=== PATIENT | female | born 1960 | race Hispanic/Latino ===

== ENCOUNTER 2020-03-30 20:48 | Inpatient (IN) | payer OTHER ==
[~2020-03-30] VITALS: Ht 167.6 cm; Wt 87.6 kg
[2020-03-30] MEDS ORDERED: NS 1,000 ML IV ONE (21:15)
--- NOTE | 2020-03-30 21:17 | REPVR ---
PROCEDURE INFORMATION: Exam: CT Head Without Contrast Exam date and time: 03/30/2020 8:57 PM Age: 65 years old Clinical indication: Weakness, extremity; Left; Additional info: Left sided weakness TECHNIQUE: Imaging protocol: Computed tomography of the head without contrast. Radiation optimization: All CT scans at this facility use at least one of these dose optimization techniques: automated exposure control; mA and/or kV adjustment per patient size (includes targeted exams where dose is matched to clinical indication); or iterative reconstruction. COMPARISON: No relevant prior studies available. FINDINGS: Brain: Moderate generalized cerebral and cerebellar atrophy. 3 mm lacunar infarct in the mat on the left. Mild low-density in the periventricular white matter extending into mcnair radiata and centrum semiovale bilaterally. Basal ganglia calcifications are present. Gyriform hyperdensity noted in the right frontal lobe. No mass effect. Midline structures intact. Ventricles: Normal. No ventriculomegaly. Bones/joints: Unremarkable. No acute fracture. Sinuses: Visualized sinuses are unremarkable. No fluid levels. Mastoid air cells: Visualized mastoid air cells are well aerated. Soft tissues: Unremarkable. IMPRESSION: Gyriform hyperdensity in the right frontal lobe. Differential diagnostic considerations include cortical laminar necrosis in the context of chronic infarct, or atypical petechial hemorrhage. MR without and with gadolinium might be considered Electronically signed by: Anat Silva On 03/30/2020 21:16:54 PM
[2020-03-30 21:29] VITALS: BP 136/72
[2020-03-30 21:32] LABS: BASO % 0.4 % (0.0-1.0); EOS % 0.1 % (0.0-3.0); HEMATOCRIT 45.2 % (36.0-47.0); HEMOGLOBIN 13.6 g/dl (12.0-15.5); LYMPH # 1.2 10^3/uL (1.5-5.0); LYMPH % 15.5 % (24.0-44.0); MEAN CORPUSCULAR HEMOGLOBIN 26.2 pg (27.0-33.0); MEAN CORPUSCULAR HGB CONC 30.1 g/dl (32.0-36.5); MEAN CORPUSCULAR VOLUME 86.9 fl (80.0-96.0); MONO # 0.5 10^3/uL (0.0-0.8); MONO % 6.4 % (0.0-5.0); NEUTROPHILS # 5.9 10^3/uL (1.5-8.5); NEUTROPHILS % 77.2 % (36.0-66.0); PLATELET COUNT, AUTOMATED 297 10^3/uL (150-450); VENOUS BASE EXCESS -1.2 (-2.0-2.0); VENOUS HCO3 23.5 MEQ/L (23.0-27.0); VENOUS PARTIAL PRESSURE CO2 39.3 mmHg (38.0-50.0); VENOUS PARTIAL PRESSURE O2 114.2 mmHg (30.0-50.0); VENOUS PH 7.394 UNITS (7.330-7.430); VENOUS STANDARD HCO3 23.5 MEQ/L; VENOUS TOTAL CO2 24.7 MEQ/L (24.0-28.0); WHITE BLOOD COUNT 7.6 10^3/uL (4.0-10.0)
[2020-03-30] MEDS ORDERED: AMLO10TA5 PO (21:46)
[2020-03-30] MEDS ORDERED: SIMV40TA20 PO (21:46)
[2020-03-30] MEDS ORDERED: ATEN50TA2 PO (21:46)
[2020-03-30 21:54] VITALS: BP 184/86
[2020-03-30 21:57] LABS: INR 0.91
[2020-03-30 21:57] LABS: OSMOLALITY SERUM 323 MOSM/KG (280-301)
[2020-03-30 21:58] LABS: PARTIAL THROMBOPLASTIN TIME 27.2 SECONDS (25.0-38.4)
[2020-03-30 22:05] LABS: BLOOD UREA NITROGEN 15 MG/DL (7-18); CALCIUM LEVEL 8.3 MG/DL (8.8-10.2); CARBON DIOXIDE LEVEL 26 MEQ/L (21-32); CHLORIDE LEVEL 90 MEQ/L (98-107); CK-MB VALUE MASS < 1.0 NG/ML (<3.6); CPK CREATINE PHOSPHOKINASE 59 U/L (26-192); CREATININE FOR GFR 1.62 MG/DL (0.55-1.30); GLOMERULAR FILTRATION RATE 34.4 (>45); MB/CK RELATIVE INDEX 1.69 (< OR =4); POTASSIUM SERUM 4.3 MEQ/L (3.5-5.1); SODIUM LEVEL 126 MEQ/L (136-145); TROPONIN I < 0.02 NG/ML (< 0.10)
--- NOTE | 2020-03-30 22:58 | ECGEPIP ---
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
--- NOTE | 2020-03-30 22:59 | REPVR ---
PROCEDURE INFORMATION: Exam: MR Angiogram Head Without Contrast, Arteries Exam date and time: 03/30/2020 9:15 PM Age: 59 years old Clinical indication: Weakness; Patient HX: HX previous stroke; Additional info: Left sided weakness TECHNIQUE: Imaging protocol: MR angiogram head without contrast. Exam focused on the arteries. COMPARISON: No relevant prior studies available. FINDINGS: There is asymmetrically decreased flow in the visualized V4 segment of the left vertebral artery. This may be due to more proximal stenosis in the left vertebral artery which is not included on this examination. There is no evidence of occlusion of the V4 segment of the left vertebral artery. There is no significant stenosis, large vessel occlusion or aneurysmal dilatation within the anterior or posterior intracranial arterial circulation. IMPRESSION: No significant stenosis, aneurysmal dilatation or large vessel occlusion within the anterior or posterior intracranial arterial circulation. Asymmetrically diminished flow in the visualized V4 segment of the left vertebral artery. This may be due to more proximal stenosis in the left vertebral artery of the neck. There is no definite evidence of left V4 occlusion. Electronically signed by: Edi Belcher On 03/30/2020 22:59:13 PM
--- NOTE | 2020-03-30 23:02 | REPVR ---
PROCEDURE INFORMATION: Exam: MR Head Without Contrast Exam date and time: 03/30/2020 9:15 PM Age: 59 years old Clinical indication: Weakness, extremity; Left; Patient HX: HX previous stroke; Additional info: Left sided weakness TECHNIQUE: Imaging protocol: MR of the head without contrast. COMPARISON: No relevant prior studies available. FINDINGS: On diffusion weighted sequences, there is no evidence of true restricted diffusion. No evidence of acute infarction. There are no intra-or extra-axial hemorrhages or fluid collections. There is no mass effect or midline shift. Ventricles are symmetrical and nondilated for age. On FLAIR sequences, mild increased T2 signal in the subcortical and periventricular deep white matter likely consistent with mild changes of chronic ischemia. There are no focal parenchymal abnormalities. Midline craniocervical structures are grossly normal. Normal flow voids are identified in the major intracranial arteries. Paranasal sinuses and mastoid air cells are clear. IMPRESSION: No evidence of true restricted diffusion. No evidence of acute infarction. No acute intracranial process. Probable mild chronic ischemic changes in the periventricular and subcortical deep white matter. Electronically signed by: Edi Belcher On 03/30/2020 23:01:50 PM
[2020-03-30 23:13] LABS: GLUCOSE, FASTING 1060 MG/DL (70-100)
[2020-03-30] MEDS ORDERED: HumuLIN R (REGULAR) INSULIN (NovoLIN R) **100U/ML** PER UNIT IV ONE (23:30)
[2020-03-30] MEDS ORDERED: NS IV ONE (23:30)
--- NOTE | 2020-03-30 23:40 | IPNPDOC ---
Text Note Date of Service The patient was seen on 03/30/20. NOTE Leeper service 11:45 PM Ms. 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 Her family found her on bathroom floor looking confused and she had difficulties standing; she hasn't taken her DM meds for several weeks but reports taking her anti-hypertensive meds. Per Dr. Griffin she was diagnosed with HHS and start IV fluids and insulin. At the time of my evaluation she was able to provide a hx. Her physical exam was unremarkable except for old well healed foot ulcers. She'll be admitted for management of HHS & hypertensive urgency. 1 HHS w pseudohyponatremia likely 2/2 non-compliance - Plan: HHS order set / hypoglycemia order set / f/u A1C/ she will need to be referred to an Shot Blaster, Opthalmologist and Auxiliary Plant Operator on an out pt basis 2. Metabolic Encephalopathy likely 2/2 acute hyperglycemia has resolved - Plan: tx hyper glycemia / frequent neurochecks 3. HTN Urgency - Plan: resume amlodipine & atenolol / the day time team may consider switching from the BB to an ACEI in a few days if her renal function improves 4. ELVIS vs ELVIS on CKD - Plan: f/u BMP / IVF / f/u UA, Phosph, Ulytes and UPro:Cr & renal US 5. Lactic acidosis 2/2 dehydration - Plan: IVF 6. Pseudohypocalcemia? - Plan: f/u albumin 7. hx of CVA (Right Frontal lobe hypodensity on CT likely due to "include cortical laminar necrosis in the context of chronic infarct" per CT report; MRI/MRA were unremarkable - Plan: c/w ASA / PT consult for early mobilization once HHS has resolved Rest per 's H&P VS,Hernanbone, I+O VS, Fishbone, I+O Laboratory Tests 03/30/20 21:22 Vital Signs Date Time Temp Pulse Resp B/P (MAP) Pulse Ox O2 Delivery O2 Flow Rate FiO2 03/30/20 23:03 190/90 (123) Room Air 03/30/20 22:00 81 97 03/30/20 21:54 18 03/30/20 20:49 97.8 LWANGA,NADEGE MD March 30, 2020 23:40
[2020-03-30] MEDS ORDERED: LABETALOL 100MG/20ML VIAL IV STA (23:53)
[2020-03-30 23:58] LABS: ACETONE/KETONE 13.99 MG/DL (<2.81)
[2020-03-31] VITALS (22 sets, daily range): BP systolic 126–191; BP diastolic 61–93
[2020-03-31] MEDS ORDERED: INSULIN HUMAN REGULAR 100 UNITS in NS 99 ML IV SCH ×2
[2020-03-31] MEDS ORDERED: ACETAMINOPHEN TAB 650MG DOSE (2X325MG) PO PRN (00:15)
[2020-03-31] MEDS ORDERED: MOM 30ML SUSPENSION UDC PO PRN (00:15)
[2020-03-31 00:56] LABS: CALCIUM LEVEL 8.4 MG/DL (8.8-10.2); CREATININE FOR GFR 1.5 MG/DL (0.55-1.30); GLOMERULAR FILTRATION RATE 37.6 (>45); PHOSPHORUS LEVEL 3.4 MG/DL (2.5-4.9); POTASSIUM SERUM 4.5 MEQ/L (3.5-5.1)
[2020-03-31] MEDS ORDERED: FLUBLOK(EGG FREE)(QUAD)INFLUENZA VACC 0.5ML SYRINGE (90682)18YRS&OLDER IM SCH (01:15)
[2020-03-31] MEDS: KCL 20MEQ in NS 1000ML 1,000 ML IV SCH ×2 (01:25→04:25)
[2020-03-31] MEDS: HEPARIN SOD (PORCINE) 5000UNITS/ML VIAL (J1644 PER 1000UNITS) SQ SCH ×3 (01:49→21:33)
[2020-03-31] MEDS ORDERED: GLUCOSE 4GM CHEW TABLET PO PRN (02:00)
[2020-03-31] MEDS ORDERED: DEXTROSE 50% 50 ML SYRINGE IV PRN (02:00)
[2020-03-31] MEDS ORDERED: GLUCAGON INJ 1MG VIAL SC PRN (02:00)
[2020-03-31 02:37] LABS: CALCIUM LEVEL 8.1 MG/DL (8.8-10.2); CREATININE FOR GFR 1.46 MG/DL (0.55-1.30); GLOMERULAR FILTRATION RATE 38.8 (>45); PHOSPHORUS LEVEL 2.9 MG/DL (2.5-4.9); POTASSIUM SERUM 3.9 MEQ/L (3.5-5.1)
[2020-03-31] MEDS ORDERED: NS 500 ML IV ONE (02:45)
[2020-03-31] MEDS ORDERED: VANICREAM MOISTURIZING SKIN CREAM 113GM TUBE TOP PRN (03:30)
--- NOTE | 2020-03-31 03:47 | HPEPDOC ---
General Date of Admission March 30, 2020 at 23:36 Date of Service: March 31, 2020 Attending Physician: NADEGE HARRY MD Chief Complaint The patient is a 59-year-old female admitted with a reason for visit of Lactic Acid Acidosis, Hypertensive Urgency. History of Present Illness HPI: This is a 59-year-old Trinidadian speaking female from whom information is obtained through [employer] professional translation services. She presents after her daughter called the ambulance for patient experiencing left-sided body weakness after shower earlier today. Denies any slurred speech, facial droop, visual or auditory disturbances, headache, or any other neurologic symptoms. No loss of bowel or bladder function or seizure-like activity. She reports similar episodes almost on a monthly basis over the past 3 years when her blood sugars are high. She is type 2 diabetic on insulin for almost 15 years. She reports frequent episodes of high blood sugars, and recently has noted worsening paresthesias of bilateral hands and feet, polyuria, polydipsia, dry mouth. She states she normally takes 10 units long-acting insulin twice a day, and sliding scale with meals, but has not taken any insulin over the past one month since relocating from [place] to move in with her daughter here in [place], [place]. In the ER, she was noted to have significant hyperglycemia 1000+ consistent with HHS, and severe HTN with bp 200s/90s, and creatinine at 1.62. Imaging was negative for an acute stroke, but noted possible chronic infarct versus atypical petechial hemorrhage. She received fluids and 8 units regular insulin and admitted to the ICU on an insulin drip & IVF. When reexamined in ICU, she reports significant improvement in her weakness and energy, and blood pressure noted to be spontaneously improving to the 140s/80s without any anti-hypertensives. She has no other complaints and is hemodynamically stable. PMH: Hypertension Dyslipidemia IDDM2 Past Surgical Hx: Left eye cataract Tubal ligation Family Hx: Father and aunt passed of cancer type unknown Multiple members with hypertension and diabetes Social Hx: Quit smoking 20 years ago Denies alcohol or illicit substances Recently translocated from [place] to [facility] 1 month ago Currently lives with daughter in [place] ROS: Constitutional: Denies fever, chills, night sweats, weight loss HEENT: Denies headache, dysphagia, visual or auditory changes Skin: Denies any rashes or lesions Pulmonary: Denies dyspnea, cough, wheezing Cardiac: Denies chest pain, palpitations, orthopnea, PND, edema, lightheadedness GI: Denies nausea, vomiting, abdominal pain, diarrhea, constipation, melena, hematochezia : Denies dysuria, urgency ENDO: admits dry mouth, polyuria, polydipsia, decreased appetite MSK: Denies new pains or joint swelling. Admits left side weakness improving Neurologic: Denies new numbness/tingling. Admits chronic neuropathy b/l feet & hands. Denies slurred speech, facial droop, limp extremities, loss of bowel or bladder, new numbness, or seizure-like activity PHYSICAL: General exam: A&O x3, NAD, resting comfortably HEENT: NCAT, EOMI, dry mucous membranes, dentures in place, no oral lesions, patent airway, Cardiac: RRR, normal S1 & S2, no murmurs Respiratory: CTAB, good air exchange, no w/r/r Abdomen: soft, NT, ND, normoactive bowel sounds Extremity: 2+ radial and dorsalis pedis pulses, trace b/l LE edema, no calf tenderness Skin: [place], warm, dry, no visible rash. Dry skin b/l arms Msk: strength 5/5 x4, normal tone Neuro: normal speech, no focal deficits. Nml finger to nose & sensation intact throughout. No facial droop, slurred speech, tongue deviation, or pronator drift or tremors. Left eye slightly lower than right, but no other appreciable asymmetry Psych: Normal mood and affect LABORATORY DATA, MICROBIOLOGY: Please see below. ASSESSMENT AND PLAN: This is a 59 yo F here for left-sided weakness after stepping out of shower, and found to have HHS & hypertensive urgency and possible ELVIS on admission. HHS with lactic acidosis Has been out of insulin for the past 1 month since relocating from [place] Reports frequent episodes of hyperglycemia. Reports she normally takes 10u Levemir bid and ISS On admission, blood glucose 1060, osm 323, +ketosis, no acidosis or anion gap s/p 8U insulin in ER. Start insulin drip & aggressive IVF per [facility] protocol repeat labs q2h, dietary consult ordered. A1c pending Establish with PCP & Endo on discharge PFS consulted to help obtain meds and care Pseudohyponateremia 126 on admission, normal when corrected for hyperglycemia Monitor with repeat BMPs through the night as she continues on insulin drip Hypertensive Urgency BP 200/90s on admission, pt complaining of weakness Admits to taking all bp meds. Spontaneously improving without intervention. Possible white coat htn No focal deficits on exam. Continue home po Amlodipine 10mg & Atenolol 50mg with hold parameters Slowly reduce bp with goal with MAP reduction 25-30% over next few hours Left sided weakness May be related to hypertensive urgency vs HHS vs TIA Imaging negative for acute stroke, but notes chronic infarct, atypical petechial hemorrhage No focal deficits on exam. Neuro & MSK intact Neurochecks, fall risk, PT/OT. Echo & tele & trend cardiac markers ELVIS, unclear if baseline CKD Cr 1.62 on admission, no prior labs to compare to Possibly related to dehydration & HHS Trend levels and do full w/u if renal fxn does not improve Dyslipidemia Continue home ASA, statin DVT prophylaxis: heparin sc CODE STATUS: asked pt in depth on admission and requesting FULL CODE. She would like her daughter to make decisions if needed. DISPOSITION: admit to hospital ICU and monitor overnight with frequent labs. Home Medications Scheduled Amlodipine Besylate (Amlodipine Besylate) 10 Mg Tablet, 10 MG PO DAILY, (Reported) Atenolol (Atenolol) 50 Mg Tablet, 50 MG PO DAILY, (Reported) Simvastatin (Simvastatin) 40 Mg Tablet, 40 MG PO QHS, (Reported) Allergies Coded Allergies: No Known Allergies (Unverified , 03/30/20) A-FIB/CHADSVASC A-FIB History Current/History of A-Fib/PAF?: No Vital Signs Vital Signs Date Time Temp Pulse Resp B/P (MAP) Pulse Ox O2 Delivery O2 Flow Rate FiO2 03/31/20 02:30 76 164/77 (106) 98 Room Air 03/31/20 00:51 98.5 18 Laboratory Data Labs 24H Laboratory Tests 2 03/30/20 21:22: Immature Granulocyte % (Auto) 0.4, Neutrophils (%) (Auto) 77.2H, Lymphocytes (%) (Auto) 15.5L, Monocytes (%) (Auto) 6.4H, Eosinophils (%) (Auto) 0.1, Basophils (%) (Auto) 0.4, Neutrophils # (Auto) 5.9, Lymphocytes # (Auto) 1.2L, Monocytes # (Auto) 0.5, Eosinophils # (Auto) 0.0, Basophils # (Auto) 0.0, Nucleated Red Blood Cells % (auto) 0.0, Blood Gas Bicarbonate Standard 23.5, Venous Blood pH 7.394, Venous Blood Partial Pressure CO2 39.3, Venous Blood Partial Pressure O2 114.2H, Venous Blood Total Carbon Dioxide 24.7, Venous Blood HCO3 23.5, Venous Blood Oxygen Saturation 98.0H, Venous Blood Base Excess -1.2, Anion Gap 10, Glomerular Filtration Rate 34.4L, Osmolality 323H, Lactic Acid Level 2.8*H, Calcium Level 8.3L, Total Creatine Kinase 59, Creatine Kinase MB < 1.0, Creatine Kinase MB Relative Index 1.69, Troponin I < 0.02, B-Hydroxybutyrate 13.99H 03/30/20 21:23: Prothrombin Time 12.0, Prothromb Time International Ratio 0.91, Activated Partial Thromboplast Time 27.2 03/30/20 21:37: POC Glucose (Misc Panel) > 700*H, POC Sodium (Misc Panel) 125L, POC Potassium (Misc Panel) 4.4, POC Chloride (Misc Panel) 91L, POC Total CO2 (Misc Panel) 23.0, POC Blood Urea Nitrogen (Misc Panel 17, POC Ionized Calcium (Misc Panel) 4.3L, POC Creatinine (Misc Panel) 1.2, POC Hematocrit (Misc Panel) 48.0 03/31/20 00:08: 03/31/20 00:09: Anion Gap 8, Glomerular Filtration Rate 37.6L, Calcium Level 8.4L, Phosphorus Level 3.4 03/31/20 01:45: Anion Gap 9, Glomerular Filtration Rate 38.8L, Calcium Level 8.1L, Phosphorus Level 2.9, Bedside Glucose Confirm (Misc) 662*H, Lactic Acid Followup at 4 Hours 4.5*H 03/31/20 03:07: Bedside Glucose (Misc Panel) 473H CBC/BMP Laboratory Tests 03/30/20 21:22 03/31/20 00:09 03/31/20 01:45 Microbiology Microbiology 03/31/20 Blood Culture, Received Pending 03/31/20 Blood Culture, Received Pending Plan / VTE VTE Prophylaxis Ordered?: Yes GME ATTESTATION GME ATTESTATION My faculty preceptor for this patient encounter was physically present during the encounter and was fully available. All aspects of the patient interview, examination, medical decision making process, and medical care plan development were reviewed and approved by the faculty preceptor. The faculty preceptor is aware and concurs with the plan as stated in the body of this note and will attest to such by his/her cosignature. ATTENDING NOTE I have reviewed the note and agree with the findings as documented by ; pls see my addendum from 03/30/20 JOHN HUBER DO March 31, 2020 03:47 NADEGE HARRY MD March 31, 2020 06:22
[2020-03-31 04:26] LABS: HEMATOCRIT 38.9 % (36.0-47.0); HEMOGLOBIN 12.4 g/dl (12.0-15.5); MEAN CORPUSCULAR HEMOGLOBIN 26.6 pg (27.0-33.0); MEAN CORPUSCULAR HGB CONC 31.9 g/dl (32.0-36.5); MEAN CORPUSCULAR VOLUME 83.3 fl (80.0-96.0); PLATELET COUNT, AUTOMATED 251 10^3/uL (150-450); RED BLOOD COUNT 4.67 10^6/uL (4.00-5.40); WHITE BLOOD COUNT 7.6 10^3/uL (4.0-10.0)
[2020-03-31 05:02] LABS: ACETONE/KETONE 1.56 MG/DL (<2.81); CALCIUM LEVEL 8.2 MG/DL (8.8-10.2); CK-MB VALUE MASS 1.2 NG/ML (<3.6); CREATININE FOR GFR 1.29 MG/DL (0.55-1.30); GLOMERULAR FILTRATION RATE 44.7 (>45); MAGNESIUM LEVEL 1.4 MG/DL (1.8-2.4); MB/CK RELATIVE INDEX 2.61 (< OR =4); PHOSPHORUS LEVEL 2.3 MG/DL (2.5-4.9); POTASSIUM SERUM 3.6 MEQ/L (3.5-5.1); TROPONIN I 0.04 NG/ML (< 0.10)
[2020-03-31] MEDS: INSULIN IV RATE CHANGE DOCUMENTATION ML/HR XX SCH ×6 (05:28→10:07)
[2020-03-31] MEDS ORDERED: KCL 20MEQ IN D5/0.45NS 1000ML 1,000 ML IV SCH (05:45)
[2020-03-31] MEDS ORDERED: D5W/0.45% SODIUM CHLORIDE 1,000 ML IV SCH (05:45)
[2020-03-31] MEDS ORDERED: MAG SULF 1GM/100ML (MAG RUN) 1 GM in IV 1 EA IV ONE (05:45)
[2020-03-31] MEDS ORDERED: LABETALOL 100MG/20ML VIAL IV SCH (06:00)
[2020-03-31] MEDS ORDERED: POTASSIUM PHOSPHATE INJ 15 MMOL in D5W 250 ML IV ONE (06:00)
[2020-03-31 07:25] LABS: ESTIMATED AVERAGE GLUCOSE 413 MG/DL (60-110); HEMOGLOBIN A1c > 16.0 %
--- NOTE | 2020-03-31 08:08 | REP ---
Clinical: Acute cerebrovascular accident . Comparison: None . Findings: The mediastinum and cardiac silhouette are stable and within normal limits for portable technique. The lung hicks are clear without acute consolidation, effusion, or pneumothorax. Skeletal structures are intact. Impression: No acute cardiopulmonary process appreciated. Electronically Signed by Oni Ferguson MD 03/31/2020 08:00 A
[2020-03-31 08:09] LABS: MAGNESIUM LEVEL 2.2 MG/DL (1.8-2.4); PHOSPHORUS LEVEL 1.9 MG/DL (2.5-4.9); POTASSIUM SERUM 3.4 MEQ/L (3.5-5.1)
[2020-03-31] MEDS: ATORVASTATIN 20 MG TAB PO SCH (08:20)
[2020-03-31] MEDS: amLODIPine 10 MG TAB PO SCH (08:21)
[2020-03-31] MEDS: PANTOPRAZOLE 40MG VIAL (C9113 PER 1) IV SCH (08:22)
[2020-03-31] MEDS: ASPIRIN 81 MG ENTERIC TAB PO SCH (08:22)
[2020-03-31] MEDS ORDERED: MAG SULF 1GM/100ML (MAG RUN) 1 GM in IV 1 EA IV SCH (09:00)
[2020-03-31] MEDS ORDERED: LEVEMIR (INSULIN DETEMIR) 1 UNITS/0.01ML SC ONE (09:00)
[2020-03-31] MEDS ORDERED: atenoloL 50 MG TAB PO SCH (09:00)
[2020-03-31 10:43] LABS: CALCIUM LEVEL 8.4 MG/DL (8.8-10.2); CREATININE FOR GFR 1.01 MG/DL (0.55-1.30); GLOMERULAR FILTRATION RATE 59.3 (>45); PHOSPHORUS LEVEL 3.4 MG/DL (2.5-4.9); POTASSIUM SERUM 4.1 MEQ/L (3.5-5.1)
[2020-03-31 12:49] LABS: BLOOD UREA NITROGEN 9 MG/DL (7-18); CALCIUM LEVEL 7.9 MG/DL (8.8-10.2); CARBON DIOXIDE LEVEL 28 MEQ/L (21-32); CHLORIDE LEVEL 107 MEQ/L (98-107); CK-MB VALUE MASS < 1.0 NG/ML (<3.6); CPK CREATINE PHOSPHOKINASE 47 U/L (26-192); CREATININE FOR GFR 1.01 MG/DL (0.55-1.30); GLOMERULAR FILTRATION RATE 59.3 (>45); GLUCOSE, FASTING 251 MG/DL (70-100); MB/CK RELATIVE INDEX 2.13 (< OR =4); PHOSPHORUS LEVEL 3.3 MG/DL (2.5-4.9); POTASSIUM SERUM 4.6 MEQ/L (3.5-5.1); SODIUM LEVEL 140 MEQ/L (136-145); TROPONIN I 0.04 NG/ML (< 0.10)
[2020-03-31] MEDS: HumaLOG INSULIN (NovoLOG) PER UNIT SC SCH ×3 (13:34→21:00)
--- NOTE | 2020-03-31 15:41 | ECHO ---
DATE: 03/31/2020 REFERRING PHYSICIAN: Dr. Declan Holcomb INDICATION: Transient ischemic attack (TIA). HEIGHT: 165 cm WEIGHT: 83 kg DIMENSIONS: LA: 4.1 Aorta: 2.9 IVC: 2.0 IVS: 1.5 LV: 4.2 LVPW: 1.4 RV: 3.4 Mitral E wave velocity: 133 A wave: 110 E prime septal: 5.8 E prime lateral: 5.7 FINDINGS: The study is of fair technical quality corresponding to patient's body habitus. The patient is in sinus rhythm. Left ventricle is normal size and systolic function with estimated ejection fraction (EF) 60-65%. No segmental wall motion abnormalities are appreciated. Moderate left ventricular hypertrophy is present. Right ventricle was relatively poorly visualized, but it appears grossly normal. Left atrium is at least mildly enlarged. Right atrium was poorly visualized. Aortic valve is mildly sclerotic, but mobility of cusps is preserved. Mitral valve has degenerative abnormalities with mitral annular calcifications and thickening of mitral leaflets. There appears to be at least mild restriction of leaflet mobility. Tricuspid and pulmonic valves appear normal. No pericardial effusion is noted. Inferior vena cava is dilated and there is no appreciable collapse with respiration, indicative of at least mildly elevated central venous pressure. Aortic root appears normal. Abdominal aorta and aortic arch were poorly visualized but grossly also appear normal. Doppler interrogation of aortic valve revealed no significant stenosis or insufficiency. There is no significant mitral insufficiency but mild stenosis (mean gradient 3 mmHg). There is trace tricuspid insufficiency. Unfortunately, quality of tricuspid regurgitation (TR) jet was not sufficient in order to estimate pulmonary artery pressure. Mitral inflow pattern and tissue Doppler imaging of mitral annulus reveals grade 2 diastolic dysfunction. CONCLUSIONS: 1. Study is of fair technical quality; patient is in sinus rhythm. 2. Normal left ventricle (LV) size with moderate left ventricular hypertrophy (LVH); normal LV systolic function and grade 2 diastolic dysfunction. 3. Aortic sclerosis but no significant stenosis or insufficiency. 4. Mild mitral stenosis. No insufficiency. No visualized vegetations but cannot be ruled out based on quality of the study. 5. Likely elevated central venous pressure. 6. Unable to estimate pulmonary artery pressure. COMMENTS: Study is most consistent with hypertensive heart disease. If high clinical suspicion for cardioembolic source, then transesophageal echocardiogram can provide more anatomical details.
--- NOTE | 2020-03-31 16:31 | IPNPDOC ---
Text Note Date of Service The patient was seen on 03/31/20. NOTE SUBJECTIVE: 59 year old female admitted overnight with a 2 day history of conf usion and found to be in HHS, hypertensive urgency, and acute renal failure. History obtained through a translation service. No acute events overnight, patient is well appearing, reports nothing is bothering her and conveys a similar story as outlined in admission note, she presently states she has no weakness or deficits like she did yesterday. In fact she has no complaints a this time and presently denies any fevers, chills, chest pain, difficulty breathing, nausea, vomiting, abdominal pain, weakness, dizziness, vision changes, numbness, or tingling. OBJECTIVE: PHYSICAL EXAM: Vitals: (see below) General: No acute distress, laying comfortably in bed eating. HEENT: Normocephalic, atraumatic. EOMI. No scleral icterus. Moist mucous membranes. No pharyngeal erythema or uvular deviation. Neck: No JVD, lymphadenopathy, or thyromegaly. Cardiac: RRR, Normal S1 and S2, No murmurs, gallops, rubs. Pulm: Clear to auscultation b/l. Symmetric thorax. No wheezing, crackles, rhonchi Abd: Bowel Sounds present. Abdomen is soft, non-tender, non-distended. No guarding, rebound tenderness, or rigidity. Ext: No edema or cyanosis Neuro: No focal neuro deficits Psych: Normal mood and affect LABORATORY DATA, MICROBIOLOGY: Please see below. IMAGING STUDIES: ASSESSMENT AND PLAN: This is a 59 yo F here for left-sided weakness after stepping out of shower, and found to have HHS, hypertensive urgency, and ARF on admission. #. HHS with lactic acidosis -Resolved. Patient bridged this AM and is tolerating diet with normal blood sugars. -Lactic acid downtrending. #. Bilateral lower extremity edema -Echo ordered showing LVEF 65% with grade 2 diastolic dysfunction, elevated CVP, study most consistent with hypertensive heart disease. -Will start patient on DIDIER inhibitor and may consider adding on lasix tomorrow based on her response to med. #. Hx of CAD -Patient states she had a "mini heart attack" in the past. -Continue home atorvastatin #. Hypertensive Urgency -Resolved. -Continue home amlodipine, will dc atenolol which seems to be for her blood pressure, will change to DIDIER which will be renal protective given her diabetes. #. Left sided weakness -Seems to have resolved as her neuro exam was normal both on admission and last night -MRI showing old chronic infarct, atypical petechial hemorrhage. #. Acute renal failure -Resolved with fluids. #. Pseudohyponateremia -Resolved. #. Dyslipidemia Continue home ASA, statin DVT prophylaxis: heparin, teds CODE STATUS: FULL CODE Attending attestation: I evaluated and examined the patient in person; I discussed the care with Resident in detail and agree with the plan above. VS,Fishbone, I+O VS, Fishbone, I+O Laboratory Tests 03/30/20 21:22 03/31/20 00:09 03/31/20 01:45 03/31/20 04:00 03/31/20 07:36 03/31/20 09:52 03/31/20 12:05 Vital Signs Date Time Temp Pulse Resp B/P (MAP) Pulse Ox O2 Delivery O2 Flow Rate FiO2 03/31/20 12:00 98.5 72 18 150/66 (94) 95 Room Air I&O- Last 24 Hours up to 6 AM 03/31/20 06:00 Intake Total 4537 ml Output Total 625 ml Balance 3912 ml GME ATTESTATION GME ATTESTATION My faculty preceptor for this patient encounter was physically present during the encounter and was fully available. All aspects of the patient interview, examination, medical decision making process, and medical care plan development were reviewed and approved by the faculty preceptor. The faculty preceptor is aware and concurs with the plan as stated in the body of this note and will attest to such by his/her cosignature. ART MCELROY DO March 31, 2020 16:31 JOCELIN DELONG MD April 03, 2020 18:58
[2020-04-01 06:00] VITALS: BP 125/66
[2020-04-01 06:35] LABS: HEMATOCRIT 39.8 % (36.0-47.0); HEMOGLOBIN 12.3 g/dl (12.0-15.5); MEAN CORPUSCULAR HEMOGLOBIN 26.3 pg (27.0-33.0); MEAN CORPUSCULAR HGB CONC 30.9 g/dl (32.0-36.5); MEAN CORPUSCULAR VOLUME 85.2 fl (80.0-96.0); PLATELET COUNT, AUTOMATED 163 10^3/uL (150-450); RED BLOOD COUNT 4.67 10^6/uL (4.00-5.40); WHITE BLOOD COUNT 7.4 10^3/uL (4.0-10.0)
[2020-04-01 07:02] LABS: CALCIUM LEVEL 8.4 MG/DL (8.8-10.2); CREATININE FOR GFR 1.22 MG/DL (0.55-1.30); GLOMERULAR FILTRATION RATE 47.7 (>45); POTASSIUM SERUM 4.3 MEQ/L (3.5-5.1)
[2020-04-01] MEDS: HumaLOG INSULIN (NovoLOG) PER UNIT SC SCH ×4 (08:07→21:18)
[2020-04-01] MEDS: PANTOPRAZOLE 40MG VIAL (C9113 PER 1) IV SCH (08:07)
[2020-04-01] MEDS: ASPIRIN 81 MG ENTERIC TAB PO SCH (08:08)
[2020-04-01] MEDS: amLODIPine 10 MG TAB PO SCH (08:08)
[2020-04-01] MEDS: HEPARIN SOD (PORCINE) 5000UNITS/ML VIAL (J1644 PER 1000UNITS) SQ SCH ×2 (08:08→21:18)
[2020-04-01] MEDS: ATORVASTATIN 20 MG TAB PO SCH (08:08)
[2020-04-01] MEDS ORDERED: lisinopriL 10 MG TAB PO SCH (09:00)
--- NOTE | 2020-04-01 12:44 | IPNPDOC ---
Date Seen The patient was seen on 04/01/20. Progress Note SUBJECTIVE: 59-year-old female with past medical history of diabetes mellitus and hypertension was admitted for HHS and hypertensive urgency. Patient has been downgraded to [facility], no acute events overnight, comfortable, in the morning, without any complaints at this time. Patient continues to have slightly elevated blood pressure today. PHYSICAL EXAMINATION: VITAL SIGNS: Please see below. GENERAL: No distress HEENT: Normocephalic, atraumatic, moist mucous membranes NECK: Supple CARDIOVASCULAR EXAMINATION: S1, S2, no murmurs RESPIRATORY EXAMINATION: Clear to auscultation, no wheezing ABDOMINAL EXAMINATION: Soft, nontender, nondistended, positive bowel sounds EXTREMITIES: Range of motion intact SKIN: No rash NEUROLOGICAL EXAMINATION: Alert and oriented 3, no focal deficits PSYCHIATRIC EXAMINATION: Calm and cooperative LABORATORY DATA, IMAGING STUDIES, MICROBIOLOGY: Please see below. ASSESSMENT AND PLAN: 59-year-old female with past medical history diabetes mellitus and hypertension was admitted for HHS and hypertensive urgency. PROBLEMS: 1. HHS: Secondary to medication noncompliance, resolved, continue Levemir 30 units at bedtime along with sliding scale insulin coverage with meals and at bedtime. 2. Hypertension: Blood pressure remains elevated today, continue Norvasc 10 mg daily, increase lisinopril to 20 mg daily. 3. Hyperlipidemia: Continue statin DVT prophylaxis: Heparin subcutaneous GI for flex: PPI VS, I&O, 24H, Fishbone Vital Signs/I&O Vital Signs Date Time Temp Pulse Resp B/P (MAP) Pulse Ox O2 Delivery O2 Flow Rate FiO2 04/01/20 08:08 150/78 04/01/20 06:00 98.9 84 18 95 Room Air I&O- Last 24 Hours up to 6 AM 04/01/20 06:00 Intake Total 780 ml Output Total 550 ml Balance 230 ml Laboratory Data 24H LABS Laboratory Tests 2 03/31/20 14:19: Lactic Acid Followup at 4 Hours 2.2*H 03/31/20 16:46: Bedside Glucose (Misc Panel) 238H 03/31/20 17:48: Lactic Acid Level 2.2*H 03/31/20 20:42: Bedside Glucose (Misc Panel) 182H 03/31/20 22:04: Lactic Acid Followup at 4 Hours 1.4 04/01/20 06:19: Nucleated Red Blood Cells % (auto) 0.0, Anion Gap 8, Glomerular Filtration Rate 47.7, Calcium Level 8.4L CBC/BMP Laboratory Tests 04/01/20 06:19 Microbiology Microbiology 03/31/20 Blood Culture - Preliminary, Resulted No growth after 24 hours . All specim... 03/31/20 Blood Culture - Preliminary, Resulted No growth after 24 hours . All specim... JOCELIN DELONG MD April 01, 2020 12:44
[2020-04-01] MEDS ORDERED: lisinopriL 10 MG TAB PO ONE (12:45)
[2020-04-01 14:00] VITALS: BP 139/67
[2020-04-01] MEDS ORDERED: LEVEMIR (INSULIN DETEMIR) 1 UNITS/0.01ML SC SCH (21:00)
[2020-04-01 22:00] VITALS: BP 137/83
[2020-04-01 23:34] VITALS: BP 157/73
[2020-04-02 06:00] VITALS: BP 158/74
[2020-04-02 06:59] LABS: HEMATOCRIT 34.6 % (36.0-47.0); HEMOGLOBIN 11.1 g/dl (12.0-15.5); MEAN CORPUSCULAR HEMOGLOBIN 27.3 pg (27.0-33.0); MEAN CORPUSCULAR HGB CONC 32.1 g/dl (32.0-36.5); MEAN CORPUSCULAR VOLUME 85.2 fl (80.0-96.0); PLATELET COUNT, AUTOMATED 184 10^3/uL (150-450); RED BLOOD COUNT 4.06 10^6/uL (4.00-5.40)
[2020-04-02 07:30] LABS: CALCIUM LEVEL 8.1 MG/DL (8.8-10.2); CREATININE FOR GFR 1.03 MG/DL (0.55-1.30); POTASSIUM SERUM 4.2 MEQ/L (3.5-5.1)
[2020-04-02] MEDS: HumaLOG INSULIN (NovoLOG) PER UNIT SC SCH ×3 (07:30→17:30)
[2020-04-02] MEDS ORDERED: lisinopriL 20 MG TAB PO SCH (09:00)
[2020-04-02] MEDS: PANTOPRAZOLE 40MG VIAL (C9113 PER 1) IV SCH (10:19)
[2020-04-02] MEDS: HEPARIN SOD (PORCINE) 5000UNITS/ML VIAL (J1644 PER 1000UNITS) SQ SCH (10:19)
[2020-04-02] MEDS: ASPIRIN 81 MG ENTERIC TAB PO SCH (10:20)
[2020-04-02] MEDS: amLODIPine 10 MG TAB PO SCH (10:20)
[2020-04-02] MEDS: ATORVASTATIN 20 MG TAB PO SCH (10:20)
[2020-04-02] MEDS ORDERED: INSUDET SC (11:16)
[2020-04-02] MEDS ORDERED: ASPI81CH33 PO (11:16)
[2020-04-02] MEDS ORDERED: INSUHUMDS SC ×2 (11:16)
[2020-04-02] MEDS ORDERED: LISI-538 PO (11:16)
[2020-04-02] MEDS ORDERED: ATOR1TAB21 PO (11:16)
[2020-04-02] MEDS ORDERED: NOVOINJ13 SC (12:56)
[2020-04-02] MEDS ORDERED: INSUR SC (12:56)
[2020-04-02] MEDS ORDERED: BD I1MIS14 SC (12:58)
[2020-04-02 14:00] VITALS: BP 170/90
[2020-04-02] MEDS ORDERED: AMLO10TA5 PO (14:19)
[2020-04-02 14:44] VITALS: BP 187/158
[2020-04-02] MEDS ORDERED: FLUBLOK(EGG FREE)(QUAD)INFLUENZA VACC 0.5ML SYRINGE (90682)18YRS&OLDER IM ONE (15:00)
[2020-04-02 15:13] VITALS: BP 170/90
[2020-04-02] MEDS ORDERED: lisinopriL 10 MG TAB PO ONE (16:00)
--- NOTE | 2020-04-02 16:22 | DS.PDOC ---
Discharge Summary General Date of Admission March 30, 2020 at 23:36 Date of Discharge April 02, 2020 Attending Physician: JOCELIN DELONG MD Discharge Summary PROCEDURES PERFORMED DURING STAY: None. ADMITTING DIAGNOSES: 1. HHS with lactic acidosis 2. Pseudohyponateremia 3. Uncontrolled HTN 4. Left sided weakness 5. ELVIS 6. Dyslipidemia DISCHARGE DIAGNOSES: 1. Diabetes mellitus 2. HTN 3. Old CVA 4. Dyslipidemia COMPLICATIONS/CHIEF COMPLAINT: Lactic Acid Acidosis, Hypertensive Urgency. HISTORY OF PRESENT ILLNESS: 59-year-old Guatemalan speaking female from whom information is obtained through [employer] professional translation services. She presents after her daughter called the ambulance for patient experiencing left- sided body weakness after shower earlier today. Denies any slurred speech, facial droop, visual or auditory disturbances, headache, or any other neurologic symptoms. No loss of bowel or bladder function or seizure-like activity. She reports similar episodes almost on a monthly basis over the past 3 years when her blood sugars are high. She is type 2 diabetic on insulin for almost 15 years. She reports frequent episodes of high blood sugars, and recently has no oswaldo worsening paresthesias of bilateral hands and feet, polyuria, polydipsia, dry mouth. She states she normally takes 10 units long-acting insulin twice a day, and sliding scale with meals, but has not taken any insulin over the past one month since relocating from [place] to move in with her daughter here in [place], [place]. In the ER, she was noted to have significant hyperglycemia 1000+ consistent with HHS, and severe HTN with bp 200s/90s, and creatinine at 1.62. Imaging was negative for an acute stroke, but noted possible chronic infarct versus atypical petechial hemorrhage. HOSPITAL COURSE: She received fluids and 8 units regular insulin and admitted to the ICU on an insulin drip & IVF. When reexamined in ICU, she reports significant improvement in her weakness and energy, and blood pressure noted to be spontaneously improving to the 140s/80s without any anti-hypertensives. She has no other complaints and is hemodynamically stable. She was bridged from the insulin drip to basal insulin and sliding scale before meals and at bedtime. She was also started on lisinopril and continued on her home dose of amlodipine. The patient's blood glucose and blood pressure remained stable. On day of discharge, patient was found to be stable and safe for discharge home. DISCHARGE MEDICATIONS: Please see below. ALLERGIES: Please see below. PHYSICAL EXAMINATION ON DISCHARGE: VITAL SIGNS: Please see below. GENERAL: Alert, comfortable, in no acute distress HEENT: Normocephalic, atraumatic, sclera anicteric, moist mucous membranes NECK: Supple, trachea midline, no lymphadenopathy, no JVD CARDIOVASCULAR: Regular rate and rhythm, normal S1 and S2. No murmurs, rubs, or gallops RESPIRATORY: Clear to auscultation bilaterally with equal air entry bilaterally. No wheezing, rhonchi, or rales. ABDOMEN: Soft, nontender, nondistended, bowel sounds present, no masses or hepatosplenomegaly appreciated EXTREMITIES: No cyanosis or edema. Pulses 2+/4 in bilateral upper and lower extremities SKIN: Robbins, warm, dry NEUROLOGIC: Alert and oriented. No focal deficits appreciated PSYCHIATRIC: Mood and affect appropriate LABORATORY DATA: Please see below. IMAGING: Head CT 03/30: Gyriform hyperdensity in the right frontal lobe. Differential diagnostic considerations include cortical laminar necrosis in the context of chronic infarct, or atypical petechial hemorrhage. MR without and with gadolinium might be considered CXR 03/31: No acute cardiopulmonary process appreciated. Brain MRI 03/30: No evidence of true restricted diffusion. No evidence of acute infarction. No acute intracranial process. Probable mild chronic ischemic changes in the periventricular and subcortical deep white matter. Brain MRA 03/30: No significant stenosis, aneurysmal dilatation or large vessel occlusion within the anterior or posterior intracranial arterial circulation. Asymmetrically diminished flow in the visualized V4 segment of the left vertebral artery. This may be due to more proximal stenosis in the left vertebral artery of the neck. There is no definite evidence of left V4 occlusion. PROGNOSIS: Fair ACTIVITY: As tolerated. DIET: Consistent carbohydrate DISCHARGE PLAN: Home with PCP follow up for continued management DISCHARGE INSTRUCTIONS: 1. Please keep scheduled appointment with new PCP 2. Please take all your medications as prescribed 3. If your symptoms return, please call your PCP or return to the ED for further evaluation and treatment ITEMS TO FOLLOWUP ON ON OUTPATIENT: 1. Diabetes mellitus. 2. Hypertension DISCHARGE CONDITION: Stable TIME SPENT ON DISCHARGE: Greater than 35 minutes. Attending attestation: I evaluated and examined the patient in person; I discussed the care with Resident in detail and agree with the plan above. Vital Signs/I&Os Vital Signs Date Time Temp Pulse Resp B/P (MAP) Pulse Ox O2 Delivery O2 Flow Rate FiO2 04/02/20 15:13 170/90 04/02/20 14:45 96 98 04/02/20 14:44 98.7 04/02/20 14:00 18 Room Air I&O- Last 24 Hours up to 6 AM 04/02/20 06:00 Intake Total 1350 ml Output Total 550 ml Balance 800 ml Laboratory Data Labs 24H Laboratory Tests 2 04/01/20 16:33: Bedside Glucose (Misc Panel) 319H 04/01/20 20:32: Bedside Glucose (Misc Panel) 366H 04/02/20 06:32: Nucleated Red Blood Cells % (auto) 0.0, Anion Gap 6L, Glomerular Filtration Rate 58.0, Calcium Level 8.1L 04/02/20 11:37: Bedside Glucose (Misc Panel) 314H CBC/BMP Laboratory Tests 04/02/20 06:32 FSBS Laboratory Tests Test 04/01/20 16:33 04/01/20 20:32 04/02/20 11:37 Range/Units Bedside Glucose (Misc Panel) 319 366 314 80-115 MG/DL Microbiology Microbiology 03/31/20 Blood Culture - Preliminary, Resulted No Growth after 48 hours. All Specime... 03/31/20 Blood Culture - Preliminary, Resulted No Growth after 48 hours. All Specime... Discharge Medications Scheduled Amlodipine Besylate (Amlodipine Besylate) 10 Mg Tablet, 1 TAB PO DAILY Aspirin (Aspirin) 81 Mg Tab.chew, 1 TAB PO DAILY Atorvastatin Calcium (Atorvastatin Calcium) 20 Mg Tablet, 40 MG PO DAILY Insulin Human Regular (Novolin R) 100 Unit/1 Ml Vial, 0 SC 1HACHS Take before meals and at bedtime. Dose based on blood glucose level using the sliding scale. Insulin NPH Human Isophane (Novolin N) 100 Unit/1 Ml Vial, 15 UNITS SC BID Lisinopril (Lisinopril) 20 Mg Tablet, 20 MG PO DAILY Allergies Coded Allergies: No Known Allergies (Unverified , 03/30/20) BERENICE ROGEL D.O. April 02, 2020 16:22 JOCELIN DELONG MD April 03, 2020 19:55
== END 2020-04-02 18:20 | disposition home or self-care (01) | DRG 420 ==
LOC: M ED 20:48 → M ED INP 23:36 → ENRESERV 23:58 → M ICU 03-31 00:39 → M MSPAV 03-31 17:23
PROVIDERS: ADMIT Internal Medicine; ATTEND Internal Medicine
DX: E11.00 Type 2 diabetes mellitus with hyperosmolarity without nonketotic hyperglycemic-hyperosmolar coma (NKHHC) (principal); G93.41 Metabolic encephalopathy; N17.9 Acute kidney failure, unspecified; E87.2 Acidosis; E78.5 Hyperlipidemia, unspecified; I10 Essential (primary) hypertension; Z86.73 Personal history of transient ischemic attack (TIA), and cerebral infarction without residual deficits; Z79.899 Other long term (current) drug therapy; Z79.82 Long term (current) use of aspirin; Z87.891 Personal history of nicotine dependence; E87.1 Hypo-osmolality and hyponatremia; I16.0 Hypertensive urgency; Z91.19 Patient's noncompliance with other medical treatment and regimen

== ENCOUNTER → 2020-04-09 | Outpatient (REF) | payer SELFPAY ==
[~2020-04-09] MED LIST: AMLO10TA5 PO; ASPI81CH33 PO; ATEN50TA2 PO; ATOR1TAB21 PO; BD I1MIS14 SC; INSUDET SC; INSUHUMDS SC; INSUR SC; LISI-538 PO; NOVOINJ13 SC; SIMV40TA20 PO
[2020-04-09 17:42] LABS: CHOLESTEROL RISK RATIO 1.929 (<5)
[2020-04-09 18:09] LABS: CREATININE, URINE 73.8 MG/DL; MAU/CREAT RATIO 8848.2 MCG/MG (0.0-30.0)
== END ==
LOC: M SFHCPLAZ 15:57
PROVIDERS: ATTEND Family Medicine
DX: E11.9 Type 2 diabetes mellitus without complications (principal)

== ENCOUNTER → 2020-07-25 | Outpatient (CLI) | payer OTHER ==
[~2020-07-25] MED LIST changes: -AMLO10TA5 PO; +AMLO1TAB25 PO
[2020-07-25 15:00] LABS: CALCIUM LEVEL 9.5 MG/DL (8.8-10.2); CREATININE FOR GFR 1.19 MG/DL (0.55-1.30); GLOMERULAR FILTRATION RATE 49.1 (>45); POTASSIUM SERUM 4.6 MEQ/L (3.5-5.1)
[2020-07-25 15:32] LABS: CREATININE, URINE 32.4 MG/DL; MAU/CREAT RATIO 16111.1 MCG/MG (0.0-30.0)
[2020-07-25 16:00] LABS: HEMOGLOBIN A1c 9.8 %
== END ==
LOC: M LAB 12:42
PROVIDERS: ATTEND Family Medicine
DX: E11.65 Type 2 diabetes mellitus with hyperglycemia (principal); I10 Essential (primary) hypertension

== ENCOUNTER 2021-01-28 16:01 | Inpatient (IN) | payer OTHER ==
[~2021-01-28] VITALS: Ht 157.5 cm; Wt 84.9 kg
[~2021-01-28 16:01] MED LIST changes: -AMLO1TAB24 PO; -ASPI1CHW3 PO; -BASA100I SC; -FERR1TAB8 PO; -INSU100I28 SQ; -LISI10TA22 PO; -LOTR5CAP2 PO; -METF10004 PO; -METO1TAB87 PO; -OMEP-218 PO; -VITA250C5 PO
[2021-01-28 18:51] LABS: VENOUS BASE EXCESS -2.3 (-2.0-2.0); VENOUS HCO3 24.9 MEQ/L (23.0-27.0); VENOUS O2 SATURATION 66.9 % (60.0-80.0); VENOUS PARTIAL PRESSURE CO2 53.3 mmHg (38.0-50.0); VENOUS PARTIAL PRESSURE O2 35.9 mmHg (30.0-50.0); VENOUS PH 7.288 UNITS (7.330-7.430); VENOUS TOTAL CO2 26.6 MEQ/L (24.0-28.0)
[2021-01-28 19:04] LABS: BASO % 0.4 % (0.0-1.0); EOS % 0.5 % (0.0-3.0); HEMATOCRIT 38.3 % (36.0-47.0); HEMOGLOBIN 11.9 g/dl (12.0-15.5); LYMPH # 0.9 10^3/uL (1.5-5.0); LYMPH % 12.3 % (24.0-44.0); MEAN CORPUSCULAR HEMOGLOBIN 26.4 pg (27.0-33.0); MEAN CORPUSCULAR HGB CONC 31.1 g/dl (32.0-36.5); MEAN CORPUSCULAR VOLUME 85.1 fl (80.0-96.0); MONO # 0.3 10^3/uL (0.0-0.8); MONO % 4.2 % (2.0-8.0); NEUTROPHILS # 6.2 10^3/uL (1.5-8.5); NEUTROPHILS % 82.1 % (36.0-66.0); PLATELET COUNT, AUTOMATED 276 10^3/uL (150-450); WHITE BLOOD COUNT 7.6 10^3/uL (4.0-10.0)
[2021-01-28 19:21] LABS: BLOOD UREA NITROGEN 33 MG/DL (7-18); CALCIUM LEVEL 8.4 MG/DL (8.8-10.2); CARBON DIOXIDE LEVEL 25 MEQ/L (21-32); CHLORIDE LEVEL 99 MEQ/L (98-107); CREATININE FOR GFR 2.16 MG/DL (0.55-1.30); GLOMERULAR FILTRATION RATE 24.6 (>45); GLUCOSE, FASTING 760 MG/DL (70-100); POTASSIUM SERUM 5.2 MEQ/L (3.5-5.1); SODIUM LEVEL 131 MEQ/L (136-145)
[2021-01-28] MEDS ORDERED: HumuLIN R (REGULAR) INSULIN (NovoLIN R) **100U/ML** PER UNIT IV ONE (19:40)
[2021-01-28] MEDS ORDERED: AMLO1TAB24 PO (19:50)
[2021-01-28] MEDS ORDERED: LOTR5CAP2 PO (19:50)
[2021-01-28] MEDS ORDERED: METF10004 PO (19:50)
[2021-01-28] MEDS ORDERED: INSUR SC (19:50)
[2021-01-28] MEDS ORDERED: LISI10TA22 PO (19:50)
[2021-01-28] MEDS ORDERED: BASA100I SC (19:50)
[2021-01-28] MEDS ORDERED: LABETALOL 100MG/20ML VIAL IV STA (19:53)
[2021-01-28 20:02] LABS: ALBUMIN 2.9 GM/DL (3.2-5.2); ALT/SGPT 15 U/L (12-78); BILIRUBIN,DIRECT < 0.1 MG/DL (0.0-0.2); CK-MB VALUE MASS 1.5 NG/ML (<3.6); CPK CREATINE PHOSPHOKINASE 64 U/L (26-192); FREE T4 0.94 NG/DL (0.76-1.46); MB/CK RELATIVE INDEX 2.34 (< OR =4); TOTAL PROTEIN 6.4 GM/DL (6.4-8.2); TROPONIN I 0.02 NG/ML (< 0.10)
[2021-01-28 20:26] LABS: BILIRUBIN,TOTAL < 1.0 MG/DL (0.2-1.0)
--- NOTE | 2021-01-28 20:32 | REPVR ---
PROCEDURE INFORMATION: Exam: XR Chest Exam date and time: 01/28/2021 8:12 PM Age: 60 years old Clinical indication: Other: Hypertention; Additional info: Hypertension TECHNIQUE: Imaging protocol: XR of the chest Views: 1 view. COMPARISON: OR PORTABLE CHEST X-RAY 03/30/2020 9:19 PM FINDINGS: Lungs: Minimal atelectasis left mid lung zone. Lungs otherwise clear. Pleural spaces: Unremarkable. No pleural effusion. No pneumothorax. Heart/Mediastinum: Unremarkable. No cardiomegaly. Bones/joints: The spine demonstrates mild degenerative changes. IMPRESSION: No acute findings. Electronically signed by: Maykel Segovia On 01/28/2021 20:33:04 PM
[2021-01-28] MEDS ORDERED: amLODIPine 5 MG TAB PO SCH (21:00)
[2021-01-28 21:12] LABS: RSV AMPLIFICATION NEGATIVE (NEGATIVE)
--- NOTE | 2021-01-28 21:55 | REPVR ---
PROCEDURE INFORMATION: Exam: CT Head Without Contrast Exam date and time: 01/28/2021 9:37 PM Age: 60 years old Clinical indication: Pain; Headache; Additional info: HTN weakness TECHNIQUE: Imaging protocol: Computed tomography of the head without contrast. Radiation optimization: All CT scans at this facility use at least one of these dose optimization techniques: automated exposure control; mA and/or kV adjustment per patient size (includes targeted exams where dose is matched to clinical indication); or iterative reconstruction. COMPARISON: MRI-Brain without Contrast 03/30/2020 10:16 PM FINDINGS: Brain: There is mild parenchymal volume loss. White matter changes are demonstrated in the subcortical, centrum semiovale and periventricular white matter consistent with chronic age related small vessel ischemic changes. Mild diffuse cerebellar atrophy. Cerebral ventricles: The degree of ventricular dilatation is normal for age and/or degree of atrophy present. Bones/joints: Unremarkable. No acute fracture. Paranasal sinuses: Visualized sinuses are unremarkable. No fluid levels. Mastoid air cells: Visualized mastoid air cells are well aerated. Soft tissues: Unremarkable. IMPRESSION: 1. There is mild parenchymal volume loss. White matter changes are demonstrated in the subcortical, centrum semiovale and periventricular white matter consistent with chronic age related small vessel ischemic changes. 2. The degree of ventricular dilatation is normal for age and/or degree of atrophy present. 3. Mild diffuse cerebellar atrophy. Electronically signed by: Maykel Segovia On 01/28/2021 21:55:16 PM
[2021-01-28] MEDS ORDERED: GLUCAGON INJ 1MG VIAL SC PRN (22:35)
[2021-01-28] MEDS ORDERED: DEXTROSE 50% 50 ML SYRINGE IV PRN (22:35)
[2021-01-28] MEDS ORDERED: GLUCOSE 4GM CHEW TABLET PO PRN (22:35)
[2021-01-28] MEDS ORDERED: MAALOX 30 ML SUSP *UDC PO PRN (22:35)
[2021-01-28] MEDS ORDERED: MOM 30ML SUSPENSION UDC PO PRN (22:35)
[2021-01-28] MEDS ORDERED: ACETAMINOPHEN TAB 650MG DOSE (2X325MG) PO PRN (22:35)
--- NOTE | 2021-01-28 22:45 | HPEPDOC ---
[facility] Medical History & Physical Date of Admission Jan 28, 2021 Date of Service: Jan 28, 2021 Primary Care Physician: Sally Calero MD Other Provider Attending Physician: NADEGE HARRY MD History and Physical TIME OF SERVICE: 1130PM CHIEF COMPLAINT: sent by PCP HISTORY OF PRESENT ILLNESS: Part of the history was obtained from and via use of the [employer]. We had difficulties connecting to the video messaging services contracted by the [facility] for translation. is a 60 yr old Swedish speaking F who was last admitted to [facility] in March of 2020 for HHS and Hypertensive Urgency. Today she sent to the ER by her PCP because her serum glucose was about 648. The patient has not able to take her insulin because her insurance didnt cover the full cost and but has been taking metformin. Today has been going to the bathroom frequently and feeling very thirsty. She reported checking her sugars at home and that the have ranged from the 160s to mid 200s. She reported taking all of her blood pressure medications and denied having chest pain, RODRIGUEZ, dizziness or dyspnea. In the ER her serum glucose was >700, but improved to 456 after she was given insulin. Her BP was as high as 255/119 but improved to 140/88 after she received IV labetalol and amlodipine. REVIEW OF SYSTEMS: 12-point review of systems negative except as listed in HPI PAST MEDICAL/ SURGICAL HISTORY: IDDM Essential HTN Chronic ischemic age related small vessel changes & diffuse cerebellar atrophy CVA w residual RUE & RLE weakness that was diagnosed about 3 years ago when she was in [place] Chronic HFpEF / Grade 2 Mild mitral stenosis CKD 3 Class 1 obesity Left eye cataract surgery Tubal libation SOCIAL HISTORY: She is a former smoker, moved to the area from [place] in February of 2020 & lives with her daughter here in [place]. FAMILY HISTORY: Cancer, HTN, DM ALLERGIES: Please see below. HOME MEDICATIONS: Please see below. PHYSICAL EXAMINATION: Vital Signs Date Time Temp Pulse Resp B/P (MAP) Pulse Ox O2 Delivery O2 Flow Rate FiO2 01/28/21 16:02 97.4 97 17 201/91 (127) 98 Room Air GENERAL APPEARANCE: well nourished and developed/ NAD HEENT: EOMI CARDIOVASCULAR: RRR/NMRG LUNGS: CTAB on RA ABDOMEN: obese MUSCULOSKELETAL: ANDRES x 4 INTEGUMENT: she is not flushed, diaphoretic or jaundice NEUROLOGICAL: CN 2-12 grossly intact /speech not dysarthric strength 5/5 at LUE a LLE 4/5 at RUE and RLE PSYCHIATRIC: A&Ox 3 /able to understand and follow all commands LABORATORY DATA: 01/28/21 18:38 Urine Color STRAW, Urine Appearance CLEAR, Urine pH 6.0, Urine Specific [place] 1.021, Urine Protein 3+H, Urine Glucose (UA) 3+H, Urine Ketones NEGATIVE, Urine Blood NEGATIVE, Urine Nitrite NEGATIVE, Urine Bilirubin NEGATIVE, Urine Urobilinogen 0.2, Urine Leukocyte Esterase NEGATIVE, Urine WBC (Auto) 1, Urine RBC (Auto) 1, Urine Hyaline Casts (Auto) 0, Urine Bacteria (Auto) NEGATIVE, Urine Squamous Epithelial Cells 1, Urine Sperm (Auto) 01/28/21 18:38: Immature Granulocyte % (Auto) 0.5, Neutrophils (%) (Auto) 82.1H, Lymphocytes (%) (Auto) 12.3L, Monocytes (%) (Auto) 4.2, Eosinophils (%) (Auto) 0.5, Basophils (%) (Auto) 0.4, Neutrophils # (Auto) 6.2, Lymphocytes # (Auto) 0.9L, Monocytes # (Auto) 0.3, Eosinophils # (Auto) 0.0, Basophils # (Auto) 0.0, Nucleated Red Blood Cells % (auto) 0.0, Blood Gas Bicarbonate Standard 22.0, Venous Blood pH 7.288L, Venous Blood Partial Pressure CO2 53.3H, Venous Blood Partial Pressure O2 35.9, Venous Blood Total Carbon Dioxide 26.6, Venous Blood HCO3 24.9, Venous Blood Oxygen Saturation 66.9, Venous Blood Base Excess -2.3L, Anion Gap 7L, Glomerular Filtration Rate 24.6L, Calcium Level 8.4L, Total Bilirubin < 1.0, Direct Bilirubin < 0.1, Aspartate Amino Transf (AST/SGOT) 8, Alanine Aminotransferase (ALT/SGPT) 15, Alkaline Phosphatase 180H, Total Creatine Kinase 64, Creatine Kinase MB 1.5, Creatine Kinase MB Relative Index 2.34, Troponin I 0.02, Total Protein 6.4, Albumin 2.9L, Albumin/Globulin Ratio 0.8L, Thyroid Stimulating Hormone (TSH) 2.540, Free Thyroxine 0.94 01/28/21 20:21: Lactic Acid Level 1.9, Coronavirus (COVID-19)(PCR) NEGATIVE, Influenza Type A (RT-PCR) NEGATIVE, Influenza Type B (RT-PCR) NEGATIVE, Respiratory Syncytial Virus (PCR) NEGATIVE 01/28/21 22:06: Bedside Glucose (Misc Panel) 456H IMAGING: Chest xray IMPRESSION: No acute findings. CT head IMPRESSION: 1. There is mild parenchymal volume loss. White matter changes are demonstrated in the subcortical, centrum semiovale and periventricular white matter consistent with chronic age related small vessel ischemic changes. 2. The degree of ventricular dilatation is normal for age and/or degree of atrophy present. 3. Mild diffuse cerebellar atrophy. MICROBIOLOGY: Respiratory panel neg ASSESSMENT: is a 60 yr old F w a hx of IDDM, CKD3, HTN, HFpEF, CVA and obesity who has been having polyuria and polydipsia and was sent to the ER by her PCP and will be admitted for management of Uncontrolled HTN, ELVIS & uncontrolled DM. PLAN: 1 Uncontrolled HTN Hypertensive Urgency vs Emergency has resolved (The patients SBP was >180 and she has signs of end organ damage (ELVIS)) Based on the limited history she didnt appear to have any symptoms. EKG NSR w a rate of 80 w/o acute ST changes Plan: bc her BP has improved we will admit her to PCU / resume amlodipine, start metoprolol tartarte 12.5mg daily / hold ACEI bc of ELVIS 2 ELVIS on CKD 3 Acute elevation in Cr likely due to uncontrolled HTN and possibly dehydration due to polyuria Plan: monitor UOP / IVF / f/u renal panel, CK, Ulytes for FENa or FEUrea / renal US / hold Lisinopril and metformin / if her GFR remains in the stage 4 range when she is ready to be discharged, she should be referred to Nephrology on an out pt basis 3 IDDM2 Hyperglycemic hyperosmolar state had resolved at the time of my assessment as her repeat serum glucose was <600. Her mental status was intact. Plan: diabetic diet / f/u accuchecks Q4H/ / hypoglycemia protocol / sliding scale insulin with long acting insulin 30 units daily / hold oral anti-glycemics / f/u A1C 4 Normocytic Anemia Plan; f/u iron studies, soluble transferrin receptor & stool occult 5 Chronic HFpEF / Grade 2 Euvolemic Plan: control BP 6 Class 1 Obesity Complicates care Plan: the patient can f/u w her PCP for sleep apnea screening, shotblaster consult, to discuss staring Saxenda or Victoza (if her insurance will cover it) which is indicated in patients with a BMI >27 with co-existing DM, HTN or dyslipidemia to help with weight control as an adjunct to exercise & referral to a Bariatric Surgeon / recommend cardiovascular exercise for 40 min 4-5 days a week DVT px w Heparin Dispo: home after at least 2 midnights stay Home Medications Scheduled Amlodipine Besylate (Amlodipine Besylate) 5 Mg Tablet, 5 MG PO DAILY Amlodipine Besylate/Benazepril (Lotrel 5-10 mg Capsule) 1 Each Capsule, 1 CAP PO DAILY Aspirin (Aspirin) 81 Mg Tab.chew, 81 MG PO DAILY Insulin Glargine,Hum.rec.anlog (Basaglar Kwikpen U-100) 100 Unit/1 Ml Insuln.pen, 30 UNITS SC DAILY Insulin Human Regular (Novolin R) 100 Unit/1 Ml Vial, 1 DOSE SC ACHS PER SLIDING SCALE Metformin HCl (Metformin HCl) 1,000 Mg Tablet, 1,000 MG PO DAILY Omeprazole (Omeprazole) 20 Mg Capsule.dr, 20 MG PO DAILY Allergies Coded Allergies: Sulfa (Sulfonamide Antibiotics) (Verified Allergy, Unknown, 01/28/21) A-FIB/CHADSVASC A-FIB History Current/History of A-Fib/PAF?: No Current PO Anticoag Therapy: No NADEGE HARRY MD Jan 28, 2021 22:45
[2021-01-28] MEDS: HumaLOG INSULIN (NovoLOG) PER UNIT SC SCH (23:52)
[2021-01-28] MEDS: NS 1,000 ML IV SCH (23:53)
[2021-01-29 00:30] LABS: PERCENT SATURATION 20.4 % (13.2-45.0); URIC ACID 7.3 MG/DL (2.6-6.0)
[2021-01-29 01:52] VITALS: BP 140/88
[2021-01-29 02:12] VITALS: BP 140/88
[2021-01-29] MEDS: METOPROLOL TART 12.5 MG PER 1/2 TAB PO SCH ×2 (02:12→09:38)
[2021-01-29] MEDS: NS 1,000 ML IV SCH ×2 (02:14→12:04)
[2021-01-29] MEDS ORDERED: OMEP-218 PO ×2 (02:45→11:20)
[2021-01-29] MEDS ORDERED: ASPI1CHW3 PO (02:45)
[2021-01-29 05:15] LABS: HEMATOCRIT 35.5 % (36.0-47.0); HEMOGLOBIN 11.4 g/dl (12.0-15.5); MEAN CORPUSCULAR HGB CONC 32.1 g/dl (32.0-36.5); MEAN CORPUSCULAR VOLUME 84.1 fl (80.0-96.0); PLATELET COUNT, AUTOMATED 265 10^3/uL (150-450); RED BLOOD COUNT 4.22 10^6/uL (4.00-5.40); WHITE BLOOD COUNT 8.9 10^3/uL (4.0-10.0)
[2021-01-29 05:36] LABS: CALCIUM LEVEL 8.7 MG/DL (8.8-10.2); CREATININE FOR GFR 1.62 MG/DL (0.55-1.30); GLOMERULAR FILTRATION RATE 34.3 (>45)
[2021-01-29 05:53] LABS: HEMOGLOBIN A1c 12.5 %
[2021-01-29] MEDS: HumaLOG INSULIN (NovoLOG) PER UNIT SC SCH (05:58)
[2021-01-29 06:00] VITALS: BP 142/80
[2021-01-29] MEDS ORDERED: HEPARIN SOD (PORCINE) 5000UNITS/ML 1ML VIAL/SYRINGE SC SCH (06:00)
[2021-01-29 07:25] VITALS: BP 156/70
--- NOTE | 2021-01-29 09:13 | REP ---
INDICATION: ELVIS ON CKD COMPARISON: None TECHNIQUE: Real time villalta scale ultrasound examination using curved array transducer. FINDINGS: Right kidney appears somewhat atrophic with increased central sinus fat and isoechoic echotexture measuring 8.6 x 4.2 x 4.6 cm. Possible 6 mm nonobstructing midpole calculus noted. No associated hydronephrosis, cystic or mass lesion appreciated. Left kidney is normal in contour, size, and echotexture with increased central sinus fat. No hydronephrosis, nephrolithiasis, or cystic/mass lesion identified. Kidney measures 10.6 x 5.4 x 6.5 cm. Bladder is grossly unremarkable in appearance. Ureteral jets not identified during examination. IMPRESSION: 1. Somewhat atrophic appearance to the right kidney along with findings to suggest generalized bilateral age-related renal disease. No hydronephrosis. <Electronically signed by Oni Ferguson > 01/29/21 [id number]
[2021-01-29 09:17] LABS: FOLATE 16.2 NG/ML (>5.4)
[2021-01-29] MEDS ORDERED: INSU100I28 SQ (11:18)
[2021-01-29] MEDS ORDERED: METF10004 PO (11:20)
[2021-01-29] MEDS ORDERED: AMLO1TAB24 PO (11:20)
[2021-01-29] MEDS ORDERED: INSUR SC (11:20)
[2021-01-29] MEDS ORDERED: LOTR5CAP2 PO (11:20)
[2021-01-29] MEDS ORDERED: METO1TAB87 PO (11:20)
[2021-01-29] MEDS ORDERED: HumaLOG INSULIN (NovoLOG) PER UNIT SC SCH ×2 (12:00→21:00)
--- NOTE | 2021-01-29 12:31 | IPNPDOC ---
Date Seen The patient was seen on 01/29/21. VS, I&O, 24H, [facility] Vital Signs/I&O Vital Signs Date Time Temp Pulse Resp B/P (MAP) Pulse Ox O2 Delivery O2 Flow Rate FiO2 01/29/21 07:25 97.2 78 18 156/70 (98) 90 Room Air I&O- Last 24 Hours up to 6 AM 01/29/21 06:00 Intake Total 1000 ml Balance 1000 ml Laboratory Data 24H LABS Laboratory Tests 2 01/28/21 18:27: Urine Color STRAW, Urine Appearance CLEAR, Urine pH 6.0, Urine Specific [place] 1.021, Urine Protein 3+H, Urine Glucose (UA) 3+H, Urine Ketones NEGATIVE, Urine Blood NEGATIVE, Urine Nitrite NEGATIVE, Urine Bilirubin NEGATIVE, Urine Urobilinogen 0.2, Urine Leukocyte Esterase NEGATIVE, Urine WBC (Auto) 1, Urine RBC (Auto) 1, Urine Hyaline Casts (Auto) 0, Urine Bacteria (Auto) NEGATIVE, Urine Squamous Epithelial Cells 1, Urine Sperm (Auto) 01/28/21 18:38: Immature Granulocyte % (Auto) 0.5, Neutrophils (%) (Auto) 82.1H, Lymphocytes (%) (Auto) 12.3L, Monocytes (%) (Auto) 4.2, Eosinophils (%) (Auto) 0.5, Basophils (%) (Auto) 0.4, Neutrophils # (Auto) 6.2, Lymphocytes # (Auto) 0.9L, Monocytes # (Auto) 0.3, Eosinophils # (Auto) 0.0, Basophils # (Auto) 0.0, Nucleated Red Blood Cells % (auto) 0.0, Blood Gas Bicarbonate Standard 22.0, Venous Blood pH 7.288L, Venous Blood Partial Pressure CO2 53.3H, Venous Blood Partial Pressure O2 35.9, Venous Blood Total Carbon Dioxide 26.6, Venous Blood HCO3 24.9, Venous Blood Oxygen Saturation 66.9, Venous Blood Base Excess -2.3L, Anion Gap 7L, Glomerular Filtration Rate 24.6L, Calcium Level 8.4L, Total Bilirubin < 1.0, Direct Bilirubin < 0.1, Aspartate Amino Transf (AST/SGOT) 8, Alanine Aminotra nsferase (ALT/SGPT) 15, Alkaline Phosphatase 180H, Total Creatine Kinase 64, Creatine Kinase MB 1.5, Creatine Kinase MB Relative Index 2.34, Troponin I 0.02, Total Protein 6.4, Albumin 2.9L, Albumin/Globulin Ratio 0.8L, Thyroid Stimulating Hormone (TSH) 2.540, Free Thyroxine 0.94 01/28/21 20:21: Lactic Acid Level 1.9, Coronavirus (COVID-19)(PCR) NEGATIVE, Influenza Type A (RT-PCR) NEGATIVE, Influenza Type B (RT-PCR) NEGATIVE, Respiratory Syncytial Virus (PCR) NEGATIVE 01/28/21 22:06: Bedside Glucose (Misc Panel) 456H 01/28/21 23:38: Osmolality 320H, Uric Acid 7.3H, Iron Level 47L, Total Iron Binding Capacity 230L, Transferrin % Saturation 20.4, Ferritin 63, Vitamin B12 Level 450, Folate 16.2 01/29/21 04:58: Nucleated Red Blood Cells % (auto) 0.0, Anion Gap 7L, Glomerular Filtration Rate 34.3L, Estimated Mean Plasma Glucose 312H, Hemoglobin A1c 12.5, Calcium Level 8.7L 01/29/21 05:53: Bedside Glucose (Misc Panel) 209H 01/29/21 11:23: Bedside Glucose (Misc Panel) 309H CBC/BMP Laboratory Tests 01/28/21 18:38 01/29/21 04:58 BERONICA SOMMER MD Jan 29, 2021 12:31
[2021-01-29] MEDS ORDERED: VITA250C5 PO (12:57)
[2021-01-29] MEDS ORDERED: FERR1TAB8 PO (12:57)
--- NOTE | 2021-01-29 12:58 | DS.PDOC ---
Discharge Summary General Date of Admission Jan 28, 2021 at 22:34 Date of Discharge 01/29/21 Discharge Summary PROCEDURES PERFORMED DURING STAY: [None]. ADMITTING DIAGNOSES: uncontrolled hypertension ELVIS on CKD3 IDDM2 Normocytic anemia Chronic HFpEF/G2DD Class 1 obesity DISCHARGE DIAGNOSES: uncontrolled hypertension ELVIS on CKD3 IDDM2 Normocytic anemia Chronic HFpEF/G2DD Class 1 obesity COMPLICATIONS/CHIEF COMPLAINT: Acute Kidney Failure, Hypertensive Urgency. HISTORY OF PRESENT ILLNESS: Part of the history was obtained from and via use of the [employer]. We had difficulties connecting to the video messaging services contracted by the hospital for translation. Ms. Conley is a 60 yr old Swedish speaking F who was last admitted to [facility] in March of 2020 for HHS and Hypertensive Urgency. Today she sent to the ER by her PCP because her serum glucose was about 648. The patient has not able to take her insulin because her insurance didnt cover the full cost and but has been taking metformin. Today has been going to the bathroom frequently and feeling very thirsty. She reported checking her sugars at home and that the have ranged from the 160s to mid 200s. She reported taking all of her blood pressure medications and denied having chest pain, RODRIGUEZ, dizziness or dyspnea. In the ER her serum glucose was >700, but improved to 456 after she was given insulin. Her BP was as high as 255/119 but improved to 140/88 after she received IV labetalol and amlodipine. HOSPITAL COURSE: 1 Uncontrolled HTN Hypertensive Urgency vs Emergency has resolved (The patients SBP was >180 and she has signs of end organ damage (ELVIS)) Based on the limited history she didnt appear to have any symptoms. EKG NSR w a rate of 80 w/o acute ST changes - started on metoprolol 12.5 mg BID - resumed amlodipine and benazepril as ELVIS resolved 2 ELVIS on CKD 3 - Acute elevation in Cr likely due to uncontrolled HTN and possibly dehydration due to polyuria - ELVIS resolved with IV fluids. Renal ultrasound is unremarkable apart from chronic changes. 3 IDDM2 Hyperglycemic hyperosmolar state had resolved at the time of assessment as her repeat serum glucose was <600. Her mental status was intact. - a1c 12.5 - resumed home levemir. BG normalized. - patient stated that normally she she is compliant with her insulin. However, insurance has stopped paying for it and she is having difficulty affording it herself. - Spoke with PFS, contacted the patient's pharmacy and insurance company recommended [facility]. Co-pay is nw $3. - Patient provided education on diabetes. She has good compliance. We'll follow up with her primary care doctor. Consistent carbohydrate diet. Annual podiatry and ophthalmology evaluations. 4 Normocytic Anemia - Iron 47 - TIBC 230 - start ferrous sulfate once daily, with vit C - unable to obtain stool for FOBT - recommend outpatient colonoscopy as 60 yo. 5 Chronic HFpEF / Grade 2 Euvolemic controlled BP 6 Class 1 Obesity Complicates care DISCHARGE MEDICATIONS: Please see below. ALLERGIES: Please see below. PHYSICAL EXAMINATION ON DISCHARGE: VITAL SIGNS: please see below General: NAD, comfortable HEENT: PERRLA, EOMI, sclerae clear Neck: supple, normal ROM, no JVD Respiratory: lungs CTAB, no wheeze, no rales, no crackles CVS: RRR, normal S1, S2, no murmurs Abdo: soft, no masses, no hepatosplenomegaly, BS+, no rebound tenderness Extremities: no edema, pulses 2+ MSK: no joint deformities, normal ROM Neuro: no focal neuro deficits, moving all 4 extremities, CN2-12 intact. 4/5 strength in RUE and RLE. Psych: calm, cooperative, AAO x 3 LABORATORY DATA: Please see below. IMAGING: CXR (01/28/21): COMPARISON: [place] PORTABLE CHEST X-RAY 03/30/2020 9:19 PM FINDINGS: Lungs: Minimal atelectasis left mid lung zone. Lungs otherwise clear. Pleural spaces: Unremarkable. No pleural effusion. No pneumothorax. Heart/Mediastinum: Unremarkable. No cardiomegaly. Bones/joints: The spine demonstrates mild degenerative changes. IMPRESSION: No acute findings. CT head wo contrast (01/28/21): IMPRESSION: 1. There is mild parenchymal volume loss. White matter changes are demonstrated in the subcortical, centrum semiovale and periventricular white matter consistent with chronic age related small vessel ischemic changes. 2. The degree of ventricular dilatation is normal for age and/or degree of atrophy present. 3. Mild diffuse cerebellar atrophy. Renal US (01/29/21): IMPRESSION: 1. Somewhat atrophic appearance to the right kidney along with findings to chang ggest generalized bilateral age-related renal disease. No hydronephrosis. PROGNOSIS: good ACTIVITY: As tolerated DIET: consistent carbohydrate DISCHARGE PLAN: DC home with PCP follow up. Insulin Semglee (changed from basaglar) and novolin R were prescribed, PFS assisted and co-pay now $3 per each insulin. resumed BP meds, including ACEi as ELVIS resolved. DISPOSITION: home with PCP follow up DISCHARGE INSTRUCTIONS: . Please follow-up with your primary care doctor within 3-5 days . Please taking medications as prescribed. Basaglar insulin now changes to Semglee 30 units SC daily. Continue sliding scale with humulin. . If you develop bleeding, chest pain, shortness of breath, seizures, nausea, fevers, or otherwise worsening of your symptoms, please call 911 or return to the nearest emergency room. - please obtain referral for colonoscopy DISCHARGE CONDITION: Stable TIME SPENT ON DISCHARGE: 35 minutes Vital Signs/I&Os Vital Signs Date Time Temp Pulse Resp B/P (MAP) Pulse Ox O2 Delivery O2 Flow Rate FiO2 01/29/21 07:25 97.2 78 18 156/70 (98) 90 Room Air I&O- Last 24 Hours up to 6 AM 01/29/21 06:00 Intake Total 1000 ml Balance 1000 ml Laboratory Data Labs 24H Laboratory Tests 2 01/28/21 18:27: Urine Color STRAW, Urine Appearance CLEAR, Urine pH 6.0, Urine Specific [place] 1.021, Urine Protein 3+H, Urine Glucose (UA) 3+H, Urine Ketones NEGATIVE, Urine Blood NEGATIVE, Urine Nitrite NEGATIVE, Urine Bilirubin NEGATIVE, Urine Urobilinogen 0.2, Urine Leukocyte Esterase NEGATIVE, Urine WBC (Auto) 1, Urine RBC (Auto) 1, Urine Hyaline Casts (Auto) 0, Urine Bacteria (Auto) NEGATIVE, Urine Squamous Epithelial Cells 1, Urine Sperm (Auto) 01/28/21 18:38: Immature Granulocyte % (Auto) 0.5, Neutrophils (%) (Auto) 82.1H, Lymphocytes (%) (Auto) 12.3L, Monocytes (%) (Auto) 4.2, Eosinophils (%) (Auto) 0.5, Basophils (%) (Auto) 0.4, Neutrophils # (Auto) 6.2, Lymphocytes # (Auto) 0.9L, Monocytes # (Auto) 0.3, Eosinophils # (Auto) 0.0, Basophils # (Auto) 0.0, Nucleated Red Blood Cells % (auto) 0.0, Blood Gas Bicarbonate Standard 22.0, Venous Blood pH 7.288L, Venous Blood Partial Pressure CO2 53.3H, Venous Blood Partial Pressure O2 35.9, Venous Blood Total Carbon Dioxide 26.6, Venous Blood HCO3 24.9, Venous Blood Oxygen Saturation 66.9, Venous Blood Base Excess -2.3L, Anion Gap 7L, Glomerular Filtration Rate 24.6L, Calcium Level 8.4L, Total Bilirubin < 1.0, Direct Bilirubin < 0.1, Aspartate Amino Transf (AST/SGOT) 8, Alanine Aminotransferase (ALT/SGPT) 15, Alkaline Phosphatase 180H, Total Creatine Kinase 64, Creatine Kinase MB 1.5, Creatine Kinase MB Relative Index 2.34, Troponin I 0.02, Total Protein 6.4, Albumin 2.9L, Albumin/Globulin Ratio 0.8L, Thyroid Stimulating Hormone (TSH) 2.540, Free Thyroxine 0.94 01/28/21 20:21: Lactic Acid Level 1.9, Coronavirus (COVID-19)(PCR) NEGATIVE, Influenza Type A (RT-PCR) NEGATIVE, Influenza Type B (RT-PCR) NEGATIVE, Respiratory Syncytial Virus (PCR) NEGATIVE 01/28/21 22:06: Bedside Glucose (Misc Panel) 456H 01/28/21 23:38: Osmolality 320H, Uric Acid 7.3H, Iron Level 47L, Total Iron Binding Capacity 230L, Transferrin % Saturation 20.4, Ferritin 63, Vitamin B12 Level 450, Folate 16.2 01/29/21 04:58: Nucleated Red Blood Cells % (auto) 0.0, Anion Gap 7L, Glomerular Filtration Rate 34.3L, Estimated Mean Plasma Glucose 312H, Hemoglobin A1c 12.5, Calcium Level 8.7L 01/29/21 05:53: Bedside Glucose (Misc Panel) 209H 01/29/21 11:23: Bedside Glucose (Misc Panel) 309H CBC/BMP Laboratory Tests 01/28/21 18:38 01/29/21 04:58 FSBS Laboratory Tests Test 01/28/21 22:06 01/29/21 05:53 01/29/21 11:23 Range/Units Bedside Glucose (Misc Panel) 456 209 309 80-115 MG/DL Discharge Medications Scheduled Amlodipine Besylate (Amlodipine Besylate) 5 Mg Tablet, 5 MG PO DAILY, (Reported) Amlodipine Besylate (Amlodipine Besylate) 5 Mg Tablet, 5 MG PO QHS Amlodipine Besylate/Benazepril (Lotrel 5-10 mg Capsule) 1 Each Capsule, 1 CAP PO DAILY Aspirin (Aspirin) 81 Mg Tab.chew, 81 MG PO DAILY, (Reported) Insulin Glargine,Hum.rec.anlog (Basaglar Kwikpen U-100) 100 Unit/1 Ml Insuln.pen, 30 UNITS SC DAILY, (Reported) Insulin Glargine,Hum.rec.anlog (Semglee Pen) 100 Unit/Ml (3 Ml) Insuln.pen, 30 UNIT SQ DAILY Insulin Human Regular (Novolin R) 100 Unit/1 Ml Vial, 1 DOSE SC ACHS PER SLIDING SCALE Metformin HCl (Metformin HCl) 1,000 Mg Tablet, 1,000 MG PO DAILY Metoprolol Tartrate (Metoprolol Tartrate) 25 Mg Tablet, 12.5 MG PO BID Omeprazole (Omeprazole) 20 Mg Capsule.dr, 20 MG PO DAILY Allergies Coded Allergies: Sulfa (Sulfonamide Antibiotics) (Verified Allergy, Unknown, 01/28/21) BERONICA SOMMER MD Jan 29, 2021 12:58
[2021-01-29] MEDS ORDERED: LORazepam 2 MG/ML VIAL IV PRN (15:55)
--- NOTE | 2021-01-30 14:13 | ECGEPIP ---
[facility] - ED Test Date: 2021-01-28 Pat Name: JOSHUA PORTILLO Department: Room: [place] [address] Gender: Female Director Of Early Childhood: : 1960 Requested By: DONYA Thomas Order Number: [id number] Reading MD: Barb Taylor Measurements Intervals [place] Rate: 80 P: 57 MS: 144 QRS: -36 QRSD: 86 T: 40 QT: 372 QTc: 429 Interpretive Statements Normal sinus rhythm Left axis deviation Moderate voltage criteria for LVH, may be normal variant ( R in aVL , Roderick product ) Inferior infarct , age undetermined similar 03/30/20 Electronically Signed on 01-30-2021 14:13:36 EST by Barb Taylor
== END 2021-01-29 16:05 | disposition home or self-care (01) | DRG 470 ==
LOC: M ED 16:01 → M ED INP 22:34 → M PCU 01-29 01:34
PROVIDERS: ADMIT Internal Medicine; ATTEND Family Medicine
DX: I12.9 Hypertensive chronic kidney disease with stage 1 through stage 4 chronic kidney disease, or unspecified chronic kidney disease (principal); E11.00 Type 2 diabetes mellitus with hyperosmolarity without nonketotic hyperglycemic-hyperosmolar coma (NKHHC); N17.9 Acute kidney failure, unspecified; I69.351 Hemiplegia and hemiparesis following cerebral infarction affecting right dominant side; N18.30 Chronic kidney disease, stage 3 unspecified; I16.0 Hypertensive urgency; E66.9 Obesity, unspecified; D64.9 Anemia, unspecified; Z79.899 Other long term (current) drug therapy; Z79.82 Long term (current) use of aspirin; Z79.4 Long term (current) use of insulin; Z88.2 Allergy status to sulfonamides; Z87.891 Personal history of nicotine dependence; I34.0 Nonrheumatic mitral (valve) insufficiency

== ENCOUNTER → 2021-01-28 | Outpatient (REF) | payer OTHER ==
[~2021-01-28] MED LIST changes: +AMLO1TAB24 PO; +ASPI1CHW3 PO; +BASA100I SC; +FERR1TAB8 PO; +INSU100I28 SQ; -LISI-538 PO; +LISI10TA22 PO; +LISI20TA33 PO; +LOTR5CAP2 PO; +METF10004 PO; +METO1TAB87 PO; +OMEP-218 PO; +VITA250C5 PO
[2021-01-28 15:14] LABS: BLOOD UREA NITROGEN 33 MG/DL (7-18); CALCIUM LEVEL 9.4 MG/DL (8.8-10.2); CARBON DIOXIDE LEVEL 27 MEQ/L (21-32); CHLORIDE LEVEL 97 MEQ/L (98-107); CREATININE FOR GFR 2.17 MG/DL (0.55-1.30); FREE T4 1.02 NG/DL (0.76-1.46); GLOMERULAR FILTRATION RATE 24.5 (>45); GLUCOSE, FASTING 684 MG/DL (70-100); SODIUM LEVEL 130 MEQ/L (136-145); TOTAL PROTEIN 6.6 GM/DL (6.4-8.2); VITAMIN B12 LEVEL 557 PG/ML (247-911)
[2021-01-28 19:29] LABS: HEMOGLOBIN A1c 12.4 %
[2021-01-29 11:09] LABS: ANTINUCLEAR ANTIBODIES DIRECT Negative (Negative)
[2021-01-30 13:01] LABS: ALBUMIN 3.62 GM/DL (3.29-5.55); ALBUMIN % 54.8 % (55.8-66.1); ALPHA-1-GLOBULIN % 3.9 % (2.9-4.9); ALPHA-1-GLOBULINS 0.26 GM/DL (0.17-0.41); ALPHA-2-GLOBULINS 1.16 GM/DL (0.42-0.99); ALPHA-2-GLOBULINS % 17.6 % (7.1-11.8); BETA-1-GLOBULINS 0.42 GM/DL (0.28-0.60); BETA-1-GLOBULINS % 6.3 % (4.7-7.2); BETA-2-GLOBULINS 0.44 GM/DL (0.19-0.55); BETA-2-GLOBULINS % 6.6 % (3.2-6.5); GAMMA GLOBULIN % 10.8 % (11.1-18.8); GAMMA GLOBULINS 0.71 GM/DL (0.65-1.58)
== END ==
LOC: M SFHCPLAZ 11:24
DX: G62.9 Polyneuropathy, unspecified (principal); E11.21 Type 2 diabetes mellitus with diabetic nephropathy

== ENCOUNTER → 2021-02-11 | Outpatient (CLI) | payer OTHER ==
[~2021-02-11] MED LIST changes: +AMLO1TAB24 PO; +ASPI1CHW3 PO; +BASA100I SC; +FERR1TAB8 PO; +INSU100I28 SQ; +LISI10TA22 PO; +LOTR5CAP2 PO; +METF10004 PO; +METO1TAB87 PO; +OMEP-218 PO; +VITA250C5 PO
--- NOTE | 2021-02-11 22:37 | REP ---
INDICATION: E11.21 DIABETES MELLITUS W/NEPHROPATHY COMPARISON: 01/29/2021 TECHNIQUE: Real time villalta scale ultrasound examination using curved array transducer. FINDINGS: The bilateral kidneys again demonstrate cortical thinning and increased central sinus fat consistent with chronic medical renal disease. The right kidney appears atrophic and measures 8.6 x 4.8 x 4.2 cm without hydronephrosis, nephrolithiasis, definite cystic or renal mass lesion. Prominent calices are suspected. Left kidney measures 11.1 x 4.9 x 6.1 cm without hydronephrosis, nephrolithiasis, cystic or renal mass lesion. Bladder is incompletely evaluated and suboptimally distended. IMPRESSION: 1. Findings again consistent with chronic medical renal disease and asymmetric atrophy to the right kidney. 2. No definite hydronephrosis. <Electronically signed by Oni Ferguson > 02/11/21 [id number]
== END ==
LOC: M WHC 14:18
PROVIDERS: ATTEND Student in an Organized Health Care Education/Training Program
DX: E11.21 Type 2 diabetes mellitus with diabetic nephropathy (principal)

== ENCOUNTER → 2021-03-07 | Outpatient (REF) | payer OTHER ==
[2021-03-07 14:11] LABS: AMORPHOUS SEDIMENT SMALL (NEGATIVE); APPEARANCE, URINE CLEAR (CLEAR); BACTERIA, URINE AUTO NEGATIVE (NEGATIVE); BILIRUBIN, URINE AUTO NEGATIVE (NEGATIVE); BLOOD, URINE BLOOD NEGATIVE (NEGATIVE); COLOR, URINE STRAW (YELLOW); GLUCOSE, URINE (UA) AUTO NEGATIVE (NEGATIVE); KETONE, URINE AUTO NEGATIVE (NEGATIVE); LEUKOCYTE ESTERASE, URINE AUTO NEGATIVE (NEGATIVE); MUCUS, URINE SMALL (NEGATIVE); NITRITE, URINE AUTO NEGATIVE (NEGATIVE); PROTEIN, URINE AUTO 3+ mg/dL (NEGATIVE); RBC, URINE AUTO 2 /HPF (0-3); SPECIFIC GRAVITY URINE AUTO 1.011 (1.002-1.035); SQUAMOUS EPITHELIAL CELL UR AU 4 /HPF (0-6); UROBILINOGEN, URINE AUTO 0.2 mg/dL (0.0-2.0); WBC, URINE AUTO 1 /HPF (0-3)
[2021-03-07 14:32] LABS: CALCIUM LEVEL 9.1 MG/DL (8.8-10.2); CREATININE FOR GFR 1.61 MG/DL (0.55-1.30); GLOMERULAR FILTRATION RATE 34.5 (>45); POTASSIUM SERUM 4.8 MEQ/L (3.5-5.1)
[2021-03-07 14:40] LABS: TOTAL PROTEIN,RANDOM URINE 420.5 MG/DL (0.0-12.0)
== END ==
LOC: M SFHCPLAZ 10:51
DX: E11.21 Type 2 diabetes mellitus with diabetic nephropathy (principal)

== ENCOUNTER → 2021-05-01 | Outpatient (CLI) | payer OTHER | LOC: M LABSMTC 10:04 | PROVIDERS: ATTEND Anesthesiology | DX: Z01.812 Encounter for preprocedural laboratory examination (principal) ==

== ENCOUNTER 2021-05-06 06:51 | Day surgery (SDC) | payer OTHER ==
[~2021-05-06] VITALS: Ht 162.6 cm; Wt 86.2 kg
[~2021-05-06 06:51] MED LIST changes: +LIDOCAINE 2% 100MG/5ML SDV (FOR ANES.) As Ordered ONE; +propofoL 200 MG/20 ML VIAL As Ordered ONE
[2021-05-06] MEDS ORDERED: NS 1,000 ML IV ONE (07:50)
[2021-05-06] MEDS ORDERED: propofoL 200 MG/20 ML VIAL As Ordered ONE (08:30)
[2021-05-06] MEDS ORDERED: LABETALOL 100MG/20ML VIAL As Ordered ONE (08:30)
--- NOTE | 2021-05-06 08:50 | ROOR ---
Patient Name: Maida Conley Procedure Date: 05/06/2021 8:19 AM Date of : 1960 Age: 60 Room: [facility] Gender: Female Note Status: Finalized Procedure: Colonoscopy Indications: Screening for colorectal malignant neoplasm Providers: Ignacio Mcdonough MD Referring MD: Shazia Brunner NP Requesting Provider: Medicines: Monitored Anesthesia Care Complications: No immediate complications. Procedure: Pre-Anesthesia Assessment: - Prior to the procedure, a History and Physical was performed, and patient medications and allergies were reviewed. The patient is competent. The risks and benefits of the procedure and the sedation options and risks were discussed with the patient. All questions were answered and informed consent was obtained. Patient identification and proposed procedure were verified by the physician, the nurse and the anesthesiologist in the procedure room. Mental Status Examination: alert and oriented. Airway Examination: normal oropharyngeal airway and neck mobility. Respiratory Examination: clear to auscultation. CV Examination: normal. Prophylactic Antibiotics: The patient does not require prophylactic antibiotics. Prior Anticoagulants: The patient has taken no previous anticoagulant or antiplatelet agents. ASA Grade Assessment: III - A patient with severe systemic disease. After reviewing the risks and benefits, the patient was deemed in satisfactory condition to undergo the procedure. The anesthesia plan was to use monitored anesthesia care (MAC). Immediately prior to administration of medications, the patient was re-assessed for adequacy to receive sedatives. The heart rate, respiratory rate, oxygen saturations, blood pressure, adequacy of pulmonary ventilation, and response to care were monitored throughout the procedure. The physical status of the patient was re-assessed after the procedure. The Colonoscope was introduced through the anus and advanced to the terminal ileum, with identification of the appendiceal orifice and IC valve. The colonoscopy was performed without difficulty. The patient tolerated the procedure well. The quality of the bowel preparation was poor and unsatisfactory. The terminal ileum, the ileocecal valve and the appendiceal orifice were photographed. Scope insertion time was 3 minutes. Scope withdrawal time was 6 minutes. The total duration of the procedure was 10 minutes. Findings: The perianal and digital rectal examinations were normal. The terminal ileum appeared normal. Semi-liquid semi-solid solid stool was found from rectum to cecum, precluding visualization. Lavage of the area was performed using a large amount of sterile water, resulting in incomplete clearance with continued poor visualization. Impression: - Preparation of the colon was poor. - Preparation of the colon was unsatisfactory. - The examined portion of the ileum was normal. - Stool from rectum to cecum. - No specimens collected. Recommendation: - Patient has a contact number available for emergencies. The signs and symptoms of potential delayed complications were discussed with the patient. Return to normal activities tomorrow. Written discharge instructions were provided to the patient. - High fiber diet. - Continue present medications. - Repeat colonoscopy in 3 months because the bowel preparation was poor. - Telephone GI clinic to schedule appointment in [facility] (address [address], [address], [place], [facility]) in 4 -- 6 weeks. Please call GI clinic @ [phone] for apppointment date and time. - Return to primary care physician. Procedure Code(s): --- Professional --- 29729, Colonoscopy, flexible; diagnostic, including collection of specimen(s) by brushing or washing, when performed (separate procedure) Diagnosis Code(s): --- Professional --- Z12.11, Encounter for screening for malignant neoplasm of colon CPT copyright 2019 [employer]. All rights reserved. The codes documented in this report are preliminary and upon clay caster review may be revised to meet current compliance requirements. Ignacio Mcdonough MD Ignacio Mcdonough MD 05/06/2021 8:49:49 AM Electronically signed by Ignacio Mcdonough MD Number of Addenda: 0 Note Initiated On: 05/06/2021 8:19 AM Estimated Blood Loss: Estimated blood loss: none.
[2021-05-06 09:14] VITALS: BP 187/84
[2021-05-06] MEDS ORDERED: SILVER NITRATE APPLICATOR As Ordered ONE (12:26)
== END 2021-05-06 09:18 | disposition home or self-care (01) ==
LOC: M OPP 06:51
PROVIDERS: ATTEND Internal Medicine Gastroenterology
DX: Z12.11 Encounter for screening for malignant neoplasm of colon (principal); K21.9 Gastro-esophageal reflux disease without esophagitis; E11.9 Type 2 diabetes mellitus without complications; Z79.4 Long term (current) use of insulin; Z79.82 Long term (current) use of aspirin; Z79.899 Other long term (current) drug therapy; Z88.2 Allergy status to sulfonamides; Z86.73 Personal history of transient ischemic attack (TIA), and cerebral infarction without residual deficits

== ENCOUNTER 2021-08-23 22:27 | Inpatient (IN) | payer OTHER ==
[~2021-08-23] VITALS: Ht 162.6 cm; Wt 85.4 kg
[~2021-08-23 22:27] MED LIST changes: -LIDOCAINE 2% 100MG/5ML SDV (FOR ANES.) As Ordered ONE; -propofoL 200 MG/20 ML VIAL As Ordered ONE
[2021-08-23] MEDS ORDERED: LABETALOL 100MG/20ML VIAL IV STA (23:16)
[2021-08-23 23:34] LABS: BASO % 0.5 % (0.0-1.0); EOS # 0.1 10^3/uL (0.0-0.5); EOS % 1.6 % (0.0-3.0); HEMATOCRIT 36.5 % (36.0-47.0); HEMOGLOBIN 11.7 g/dl (12.0-15.5); LYMPH # 1.7 10^3/uL (1.5-5.0); LYMPH % 19.5 % (24.0-44.0); MEAN CORPUSCULAR HEMOGLOBIN 27.1 pg (27.0-33.0); MEAN CORPUSCULAR HGB CONC 32.1 g/dl (32.0-36.5); MEAN CORPUSCULAR VOLUME 84.7 fl (80.0-96.0); MONO # 0.6 10^3/uL (0.0-0.8); MONO % 6.4 % (2.0-8.0); NEUTROPHILS # 6.3 10^3/uL (1.5-8.5); NEUTROPHILS % 71.5 % (36.0-66.0); PLATELET COUNT, AUTOMATED 355 10^3/uL (150-450); RED BLOOD COUNT 4.31 10^6/uL (4.00-5.40); WHITE BLOOD COUNT 8.7 10^3/uL (4.0-10.0)
--- NOTE | 2021-08-23 23:36 | REPVR ---
PROCEDURE INFORMATION: Exam: CT Head Without Contrast Exam date and time: 08/23/2021 11:30 PM Age: 60 years old Clinical indication: Other: CVA; Additional info: CVA - nursing interventions must not delay CT TECHNIQUE: Imaging protocol: Computed tomography of the head without contrast. Radiation optimization: All CT scans at this facility use at least one of these dose optimization techniques: automated exposure control; mA and/or kV adjustment per patient size (includes targeted exams where dose is matched to clinical indication); or iterative reconstruction. Other technique: STROKE PROTOCOL was implemented. COMPARISON: CT Head without contrast 01/28/2021 9:22 PM FINDINGS: Brain: There is volume loss. There is white matter lucency consistent with chronic microvascular disease. There are small old white matter and basal ganglia lacunar infarcts. No acute infarct is identified. No hemorrhage or extra-axial collection. Cerebral ventricles: No ventriculomegaly. Paranasal sinuses: Visualized sinuses are unremarkable. No fluid levels. Mastoid air cells: Visualized mastoid air cells are well aerated. Bones/joints: Unremarkable. No acute fracture. Soft tissues: Unremarkable. IMPRESSION: 1. There is chronic microvascular disease with small old lacunar infarcts. 2. No acute intracranial lesion or injury and no change from prior scan. ASSESSMENT: ASPECTS ([place] Stroke Program Early CT Score) is 10. Electronically signed by: Linwood Reeves On 08/23/2021 23:35:56 PM
[2021-08-23 23:44] LABS: INR 0.93; PROTHROMBIN TIME 12.9 SECONDS (12.7-14.5)
[2021-08-23 23:45] LABS: PARTIAL THROMBOPLASTIN TIME 37.5 SECONDS (25.9-37.0)
--- NOTE | 2021-08-23 23:45 | REPVR ---
PROCEDURE INFORMATION: Exam: XR Chest Exam date and time: 08/23/2021 11:33 PM Age: 60 years old Clinical indication: Other: CVA TECHNIQUE: Imaging protocol: XR of the chest. Views: 1 view. COMPARISON: [facility] PORTABLE CHEST X-RAY 01/28/2021 8:09 PM FINDINGS: Lungs: Unremarkable. No consolidation. Pleural spaces: Unremarkable. No pleural effusion. No pneumothorax. Heart/Mediastinum: Unremarkable. No cardiomegaly. Bones/joints: Unremarkable. IMPRESSION: No acute findings. Electronically signed by: Linwood Reeves On 08/23/2021 23:44:57 PM
[2021-08-23 23:58] LABS: CK-MB VALUE MASS 2.4 NG/ML (<3.6); CPK CREATINE PHOSPHOKINASE 85 U/L (26-192); MB/CK RELATIVE INDEX 2.82 (< OR =4); TROPONIN I < 0.02 NG/ML (< 0.10)
[2021-08-24] VITALS (19 sets, daily range): BP systolic 137–180; BP diastolic 63–110; O2SAT 90–98
[2021-08-24] MEDS ORDERED: LABETALOL 100MG/20ML VIAL IV STA (00:38)
[2021-08-24] MEDS ORDERED: ATOR80TA59 PO (01:46)
[2021-08-24] MEDS ORDERED: AMLO5CAP45 PO (01:46)
[2021-08-24] MEDS ORDERED: INSU100I28 SQ (01:46)
[2021-08-24] MEDS ORDERED: OMEP1CAP73 PO (01:46)
[2021-08-24] MEDS ORDERED: HOME MED LIST COMPLETE! XX SCH (01:50)
[2021-08-24] MEDS ORDERED: GLUCOSE 4GM CHEW TABLET PO PRN (02:10)
[2021-08-24] MEDS ORDERED: DEXTROSE 50% 50 ML SYRINGE IV PRN (02:10)
[2021-08-24] MEDS ORDERED: GLUCAGON INJ 1MG VIAL SC PRN (02:10)
[2021-08-24 02:25] LABS: RSV AMPLIFICATION NEGATIVE (NEGATIVE)
[2021-08-24] MEDS ORDERED: ASPIRIN 81 MG CHEW TABLET PO ONE (02:35)
[2021-08-24] MEDS: NS 1,000 ML IV SCH ×2 (02:35→13:44)
--- NOTE | 2021-08-24 02:43 | HPEPDOC ---
General Date of Admission Date of Service: Aug 24, 2021 Chief Complaint The patient is a 60-year-old female admitted with a reason for visit of Stroke Like Symptoms. History of Present Illness CC: facial droop HISTORY OF PRESENT ILLNESS: This is a 60-year-old English speaking only female who presents to [facility] ER with a chief complaint of right-sided weakness that is more pronounced than her baseline and left-sided facial droop and heaviness x24 hours. Patient's daughter is at bedside this history of present illness was obtained from her translating at bedside. According to the patient she started feeling more pronounced right-sided weakness yesterday however it was not until today that she had more pronounced heaviness in the left side of her face as well as some more pronounced facial droop. The daughter also states that it was difficult to understand her mother's speech and she was concerned and brought her into the ER this evening. Patient denies any difficulty with word finding blurry vision, double vision, sudden visual loss, difficulty swallowing inability to understand speech, confusion or paralysis. In the ER, her blood pressure was 230s systolic over 120s diastolic and she was given 2 doses of 20 mg of IV labetalol and her pressure was able to be brought down to 180 systolic. Also of note, patient has very poorly controlled diabetes type 2 with long-term insulin use however it seems like her blood sugars are still not quite in control. In the ER her blood sugar was in the high 300s. Her last A1c was 12.4. REVIEW OF SYSTEMS: General: Denies fever, shaking chills, unintentional weight loss NEURO: more R sided weakness and more pronounced facial droop on L side and states that "her tongue feels heavy when she tries to speak" HEENT: Denies changes in vision including blurry vision or double vision, or hearing loss nasal congestion or sore throat Heart: Denies chest pain or chest pressure or discomfort, or palpitations, or lower extremity edema Pulm: Denies cough or sputum production or shortness of breath GI: Denies nausea vomiting diarrhea abdominal pain or bloody stools Psych: Denies sadness or loss of interest in doing things, no thoughts of self- harm or suicidal ideation PAST MEDICAL HISTORY: Hypertension Dyslipidemia DM2 Class 1 obesity Normocytic anemia SURGICAL HISTORY: Past Surgical Hx: Left eye cataract Tubal ligation colonoscopy FAMILY HISTORY: Father from ca (unknown type), HTN, CAD, DM2 Mother- . HTN, DM2 SOCIAL HISTORY: Quit smoking 20 years ago Denies alcohol or illicit substances Currently lives with daughter in [place] PHYSICAL EXAM: GENERAL: The patient is a well-developed, well-nourished in no apparent distr ess. AAOx3 NEURO: Nerves II to XII assessed within normal limits patient has right-sided weakness 3 out of 5 versus 5 out of 5 on the left side. Decreased reflexes throughout. Sensation intact throughout. Pronator drift on the right side. Downgoing toes bilaterally HEENT: Head is normocephalic and atraumatic. Extraocular muscles are intact. Pupils are equal, round, and reactive to light and accommodation. Nares appears normal. Moist mucous membranes. PULM: Clear to auscultation bilaterally. No wheezing, rhonchi or rales appreciated. CARDIO: Normal S1, S2. no significant murmurs, gallops, rubs or clicks. No signs of peripheral edema ABDOMEN: Soft, nontender, and nondistended. Normal bowel sounds. No significant organomegaly appreciated. EXTREMITIES: No cyanosis, clubbing, rash, lesions. IMAGING: Chest x-ray no acute findings Head CT without contrast there is chronic microvascular disease with small old lacunar infarcts. No acute intracranial lesions or injury and no change from prior scan ASSESSMENT AND PLAN: This is a 60-year-old female with previous CVAs and residual right-sided weakness who presents to [facility] ER with chief complaint of more pronounced right- sided weakness and facial drooping on the left side for the past 24 hours. She was brought into the ER by her daughter and imaging/CT brain did not show signs of acute intracranial lesions or injury. Her blood pressure on admission was 230s over 120 and 2 doses of 20 of labetalol IV were given and her pressure was able to be brought down to the 180s. Hospitalist team was called to admit the patient for possible CVA versus hypertensive emergency. Possible CVA versus hypertensive emergency Patient has baseline right-sided weakness with left-sided facial droop which has been more pronounced over the past [address] without contrast of the brain was unimpressive for any acute infarcts however will order for MRI and MRApending Admit to PCU and placed on telemetry for 48 hours to monitor for arrhythmias. Neurochecks every 2 hours for the first 24 hours and every 4 hours. I have put in nursing order to call if patient has neurological changes or if his temperature is greater than 100.4 Fahrenheit, SBP greater than 200 or less than 120, heart rate greater than 100. Patient is bedrest until PT assessment is done then she can mobilize per PT recs. He is on strict fall precautions currently. Titrate oxygen to oxygen of the above 92% Patient is to be n.p.o. until he is evaluated for speech and swallow study and then can advance diet as tolerated; in the meantime we will do FSBS every 6 hours while n.p.o. once he has a diet continue before meals and at bedtime. With history of 3 prior CVAs, I will place patient on baby aspirin daily with 75 mg Plavix. Patient can resume her atorvastatin 80 mg daily home dose and I will order for cardiac risk panel. Acetaminophen prn for pain or fever and Zofran prn for nausea Pending echo with bubble study. DM2 with insulin use, poorly controlled with peripheral neuropathy will place patient on sliding scale and add 20 units of Basaglar nightly plus FSBS every 6+ hypoglycemic protocol Hypertension, uncontrolled We will hold patient's home blood pressure medication and let her BP autoregulate for 24 hours. Her initial BP systolic was 230s diastolic 120s and 2 doses of IV 20 mg labetalol was able to bring it down to the 180s systolic. I would allow for permissive hypertension. We will add 20mg lisnopril with parameters of keeping her blood pressure systolic between 160s to 180s Obesity class I Complicating medical prison Medications Scheduled Amlodipine Besylate/Benazepril (Amlodipine-Benazepril 5-40 mg) 1 Each Capsule, 1 CAP PO DAILY, (Reported) Atorvastatin Calcium (Atorvastatin Calcium) 80 Mg Tablet, 80 MG PO DAILY, (Reported) Insulin Glargine,Hum.rec.anlog (Semglee Pen) 100 Unit/Ml (3 Ml) Insuln.pen, 30 UNIT SQ DAILY, (Reported) Omeprazole (Omeprazole) 20 Mg Capsule.dr, 20 MG PO DAILY, (Reported) Allergies Coded Allergies: Sulfa (Sulfonamide Antibiotics) (Verified Allergy, Unknown, 01/28/21) A-FIB/CHADSVASC A-FIB History Current/History of A-Fib/PAF?: No Current PO Anticoag Therapy: Yes GME ATTESTATION GME ATTESTATION My faculty preceptor for this patient encounter was physically present during the encounter and was fully available. All aspects of the patient interview, examination, medical decision making process, and medical care plan development were reviewed and approved by the faculty preceptor. The faculty preceptor is aware and concurs with the plan as stated in the body of this note and will attest to such by his/her cosignature. ATTENDING NOTE IArnoldo, have independently examined this patient and performed my own physical exam, as well as reviewed the documentation and edited where necessary. I have discussed in detail with the resident / student the findings and plan of treatment as documented by the resident / student and edited their note. I agree with their findings and treatment plan and have edited their documentation. I will continue to follow the patient during this hospital stay. Melania Nixon DO Aug 24, 2021 02:32 FOX BURCH MD Aug 25, 2021 06:36
[2021-08-24] MEDS: LEVEMIR (INSULIN DETEMIR) 1 UNITS/0.01ML SC SCH ×2 (03:07→21:31)
[2021-08-24] MEDS: HumaLOG INSULIN (NovoLOG) PER UNIT SC SCH ×4 (03:08→17:36)
[2021-08-24 04:08] LABS: BASO % 0.4 % (0.0-1.0); EOS # 0.1 10^3/uL (0.0-0.5); EOS % 1.2 % (0.0-3.0); LYMPH # 1.8 10^3/uL (1.5-5.0); LYMPH % 18.9 % (24.0-44.0); MEAN CORPUSCULAR HGB CONC 31.4 g/dl (32.0-36.5); MONO # 0.6 10^3/uL (0.0-0.8); MONO % 6.3 % (2.0-8.0); NEUTROPHILS # 6.8 10^3/uL (1.5-8.5); NEUTROPHILS % 72.8 % (36.0-66.0); PLATELET COUNT, AUTOMATED 330 10^3/uL (150-450); RED BLOOD COUNT 4.07 10^6/uL (4.00-5.40); WHITE BLOOD COUNT 9.3 10^3/uL (4.0-10.0)
[2021-08-24 04:16] LABS: ALBUMIN 2.2 GM/DL (3.2-5.2); ALT/SGPT 18 U/L (12-78); BILIRUBIN,DIRECT < 0.1 MG/DL (0.0-0.2); BILIRUBIN,TOTAL 0.3 MG/DL (0.2-1.0); BLOOD UREA NITROGEN 35 MG/DL (7-18); CALCIUM LEVEL 8.4 MG/DL (8.8-10.2); CARBON DIOXIDE LEVEL 23 MEQ/L (21-32); CHLORIDE LEVEL 112 MEQ/L (98-107); CHOLESTEROL LEVEL 177 MG/DL (<200); CHOLESTEROL RISK RATIO 1.843 (<5); CK-MB VALUE MASS 1.6 NG/ML (<3.6); CPK CREATINE PHOSPHOKINASE 66 U/L (26-192); CREATININE FOR GFR 2.09 MG/DL (0.55-1.30); GLOMERULAR FILTRATION RATE 25.5 (>45); GLUCOSE, FASTING 314 MG/DL (70-100); HDL CHOLESTEROL 96 MG/DL (>40); LDL CHOLESTEROL 59 MG/DL (<100); MB/CK RELATIVE INDEX 2.42 (< OR =4); NON-HDL-C 81 MG/DL; POTASSIUM SERUM 4.1 MEQ/L (3.5-5.1); SODIUM LEVEL 143 MEQ/L (136-145); TOTAL PROTEIN 5.5 GM/DL (6.4-8.2); TRIGLYCERIDES LEVEL 112 MG/DL (<150); TROPONIN I < 0.02 NG/ML (< 0.10)
[2021-08-24 04:19] LABS: PROTHROMBIN TIME 13.6 SECONDS (12.7-14.5)
[2021-08-24 04:20] LABS: PARTIAL THROMBOPLASTIN TIME 37.6 SECONDS (25.9-37.0)
[2021-08-24] MEDS ORDERED: ACETAMINOPHEN TAB 650MG DOSE (2X325MG) PO PRN (05:30)
[2021-08-24 05:36] LABS: HEMOGLOBIN A1c 13.6 %
[2021-08-24] MEDS: HEPARIN SOD (PORCINE) 5000UNITS/ML 1ML VIAL/SYRINGE SQ SCH ×3 (06:01→21:31)
[2021-08-24] MEDS ORDERED: lisinopriL 5 MG TAB PO SCH ×2 (09:00)
[2021-08-24] MEDS ORDERED: FLUBLOK(EGG FREE)(QUAD)INFLUENZA VACC 0.5ML SYRINGE 18YRS & OLDER IM ONE (09:00)
--- NOTE | 2021-08-24 09:12 | ECGEPIP ---
[facility] - ED Test Date: 2021-08-23 Pat Name: JOSHUA PORTILLO Department: Room: [place] [address] Gender: Female Teletray Operator: MAKENZIE CARVER : 1960 Requested By: POLA Brandt Order Number: [id number] Reading MD: Matthew Louis Measurements Intervals [place] Rate: 67 P: 57 RI: 136 QRS: -33 QRSD: 90 T: 53 QT: 410 QTc: 433 Interpretive Statements Normal sinus rhythm Left axis deviation POOR R WAVE PROGRESSION Moderate voltage criteria for LVH, may be normal variant ( R in aVL , Roderick product ) SIMILAR TO 01/28/21 Electronically Signed on 08-24-2021 9:11:45 EDT by Matthew Louis
[2021-08-24] MEDS: ATORVASTATIN 20 MG TAB PO SCH (09:55)
[2021-08-24] MEDS: CLOPIDOGREL 75 MG TAB PO SCH (09:55)
[2021-08-24] MEDS: OMEPRAZOLE 20 MG CAP PO SCH (09:55)
--- NOTE | 2021-08-24 10:04 | REP ---
INDICATION: cva. COMPARISON: None. TECHNIQUE: 2D and color Doppler ultrasound evaluation of the carotid arterial system bilaterally. FINDINGS: Right: Peak systolic velocities (cm/S) CCA: 84.8 ECA: 95.4 ICA 68/13 ICA/CCA ratio: 0.8 Left: Peak systolic velocities (cm/S) CCA: 86.0 ECA: 87.0 ICA: 69/16 ICA/CCA ratio: 0.8 There is calcified and noncalcified plaque at both carotid bulbs and in the right proximal internal carotid artery. IMPRESSION: There is calcified and noncalcified plaque without significant stenosis of either internal carotid artery. <Electronically signed by Jong Tolliver > 08/24/21 1000
[2021-08-24] MEDS ORDERED: amLODIPine 5 MG TAB PO ONE ×2 (13:00→16:00)
[2021-08-24] MEDS ORDERED: LABETALOL 100MG/20ML VIAL IV PRN (13:00)
--- NOTE | 2021-08-24 13:11 | IPNPDOC ---
Text Note Date of Service The patient was seen on 08/24/21. NOTE Subjective: Patient stated that she feels better today. Patient had episode of hypoglycemia in the morning Objective: GENERAL APPEARANCE: NAD HEENT: no scleral icterus, no JVD, EOMI CARDIOVASCULAR: S1S2 LUNGS: Diminished lung sounds bilaterally ABDOMEN: soft & not tender w palpation MUSCULOSKELETAL: no cyanosis, no swelling INTEGUMENT: no generalized pallor NEUROLOGICAL: left sided mouth droop,follows commands, speech not dysarthric, strength of right upper extremity 3 out of 5, lower extremity 4 out of 5 Assessment and plan: Patient is 60 years old female with past medical history of previous CVA with residual right-sided weakness who presents to the hospital with hypertensive emergency and pronounced right-sided weakness and facial drooping on the left side for the past 24 hours. Right-sided weakness/hypertensive emergency/hypertension Differential diagnosis includes stroke, hypertensive emergency CT head negative for acute infarct MRI, MRA pending Continue aspirin, Plavix, continue to neuro check Continue statin Echo pending I added Norvasc and increased the dose of lisinopril to 40 mg PT/OT Swallowing evaluation Type 2 diabetes Poorly controlled HbA1c 13 Insulin sliding scale I decreased the night dose of detemir from 40 to 20 units Obesity BMI 32.7 Complicated care Hyperlipidemia Continue statin DVT prophylaxis with heparin VS,Fishbone, I+O VS, Fishbone, I+O Laboratory Tests 08/23/21 23:23 08/24/21 02:08 Vital Signs Date Time Temp Pulse Resp B/P (MAP) Pulse Ox O2 Delivery O2 Flow Rate FiO2 08/24/21 12:38 97.2 84 20 180/70 (106) 99 Room Air I&O- Last 24 Hours up to 6 AM 08/24/21 06:00 Intake Total 150 ml Balance 150 ml FAIZA DELGADO DO Aug 24, 2021 13:11
--- NOTE | 2021-08-24 15:24 | REPVR ---
PROCEDURE INFORMATION: Exam: MR Head Without Contrast Exam date and time: 08/24/2021 2:58 PM Age: 60 years old Clinical indication: Stroke symtpoms TECHNIQUE: Imaging protocol: MR of the head without contrast. COMPARISON: CT Head without contrast 08/23/2021 11:17 PM FINDINGS: Brain: There is a 1.3 cm focus of restricted diffusion within the left parietal lobe white matter on the diffusion sequence consistent with a recent infarct. There are more subtle foci of high signal abnormality in the right centrum semiovale which may represent subacute infarcts. There are chronic lacunar infarcts. There are chronic brainstem ischemic changes. There is moderate cerebral and cerebellar atrophy. Cerebral ventricles: Normal. No ventriculomegaly. Bones/joints: Unremarkable. Paranasal sinuses: Normal as visualized. No acute sinusitis. Mastoid air cells: Normal as visualized. No mastoid effusion. Orbital cavity: Unremarkable. Soft tissues: Unremarkable. IMPRESSION: 1. There is a 1.3 cm focus of restricted diffusion within the left parietal lobe white matter on the diffusion sequence consistent with a recent infarct. There are more subtle foci of high signal abnormality in the right centrum semiovale which may represent subacute infarcts. 2. There are chronic lacunar infarcts. 3. There are chronic brainstem ischemic changes. 4. There is moderate cerebral and cerebellar atrophy. Electronically signed by: Kit Marin On 08/24/2021 15:24:30 PM
--- NOTE | 2021-08-24 15:29 | REPVR ---
PROCEDURE INFORMATION: Exam: MRA Head Without Contrast; Arteriography Exam date and time: 08/24/2021 2:58 PM Age: 60 years old Clinical indication: Stroke symtpoms TECHNIQUE: Imaging protocol: Magnetic resonance angiography head without contrast. Exam focused on the arteries. COMPARISON: MRA BRAIN W/O CONTRAST 03/30/2020 10:16 PM FINDINGS: ANTERIOR CIRCULATION: Right internal carotid artery: Intracranial segment is patent with no significant stenosis. No aneurysm. Right middle cerebral artery: No occlusion or significant stenosis. No aneurysm. Right anterior cerebral artery: No occlusion or significant stenosis. No aneurysm. Left internal carotid artery: Intracranial segment is patent with no significant stenosis. No aneurysm. Left middle cerebral artery: There is a high-grade stenosis or occlusion at the origin of a left M2 branch. Left anterior cerebral artery: No occlusion or significant stenosis. No aneurysm. POSTERIOR CIRCULATION: Right vertebral artery: No occlusion or significant stenosis. No aneurysm. Left vertebral artery: No occlusion or significant stenosis. No aneurysm. Basilar artery: No occlusion or significant stenosis. No aneurysm. Right posterior cerebral artery: There is moderate stenosis of the right posterior cerebral artery. Left posterior cerebral artery: No occlusion or significant stenosis. No aneurysm. IMPRESSION: 1. 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 2. There is a high-grade stenosis or occlusion at the origin of a left M2 branch. Electronically signed by: Kit Marin On 08/24/2021 15:29:37 PM
[2021-08-24] MEDS ORDERED: LEVEMIR (INSULIN DETEMIR) 1 UNITS/0.01ML SC ONE (16:10)
[2021-08-24] MEDS: **hydrALAZINE HCL** 25 MG TAB PO SCH ×2 (17:16→21:34)
[2021-08-25] VITALS (17 sets, daily range): BP systolic 141–188; BP diastolic 63–92; O2SAT 91–98
[2021-08-25] MEDS: HumaLOG INSULIN (NovoLOG) PER UNIT SC SCH ×4 (00:04→17:52)
[2021-08-25] MEDS: **hydrALAZINE HCL** 25 MG TAB PO SCH (05:32)
[2021-08-25] MEDS: HEPARIN SOD (PORCINE) 5000UNITS/ML 1ML VIAL/SYRINGE SQ SCH ×3 (05:33→21:06)
[2021-08-25 05:42] LABS: CHOLESTEROL RISK RATIO 1.867 (<5)
[2021-08-25 07:52] LABS: HEMATOCRIT 33.1 % (36.0-47.0); HEMOGLOBIN 10.4 g/dl (12.0-15.5); MEAN CORPUSCULAR HGB CONC 31.4 g/dl (32.0-36.5); PLATELET COUNT, AUTOMATED 291 10^3/uL (150-450); RED BLOOD COUNT 3.85 10^6/uL (4.00-5.40); WHITE BLOOD COUNT 7.8 10^3/uL (4.0-10.0)
[2021-08-25 08:48] LABS: CALCIUM LEVEL 8.4 MG/DL (8.8-10.2); CREATININE FOR GFR 1.62 MG/DL (0.55-1.30); GLOMERULAR FILTRATION RATE 34.3 (>45); MAGNESIUM LEVEL 1.8 MG/DL (1.8-2.4); POTASSIUM SERUM 4.3 MEQ/L (3.5-5.1)
[2021-08-25] MEDS ORDERED: LEVEMIR (INSULIN DETEMIR) 1 UNITS/0.01ML SC SCH ×4 (09:00→21:00)
[2021-08-25] MEDS ORDERED: amLODIPine 5 MG TAB PO SCH (09:00)
[2021-08-25] MEDS: CLOPIDOGREL 75 MG TAB PO SCH (09:26)
[2021-08-25] MEDS: ATORVASTATIN 20 MG TAB PO SCH (09:28)
[2021-08-25] MEDS: OMEPRAZOLE 20 MG CAP PO SCH (09:28)
--- NOTE | 2021-08-25 09:39 | IPNPDOC ---
Text Note Date of Service The patient was seen on 08/25/21. NOTE Subjective: No any acute events overnight. Patient denied any headache. I t alked to her granddaughter yesterday, she told me that patient had high blood pressure almost daily before admission. Objective: GENERAL APPEARANCE: NAD HEENT: no scleral icterus, no JVD, EOMI CARDIOVASCULAR: S1S2 LUNGS: Diminished lung sounds bilaterally ABDOMEN: soft & not tender w palpation MUSCULOSKELETAL: no cyanosis, no swelling INTEGUMENT: no generalized pallor NEUROLOGICAL: left sided mouth droop,follows commands, speech not dysarthric, strength of right upper extremity 3 out of 5, lower extremity 4 out of 5 Assessment and plan: Patient is 60 years old female with past medical history of previous CVA with residual right-sided weakness who presents to the hospital with hypertensive emergency and pronounced right-sided weakness and facial drooping on the left side for the past 24 hours. Right-sided weakness/hypertensive emergency/hypertension Differential diagnosis includes stroke, hypertensive emergency CT head negative for acute infarct MRI shows There is a 1.3 cm focus of restricted diffusion within the left parietal lobe white matter on the diffusion sequence consistent with a recent infarct. There are more subtle foci of high signal abnormality in the right centrum semiovale which may represent subacute infarcts. MRA shows moderate stenosis of the right posterior cerebral artery. There is a high-grade stenosis or occlusion at the origin of a left M2 branch. I talked to neurologist Dr Jenkins he recommended to continue treatment with aspirin Plavix and statin Continue aspirin, Plavix Continue statin Echo pending I added Norvasc, hydralazine and increased the dose of lisinopril to 40 mg PT/OT Swallowing evaluation Type 2 diabetes Poorly controlled HbA1c 13 Insulin sliding scale I decreased the night dose of detemir from 40 to 20 units Obesity BMI 32.7 Complicated care Hyperlipidemia Continue statin DVT prophylaxis with heparin VS,Fishbone, I+O VS, Fishbone, I+O Laboratory Tests 08/25/21 07:42 Vital Signs Date Time Temp Pulse Resp B/P (MAP) Pulse Ox O2 Delivery O2 Flow Rate FiO2 08/25/21 08:00 97.8 77 20 168/80 (109) 97 Room Air I&O- Last 24 Hours up to 6 AM 08/25/21 06:00 Intake Total 1410 ml Output Total 200 ml Balance 1210 ml DROZHZHIN,FAIZA DO Aug 25, 2021 09:39
[2021-08-25] MEDS ORDERED: GLUCAGON INJ 1MG VIAL SC PRN (10:50)
[2021-08-25] MEDS ORDERED: GLUCOSE 4GM CHEW TABLET PO PRN (10:50)
[2021-08-25] MEDS ORDERED: DEXTROSE 50% 50 ML SYRINGE IV PRN (10:50)
[2021-08-25] MEDS ORDERED: **hydrALAZINE** 50 MG TAB PO SCH (14:00)
[2021-08-25] MEDS ORDERED: **hydrALAZINE** 50 MG TAB PO ONE (20:00)
[2021-08-25] MEDS ORDERED: HumaLOG INSULIN (NovoLOG) PER UNIT SC SCH (21:00)
[2021-08-25] MEDS: **hydrALAZINE** 50 MG TAB PO SCH (23:40)
[2021-08-26] VITALS (16 sets, daily range): BP systolic 122–180; BP diastolic 65–90; O2SAT 91–98
[2021-08-26] MEDS: HEPARIN SOD (PORCINE) 5000UNITS/ML 1ML VIAL/SYRINGE SQ SCH (05:15)
[2021-08-26] MEDS: **hydrALAZINE** 50 MG TAB PO SCH ×2 (05:17→12:25)
[2021-08-26 05:45] LABS: BASO % 0.3 % (0.0-1.0); EOS # 0.3 10^3/uL (0.0-0.5); EOS % 2.8 % (0.0-3.0); HEMATOCRIT 32.4 % (36.0-47.0); HEMOGLOBIN 10.2 g/dl (12.0-15.5); LYMPH # 2.3 10^3/uL (1.5-5.0); LYMPH % 24.2 % (24.0-44.0); MEAN CORPUSCULAR HEMOGLOBIN 27.3 pg (27.0-33.0); MEAN CORPUSCULAR HGB CONC 31.5 g/dl (32.0-36.5); MEAN CORPUSCULAR VOLUME 86.6 fl (80.0-96.0); MONO # 0.7 10^3/uL (0.0-0.8); MONO % 7.4 % (2.0-8.0); NEUTROPHILS % 65.1 % (36.0-66.0); PLATELET COUNT, AUTOMATED 316 10^3/uL (150-450); RED BLOOD COUNT 3.74 10^6/uL (4.00-5.40); WHITE BLOOD COUNT 9.3 10^3/uL (4.0-10.0)
[2021-08-26 06:10] LABS: CALCIUM LEVEL 8.4 MG/DL (8.8-10.2); CREATININE FOR GFR 1.72 MG/DL (0.55-1.30); MAGNESIUM LEVEL 1.7 MG/DL (1.8-2.4); POTASSIUM SERUM 4.2 MEQ/L (3.5-5.1)
[2021-08-26] MEDS: CLOPIDOGREL 75 MG TAB PO SCH (08:30)
[2021-08-26] MEDS: OMEPRAZOLE 20 MG CAP PO SCH (08:30)
[2021-08-26] MEDS: ATORVASTATIN 20 MG TAB PO SCH (08:30)
[2021-08-26] MEDS: HumaLOG INSULIN (NovoLOG) PER UNIT SC SCH ×2 (08:39→12:26)
[2021-08-26] MEDS ORDERED: FLUBLOK(EGG FREE)(QUAD)INFLUENZA VACC 0.5ML SYRINGE 18YRS & OLDER IM ONE (09:00)
[2021-08-26] MEDS ORDERED: LEVEMIR (INSULIN DETEMIR) 1 UNITS/0.01ML SC SCH (09:00)
[2021-08-26] MEDS ORDERED: HYDR50TA PO ×2 (09:56→14:03)
[2021-08-26] MEDS ORDERED: AMLO1TAB25 PO (09:56)
[2021-08-26] MEDS ORDERED: CLOP75TA2 PO (09:56)
[2021-08-26] MEDS ORDERED: INSU100I28 SQ (09:56)
[2021-08-26] MEDS ORDERED: LISI40TA4 PO (09:56)
[2021-08-26] MEDS ORDERED: ASPI81CH33 PO (09:57)
[2021-08-26] MEDS ORDERED: ASPIRIN 81MG ENTERIC TABLET PO SCH (10:00)
[2021-08-26] MEDS ORDERED: MAGNESIUM OXIDE 400MG TAB (MAG-OX) PO ONE (10:55)
[2021-08-26] MEDS ORDERED: **hydrALAZINE** 50 MG TAB PO ONE (14:00)
--- NOTE | 2021-08-26 14:14 | DS.PDOC ---
Discharge Summary General Date of Admission Aug 23, 2021 at 22:28 Date of Discharge 08/26/21 Discharge Summary PROCEDURES PERFORMED DURING STAY: [None]. ADMITTING DIAGNOSES: Right-sided weakness/hypertensive emergency/hypertension CVA Type 2 diabetes Obesity Hyperlipidemia DISCHARGE DIAGNOSES: Right-sided weakness/hypertensive emergency/hypertension CVA Type 2 diabetes Obesity Hyperlipidemia COMPLICATIONS/CHIEF COMPLAINT: Hypertensive Emergency, Weakness. HISTORY OF PRESENT ILLNESS: This is a 60-year-old [place]an speaking only female who presents to [facility] ER with a chief complaint of right-sided weakness that is more pronounced than her baseline and left-sided facial droop and heaviness x24 hours. Patient's daughter is at bedside this history of present illness was obtained from her translating at bedside. According to the patient she started feeling more pronounced right-sided weakness yesterday however it was not until today that she had more pronounced heaviness in the left side of her face as well as some more pronounced facial droop. The daughter also states that it was difficult to understand her mother's speech and she was concerned and brought her into the ER this evening. Patient denies any difficulty with word finding blurry vision, double vision, sudden visual loss, difficulty swallowing inability to understand speech, confusion or paralysis. In the ER, her blood pressure was 230s systolic over 120s diastolic and she was given 2 doses of 20 mg of IV labetalol and her pressure was able to be brought down to 180 systolic. Also of note, patient has very poorly controlled diabetes type 2 with long-term insulin use however it seems like her blood sugars are s till not quite in control. In the ER her blood sugar was in the high 300s. Her last A1c was 12.4. HOSPITAL COURSE: During the hospital stay the following issue addressed During the hospital stay patient was found to have right-sided weakness/hypertensive emergency/hypertension/CVA MRI shows There is a 1.3 cm focus of restricted diffusion within the left parietal lobe white matter on the diffusion sequence consistent with a recent infarct. There are more subtle foci of high signal abnormality in the right centrum semiovale which may represent subacute infarcts. MRA shows moderate stenosis of the right posterior cerebral artery. There is a high-grade stenosis or occlusion at the origin of a left M2 branch. I talked to neurologist Dr Jenkins he recommended to continue treatment with aspirin Plavix and statin Echo pending I added Norvasc, hydralazine and increased the dose of lisinopril to 40 mg in order to better control hypertension. Patient will need close follow-up with PCP for blood pressure control and control of her diabetes which is poorly cont rolled Type 2 diabetes Poorly controlled HbA1c 13 Insulin sliding scale I increased the dose of Lantus on discharge. Patient will benefit from rapid acting insulins in the outpatient settings and she will need close follow-up with PCP in order to prescribe it. Obesity BMI 32.7 Complicated care Hyperlipidemia Continue statin DISCHARGE MEDICATIONS: Please see below. ALLERGIES: Please see below. PHYSICAL EXAMINATION ON DISCHARGE: VITAL SIGNS: Please see below. GENERAL APPEARANCE: NAD HEENT: no scleral icterus, no JVD, EOMI CARDIOVASCULAR: S1S2 LUNGS: Diminished lung sounds bilaterally ABDOMEN: soft & not tender w palpation MUSCULOSKELETAL: no cyanosis, no swelling INTEGUMENT: no generalized pallor NEUROLOGICAL: left sided mouth droop,follows commands, speech not dysarthric, strength of right upper extremity 3 out of 5, lower extremity 4 out of 5 LABORATORY DATA: Please see below. IMAGING: See above PROGNOSIS: Fair ACTIVITY: [As tolerated]. DIET: Diabetes diet/cardiac diet DISCHARGE PLAN: Home DISCHARGE INSTRUCTIONS: Follow-up with neurologist and PCP DISCHARGE CONDITION: [Stable]. TIME SPENT ON DISCHARGE:40 minutes. Vital Signs/I&Os Vital Signs Date Time Temp Pulse Resp B/P (MAP) Pulse Ox O2 Delivery O2 Flow Rate FiO2 08/26/21 12:25 180/90 08/26/21 09:00 97 Room Air 08/26/21 08:33 75 08/26/21 07:20 98.1 18 I&O- Last 24 Hours up to 6 AM 08/26/21 06:00 Intake Total 1860 ml Output Total 100 ml Balance 1760 ml Laboratory Data Labs 24H Laboratory Tests 2 08/25/21 17:11: Bedside Glucose (Misc Panel) 198H 08/25/21 20:12: Bedside Glucose (Misc Panel) 187H 08/26/21 05:05: Immature Granulocyte % (Auto) 0.2, Neutrophils (%) (Auto) 65.1, Lymphocytes (%) (Auto) 24.2, Monocytes (%) (Auto) 7.4, Eosinophils (%) (Auto) 2.8, Basophils (%) (Auto) 0.3, Neutrophils # (Auto) 6.0, Lymphocytes # (Auto) 2.3, Monocytes # (A uto) 0.7, Eosinophils # (Auto) 0.3, Basophils # (Auto) 0.0, Nucleated Red Blood Cells % (auto) 0.0, Anion Gap 5L, Glomerular Filtration Rate 32.0L, Calcium Level 8.4L, Magnesium Level 1.7L 08/26/21 06:42: Bedside Glucose (Misc Panel) 97 08/26/21 12:16: Bedside Glucose (Misc Panel) 242H CBC/BMP Laboratory Tests 08/26/21 05:05 FSBS Laboratory Tests Test 08/25/21 17:11 08/25/21 20:12 08/26/21 06:42 08/26/21 12:16 Range/Units Bedside Glucose (Misc Panel) 198 187 97 242 80-115 MG/DL Discharge Medications Scheduled Amlodipine Besylate (Amlodipine Besylate) 10 Mg Tablet, 10 MG PO DAILY Aspirin (Aspirin) 81 Mg Tab.chew, 1 TAB PO DAILY for pain Atorvastatin Calcium (Atorvastatin Calcium) 80 Mg Tablet, 80 MG PO DAILY, (Reported) Clopidogrel Bisulfate (Clopidogrel) 75 Mg Tablet, 75 MG PO DAILY Hydralazine HCl (Hydralazine HCl) 50 Mg Tablet, 75 MG PO Q8H Insulin Glargine,Hum.rec.anlog (Semglee Pen) 100 Unit/Ml (3 Ml) Insuln.pen, 50 UNIT SQ QAM Lisinopril (Lisinopril) 40 Mg Tablet, 1 TAB PO DAILY Omeprazole (Omeprazole) 20 Mg Capsule.dr, 20 MG PO DAILY, (Reported) Allergies Coded Allergies: Sulfa (Sulfonamide Antibiotics) (Verified Allergy, Unknown, 01/28/21) FAIZA DELGADO DO Aug 26, 2021 14:13
[2021-08-27] MEDS ORDERED: ASPIRIN 81MG ENTERIC TABLET PO SCH (09:00)
--- NOTE | 2021-08-29 04:15 | REP ---
INDICATION: stroke like symptoms COMPARISON: 08/23/2021 TECHNIQUE: Portable AP view of the chest FINDINGS: The mediastinum and cardiac silhouette are stable and within normal limits for portable technique. The lung hicks are clear without acute consolidation, effusion, or pneumothorax. Skeletal structures are intact. IMPRESSION: No acute cardiopulmonary process appreciated. <Electronically signed by Oni Ferguson > 08/29/21 0417
== END 2021-08-26 15:35 | disposition home health service (06) | DRG 45 ==
LOC: M ED 22:27 → M ED INP 22:28 → M PCU 08-24 04:41
PROVIDERS: ADMIT Family Medicine; ATTEND Internal Medicine
DX: I63.9 Cerebral infarction, unspecified (principal); E11.51 Type 2 diabetes mellitus with diabetic peripheral angiopathy without gangrene; I16.0 Hypertensive urgency; E66.9 Obesity, unspecified; E78.5 Hyperlipidemia, unspecified; Z68.32 Body mass index [BMI] 32.0-32.9, adult; Z79.82 Long term (current) use of aspirin; Z79.899 Other long term (current) drug therapy; Z88.2 Allergy status to sulfonamides; I10 Essential (primary) hypertension

== ENCOUNTER → 2021-08-29 | Outpatient (CLI) | payer OTHER ==
[~2021-08-29] MED LIST changes: +AMLO5CAP45; +AMLO5CAP45 PO; +ATOR80TA59 PO; +CLOP75TA2 PO; +HYDR50TA PO; +INSURSD; +LISI40TA4 PO; +METF10004; +OMEP1CAP73 PO
== END ==
LOC: M LABSMTC 10:32
PROVIDERS: ATTEND Anesthesiology
DX: Z01.812 Encounter for preprocedural laboratory examination (principal); Z20.822 Contact with and (suspected) exposure to COVID-19

== ENCOUNTER 2021-08-31 18:56 | Emergency (ER) | payer OTHER ==
[~2021-08-31] VITALS: Ht 160 cm; Wt 87.8 kg
[2021-08-31 20:05] VITALS: BP 168/88
[2021-08-31] MEDS ORDERED: **hydrALAZINE** 50 MG TAB PO ONE (20:05)
[2021-08-31 21:24] VITALS: BP 180/82
== END 2021-08-31 22:23 | disposition home or self-care (01) ==
LOC: M ED 18:56
DX: I10 Essential (primary) hypertension (principal); Z86.73 Personal history of transient ischemic attack (TIA), and cerebral infarction without residual deficits; K21.9 Gastro-esophageal reflux disease without esophagitis; Z88.2 Allergy status to sulfonamides; Z79.899 Other long term (current) drug therapy

== ENCOUNTER → 2021-09-26 | Outpatient (REF) | payer OTHER | LOC: M SFHCPLAZ 15:20 | DX: Z53.20 Procedure and treatment not carried out because of patient's decision for unspecified reasons (principal) ==

== ENCOUNTER → 2021-09-27 | Outpatient (CLI) | payer OTHER | LOC: M LAB 14:51 → M PLALAB 14:51 | PROVIDERS: ATTEND Student in an Organized Health Care Education/Training Program | DX: R53.83 Other fatigue (principal); I10 Essential (primary) hypertension ==

== ENCOUNTER → 2021-09-27 | Outpatient (CLI) | payer OTHER ==
[2021-09-27 15:34] LABS: BASO # 0.1 10^3/uL (0.0-0.2); BASO % 0.6 % (0.0-1.0); EOS # 0.2 10^3/uL (0.0-0.5); EOS % 2.4 % (0.0-3.0); HEMOGLOBIN 9.8 g/dl (12.0-15.5); LYMPH # 1.3 10^3/uL (1.5-5.0); LYMPH % 12.5 % (24.0-44.0); MEAN CORPUSCULAR HEMOGLOBIN 27.4 pg (27.0-33.0); MEAN CORPUSCULAR HGB CONC 30.6 g/dl (32.0-36.5); MEAN CORPUSCULAR VOLUME 89.4 fl (80.0-96.0); MONO # 0.6 10^3/uL (0.0-0.8); MONO % 6.1 % (2.0-8.0); NEUTROPHILS # 7.8 10^3/uL (1.5-8.5); NEUTROPHILS % 77.9 % (36.0-66.0); PLATELET COUNT, AUTOMATED 365 10^3/uL (150-450); RED BLOOD COUNT 3.58 10^6/uL (4.00-5.40)
[2021-09-27 16:01] LABS: ALBUMIN 2.6 GM/DL (3.2-5.2); BILIRUBIN,TOTAL 0.2 MG/DL (0.2-1.0); CALCIUM LEVEL 8.7 MG/DL (8.8-10.2); CREATININE FOR GFR 2.2 MG/DL (0.55-1.30); FREE T4 0.89 NG/DL (0.76-1.46); MAGNESIUM LEVEL 1.8 MG/DL (1.8-2.4); THYROID STIMULATING HORMONE 4.97 uIU/ML (0.358-3.740); TOTAL PROTEIN 6.2 GM/DL (6.4-8.2)
== END ==
LOC: M PLALAB 12:27
PROVIDERS: ATTEND Student in an Organized Health Care Education/Training Program
DX: I10 Essential (primary) hypertension (principal); R53.83 Other fatigue

== ENCOUNTER 2021-10-01 10:01 | Inpatient (IN) | payer OTHER ==
[~2021-10-01] VITALS: Ht 167.6 cm; Wt 100.9 kg
[2021-10-01] MEDS: HumaLOG INSULIN (NovoLOG) PER UNIT SC SCH ×2 (04:41→17:30)
[2021-10-01] MEDS: LATANOPROST 0.005% OPHTH SOLN 2.5 ML OU SCH (04:41)
[2021-10-01] MEDS: COSOPT OCUMETER PLUS 10ML (DORZOLAMIDE/TIMOLOL) OU SCH (04:41)
[2021-10-01] MEDS ORDERED: DORZ2SOL5 OU (10:33)
[2021-10-01] MEDS ORDERED: LATA0.0015 (10:33)
[2021-10-01 11:04] LABS: BASO % 0.5 % (0.0-1.0); EOS # 0.2 10^3/uL (0.0-0.5); EOS % 2.2 % (0.0-3.0); HEMATOCRIT 34.7 % (36.0-47.0); HEMOGLOBIN 10.3 g/dl (12.0-15.5); LYMPH # 1.3 10^3/uL (1.5-5.0); LYMPH % 14.9 % (24.0-44.0); MEAN CORPUSCULAR HEMOGLOBIN 26.9 pg (27.0-33.0); MEAN CORPUSCULAR HGB CONC 29.7 g/dl (32.0-36.5); MEAN CORPUSCULAR VOLUME 90.6 fl (80.0-96.0); MONO # 0.6 10^3/uL (0.0-0.8); MONO % 6.6 % (2.0-8.0); NEUTROPHILS # 6.7 10^3/uL (1.5-8.5); NEUTROPHILS % 75.6 % (36.0-66.0); PLATELET COUNT, AUTOMATED 355 10^3/uL (150-450); RED BLOOD COUNT 3.83 10^6/uL (4.00-5.40); WHITE BLOOD COUNT 8.8 10^3/uL (4.0-10.0)
--- OUTSIDE RECORDS SUMMARY | 2021-10-01 11:06 | CCD ---
Author Author [facility] Organization [facility] Address Unknown Phone Unavailable Care Team Providers Care Vice President Network Development Name Role Phone Sally Calero Unavailable PROBLEMS Type Condition ICD9-CM Code [id number]-AI Code Onset Dates Condition S tatus W/U Status Risk SNOMED Code Notes Problem Hypertension, unspecified type I10 Active confir med 42757414 Problem Type 2 diabetes mellitus with hyperglycemia E11.65 Active confirmed [id number] Problem Type 2 diabetes mellitus with peripheral neuropathy E11.42 Active confirmed 48797086 Problem Lumbago with sciatica, left side M54.42 Active conf irmed 99302041 Problem Lumbago with sciatica, right side M54.41 Active confirmed 48732152 Problem Diabetes mellitus with nephropathy E11.21 Activ e confirmed 08801578 Problem Other chronic pain G89.29 Active confirmed 8 0847978 Problem Neuropathy G62.9 Active confirmed 799028143 Problem 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 Active confirmed 751294059 ALLERGIES Allergen (clinical drug ingredient) Drug/Non Drug Allergy do cumented on EMR Reaction Allergy Type Onset Date Status Sulfa (for allergy use only) Unknown Drug Allergy Active ENCOUNTERS from 1960 to 2021-09-13 Encounter Location Date Provider Diagnosis [address] [phone] [place] [address] 15 Aug, 2021 Sally Calero IMMUNIZATIONS No Information SOCIAL HISTORY Tobacco Use: Social History Observation Description Date Details (start date - stop date) Never Smoker Sex Assigned At : Social History Observation Description Sex Assigned At Unknown Education: Question Answer Notes Level of Education: Grade School Audit Question Answer Notes Total Score: 0 Interpretation: Alcohol Education Language: Question Answer Notes Languages spoken: [place]an Uatsdin: Question Answer Notes [employer] [facility] Question Answer Notes Total Score: 0 Interpretation: No problems reported Alcohol Screening: Question Answer Notes Did you have a drink containing alcohol in the past year? No Points 0 Interpretation Negative Tobacco Use: Question Answer Notes Are you a: never smoker REASON FOR REFERRAL No Information VITAL SIGNS No information MEDICATIONS Medication SIG (Take, Route, Frequency, Duration) Notes Start Da te End Date Status Omeprazole 20 MG 1 capsule 30 minutes before morning meal Orally On a day Active HumuLIN R 100 UNIT/ML as directed Injection before meals for 30 days Dispense as Writtenadminister 30 units per day Dec, Activ e amLODIPine Besy-Benazepril HCl 5-10 MG 30 Orally once a day for 30 days May, Active Grecia Pen [place] 31G X 6 MM as directed subcut once for 30 day s May, Active Semglee 100 UNIT/ML as directed Subcutaneous Active Aspirin 81 81 MG 1 tablet Orally Once a day for 30 day(s) May, Active Bisoprolol Fumarate 5 MG 1 tablet Orally Once a day for 30 day(s ) Aug, Active Norvasc 5mg one PO DAILY for 90 days Dec, Active Grecia Pen [place] 31G X 6 MM as directed subcutaneously Daily for 30 Days Active metFORMIN HCl 1000 MG 1 tablet with a meal Orally Once a day for 30 day(s) May, Active PROCEDURES No Information RESULTS No Results REASON FOR VISIT elevated BP MEDICAL (GENERAL) HISTORY Type Description Date Medical History Insulin Dependent DM (Type 2) goal Alc o f less that 7 Medical History Dyslipidemia Medical History HTN goal of 140/90 Medical History Grade 3 diastolic Dysfunction ( Echo in 2019): Surgical History No Surgical history information Hospitalization History Diabetes 03/2020 [place] No Information Health Concerns No Information MEDICAL EQUIPMENT No Information MENTAL STATUS No Information FUNCTIONAL STATUS No Information ASSESSMENTS No Information PLAN OF TREATMENT Medication Medication Name Sig Start Date Stop Date HumuLIN R 100 UNIT/ML as directed Injection before meals for 30 days Dec, Bisoprolol Fumarate 5 MG 1 tablet Orally Once a day for 30 day(s ) Aug, Next Appt Details Provider Name:Katja Whaley, 2020-11 02:00:00 PM, [address] [facility], , [place], [address], Insurance Providers Payer Name Payer Address Payer Phone Insured Name Patient Relati onship to Insured Coverage Start Date Coverage End Date [employer] DEPT [address] [facility] [phone] JOSHUA PORTILLO self
--- OUTSIDE RECORDS SUMMARY | 2021-10-01 11:06 | CCD ---
Author Author [facility] Organization [facility] Address Unknown Phone Unavailable Support Name Relationship Address Phone DISABLED Next Of Kin Unknown Unavailable UE Next Of Kin Unknown Unavailable MANUEL QUIROZ Next Of Kin [id number] [place], [place] [id number] MANUEL QUIROZ ECON [id number] [place] [address] Unavailable Re-disclosure Warning The records that you are about to access may contain information from federally-assisted alcohol or drug abuse programs. If such information is present, then the following federally mandated warning applies: This information has been disclosed to you from records protected by federal confidentiality rules (42 CFR part 2). The federal rules prohibit you from making any further disclosure of this information unless further disclosure is expressly permitted by the written consent of the person to whom it pertains or as otherwise permitted by 42 CFR part 2. A general authorization for the release of medical or other information is NOT sufficient for this purpose. The Federal rules restrict any use of the information to criminally investigate or prosecute any alcohol or drug abuse patient.The records that you are about to access may contain highly sensitive health information, the redisclosure of which is protected by Article 27-F of the [place] [employer] Public Health law. If you continue you may have access to information: Regarding HIV / AIDS; Provided by facilities licensed or operated by the [employer] Office of Mental Health; or Provided by the [employer] Office for People With Developmental Disabilities. If such information is present, then the following [employer] mandated warning applies: This information has been disclosed to you from confidential records which are protected by state law. State law prohibits you from making any further disclosure of this information without the specific written consent of the person to whom it pertains, or as otherwise permitted by law. Any unauthorized further disclosure in violation of state law may result in a fine or senior care sentence or both. A general authorization for the release of medical or other information is NOT sufficient authorization for further disc losure. Encounters Encounter Providers Location Date Indications Data Source(s ) [place] [address] [facility] [address] 09/27/2021 12:00:00 AM EDT eCW1 ([facility]) Unknown [address] [facility] [place] [address] 09/26/2021 12:00:00 AM EDT eCW1 ([facility]) Unknown [address] [facility] [address] 09/18/2021 12:00:00 AM EDT eCW1 ([facility]) [place] [address] [facility] [address] 09/13/2021 12:00:00 AM EDT eCW1 ([facility]) [place] [address] [facility] [address] 09/09/2021 12:00:00 AM EDT eCW1 ([facility]) [place] [address] [facility] [address] 09/03/2021 12:00:00 AM EDT eCW1 ([facility]) Unknown [address] [facility] [address] 09/02/2021 12:00:00 AM EDT eCW1 ([facility]) Unknown [address] [facility] [address] 07/23/2021 12:00:00 AM EDT eCW1 ([facility]) Unknown [address] [facility] [address] 07/23/2021 12:00:00 AM EDT eCW1 ([facility]) Outpatient [address] [facility] [address] 03/06/2021 12:00:00 AM EDT eCW1 ([facility]) Unknown [address] [facility] [address] 02/14/2021 12:00:00 AM EDT eCW1 ([facility]) Unknown [address] [facility] [address] 02/05/2021 12:00:00 AM EST eCW1 ([facility]) Outpatient [address] [facility] [address] 01/31/2021 12:00:00 AM EST eCW1 ([facility]) Unknown [address] [facility] [address] 01/28/2021 12:00:00 AM EST eCW1 ([facility]) Unknown [address] [facility] [address] 01/28/2021 12:00:00 AM EST eCW1 ([facility]) Outpatient [address] [facility] [address] 01/24/2021 12:00:00 AM EST eCW1 ([facility]) Unknown [address] [facility] [address] 01/09/2021 12:00:00 AM EST eCW1 ([facility]) Unknown [address] [facility] [address] 01/03/2021 12:00:00 AM EST eCW1 ([facility]) Unknown [address] [facility] [address] 12/31/2020 12:00:00 AM EST eCW1 ([facility]) Unknown [address] [facility] [address] 12/24/2020 12:00:00 AM EST eCW1 ([facility]) Unknown [address] [facility] [address] 12/06/2020 12:00:00 AM EST eCW1 ([facility]) Unknown [address] [facility] [address] 11/26/2020 12:00:00 AM EST eCW1 ([facility]) Outpatient [address] [facility] [address] 11/21/2020 12:00:00 AM EST eCW1 ([facility]) [place] [address] [facility] [address] 11/21/2020 12:00:00 AM EST eCW1 ([facility]) Unknown [address] [facility] [address] 11/05/2020 12:00:00 AM EST eCW1 ([facility]) Immunizations Vaccine Date Status Description Data Source(s) COVID-19 VACCINE Moderna 08/03/2021 12:00:00 AM EDT completed [facility] Vaccine Series Complete: YESThis Data wa s Submitted to [facility] Via [employer]. COVID-19 VACCINE Moderna 07/06/2021 12:00:00 AM EDT completed [facility] Vaccine Series Complete: NOThis Data was Submitted to [facility] Via [employer]. Medications Medication Brand Name Start Date Product Form Dose Route Admi nistrative Instructions Pharmacy Instructions Status Indications Reaction Description Data Source(s) Hydralazine Hydrochloride 50 MG Oral Tablet hydrALAZIN E HCl 50 MG hydrALAZINE HCl 50 MG 09/26/2021 12:00:00 AM EDT 1.0 {tablet_with_food} active hydrALAZINE HCl 50 MG eCW1 ([facility]) Hydralazine Hydrochloride 50 MG Oral Tablet hydrALAZIN E HCl 50 MG hydrALAZINE HCl 50 MG 09/26/2021 12:00:00 AM EDT 1.0 {tablet_with_food} active hydrALAZINE HCl 50 MG eCW1 ([facility]) FreeStyle Lite w/Device UNK 09/24/2021 12:00:00 AM EDT active FreeStyle Lite w/Device eCW1 ([facility]) FreeStyle Lite w/Device UNK 09/24/2021 12:00:00 AM EDT active FreeStyle Lite w/Device eCW1 ([facility]) Blood Glucose Test - Blood Glucose Test - 09/24/2021 12:00:00 AM EDT active Blood Glucose Test - eCW1 ([facility]) Blood Glucose Test - Blood Glucose Test - 09/24/2021 12:00:00 AM EDT active Blood Glucose Test - eCW1 ([facility]) FreeStyle Lite w/Device UNK 09/24/2021 12:00:00 AM EDT active FreeStyle Lite w/Device eCW1 ([facility]) Blood Glucose Test - Blood Glucose Test - 09/24/2021 12:00:00 AM EDT active Blood Glucose Test - eCW1 ([facility]) Bisoprolol Fumarate 5 MG Oral Tablet Bisoprolol Fumarate 5 M G 09/02/2021 12:00:00 AM EDT 1.0 {tablet} active Bi soprolol Fumarate 5 MG eCW1 ([facility]) Bisoprolol Fumarate 5 MG Oral Tablet Bisoprolol Fumarate 5 M G 09/02/2021 12:00:00 AM EDT 1.0 {tablet} active Bi soprolol Fumarate 5 MG eCW1 ([facility]) Bisoprolol Fumarate 5 MG Oral Tablet Bisoprolol Fumarate 5 M G 09/02/2021 12:00:00 AM EDT 1.0 {tablet} active Bi soprolol Fumarate 5 MG eCW1 ([facility]) Bisoprolol Fumarate 5 MG Oral Tablet Bisoprolol Fumarate 5 M G 09/02/2021 12:00:00 AM EDT 1.0 {tablet} active Bi soprolol Fumarate 5 MG eCW1 ([facility]) Bisoprolol Fumarate 5 MG Oral Tablet Bisoprolol Fumarate 5 M G 09/02/2021 12:00:00 AM EDT 1.0 {tablet} active Bi soprolol Fumarate 5 MG eCW1 ([facility]) Bisoprolol Fumarate 5 MG Oral Tablet Bisoprolol Fumarate 5 M G 09/02/2021 12:00:00 AM EDT 1.0 {tablet} active Bi soprolol Fumarate 5 MG eCW1 ([facility]) Bisoprolol Fumarate 5 MG Oral Tablet Bisoprolol Fumarate 5 M G 09/02/2021 12:00:00 AM EDT 1.0 {tablet} active Bi soprolol Fumarate 5 MG eCW1 ([facility]) Clenpiq Clenpiq 07/16/2021 12:00:00 AM EDT complet ed MEDENT ([facility], ) POLYETHYLENE GLYCOL 3350 142 MG/ML Oral Solution [Miralax] M iralax 07/16/2021 12:00:00 AM EDT completed MEDENT ([facility], ) POLYETHYLENE GLYCOL 3350 105 MG/ML / Pot assium Chloride 0.10133 MEQ/ML / Sodium Bicarbonate 0.017 MEQ/ML / Sodium Chloride 0.0479 MEQ/ML Oral Solution [GaviLyte-N] Gavilyte-N With Flavor Pack 07/16/2021 12:00:00 AM EDT completed MEDENT ([facility], ) Bisacodyl 5 MG Delayed Release Oral Tablet [Dulcolax] Dulcol ax 07/16/2021 12:00:00 AM EDT completed MEDENT ([facility], ) POLYETHYLENE GLYCOL 3350 142 MG/ML Oral Solution [Miralax] M iralax 03/19/2021 12:00:00 AM EDT completed MEDENT ([facility], ) Bisacodyl 5 MG Delayed Release Oral Tablet [Dulcolax] Dulcol ax 03/19/2021 12:00:00 AM EDT ORAL completed MEDENT ([facility], ) Lisinopril 10 MG Oral Tablet Lisinopril 10 MG 01/24/2021 12:00:00 A M EST 1.0 {tablet} suspended Lisinopril 10 MG eCW1 ([facility]) Amlodipine 5 MG Oral Tablet [Norvasc] Norvasc 5mg Norvasc 5m g 01/24/2021 12:00:00 AM EST active Norvasc 5mg eCW1 ([facility]) Lisinopril 10 MG Oral Tablet Lisinopril 10 MG 01/24/2021 12:00:00 A M EST 1.0 {tablet} suspended Lisinopril 10 MG eCW1 ([facility]) Amlodipine 5 MG Oral Tablet [Norvasc] Norvasc 5mg Norvasc 5m g 01/24/2021 12:00:00 AM EST active Norvasc 5mg eCW1 ([facility]) Amlodipine 5 MG Oral Tablet [Norvasc] Norvasc 5mg Norvasc 5m g 01/24/2021 12:00:00 AM EST active Norvasc 5mg eCW1 ([facility]) Amlodipine 5 MG Oral Tablet [Norvasc] Norvasc 5mg Norvasc 5m g 01/24/2021 12:00:00 AM EST active Norvasc 5mg eCW1 ([facility]) Amlodipine 5 MG Oral Tablet [Norvasc] Norvasc 5mg Norvasc 5m g 01/24/2021 12:00:00 AM EST active Norvasc 5mg eCW1 ([facility]) Lisinopril 10 MG Oral Tablet Lisinopril 10 MG 01/24/2021 12:00:00 A M EST 1.0 {tablet} suspended Lisinopril 10 MG eCW1 ([facility]) Amlodipine 5 MG Oral Tablet [Norvasc] Norvasc 5mg Norvasc 5m g 01/24/2021 12:00:00 AM EST active Norvasc 5mg eCW1 ([facility]) Amlodipine 5 MG Oral Tablet [Norvasc] Norvasc 5mg Norvasc 5m g 01/24/2021 12:00:00 AM EST active Norvasc 5mg eCW1 ([facility]) Amlodipine 5 MG Oral Tablet [Norvasc] Norvasc 5mg Norvasc 5m g 01/24/2021 12:00:00 AM EST active Norvasc 5mg eCW1 ([facility]) Amlodipine 5 MG Oral Tablet [Norvasc] Norvasc 5mg Norvasc 5m g 01/24/2021 12:00:00 AM EST active Norvasc 5mg eCW1 ([facility]) Lisinopril 10 MG Oral Tablet Lisinopril 10 MG 01/24/2021 12:00:00 A M EST 1.0 {tablet} suspended Lisinopril 10 MG eCW1 ([facility]) Lisinopril 10 MG Oral Tablet Lisinopril 10 MG 01/24/2021 12:00:00 A M EST 1.0 {tablet} suspended Lisinopril 10 MG eCW1 ([facility]) Lisinopril 10 MG Oral Tablet Lisinopril 10 MG 01/24/2021 12:00:00 A M EST 1.0 {tablet} suspended Lisinopril 10 MG eCW1 ([facility]) Amlodipine 5 MG Oral Tablet [Norvasc] Norvasc 5mg Norvasc 5m g 01/24/2021 12:00:00 AM EST active Norvasc 5mg eCW1 ([facility]) Lisinopril 10 MG Oral Tablet Lisinopril 10 MG 01/24/2021 12:00:00 A M EST 1.0 {tablet} suspended Lisinopril 10 MG eCW1 ([facility]) Amlodipine 5 MG Oral Tablet [Norvasc] Norvasc 5mg Norvasc 5m g 01/24/2021 12:00:00 AM EST active Norvasc 5mg eCW1 ([facility]) Amlodipine 5 MG Oral Tablet [Norvasc] Norvasc 5mg Norvasc 5m g 01/24/2021 12:00:00 AM EST active Norvasc 5mg eCW1 ([facility]) Amlodipine 5 MG Oral Tablet [Norvasc] Norvasc 5mg Norvasc 5m g 01/24/2021 12:00:00 AM EST active Norvasc 5mg eCW1 ([facility]) Amlodipine 5 MG Oral Tablet [Norvasc] Norvasc 5mg Norvasc 5m g 01/24/2021 12:00:00 AM EST active Norvasc 5mg eCW1 ([facility]) Lisinopril 10 MG Oral Tablet Lisinopril 10 MG 01/24/2021 12:00:00 A M EST 1.0 {tablet} suspended Lisinopril 10 MG eCW1 ([facility]) Amlodipine 5 MG Oral Tablet [Norvasc] Norvasc 5mg Norvasc 5m g 01/24/2021 12:00:00 AM EST active Norvasc 5mg eCW1 ([facility]) Amlodipine 5 MG Oral Tablet [Norvasc] Norvasc 5mg Norvasc 5m g 01/24/2021 12:00:00 AM EST active Norvasc 5mg eCW1 ([facility]) Amlodipine 5 MG Oral Tablet [Norvasc] Norvasc 5mg Norvasc 5m g 01/24/2021 12:00:00 AM EST active Norvasc 5mg eCW1 ([facility]) Amlodipine 5 MG Oral Tablet [Norvasc] Norvasc 5mg Norvasc 5m g 01/24/2021 12:00:00 AM EST active Norvasc 5mg eCW1 ([facility]) Regular Insulin, Human 100 UNT/ML Inject able Solution [Humulin R] Humulin R 100 UNIT/ML Humulin R 100 UNIT/ML 01/10/2021 12:00:00 AM EST active Humulin R 100 UNIT/ML eCW1 ([facility]) Regular Insulin, Human 100 UNT/ML Inject able Solution [Humulin R] HumuLIN R 100 UNIT/ML HumuLIN R 100 UNIT/ML 01/10/2021 12:00:00 AM EST active HumuLIN R 100 UNIT/ML eCW1 ([facility]) Regular Insulin, Human 100 UNT/ML Inject able Solution [Humulin R] HumuLIN R 100 UNIT/ML HumuLIN R 100 UNIT/ML 01/10/2021 12:00:00 AM EST active HumuLIN R 100 UNIT/ML eCW1 ([facility]) Regular Insulin, Human 100 UNT/ML Inject able Solution [Humulin R] Humulin R 100 UNIT/ML Humulin R 100 UNIT/ML 01/10/2021 12:00:00 AM EST active Humulin R 100 UNIT/ML eCW1 ([facility]) Regular Insulin, Human 100 UNT/ML Inject able Solution [Humulin R] HumuLIN R 100 UNIT/ML HumuLIN R 100 UNIT/ML 01/10/2021 12:00:00 AM EST active HumuLIN R 100 UNIT/ML eCW1 ([facility]) Regular Insulin, Human 100 UNT/ML Inject able Solution [Humulin R] Humulin R 100 UNIT/ML Humulin R 100 UNIT/ML 01/10/2021 12:00:00 AM EST active Humulin R 100 UNIT/ML eCW1 ([facility]) Regular Insulin, Human 100 UNT/ML Inject able Solution [Humulin R] HumuLIN R 100 UNIT/ML HumuLIN R 100 UNIT/ML 01/10/2021 12:00:00 AM EST active HumuLIN R 100 UNIT/ML eCW1 ([facility]) Regular Insulin, Human 100 UNT/ML Inject able Solution [Humulin R] Humulin R 100 UNIT/ML Humulin R 100 UNIT/ML 01/10/2021 12:00:00 AM EST active Humulin R 100 UNIT/ML eCW1 ([facility]) Regular Insulin, Human 100 UNT/ML Inject able Solution [Humulin R] Humulin R 100 UNIT/ML Humulin R 100 UNIT/ML 01/10/2021 12:00:00 AM EST active Humulin R 100 UNIT/ML eCW1 ([facility]) Regular Insulin, Human 100 UNT/ML Inject able Solution [Humulin R] Humulin R 100 UNIT/ML Humulin R 100 UNIT/ML 01/10/2021 12:00:00 AM EST active Humulin R 100 UNIT/ML eCW1 ([facility]) Regular Insulin, Human 100 UNT/ML Inject able Solution [Humulin R] HumuLIN R 100 UNIT/ML HumuLIN R 100 UNIT/ML 01/10/2021 12:00:00 AM EST active HumuLIN R 100 UNIT/ML eCW1 ([facility]) Regular Insulin, Human 100 UNT/ML Inject able Solution [Humulin R] HumuLIN R 100 UNIT/ML HumuLIN R 100 UNIT/ML 01/10/2021 12:00:00 AM EST active HumuLIN R 100 UNIT/ML eCW1 ([facility]) Regular Insulin, Human 100 UNT/ML Inject able Solution [Humulin R] Humulin R 100 UNIT/ML Humulin R 100 UNIT/ML 01/10/2021 12:00:00 AM EST active Humulin R 100 UNIT/ML eCW1 ([facility]) Regular Insulin, Human 100 UNT/ML Inject able Solution [Humulin R] HumuLIN R 100 UNIT/ML HumuLIN R 100 UNIT/ML 01/10/2021 12:00:00 AM EST active HumuLIN R 100 UNIT/ML eCW1 ([facility]) Regular Insulin, Human 100 UNT/ML Inject able Solution [Humulin R] Humulin R 100 UNIT/ML Humulin R 100 UNIT/ML 01/10/2021 12:00:00 AM EST active Humulin R 100 UNIT/ML eCW1 ([facility]) Regular Insulin, Human 100 UNT/ML Inject able Solution [Humulin R] HumuLIN R 100 UNIT/ML HumuLIN R 100 UNIT/ML 01/10/2021 12:00:00 AM EST active HumuLIN R 100 UNIT/ML eCW1 ([facility]) Regular Insulin, Human 100 UNT/ML Inject able Solution [Humulin R] Humulin R 100 UNIT/ML Humulin R 100 UNIT/ML 01/10/2021 12:00:00 AM EST active Humulin R 100 UNIT/ML eCW1 ([facility]) Regular Insulin, Human 100 UNT/ML Inject able Solution [Humulin R] HumuLIN R 100 UNIT/ML HumuLIN R 100 UNIT/ML 01/10/2021 12:00:00 AM EST active HumuLIN R 100 UNIT/ML eCW1 ([facility]) 10 mg 08/07/2020 12:00:00 AM EDT tablet 30 TAKE ONE TABLET BY MOUTH EVERY DAY TAKE ONE TABLET BY MOUTH EVERY DAY SOLD: 08/08/2020 [facility] Insurance Providers Payer name Policy type / Coverage type Policy ID Covered constitution party ID Covered constitution party's relationship to hines Policy Hines Plan Information CORINA [id number] SP [id number] SELF PAY ONLY SP NCO EPALS [id number] SP [id number] O UNAVAILABLE UNAVAILA BLE EMEDNY [id number] SP [id number] Problems, Conditions, and Diagnoses Code Display Name Description Problem Type Effective Dates Data Source(s) I63.30 [id number] Cerebrovascular acci dent (CVA) due to thrombosis of cerebral artery Problem 09/26/2021 12:00:00 AM EDT eCW1 ([facility]) [id number] Essential hypertension Essential hypertension Problem 03/19/2021 12:00:00 AM EDT NICK ([facility], ) E11.21 [id number] Diabetic nephropathy associated with type 2 diabetes mellitus Problem 01/31/2021 12:00:00 AM EST eCW1 ([facility]) M54.42 Sciatica Lumbago with sciatica, left side Problem 01/29/2021 12:00:00 AM EST eCW1 ([facility]) M54.41 Sciatica Lumbago with sciatica, right side Problem 01/29/2021 12:00:00 AM EST eCW1 ([facility]) G62.9 [id number] Neuropathy Problem 01/24/2021 12:00:00 AM ES T eCW1 ([facility]) E11.42 [id number] Type 2 diabetes mellitus with peripheral neuropathy Problem 11/24/2020 12:00:00 AM EST eCW1 ([facility]) E11.40 [id number] Type 2 diabetes mellitus with di abetic neuropathy, unspecified Problem 11/24/2020 12:00:00 AM EST eCW1 ([facility]) G89.29 [id number] Other chronic pain Problem 11/21/2020 12:00: 00 AM EST eCW1 ([facility]) E11.21 [id number] Diabetes mellitus with nephropathy Proble m 11/21/2020 12:00:00 AM EST eCW1 ([facility]) Surgeries/Procedures Procedure Description Date Indications Data Source(s) Colonoscopy Flexible Proximal To Splenic Flexure Diagnostic W/Or 05/06/2021 12:00:00 AM EDT MEDENT ([facility]) Results ID Date Data Source [id number] 08/24/2021 01:38:00 AM EDT [facility] Name Value Range Interpretation Code Description Data Karmen rce(s) Supporting Document(s) SARS coronavirus 2 RNA [Presence] in Res piratory specimen by CARMELO with probe detection NEGATIVE [facility] This lab was ordered by [facility] a nd reported by [facility]. ID Date Data Source Basic Metabolic Profile (BMP) 03/07/2021 12:00:00 AM EDT eCW 1 ([facility]) Name Value Range Interpretation Code Description Data Karmen rce(s) Supporting Document(s) 44 7-18 BLOOD UREA NITROGEN eCW1 ([facility]) 52 70-100 GLUCOSE, FASTING eCW1 ([facility]) 1.61 0.55-1.30 CREATININE FOR GFR eCW1 ([facility]) 146 136-145 SODIUM LEVEL eCW1 ([facility]) 34.5 >45 GLOMERULAR FILTRATION RATE eCW 1 ([facility]) 4.8 3.5-5.1 POTASSIUM SERUM eCW1 ([facility]) 27 21-32 CARBON DIOX[facility] L[facility]EL [facility] 114 98-107 CHLORIDE LEVEL eCW1 ([facility]) 9.1 8.8-10.2 CALCIUM LEVEL eCW1 ([facility]) ID Date Data Source TOTAL PROTEIN,RANDOM URINE 03/07/2021 12:00:00 AM EDT eCW1 ( [facility]) Name Value Range Interpretation Code Description Data Karmen rce(s) Supporting Document(s) 420.5 0.0-12.0 TOTAL PROTEIN,RANDOM URIN E eCW1 ([facility]) ID Date Data Source CREATININE,RANDOM URINE 03/07/2021 12:00:00 AM EDT [facility] Name Value Range Interpretation Code Description Data Karmen rce(s) Supporting Document(s) 33.0 CREATININE,RANDOM URINE eCW1 ( [facility]) ID Date Data Source UA URINALYSIS 03/07/2021 12:00:00 AM EDT eCW1 ([facility]) Name Value Range Interpretation Code Description Data Karmen rce(s) Supporting Document(s) UA URINALYSIS eCW1 ([facility]) ID Date Data Source [id number] 01/28/2021 08:21:00 PM EST [facility] Name Value Range Interpretation Code Description Data Karmen rce(s) Supporting Document(s) SARS coronavirus 2 RNA [Presence] in Res piratory specimen by CARMELO with probe detection NEGATIVE [facility] This lab was ordered by [facility] a nd reported by [facility]. Procedure Social History Code Duration Value Status Description Data Source(s ) Smoking 09/26/2021 12:00:00 AM EDT Never Smoker completed Never S moker eCW1 ([facility]) Smoking 09/26/2021 12:00:00 AM EDT Never Smoker completed Never S moker eCW1 ([facility]) Smoking 09/15/2021 12:00:00 AM EDT Never Smoker completed Never S moker eCW1 ([facility]) Smoking 03/06/2021 12:00:00 AM EDT Never Smoker completed Never S moker eCW1 ([facility]) Smoking 03/06/2021 12:00:00 AM EDT Never Smoker completed Never S moker eCW1 ([facility]) Smoking 03/06/2021 12:00:00 AM EDT Never Smoker completed Never S moker eCW1 ([facility]) Smoking 03/06/2021 12:00:00 AM EDT Never Smoker completed Never S moker eCW1 ([facility]) Smoking 03/06/2021 12:00:00 AM EDT Never Smoker completed Never S moker eCW1 ([facility]) Smoking 03/06/2021 12:00:00 AM EDT Never Smoker completed Never S moker eCW1 ([facility]) Smoking 03/06/2021 12:00:00 AM EDT Never Smoker completed Never S moker eCW1 ([facility]) Smoking 03/06/2021 12:00:00 AM EDT Never Smoker completed Never S moker eCW1 ([facility]) Smoking 02/25/2021 12:00:00 AM EDT Never Smoker completed Never S moker eCW1 ([facility]) Smoking 01/31/2021 12:00:00 AM EST Never Smoker completed Never S moker eCW1 ([facility]) Smoking 01/31/2021 12:00:00 AM EST Never Smoker completed Never S moker eCW1 ([facility]) Smoking 01/31/2021 12:00:00 AM EST Never Smoker completed Never S moker eCW1 ([facility]) Smoking 01/31/2021 12:00:00 AM EST Never Smoker completed Never S moker eCW1 ([facility]) Smoking 01/31/2021 12:00:00 AM EST Never Smoker completed Never S moker eCW1 ([facility]) Smoking 01/31/2021 12:00:00 AM EST Never Smoker completed Never S moker eCW1 ([facility]) Smoking 12/31/2020 12:00:00 AM EST Never Smoker completed Never S moker eCW1 ([facility]) Smoking 11/21/2020 12:00:00 AM EST Never Smoker completed Never S moker eCW1 ([facility]) Smoking 11/21/2020 12:00:00 AM EST Never Smoker completed Never S moker eCW1 ([facility]) Smoking 11/21/2020 12:00:00 AM EST Never Smoker completed Never S moker eCW1 ([facility]) Smoking 11/21/2020 12:00:00 AM EST Never Smoker completed Never S moker eCW1 ([facility]) Smoking 11/21/2020 12:00:00 AM EST Never Smoker completed Never S moker eCW1 ([facility]) Smoking 11/21/2020 12:00:00 AM EST Never Smoker completed Never S moker eCW1 ([facility]) Vital Signs ID Date Data Source UNK Name Value Range Interpretation Code Description Data Source(s) Systolic blood pressure 168 mm[Hg] 168 mm[Hg] M TAIWO ([facility]) Diastolic blood pressure 72 mm[Hg] 72 mm[Hg] [facility] ([facility]) Body height 66 [in_i] 66 [in_i] [facility] ([facility]) 5'6" Body weight 212.00 [lb_av] 212.00 [lb_av] [facility] ([facility]) Body mass index (BMI) [Ratio] 34.2 kg/m2 34.2 k g/m2 [facility] ([facility]) [place] body weight 130 [lb_av] 130 [lb_av] MEDEN T ([facility]) Body weight 96.163 kg 96.163 kg [facility] ([facility]) Body surface area Derived from formula 2.05 m2 2.05 m2 [facility] ([facility]) Body weight 200.00 [lb_av] 200.00 [lb_av] MEDEN T ([facility]) [place] body weight 130 [lb_av] 130 [lb_av] MEDEN T ([facility]) Body surface area Derived from formula 2.00 m2 2.00 m2 MED[facility] ([facility]) Systolic blood pressure 162 mm[Hg] 162 mm[Hg] M EDENT ([facility]) Body height 66 [in_i] 66 [in_i] MEDENT ([facility]) 5'6" Body weight 200.00 [lb_av] 200.00 [lb_av] MEDEN T ([facility]) Body mass index (BMI) [Ratio] 32.3 kg/m2 32.3 k g/m2 [facility] ([facility]) [place] body weight 130 [lb_av] 130 [lb_av] MEDEN T ([facility]) Body weight 90.720 kg 90.720 kg MEDENT ([facility]) Body surface area Derived from formula 2.00 m2 2.00 m2 [facility] ([facility]) Diastolic blood pressure 78 mm[Hg] 78 mm[Hg] MEDENT ([facility]) Body height 66 [in_i] 66 [in_i] MEDENT ([facility]) 5'6" Body mass index (BMI) [Ratio] 32.3 kg/m2 32.3 k g/m2 [facility] ([facility]) Body weight 90.720 kg 90.720 kg [facility] ([facility]) Body weight 205.2 [lb_av] 205.2 [lb_av] eCW1 ([facility]) Body height 66 [in_i] 66 [in_i] eCW1 ([facility]) Body mass index (BMI) [Ratio] 33.12 kg/m2 33.12 kg/m2 eCW1 ([facility]) Heart rate 92 /min 92 /min eCW1 ([facility]) Respiratory rate 18 /min 18 /min eCW1 ([facility]) Body temperature 97.5 [degF] 97.5 [degF] eCW1 ( [facility]) Systolic blood pressure 156 mm[Hg] 156 mm[Hg] e CW1 ([facility]) Diastolic blood pressure 94 mm[Hg] 94 mm[Hg] eCW1 ([facility]) Body weight 192 [lb_av] 192 [lb_av] eCW1 ([facility]) Body height 66 [in_i] 66 [in_i] eCW1 ([facility]) Body mass index (BMI) [Ratio] 30.99 kg/m2 30.99 kg/m2 eCW1 ([facility]) Heart rate 96 /min 96 /min eCW1 ([facility]) Respiratory rate 18 /min 18 /min eCW1 ([facility]) Body temperature 97.2 [degF] 97.2 [degF] eCW1 ( [facility]) Systolic blood pressure 162 mm[Hg] 162 mm[Hg] e CW1 ([facility]) Diastolic blood pressure 96 mm[Hg] 96 mm[Hg] eCW1 ([facility]) Body weight 181 [lb_av] 181 [lb_av] eCW1 ([facility]) Body height 66 [in_i] 66 [in_i] eCW1 ([facility]) Body mass index (BMI) [Ratio] 29.21 kg/m2 29.21 kg/m2 eCW1 ([facility]) Heart rate 99 /min 99 /min eCW1 ([facility]) Respiratory rate 18 /min 18 /min eCW1 ([facility]) Body temperature 97 [degF] 97 [degF] eCW1 ([facility]) Systolic blood pressure 166 mm[Hg] 166 mm[Hg] e CW1 ([facility]) Diastolic blood pressure 98 mm[Hg] 98 mm[Hg] eCW1 ([facility]) Body weight 200.2 [lb_av] 200.2 [lb_av] eCW1 ([facility]) Body height 66 [in_i] 66 [in_i] eCW1 ([facility]) Body mass index (BMI) [Ratio] 32.31 kg/m2 32.31 kg/m2 eCW1 ([facility]) Heart rate 104 /min 104 /min eCW1 ([facility]) Respiratory rate 17 /min 17 /min eCW1 ([facility]) Body temperature 97.9 [degF] 97.9 [degF] eCW1 ( [facility]) Systolic blood pressure 164 mm[Hg] 164 mm[Hg] e CW1 ([facility]) Diastolic blood pressure 102 mm[Hg] 102 mm[Hg] eCW1 ([facility]) Patient Treatment Plan of Care Planned Activity Planned Date Details Description Data Source (s) Hydralazine Hydrochloride 50 MG Oral Tablet 09/26/2021 12:00:00 AM EDT eCW1 ([facility]) Hydralazine Hydrochloride 50 MG Oral Tablet 09/26/2021 12:00:00 AM EDT eCW1 ([facility]) Blood Glucose Test - 09/24/2021 12:00:00 AM EDT eCW1 ([facility]) FreeStyle Lite w/Device 09/24/2021 12:00:00 AM EDT eCW1 ([facility]) Bisoprolol Fumarate 5 MG Oral Tablet 09/02/2021 12:00:00 AM EDT eCW1 ([facility]) Bisoprolol Fumarate 5 MG Oral Tablet 09/02/2021 12:00:00 AM EDT eCW1 ([facility]) Bisoprolol Fumarate 5 MG Oral Tablet 09/02/2021 12:00:00 AM EDT eCW1 ([facility]) Bisoprolol Fumarate 5 MG Oral Tablet 09/02/2021 12:00:00 AM EDT eCW1 ([facility]) Bisoprolol Fumarate 5 MG Oral Tablet 09/02/2021 12:00:00 AM EDT eCW1 ([facility]) Regular Insulin, Human 100 UNT/ML Injectable Solution [Humulin R] 01/10/2021 12:00:00 AM EST eCW1 ([facility]) Regular Insulin, Human 100 UNT/ML Injectable Solution [Humulin R] 01/10/2021 12:00:00 AM EST eCW1 ([facility]) Regular Insulin, Human 100 UNT/ML Injectable Solution [Humulin R] 01/10/2021 12:00:00 AM EST eCW1 ([facility]) Regular Insulin, Human 100 UNT/ML Injectable Solution [Humulin R] 01/10/2021 12:00:00 AM EST eCW1 ([facility]) Regular Insulin, Human 100 UNT/ML Injectable Solution [Humulin R] 01/10/2021 12:00:00 AM EST eCW1 ([facility]) Regular Insulin, Human 100 UNT/ML Injectable Solution [Humulin R] 01/10/2021 12:00:00 AM EST eCW1 ([facility]) Regular Insulin, Human 100 UNT/ML Injectable Solution [Humulin R] 01/10/2021 12:00:00 AM EST eCW1 ([facility])
--- OUTSIDE RECORDS SUMMARY | 2021-10-01 11:06 | CCD ---
Author Author [facility] Organization [facility] Address Unknown Phone Unavailable Care Team Providers Care Revolving Inventory Clerk Name Role Phone Sally Calero Unavailable PROBLEMS Type Condition ICD9-CM Code [id number] Code Onset Dates Condition S tatus W/U Status Risk SNOMED Code Notes Problem Hypertension, unspecified type I10 Active confir med 54917074 Problem Type 2 diabetes mellitus with hyperglycemia E11.65 Active confirmed 136604016771940 Problem Type 2 diabetes mellitus with peripheral neuropathy E11.42 Active confirmed 29166052 Problem Lumbago with sciatica, left side M54.42 Active conf irmed 23897951 Problem Lumbago with sciatica, right side M54.41 Active confirmed 14836949 Problem Diabetes mellitus with nephropathy E11.21 Activ e confirmed 69430769 Problem Other chronic pain G89.29 Active confirmed 8 0663192 Problem Neuropathy G62.9 Active confirmed 924837473 Problem 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 Active confirmed 859756740 ALLERGIES Allergen (clinical drug ingredient) Drug/Non Drug Allergy do cumented on EMR Reaction Allergy Type Onset Date Status Sulfa (for allergy use only) Unknown Drug Allergy Active ENCOUNTERS from 1960 to 2021-07-26 Encounter Location Date Provider Diagnosis [address] [phone] [place] [address] Jun, Sally Calero IMMUNIZATIONS No Information SOCIAL HISTORY Tobacco Use: Social History Observation Description Date Details (start date - stop date) Never Smoker Sex Assigned At : Social History Observation Description Sex Assigned At Unknown Education: Question Answer Notes Level of Education: Grade School Audit Question Answer Notes Total Score: 0 Interpretation: Alcohol Education Language: Question Answer Notes Languages spoken: Zambian Alevism: Question Answer Notes Alevism 21 Baptism Drug and Alcohol Question Answer Notes Total [...] 30 minutes before morning meal Orally On ce a day Active amLODIPine Besy-Benazepril HCl 5-10 MG 30 Orally once a day for 30 days May, Active metFORMIN HCl 1000 MG 1 tablet with a meal Orally Once a day for 30 day(s) May, Active Grecia Pen [place] 31G X 6 MM as directed subcut once for 30 day s May, Active HumuLIN R 100 UNIT/ML as directed Injection before meals for 30 days Dispense as Writtenadminister 30 units per day Dec, Activ e Grecia Pen [place] 31G X 6 MM as directed subcutaneously Daily for 30 Days Active Norvasc 5mg one PO DAILY for 90 days Dec, Active Semglee 100 UNIT/ML as directed Subcutaneous Active Aspirin 81 81 MG 1 tablet Orally Once a day for 30 day(s) May, Active PROCEDURES No Information RESULTS No Results REASON FOR VISIT insulin MEDICAL (GENERAL) HISTORY Type Description Date Medical [...] Injection before meals for 30 days Dec, Insurance Providers Payer Name Payer Address Payer Phone Insured Name Patient Relati onship to Insured Coverage Start Date Coverage End Date [facility] [employer] CLAIMS DEPT [place] [phone] JOSHUA PORTILLO self
--- OUTSIDE RECORDS SUMMARY | 2021-10-01 11:06 | CCD ---
Author Author [facility] Organization [facility] Address Unknown Phone Unavailable Care Team Providers Care Is Analyst Name Role Phone Ciaran Farrar Unavailable PROBLEMS Type Condition ICD9-CM Code [id number] Code Onset Dates Condition S tatus W/U Status Risk SNOMED Code Notes Problem Hypertension, unspecified type I10 Active confir med 52498860 Problem Type 2 diabetes mellitus with hyperglycemia E11.65 Active confirmed 313213259278220 Problem Type 2 diabetes mellitus with peripheral neuropathy E11.42 Active confirmed 52586616 Problem Lumbago with sciatica, left side M54.42 Active conf irmed 02968929 Problem Lumbago with sciatica, right side M54.41 Active confirmed 80663630 Problem Diabetes mellitus with nephropathy E11.21 Activ e confirmed 49043177 Problem Other chronic pain G89.29 Active confirmed 8 1822839 Problem Neuropathy G62.9 Active confirmed 519591783 Problem 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 [address] [phone] [place] [address] Aug, Ciaran Farrar IMMUNIZATIONS No Information SOCIAL HISTORY Tobacco Use: Social History Observation Description Date Details (start date - stop date) Never Smoker Sex Assigned At : Social History Observation Description Sex Assigned At Unknown Education: Question Answer Notes Level of Education: Grade School Audit Question Answer Notes Total Score: 0 Interpretation: Alcohol Education Language: Question Answer Notes Languages spoken: Upper Sorbian Congregation: Question Answer Notes Congregation 21 Yarsanism Drug and Alcohol Question Answer Notes Total [...] for 30 days May, Active Grecia Pen [place] 31G X 6 MM as directed subcut [...] for 90 days Dec, Active Grecia Pen [place] 31G X 6 MM as directed subcutaneously Daily for 30 Days Active metFORMIN HCl 1000 MG 1 tablet with a meal Orally Once a day for 30 day(s) May, Active PROCEDURES No Information RESULTS No Results REASON FOR VISIT PERSCRIPTION MEDICAL (GENERAL) HISTORY Type Description Date Medical [...] ) Aug, Next Appt Details Provider Name:Katja Whaley 2020-11 02:00:00 PM, [address] [facility], , [place], [address], Insurance Providers Payer Name Payer Address Payer Phone Insured Name Patient Relati onship to Insured Coverage Start Date Coverage End Date [facility]ATE CLAIMS DEPT [address] [facility] [phone] JOSHUA PORTILLO self
--- OUTSIDE RECORDS SUMMARY | 2021-10-01 11:06 | CCD | Continuity of Care Document ---
Author Author [facility] Organization Unknown Address [address], [address] [place] [address] Phone [phone] Care Team Providers Care Psychiatric Aides Teacher Name Role Phone Shazia Brunner [phone] Sally Calero M.D. Unavailable Problems Active Problems Provider Date Essential hypertension Aurea Mclaughlin AMITA Weeks Onset: Social History Type Date Description Comments Sex Unknown ETOH Use Denies alcohol use Tobacco Use Start: Unknown Non Smoker Allergies and adverse reactions Active Allergies Criticality Reaction | Severity Comments Date Sulfamethoxazole Unable to assess criticality 03/19/2021 Medications Active Medications SIG Qnty Indications Ordering Provide r Date Atorvastatin Calcium 80mg Tablets every day Unknown Semglee 100Unit/ML Solution 50 units daily Unknown Amlodipine Besylate 10mg Tablets Daily Unknown Hydralazine HCL 25mg Tablets tid Unknown Clopidogrel Bisulfate 75mg Tablets 1 by mouth every day Unknown Lisinopril 40mg Tablets 1 by mouth every day Unknown Bisoprolol Fumarate 5mg Tablets 1 by mouth every day Unknown History Medications Clenpiq 10-3.5-12mg-GM -GM/160ML S olution follow pre-procedure instructions. start day before procedure. (if not covered by insurance please fill gavilyte script). 320ml Samantha Mcdonough M.D. 07/16/2021 - 09/09/2021 Gajacinto-N With Flavor Pack 420gm Solution Rec drink the liquid as per the pre-procedur e instructions. ( fill this script only if clenpiq is not covered by insurance). 4000ml Ignacio Mcdonough M.D. 07/16/2021 - 09/09/2021 Miralax 17GM/Scoop Powder mix the entire powder with 64 ounces of clear gatorade/flavored water. ( additional prep - take only if not tolerating gavilyte) 238Grams Ignacio summers M.D. 07/16/2021 - 09/09/[address] take 4 tablets together as per bowel preparation instructions. 4tabs Ignacio Mcdonough M.D. 07/16/2021 - 09/09/2021 Miralax 17GM/Scoop Powder use as instructed by doctor for bowel prep 510gm Z12.11 Raj Moulton MD 03/19/2021 - 07/16/[address] take 4 tabs by mouth prior to procedure per instructions. 4tabs Z12.11 Raj Moulton MD 03/19/2021 - 07/16/2021 Immunizations Description No Information Available Vital Signs Date Vital Result Comment 09/16/2021 2:14pm BP Systolic 168 mmHg BP Diastolic 72 mmHg Height 66 inches 5'6" Weight 212.00 lb BMI (Body Mass Index) 34.2 kg/m2 [place] Body Weight 130 lb Weight 96.163 kg BSA (Body Surface Area) 2.05 m2 03/19/2021 11:07am BP Systolic 162 mmHg BP Diastolic 78 mmHg Height 66 inches 5'6" Weight 200.00 lb BMI (Body Mass Index) 32.3 kg/m2 [place] Body Weight 130 lb Weight 90.720 kg BSA (Body Surface Area) 2.00 m2 Results Description No Information Available Procedures Date Code Description Status 05/06/2021 35900 Colonoscopy Flexible Proximal To Splenic Flexure Diagnostic W/Or Completed Medical Devices Description No Information Available Encounters Description No Information Available Assessments Date Code Description Provider 09/16/2021 Z12.11 Encounter for screening for nathaniel gnant neoplasm of colon AMITA Tovar 05/06/2021 Z12.11 Encounter for screening for nathaniel gnant neoplasm of colon Ignacio Mcdonough M.D. 03/19/2021 Z12.11 Encounter for screening for nathaniel gnant neoplasm of colon AMITA Tovar Plan of Treatment 09/16/2021 - AMITA Tovar* Z12.11 Encounter for screening for malignant neoplasm of colon * * Follow up:* Will call patient after receiving response Functional Status Description No Information Available Mental Status Description No Information Available Referrals Refer to Dr Reason for Referral Status Appt Date Ignacio Mcdonough M.D. [id number] [id number] [facility] [address], [place] [address] [phone]
--- OUTSIDE RECORDS SUMMARY | 2021-10-01 11:06 | CCD ---
Author Author [facility] Organization [facility] Address Unknown Phone Unavailable Care Team Providers Care Sql Programmer Name Role Phone Sally Calero Unavailable PROBLEMS Type Condition ICD9-CM Code EQV34-KR Code Onset Dates Condition S tatus W/U Status Risk SNOMED Code Notes Problem Hypertension, unspecified type I10 Active confir med 31145259 Problem Type 2 diabetes mellitus with hyperglycemia E11.65 Active confirmed 482262287008714 Problem Type 2 diabetes mellitus with peripheral neuropathy E11.42 Active confirmed 92122619 Problem Lumbago with sciatica, left side M54.42 Active conf irmed 22573265 Problem Lumbago with sciatica, right side M54.41 Active confirmed 06291148 Problem Diabetes mellitus with nephropathy E11.21 Activ e confirmed 36887608 Problem Other chronic pain G89.29 Active confirmed 8 1675430 Problem Neuropathy G62.9 Active confirmed 773886530 Problem 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 Active confirmed 156841542 ALLERGIES Allergen (clinical drug ingredient) Drug/Non Drug Allergy do cumented on EMR Reaction Allergy Type Onset Date Status Sulfa (for allergy use only) Unknown Drug Allergy Active ENCOUNTERS from 1960 to 2021-09-11 Encounter Location Date Provider Diagnosis [address] [phone] [place] [address] 11 Aug, 2021 Sally Calero IMMUNIZATIONS No Information SOCIAL HISTORY Tobacco Use: Social History Observation Description Date Details (start date - stop date) Never Smoker Sex Assigned At : Social History Observation Description Sex Assigned At Unknown Education: Question Answer Notes Level of Education: Grade School Audit Question Answer Notes Total Score: 0 Interpretation: Alcohol Education Language: Question Answer Notes Languages spoken: Jamaican Jainism: Question Answer Notes Jainism 21 Church Drug and Alcohol Question Answer Notes Total [...] for 30 days May, Active Grecia Pen [place] 31G X 6 MM as directed subcut [...] for 90 days Dec, Active Grecia Pen [place] 31G X 6 MM as directed subcutaneously Daily for 30 Days Active metFORMIN HCl 1000 MG 1 tablet with a meal Orally Once a day for 30 day(s) May, Active PROCEDURES No Information RESULTS No Results REASON FOR VISIT pain in R hand MEDICAL (GENERAL) HISTORY Type Description Date Medical [...] Provider Name:Katja Whaley, 2020-11 02:00:00 PM, [address], , [place], [address], Insurance Providers Payer Name Payer Address Payer Phone Insured Name Patient Relati onship to Insured Coverage Start Date Coverage End Date [facility] [employer] CLAIMS DEPT [address] [facility] [phone] JOSHUA PORTILLO self
--- OUTSIDE RECORDS SUMMARY | 2021-10-01 11:06 | CCD ---
Author Author [facility] Organization [facility] Address Unknown Phone Unavailable Care Team Providers Care Food Service Name Role Phone Sally Calero Unavailable PROBLEMS Type Condition ICD9-CM Code OWS20-AA Code Onset Dates Condition S tatus W/U Status Risk SNOMED Code Notes Problem Hypertension, unspecified type I10 Active confir med 77001769 Problem Type 2 diabetes mellitus with hyperglycemia E11.65 Active confirmed 773506365567380 Problem Type 2 diabetes mellitus with peripheral neuropathy E11.42 Active confirmed 90123743 Problem Lumbago with sciatica, left side M54.42 Active conf irmed 40603591 Problem Lumbago with sciatica, right side M54.41 Active confirmed 38672094 Problem Diabetes mellitus with nephropathy E11.21 Activ e confirmed 26740352 Problem Other chronic pain G89.29 Active confirmed 8 3077419 Problem Neuropathy G62.9 Active confirmed 724814592 Problem 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 Active confirmed 073335998 ALLERGIES Allergen (clinical drug ingredient) Drug/Non Drug Allergy do cumented on EMR Reaction Allergy Type Onset Date Status Sulfa (for allergy use only) Unknown Drug Allergy Active ENCOUNTERS from 1960 to 2021-09-04 Encounter Location Date Provider Diagnosis [facility] [id number] [place] [address] [place] [address] Aug, Zavala Abdias IMMUNIZATIONS No Information SOCIAL HISTORY Tobacco Use: Social History Observation Description Date Details (start date - stop date) Never Smoker Sex Assigned At : Social History Observation Description Sex Assigned At Unknown Education: Question Answer Notes Level of Education: Grade School Audit Question Answer Notes Total Score: 0 Interpretation: Alcohol Education Language: Question Answer Notes Languages spoken: Zambian Yazidism: Question Answer Notes Yazidism 21 Evangelical Drug and Alcohol Question Answer Notes Total [...] for 30 days May, Active Grecia Pen [place] 31G X 6 MM as directed subcut [...] for 90 days Dec, Active Grecia Pen [place] 31G X 6 MM as directed subcutaneously Daily for 30 Days Active metFORMIN HCl 1000 MG 1 tablet with a meal Orally Once a day for 30 day(s) May, Active PROCEDURES No Information RESULTS No Results REASON FOR VISIT FYI MEDICAL (GENERAL) HISTORY Type Description Date Medical [...] Provider Name:Katja Whaley, 2020-11 02:00:00 PM, [address] [facility], , [place], [address], Insurance Providers Payer Name Payer Address Payer Phone Insured Name Patient Relati onship to Insured Coverage Start Date Coverage End Date [facility] CORPORATE CLAIMS DEPT [address] [facility] [phone] JOSHUA PORTILLO self
--- OUTSIDE RECORDS SUMMARY | 2021-10-01 11:06 | CCD ---
Author Author [facility] Organization [facility] Address Unknown Phone Unavailable Care Team Providers Care Bun Icer Name Role Phone Ciaran Farrar Unavailable PROBLEMS Type Condition ICD9-CM Code PIH92-IS Code Onset Dates Condition S tatus W/U Status Risk SNOMED Code Notes Problem Type 2 diabetes mellitus with hyperglycemia E11.65 Active confirmed 307741248082304 Problem Type 2 diabetes mellitus with peripheral neuropathy E11.42 Active confirmed 93742268 Problem Diabetes mellitus with nephropathy E11.21 Activ e confirmed 17656093 Problem Lumbago with sciatica, right side M54.41 Active confirmed 94627822 Problem Hypertension, unspecified type I10 Active confir med 01965597 Problem Cerebrovascular accident (CVA) due to thrombosis of cerebral artery I63.30 Active confirmed 166202712 Problem Other chronic pain G89.29 Active confirmed 8 6325830 Problem Neuropathy G62.9 Active confirmed 580551711 Problem 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 Active confirmed 360491791 Problem Lumbago with sciatica, left side M54.42 Active conf irmed 10190423 ALLERGIES Allergen (clinical drug ingredient) Drug/Non Drug Allergy do cumented on EMR Reaction Allergy Type Onset Date Status Sulfasalazine Sulfa Antibiotics Unknown Drug Allergy Ac tive ENCOUNTERS from 1960 to 2021-09-27 Encounter Location Date Provider Diagnosis [facility] [address] [phone] [place] [address] Aug, Ciaran Farrar IMMUNIZATIONS No Information SOCIAL HISTORY Tobacco Use: Social History Observation Description Date Details (start date - stop date) Never Smoker Sex Assigned At : Social History Observation Description Sex Assigned At Unknown Education: Question Answer Notes Level of Education: Grade School Audit Question Answer Notes Total Score: 0 Interpretation: Alcohol Education Language: Question Answer Notes Languages spoken: Faroese Faith: Question Answer Notes Faith 21 Jain Drug and Alcohol Question Answer Notes Total [...] Notes Start Da te End Date Status hydrALAZINE HCl 50 MG 1 tablet with food Orally Three times a day for 30 day(s) Aug, Active Aspirin 81 81 MG 1 tablet Orally Once a day for 30 day(s) May, Active Bisoprolol Fumarate 5 MG 1 tablet Orally Once a day for 30 day(s ) Aug, Active FreeStyle Lite w/Device as directed externally bid dx E11:65 for 30 Days Aug, Active amLODIPine Besy-Benazepril HCl 5-10 MG 30 Orally once a day for 30 days May, Active Lisinopril 40 MG 1 tablet Orally Once a day for 30 day(s) Active metFORMIN HCl 1000 MG 1 tablet with a meal Orally Once a day for 30 day(s) May, Not-Taking Grecia Pen Bahama 31G X 6 MM as directed subcutaneously Daily for 30 Days Active Semglee 100 UNIT/ML as directed Subcutaneous 50 Units qam Active Clopidogrel Bisulfate 75 MG 1 tablet Orally Once a day for 30 day(s) Active Omeprazole 20 MG 1 capsule 30 minutes before morning meal Orally On a day Active HumuLIN R 100 UNIT/ML as directed Injection before meals for 30 days Dispense as Writtenadminister 30 units per day Dec, Activ e Norvasc 5mg one PO DAILY for 90 days Dec, Active Atorvastatin Calcium 80 MG 1 tablet Orally Once a day for 30 day(s) Active Blood Glucose Test - 1 strip In Vitro dx: E11.65 compatible with FreeStyle Lite for 30 Days Aug, Active Grecia Pen Bahama 31G X 6 MM as directed subcut once for 30 day s DUP May, Not-Taking PROCEDURES No Information RESULTS No Results REASON FOR VISIT needle stick MEDICAL (GENERAL) HISTORY Type Description Date Medical [...] Medication Name Sig Start Date Stop Date hydrALAZINE HCl 50 MG 1 tablet with food Orally Three times a day for 30 day(s) Aug, Next Appt Details Provider Name:Sally Calero, 2021-10-01 01: 15:00 PM, [address] [place] [address], , [place], [address], Provider Name:Jessie Astridkelsey, 3 02:00:00 PM, [address] [place] [address] , [place], [address], Insurance Providers Payer Name Payer Address Payer Phone Insured Name Patient Relati onship to Insured Coverage Start Date Coverage End Date [facility] CLAIM[facility] DEPT [address] [place] [phone] JOSHUA PORTILLO self
--- OUTSIDE RECORDS SUMMARY | 2021-10-01 11:06 | CCD ---
Author Author [facility] Organization [facility] Address Unknown Phone Unavailable Care Team Providers Care Packaging Sales Representative Name Role Phone Sally Calero Unavailable PROBLEMS Type Condition ICD9-CM Code UNN28-TH Code Onset Dates Condition S tatus W/U Status Risk SNOMED Code Notes Problem Hypertension, unspecified type I10 Active confir med 36322131 Problem Type 2 diabetes mellitus with hyperglycemia E11.65 Active confirmed 343499971784081 Problem Type 2 diabetes mellitus with peripheral neuropathy E11.42 Active confirmed 52007692 Problem Lumbago with sciatica, left side M54.42 Active conf irmed 49804722 Problem Lumbago with sciatica, right side M54.41 Active confirmed 57195040 Problem Diabetes mellitus with nephropathy E11.21 Activ e confirmed 00584410 Problem Other chronic pain G89.29 Active confirmed 8 0769373 Problem Neuropathy G62.9 Active confirmed 807276893 Problem 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 Active confirmed 764462165 ALLERGIES Allergen (clinical drug ingredient) Drug/Non Drug Allergy do cumented on EMR Reaction Allergy Type Onset Date Status Sulfasalazine Sulfa Antibiotics Unknown Drug Allergy Ac tive ENCOUNTERS from 1958 to 2021-09-25 Encounter Location Date Provider Diagnosis [place] [id number] [facility] [phone] [place] [address] Aug, Sally Calero IMMUNIZATIONS No Information SOCIAL HISTORY Tobacco Use: Social History Observation Description Date Details (start date - stop date) Never Smoker Sex Assigned At : Social History Observation Description Sex Assigned At Unknown Education: Question Answer Notes Level of Education: Grade School Audit Question Answer Notes Total Score: 0 Interpretation: Alcohol Education Language: Question Answer Notes Languages spoken: Citizen Of [place] Sabianism: Question Answer Notes Sabianism 21 Confucianism Drug and Alcohol Question Answer Notes Total [...] Notes Start Da te End Date Status Norvasc 5mg one PO DAILY for 90 days Dec, Active metFORMIN HCl 1000 MG 1 tablet with a meal Orally Once a day for 30 day(s) May, Active HumuLIN R 100 UNIT/ML as directed Injection before meals for 30 days Dispense as Writtenadminister 30 units per day Dec, Activ e Aspirin 81 81 MG 1 tablet Orally Once a day for 30 day(s) May, Active Grecia Pen [place] 31G X 6 MM as directed subcutaneously Daily for 30 Days Active Bisoprolol Fumarate 5 MG 1 tablet Orally Once a day for 30 day(s ) Aug, Active Grecia Pen [place] 31G X 6 MM as directed subcut once for 30 day s May, Active Omeprazole 20 MG 1 capsule 30 minutes before morning meal Orally On a day Active amLODIPine Besy-Benazepril HCl 5-10 MG 30 Orally once a day for 30 days May, Active FreeStyle Lite w/Device as directed externally bid dx E11:65 for 30 Days Aug, Active Blood Glucose Test - 1 strip In Vitro dx: E11.65 compatible with FreeStyle Lite for 30 Days Aug, Active Semglee 100 UNIT/ML as directed Subcutaneous Active PROCEDURES No Information RESULTS No Results REASON FOR VISIT issues MEDICAL (GENERAL) HISTORY Type Description Date Medical [...] Medication Name Sig Start Date Stop Date Blood Glucose Test - 1 strip In Vitro dx: E11.65 compatible with FreeStyle Lite for 30 Days Aug, FreeStyle Lite w/Device as directed externally bid dx E11:65 for 30 Days Aug, HumuLIN R 100 UNIT/ML as directed Injection before meals for 30 days Dec, Bisoprolol Fumarate 5 MG 1 tablet Orally Once a day for 30 day(s ) Aug, Next Appt Details Provider Name:Katja Hairjuan antonio, 2020- 02:00:00 PM, [address] [facility], , [place], [address], Insurance Providers Payer Name Payer Address Payer Phone Insured Name Patient Relati onship to Insured Coverage Start Date Coverage End Date [facility] [employer] CLAIM[employer] DEPT [address] [facility] [phone] JOSHUA PORTILLO self
--- NOTE | 2021-10-01 12:50 | REP ---
INDICATION: sob. COMPARISON: 08/24/2021. TECHNIQUE: Single portable AP view of the chest was performed. FINDINGS: There is cardiomegaly and vascular congestion. There are bibasilar infiltrates and effusions. There is some calcification of the thoracic aorta. IMPRESSION: Cardiomegaly, vascular congestion, bibasilar infiltrates and effusions. <Electronically signed by Jay Ruelas > 10/01/21 [id number]
[2021-10-01 13:16] LABS: BASO % 0.3 % (0.0-1.0); EOS # 0.2 10^3/uL (0.0-0.5); HEMATOCRIT 34.6 % (36.0-47.0); HEMOGLOBIN 10.5 g/dl (12.0-15.5); LYMPH # 1.1 10^3/uL (1.5-5.0); MEAN CORPUSCULAR HEMOGLOBIN 27.2 pg (27.0-33.0); MEAN CORPUSCULAR HGB CONC 30.3 g/dl (32.0-36.5); MEAN CORPUSCULAR VOLUME 89.6 fl (80.0-96.0); MONO # 0.6 10^3/uL (0.0-0.8); MONO % 6.9 % (2.0-8.0); NEUTROPHILS # 6.7 10^3/uL (1.5-8.5); NEUTROPHILS % 77.5 % (36.0-66.0); PLATELET COUNT, AUTOMATED 342 10^3/uL (150-450); RED BLOOD COUNT 3.86 10^6/uL (4.00-5.40); WHITE BLOOD COUNT 8.6 10^3/uL (4.0-10.0)
[2021-10-01 13:43] LABS: ALBUMIN 2.5 GM/DL (3.2-5.2); ALT/SGPT 41 U/L (12-78); BILIRUBIN,TOTAL 0.3 MG/DL (0.2-1.0); BLOOD UREA NITROGEN 38 MG/DL (7-18); CALCIUM LEVEL 8.9 MG/DL (8.8-10.2); CARBON DIOXIDE LEVEL 24 MEQ/L (21-32); CHLORIDE LEVEL 117 MEQ/L (98-107); CK-MB VALUE MASS 2.1 NG/ML (<3.6); CPK CREATINE PHOSPHOKINASE 152 U/L (26-192); CREATININE FOR GFR 1.91 MG/DL (0.55-1.30); GLOMERULAR FILTRATION RATE 28.3 (>45); GLUCOSE, FASTING 55 MG/DL (70-100); MB/CK RELATIVE INDEX 1.38 (< OR =4); NT-PRO BNP 4157 PG/ML (<125); POTASSIUM SERUM 5.5 MEQ/L (3.5-5.1); SODIUM LEVEL 144 MEQ/L (136-145); TOTAL PROTEIN 6.2 GM/DL (6.4-8.2); TROPONIN I < 0.02 NG/ML (< 0.10)
[2021-10-01 14:13] LABS: RSV AMPLIFICATION NEGATIVE (NEGATIVE)
[2021-10-01] MEDS ORDERED: LABETALOL 100MG/20ML VIAL IV STA (14:43)
[2021-10-01] MEDS ORDERED: LABETALOL 100MG TAB PO ONE (14:45)
[2021-10-01] MEDS ORDERED: LABE100T5 PO (15:58)
[2021-10-01] MEDS ORDERED: LISI40TA4 PO (17:20)
[2021-10-01] MEDS ORDERED: XALA0.007 OU (17:20)
[2021-10-01] MEDS ORDERED: ASPI81CH33 PO (17:20)
[2021-10-01] MEDS ORDERED: HYDR-3911 PO (17:20)
[2021-10-01] MEDS ORDERED: INSU100V8 SC (17:21)
[2021-10-01] MEDS ORDERED: ATOR80TA59 PO (17:21)
[2021-10-01] MEDS ORDERED: AMLO1TAB25 PO (17:21)
[2021-10-01] MEDS ORDERED: MED REC COMMENT (17:21)
[2021-10-01] MEDS ORDERED: HOME MED LIST COMPLETE! XX SCH (17:25)
[2021-10-01] MEDS ORDERED: MAALOX 30 ML SUSP *UDC PO PRN (17:30)
[2021-10-01] MEDS ORDERED: ACETAMINOPHEN TAB 650MG DOSE (2X325MG) PO PRN (17:30)
[2021-10-01] MEDS ORDERED: DEXTROSE 50% 50 ML SYRINGE IV PRN (17:30)
[2021-10-01] MEDS ORDERED: GLUCAGON INJ 1MG VIAL SC PRN (17:30)
[2021-10-01] MEDS ORDERED: GLUCOSE 4GM CHEW TABLET PO PRN (17:30)
[2021-10-01] MEDS ORDERED: MOM 30ML SUSPENSION UDC PO PRN (17:30)
[2021-10-01] MEDS ORDERED: FUROSEMIDE 100MG/10ML VIAL (J1940) IV ONE (18:00)
--- OUTSIDE RECORDS SUMMARY | 2021-10-01 18:11 | CCD ---
Author Author [facility] Organization [facility] Address Unknown Phone Unavailable Support Name Relationship Address Phone DISABLED Next Of Kin Unknown Unavailable UE Next Of Kin Unknown Unavailable MANUEL QUIROZ Next Of Kin [phone] [place], [place] [id number] MANUEL QUIROZ ECON [id number] [place] [address] Unavailable Re-disclosure Warning The records that you [...] is protected by Article 27-F of the [facility] Public Health law. If you continue you may have access to information: Regarding HIV / AIDS; Provided by facilities licensed or operated by the [facility] Office of Mental Health; or Provided by the [facility] Office for People With Developmental Disabilities. If such information is present, then the following [facility] mandated warning applies: This information has been [...] law may result in a fine or alf sentence or both. A general authorization for the release of medical or other information is NOT sufficient authorization for further disc losure. Encounters Encounter Providers Location Date Indications Data Source(s ) Unknown [address] [facility] [address] 09/27/2021 12:00:00 AM EDT eCW1 ([facility]) Unknown [address] [facility] [place] [address] 09/26/2021 12:00:00 AM EDT eCW1 ([facility]) Unknown [address] [facility] [address] 09/18/2021 12:00:00 AM EDT eCW1 ([facility]) Unknown [address] [facility] [address] 09/13/2021 12:00:00 AM EDT eCW1 ([facility]) Unknown [address] [facility] [address] 09/09/2021 12:00:00 AM EDT eCW1 ([facility]) Unknown [address] [facility] [address] 09/03/2021 12:00:00 AM EDT eCW1 ([facility]) Unknown [address] [facility] [address] 09/02/2021 12:00:00 AM EDT eCW1 ([facility]) Unknown [address] [facility] [address] 07/23/2021 12:00:00 AM EDT eCW1 ([facility]) Unknown [address] [facility] [address] 07/23/2021 12:00:00 AM EDT eCW1 ([facility]) Outpatient [address] [facility] [address] 03/06/2021 12:00:00 AM EDT eCW1 ([facility]) Unknown [address] [facility] [address] 02/14/2021 12:00:00 AM EDT eCW1 ([facility]) Unknown [address] [facility] [address] 02/05/2021 12:00:00 AM EST eCW1 ([facility]) Outpatient [address] [facility] [address] 01/31/2021 12:00:00 AM EST eCW1 ([facility]) Unknown [address] [facility] [address] 01/28/2021 12:00:00 AM EST eCW1 ([facility]) Unknown [address] [facility] [address] 01/28/2021 12:00:00 AM EST eCW1 ([facility]) Outpatient [address] [facility] [address] 01/24/2021 12:00:00 AM EST eCW1 ([facility]) Unknown [address] [facility] [address] 01/09/2021 12:00:00 AM EST eCW1 ([facility]) Unknown [address] [facility] [address] 01/03/2021 12:00:00 AM EST eCW1 ([facility]) Unknown [address] [facility] [address] 12/31/2020 12:00:00 AM EST eCW1 ([facility]) Unknown [address] [facility] [address] 12/24/2020 12:00:00 AM EST eCW1 ([facility]) Unknown [address] [facility] [address] 12/06/2020 12:00:00 AM EST eCW1 ([facility]) Unknown [address] [facility] [address] 11/26/2020 12:00:00 AM EST eCW1 ([facility]) Outpatient [address] [facility] [address] 11/21/2020 12:00:00 AM EST eCW1 ([facility]) Unknown [address] [facility] [address] 11/21/2020 12:00:00 AM EST eCW1 (Critical [facility] hospital) Unknown [address] [facility] [address] 11/05/2020 12:00:00 AM EST eCW1 (Critical access hospital) Immunizations Vaccine Date Status Description Data Source(s) COVID-19 VACCINE Moderna 08/03/2021 12:00:00 AM EDT completed [facility] Vaccine Series Complete: YESThis Data wa s Submitted to [facility] Via [employer]. COVID-19 VACCINE Moderna 07/06/2021 12:00:00 AM EDT completed [facility] Vaccine Series Complete: NOThis Data was Submitted to [facility] [employer]. Medications Medication Brand Name Start Date Product Form Dose Route Admi nistrative Instructions Pharmacy Instructions Status Indications Reaction Description Data Source(s) Hydralazine Hydrochloride 50 MG Oral Tablet hydrALAZIN E HCl 50 MG hydrALAZINE HCl 50 MG 09/26/2021 12:00:00 AM EDT 1.0 {tablet_with_food} active hydrALAZINE HCl 50 MG eCW1 ([facility]) Hydralazine Hydrochloride 50 MG Oral Tablet hydrALAZIN E HCl 50 MG hydrALAZINE HCl 50 MG 09/26/2021 12:00:00 AM EDT 1.0 {tablet_with_food} active hydrALAZINE HCl 50 MG eCW1 ([facility]) FreeStyle Lite w/Device UNK 09/24/2021 12:00:00 AM EDT active FreeStyle Lite w/Device eCW1 ([facility]) FreeStyle Lite w/Device UNK 09/24/2021 12:00:00 AM EDT active FreeStyle Lite w/Device eCW1 ([facility]) Blood Glucose Test - Blood Glucose Test - 09/24/2021 12:00:00 AM EDT active Blood Glucose Test - eCW1 ([facility]) Blood Glucose Test - Blood Glucose Test - 09/24/2021 12:00:00 AM EDT active Blood Glucose Test - eCW1 ([facility]) FreeStyle Lite w/Device UNK 09/24/2021 12:00:00 AM EDT active FreeStyle Lite w/Device eCW1 ([facility]) Blood Glucose Test - Blood Glucose Test - 09/24/2021 12:00:00 AM EDT active Blood Glucose Test - eCW1 ([facility]) Bisoprolol Fumarate 5 MG Oral Tablet Bisoprolol Fumarate 5 M G 09/02/2021 12:00:00 AM EDT 1.0 {tablet} active Bi soprolol Fumarate 5 MG eCW1 ([facility]) Bisoprolol Fumarate 5 MG Oral Tablet Bisoprolol Fumarate 5 M G 09/02/2021 12:00:00 AM EDT 1.0 {tablet} active Bi soprolol Fumarate 5 MG eCW1 ([facility]) Bisoprolol Fumarate 5 MG Oral Tablet Bisoprolol Fumarate 5 M G 09/02/2021 12:00:00 AM EDT 1.0 {tablet} active Bi soprolol Fumarate 5 MG eCW1 ([facility]) Bisoprolol Fumarate 5 MG Oral Tablet Bisoprolol Fumarate 5 M G 09/02/2021 12:00:00 AM EDT 1.0 {tablet} active Bi soprolol Fumarate 5 MG eCW1 ([facility]) Bisoprolol Fumarate 5 MG Oral Tablet Bisoprolol Fumarate 5 M G 09/02/2021 12:00:00 AM EDT 1.0 {tablet} active Bi soprolol Fumarate 5 MG eCW1 ([facility]) Bisoprolol Fumarate 5 MG Oral Tablet Bisoprolol Fumarate 5 M G 09/02/2021 12:00:00 AM EDT 1.0 {tablet} active Bi soprolol Fumarate 5 MG eCW1 ([facility]) Bisoprolol Fumarate 5 MG Oral Tablet Bisoprolol Fumarate 5 M G 09/02/2021 12:00:00 AM EDT 1.0 {tablet} active Bi soprolol Fumarate 5 MG eCW1 ([facility]) Clenpiq Clenpiq 07/16/2021 12:00:00 AM EDT complet ed MEDENT ([facility], ) POLYETHYLENE GLYCOL 3350 142 MG/ML Oral Solution [Miralax] M iralax 07/16/2021 12:00:00 AM EDT completed MEDENT ([facility], ) POLYETHYLENE GLYCOL 3350 105 MG/ML / Pot assium Chloride 0.70096 MEQ/ML / Sodium Bicarbonate 0.017 MEQ/ML / Sodium Chloride 0.0479 MEQ/ML Oral Solution [GaviLyte-N] Gavilyte-N With Flavor Pack 07/16/2021 12:00:00 AM EDT completed MEDENT ([facility], ) Bisacodyl 5 MG Delayed Release Oral Tablet [Dulcolax] Dulcol ax 07/16/2021 12:00:00 AM EDT completed MEDENT ([facility], ) POLYETHYLENE GLYCOL 3350 142 MG/ML Oral Solution [Miralax] M iralax 03/19/2021 12:00:00 AM EDT completed MEDENT ([facility], ) Bisacodyl 5 MG Delayed Release Oral Tablet [Dulcolax] Dulcol ax 03/19/2021 12:00:00 AM EDT ORAL completed MEDENT ([facility], ) Lisinopril 10 MG Oral Tablet Lisinopril 10 MG 01/24/2021 12:00:00 A M EST 1.0 {tablet} suspended Lisinopril 10 MG eCW1 ([facility]) Amlodipine 5 MG Oral Tablet [Norvasc] Norvasc 5mg Norvasc 5m g 01/24/2021 12:00:00 AM EST active Norvasc 5mg eCW1 ([facility]) Lisinopril 10 MG Oral Tablet Lisinopril 10 MG 01/24/2021 12:00:00 A M EST 1.0 {tablet} suspended Lisinopril 10 MG eCW1 ([facility]) Amlodipine 5 MG Oral Tablet [Norvasc] Norvasc 5mg Norvasc 5m g 01/24/2021 12:00:00 AM EST active Norvasc 5mg eCW1 ([facility]) Amlodipine 5 MG Oral Tablet [Norvasc] Norvasc 5mg Norvasc 5m g 01/24/2021 12:00:00 AM EST active Norvasc 5mg eCW1 ([facility]) Amlodipine 5 MG Oral Tablet [Norvasc] Norvasc 5mg Norvasc 5m g 01/24/2021 12:00:00 AM EST active Norvasc 5mg eCW1 ([facility]) Amlodipine 5 MG Oral Tablet [Norvasc] Norvasc 5mg Norvasc 5m g 01/24/2021 12:00:00 AM EST active Norvasc 5mg eCW1 ([facility]) Lisinopril 10 MG Oral Tablet Lisinopril 10 MG 01/24/2021 12:00:00 A M EST 1.0 {tablet} suspended Lisinopril 10 MG eCW1 ([facility]) Amlodipine 5 MG Oral Tablet [Norvasc] Norvasc 5mg Norvasc 5m g 01/24/2021 12:00:00 AM EST active Norvasc 5mg eCW1 ([facility]) Amlodipine 5 MG Oral Tablet [Norvasc] Norvasc 5mg Norvasc 5m g 01/24/2021 12:00:00 AM EST active Norvasc 5mg eCW1 ([facility]) Amlodipine 5 MG Oral Tablet [Norvasc] Norvasc 5mg Norvasc 5m g 01/24/2021 12:00:00 AM EST active Norvasc 5mg eCW1 ([facility]) Amlodipine 5 MG Oral Tablet [Norvasc] Norvasc 5mg Norvasc 5m g 01/24/2021 12:00:00 AM EST active Norvasc 5mg eCW1 ([facility]) Lisinopril 10 MG Oral Tablet Lisinopril 10 MG 01/24/2021 12:00:00 A M EST 1.0 {tablet} suspended Lisinopril 10 MG eCW1 ([facility]) Lisinopril 10 MG Oral Tablet Lisinopril 10 MG 01/24/2021 12:00:00 A M EST 1.0 {tablet} suspended Lisinopril 10 MG eCW1 ([facility]) Lisinopril 10 MG Oral Tablet Lisinopril 10 MG 01/24/2021 12:00:00 A M EST 1.0 {tablet} suspended Lisinopril 10 MG eCW1 ([facility]) Amlodipine 5 MG Oral Tablet [Norvasc] Norvasc 5mg Norvasc 5m g 01/24/2021 12:00:00 AM EST active Norvasc 5mg eCW1 ([facility]) Lisinopril 10 MG Oral Tablet Lisinopril 10 MG 01/24/2021 12:00:00 A M EST 1.0 {tablet} suspended Lisinopril 10 MG eCW1 ([facility]) Amlodipine 5 MG Oral Tablet [Norvasc] Norvasc 5mg Norvasc 5m g 01/24/2021 12:00:00 AM EST active Norvasc 5mg eCW1 ([facility]) Amlodipine 5 MG Oral Tablet [Norvasc] Norvasc 5mg Norvasc 5m g 01/24/2021 12:00:00 AM EST active Norvasc 5mg eCW1 ([facility]) Amlodipine 5 MG Oral Tablet [Norvasc] Norvasc 5mg Norvasc 5m g 01/24/2021 12:00:00 AM EST active Norvasc 5mg eCW1 ([facility]) Amlodipine 5 MG Oral Tablet [Norvasc] Norvasc 5mg Norvasc 5m g 01/24/2021 12:00:00 AM EST active Norvasc 5mg eCW1 ([facility]) Lisinopril 10 MG Oral Tablet Lisinopril 10 MG 01/24/2021 12:00:00 A M EST 1.0 {tablet} suspended Lisinopril 10 MG eCW1 ([facility]) Amlodipine 5 MG Oral Tablet [Norvasc] Norvasc 5mg Norvasc 5m g 01/24/2021 12:00:00 AM EST active Norvasc 5mg eCW1 ([facility]) Amlodipine 5 MG Oral Tablet [Norvasc] Norvasc 5mg Norvasc 5m g 01/24/2021 12:00:00 AM EST active Norvasc 5mg eCW1 ([facility]) Amlodipine 5 MG Oral Tablet [Norvasc] Norvasc 5mg Norvasc 5m g 01/24/2021 12:00:00 AM EST active Norvasc 5mg eCW1 ([facility]) Amlodipine 5 MG Oral Tablet [Norvasc] Norvasc 5mg Norvasc 5m g 01/24/2021 12:00:00 AM EST active Norvasc 5mg eCW1 ([facility]) Regular Insulin, Human 100 UNT/ML Inject able Solution [Humulin R] Humulin R 100 UNIT/ML Humulin R 100 UNIT/ML 01/10/2021 12:00:00 AM EST active Humulin R 100 UNIT/ML eCW1 ([facility]) Regular Insulin, Human 100 UNT/ML Inject able Solution [Humulin R] HumuLIN R 100 UNIT/ML HumuLIN R 100 UNIT/ML 01/10/2021 12:00:00 AM EST active HumuLIN R 100 UNIT/ML eCW1 ([facility]) Regular Insulin, Human 100 UNT/ML Inject able Solution [Humulin R] HumuLIN R 100 UNIT/ML HumuLIN R 100 UNIT/ML 01/10/2021 12:00:00 AM EST active HumuLIN R 100 UNIT/ML eCW1 ([facility]) Regular Insulin, Human 100 UNT/ML Inject able Solution [Humulin R] Humulin R 100 UNIT/ML Humulin R 100 UNIT/ML 01/10/2021 12:00:00 AM EST active Humulin R 100 UNIT/ML eCW1 ([facility]) Regular Insulin, Human 100 UNT/ML Inject able Solution [Humulin R] HumuLIN R 100 UNIT/ML HumuLIN R 100 UNIT/ML 01/10/2021 12:00:00 AM EST active HumuLIN R 100 UNIT/ML eCW1 ([facility]) Regular Insulin, Human 100 UNT/ML Inject able Solution [Humulin R] Humulin R 100 UNIT/ML Humulin R 100 UNIT/ML 01/10/2021 12:00:00 AM EST active Humulin R 100 UNIT/ML eCW1 ([facility]) Regular Insulin, Human 100 UNT/ML Inject able Solution [Humulin R] HumuLIN R 100 UNIT/ML HumuLIN R 100 UNIT/ML 01/10/2021 12:00:00 AM EST active HumuLIN R 100 UNIT/ML eCW1 ([facility]) Regular Insulin, Human 100 UNT/ML Inject able Solution [Humulin R] Humulin R 100 UNIT/ML Humulin R 100 UNIT/ML 01/10/2021 12:00:00 AM EST active Humulin R 100 UNIT/ML eCW1 ([facility]) Regular Insulin, Human 100 UNT/ML Inject able Solution [Humulin R] Humulin R 100 UNIT/ML Humulin R 100 UNIT/ML 01/10/2021 12:00:00 AM EST active Humulin R 100 UNIT/ML eCW1 ([facility]) Regular Insulin, Human 100 UNT/ML Inject able Solution [Humulin R] Humulin R 100 UNIT/ML Humulin R 100 UNIT/ML 01/10/2021 12:00:00 AM EST active Humulin R 100 UNIT/ML eCW1 ([facility]) Regular Insulin, Human 100 UNT/ML Inject able Solution [Humulin R] HumuLIN R 100 UNIT/ML HumuLIN R 100 UNIT/ML 01/10/2021 12:00:00 AM EST active HumuLIN R 100 UNIT/ML eCW1 ([facility]) Regular Insulin, Human 100 UNT/ML Inject able Solution [Humulin R] HumuLIN R 100 UNIT/ML HumuLIN R 100 UNIT/ML 01/10/2021 12:00:00 AM EST active HumuLIN R 100 UNIT/ML eCW1 ([facility]) Regular Insulin, Human 100 UNT/ML Inject able Solution [Humulin R] Humulin R 100 UNIT/ML Humulin R 100 UNIT/ML 01/10/2021 12:00:00 AM EST active Humulin R 100 UNIT/ML eCW1 ([facility]) Regular Insulin, Human 100 UNT/ML Inject able Solution [Humulin R] HumuLIN R 100 UNIT/ML HumuLIN R 100 UNIT/ML 01/10/2021 12:00:00 AM EST active HumuLIN R 100 UNIT/ML eCW1 ([facility]) Regular Insulin, Human 100 UNT/ML Inject able Solution [Humulin R] Humulin R 100 UNIT/ML Humulin R 100 UNIT/ML 01/10/2021 12:00:00 AM EST active Humulin R 100 UNIT/ML eCW1 ([facility]) Regular Insulin, Human 100 UNT/ML Inject able Solution [Humulin R] HumuLIN R 100 UNIT/ML HumuLIN R 100 UNIT/ML 01/10/2021 12:00:00 AM EST active HumuLIN R 100 UNIT/ML eCW1 ([facility]) Regular Insulin, Human 100 UNT/ML Inject able Solution [Humulin R] Humulin R 100 UNIT/ML Humulin R 100 UNIT/ML 01/10/2021 12:00:00 AM EST active Humulin R 100 UNIT/ML eCW1 ([facility]) Regular Insulin, Human 100 UNT/ML Inject able Solution [Humulin R] HumuLIN R 100 UNIT/ML HumuLIN R 100 UNIT/ML 01/10/2021 12:00:00 AM EST active HumuLIN R 100 UNIT/ML eCW1 ([facility]) 10 mg 08/07/2020 12:00:00 AM EDT tablet 30 TAKE ONE TABLET BY MOUTH EVERY DAY TAKE ONE TABLET BY MOUTH EVERY DAY SOLD: 08/08/2020 [facility] Insurance Providers Payer name Policy type / Coverage type Policy ID Covered alliance party ID Covered alliance party's relationship to hines Policy Hines Plan Information CORINA [id number] SP [id number] SELF PAY ONLY SP NCO EPALS [id number] SP [id number] O UNAVAILABLE UNAVAILA BLE EMEDNY [id number] SP [id number] Problems, Conditions, and Diagnoses Code Display Name Description Problem Type Effective Dates Data Source(s) I63.30 [id number] Cerebrovascular acci dent (CVA) due to thrombosis of cerebral artery Problem 09/26/2021 12:00:00 AM EDT eCW1 ([facility]) [id number] Essential hypertension Essential hypertension Problem 03/19/2021 12:00:00 AM EDT NICK ([facility], ) E11.21 [id number] Diabetic nephropathy associated with type 2 diabetes mellitus Problem 01/31/2021 12:00:00 AM EST eCW1 ([facility]) M54.42 Sciatica Lumbago with sciatica, left side Problem 01/29/2021 12:00:00 AM EST eCW1 ([facility]) M54.41 Sciatica Lumbago with sciatica, right side Problem 01/29/2021 12:00:00 AM EST eCW1 ([facility]) G62.9 [id number] Neuropathy Problem 01/24/2021 12:00:00 AM ES T eCW1 ([facility]) E11.42 [id number] Type 2 diabetes mellitus with peripheral neuropathy Problem 11/24/2020 12:00:00 AM EST eCW1 ([facility]) E11.40 [id number] Type 2 diabetes mellitus with di abetic neuropathy, unspecified Problem 11/24/2020 12:00:00 AM EST eCW1 ([facility]) G89.29 [id number] Other chronic pain Problem 11/21/2020 12:00: 00 AM EST eCW1 ([facility]) E11.21 [id number] Diabetes mellitus with nephropathy Proble m 11/21/2020 12:00:00 AM EST eCW1 ([facility]) Surgeries/Procedures Procedure Description Date Indications Data Source(s) Colonoscopy Flexible Proximal To Splenic Flexure Diagnostic W/Or 05/06/2021 12:00:00 AM EDT MEDENT ([facility]) Results ID Date Data Source [id number] 08/24/2021 01:38:00 AM EDT [facility] Name Value Range Interpretation Code Description Data Karmen rce(s) Supporting Document(s) SARS coronavirus 2 RNA [Presence] in Res piratory specimen by CARMELO with probe detection NEGATIVE [facility] This lab was ordered by [facility] a nd reported by [facility]. ID Date Data Source Basic Metabolic Profile (BMP) 03/07/2021 12:00:00 AM EDT eCW 1 ([facility]) Name Value Range Interpretation Code Description Data Karmen rce(s) Supporting Document(s) 44 7-18 BLOOD UREA NITROGEN eCW1 ([facility]) 52 70-100 GLUCOSE, FASTING eCW1 ([facility]) 1.61 0.55-1.30 CREATININE FOR GFR eCW1 ([facility]) 146 136-145 SODIUM LEVEL eCW1 ([facility]) 34.5 >45 GLOMERULAR FILTRATION RATE eCW 1 ([facility]) 4.8 3.5-5.1 POTASSIUM SERUM eCW1 ([facility]) 27 21-32 CARBON DIOXIDE LEVEL eCW1 ([facility]) 114 98-107 CHLORIDE LEVEL eCW1 ([facility]) 9.1 8.8-10.2 CALCIUM LEVEL eCW1 ([facility]) ID Date Data Source TOTAL PROTEIN,RANDOM URINE 03/07/2021 12:00:00 AM EDT eCW1 ( [facility]) Name Value Range Interpretation Code Description Data Karmen rce(s) Supporting Document(s) 420.5 0.0-12.0 TOTAL PROTEIN,RANDOM URIN E eCW1 ([facility]) ID Date Data Source CREATININE,RANDOM URINE 03/07/2021 12:00:00 AM EDT eCW1 ([facility]) Name Value Range Interpretation Code Description Data Karmen rce(s) Supporting Document(s) 33.0 CREATININE,RANDOM URINE eCW1 ( [facility]) ID Date Data Source UA URINALYSIS 03/07/2021 12:00:00 AM EDT eCW1 ([facility]) Name Value Range Interpretation Code Description Data Karmen rce(s) Supporting Document(s) UA URINALYSIS eCW1 ([facility]) ID Date Data Source [id number] 01/28/2021 08:21:00 PM EST [facility] Name Value Range Interpretation Code Description Data Karmen rce(s) Supporting Document(s) SARS coronavirus 2 RNA [Presence] in Res piratory specimen by CARMELO with probe detection NEGATIVE [facility] This lab was ordered by [facility] a nd reported by [facility]. Procedure Social History Code Duration Value Status Description Data Source(s ) Smoking 09/26/2021 12:00:00 AM EDT Never Smoker completed Never S moker eCW1 ([facility]) Smoking 09/26/2021 12:00:00 AM EDT Never Smoker completed Never S moker eCW1 ([facility]) Smoking 09/15/2021 12:00:00 AM EDT Never Smoker completed Never S moker eCW1 ([facility]) Smoking 03/06/2021 12:00:00 AM EDT Never Smoker completed Never S moker eCW1 ([facility]) Smoking 03/06/2021 12:00:00 AM EDT Never Smoker completed Never S moker eCW1 ([facility]) Smoking 03/06/2021 12:00:00 AM EDT Never Smoker completed Never S moker eCW1 ([facility]) Smoking 03/06/2021 12:00:00 AM EDT Never Smoker completed Never S moker eCW1 ([facility]) Smoking 03/06/2021 12:00:00 AM EDT Never Smoker completed Never S moker eCW1 ([facility]) Smoking 03/06/2021 12:00:00 AM EDT Never Smoker completed Never S moker eCW1 ([facility]) Smoking 03/06/2021 12:00:00 AM EDT Never Smoker completed Never S moker eCW1 ([facility]) Smoking 03/06/2021 12:00:00 AM EDT Never Smoker completed Never S moker eCW1 ([facility]) Smoking 02/25/2021 12:00:00 AM EDT Never Smoker completed Never S moker eCW1 ([facility]) Smoking 01/31/2021 12:00:00 AM EST Never Smoker completed Never S moker eCW1 ([facility]) Smoking 01/31/2021 12:00:00 AM EST Never Smoker completed Never S moker eCW1 ([facility]) Smoking 01/31/2021 12:00:00 AM EST Never Smoker completed Never S moker eCW1 ([facility]) Smoking 01/31/2021 12:00:00 AM EST Never Smoker completed Never S moker eCW1 ([facility]) Smoking 01/31/2021 12:00:00 AM EST Never Smoker completed Never S moker eCW1 ([facility]) Smoking 01/31/2021 12:00:00 AM EST Never Smoker completed Never S moker eCW1 ([facility]) Smoking 12/31/2020 12:00:00 AM EST Never Smoker completed Never S moker eCW1 ([facility]) Smoking 11/21/2020 12:00:00 AM EST Never Smoker completed Never S moker eCW1 ([facility]) Smoking 11/21/2020 12:00:00 AM EST Never Smoker completed Never S moker eCW1 ([facility]) Smoking 11/21/2020 12:00:00 AM EST Never Smoker completed Never S moker eCW1 ([facility]) Smoking 11/21/2020 12:00:00 AM EST Never Smoker completed Never S moker eCW1 ([facility]) Smoking 11/21/2020 12:00:00 AM EST Never Smoker completed Never S moker eCW1 ([facility]) Smoking 11/21/2020 12:00:00 AM EST Never Smoker completed Never S moker eCW1 ([facility]) Vital Signs ID Date Data Source UNK Name Value Range Interpretation Code Description Data Source(s) Systolic blood pressure 168 mm[Hg] 168 mm[Hg] M TAIWO ([facility]) Diastolic blood pressure 72 mm[Hg] 72 mm[Hg] [facility] ([facility]) Body height 66 [in_i] 66 [in_i] [facility] ([facility]) 5'6" Body weight 212.00 [lb_av] 212.00 [facility]_av] [facility] Body mass index (BMI) [Ratio] 34.2 kg/m2 34.2 k g/m2 [facility] ([facility]) [place] body weight 130 [lb_av] 130 [lb_av] MED[facility] T ([facility]) Body weight 96.163 kg 96.163 kg [facility] ([facility]) Body surface area Derived from formula 2.05 m2 2.05 m2 [facility] Body weight 200.00 [lb_av] 200.00 [lb_av] MED[facility] T ([facility]) [place] body weight 130 [lb_av] 130 [lb_av] [facility] T ([facility]) Body surface area Derived from formula 2.00 m2 2.00 m2 MEDENT ([facility]) Systolic blood pressure 162 mm[Hg] 162 mm[Hg] M EDENT ([facility]) Body height 66 [in_i] 66 [in_i] [facility] ([facility]) 5'6" Body weight 200.00 [lb_av] 200.00 [lb_av] MEDEN T ([facility]) Body mass index (BMI) [Ratio] 32.3 kg/m2 32.3 k g/m2 [facility] ([facility]) [place] body weight 130 [lb_av] 130 [lb_av] MED[facility] T ([facility]) Body weight 90.720 kg 90.720 kg MED[facility] ([facility]) Body surface area Derived from formula 2.00 m2 2.00 m2 [facility] Diastolic blood pressure 78 mm[Hg] 78 mm[Hg] [facility] ([facility]) Body height 66 [in_i] 66 [in_i] [facility] ([facility]) 5'6" Body mass index (BMI) [Ratio] 32.3 kg/m2 32.3 k g/m2 [facility]) Body weight 90.720 kg 90.720 kg [facility] ([facility]) Body weight 205.2 [lb_av] 205.2 [lb_av] eCW1 ([facility]) Body height 66 [in_i] 66 [in_i] eCW1 ([facility]) Body mass index (BMI) [Ratio] 33.12 kg/m2 33.12 kg/m2 eCW1 ([facility]) Heart rate 92 /min 92 /min eCW1 ([facility]) Respiratory rate 18 /min 18 /min eCW1 ([facility]) Body temperature 97.5 [degF] 97.5 [degF] eCW1 ( [facility]) Systolic blood pressure 156 mm[Hg] 156 mm[Hg] e CW1 ([facility]) Diastolic blood pressure 94 mm[Hg] 94 mm[Hg] eCW1 ([facility]) Systolic blood pressure 162 mm[Hg] 162 mm[Hg] e CW1 ([facility]) Body weight 192 [lb_av] 192 [lb_av] eCW1 ([facility]) Body height 66 [in_i] 66 [in_i] eCW1 ([facility]) Body mass index (BMI) [Ratio] 30.99 kg/m2 30.99 kg/m2 eCW1 ([facility]) Heart rate 96 /min 96 /min eCW1 ([facility]) Diastolic blood pressure 96 mm[Hg] 96 mm[Hg] eCW1 ([facility]) Respiratory rate 18 /min 18 /min eCW1 ([facility]) Body temperature 97.2 [degF] 97.2 [degF] eCW1 ( [facility]) Respiratory rate 18 /min 18 /min eCW1 ([facility]) Body weight 181 [lb_av] 181 [lb_av] eCW1 ([facility]) Body height 66 [in_i] 66 [in_i] eCW1 ([facility]) Body mass index (BMI) [Ratio] 29.21 kg/m2 29.21 kg/m2 eCW1 ([facility]) Heart rate 99 /min 99 /min eCW1 ([facility]) Body temperature 97 [degF] 97 [degF] eCW1 ([facility]) Systolic blood pressure 166 mm[Hg] 166 mm[Hg] e CW1 ([facility]) Diastolic blood pressure 98 mm[Hg] 98 mm[Hg] eCW1 ([facility]) Body weight 200.2 [lb_av] 200.2 [lb_av] eCW1 ([facility]) Body height 66 [in_i] 66 [in_i] eCW1 ([facility]) Body mass index (BMI) [Ratio] 32.31 kg/m2 32.31 kg/m2 eCW1 ([facility]) Heart rate 104 /min 104 /min eCW1 ([facility]) Respiratory rate 17 /min 17 /min eCW1 ([facility]) Body temperature 97.9 [degF] 97.9 [degF] eCW1 ( [facility]) Systolic blood pressure 164 mm[Hg] 164 mm[Hg] e CW1 ([facility]) Diastolic blood pressure 102 mm[Hg] 102 mm[Hg] eCW1 ([facility]) Patient Treatment Plan of Care Planned Activity Planned Date Details Description Data Source (s) Hydralazine Hydrochloride 50 MG Oral Tablet 09/26/2021 12:00:00 AM EDT eCW1 ([facility]) Hydralazine Hydrochloride 50 MG Oral Tablet 09/26/2021 12:00:00 AM EDT eCW1 ([facility]) Blood Glucose Test - 09/24/2021 12:00:00 AM EDT eCW1 ([facility]) FreeStyle Lite w/Device 09/24/2021 12:00:00 AM EDT eCW1 ([facility]) Bisoprolol Fumarate 5 MG Oral Tablet 09/02/2021 12:00:00 AM EDT eCW1 ([facility]) Bisoprolol Fumarate 5 MG Oral Tablet 09/02/2021 12:00:00 AM EDT eCW1 ([facility]) Bisoprolol Fumarate 5 MG Oral Tablet 09/02/2021 12:00:00 AM EDT eCW1 ([facility]) Bisoprolol Fumarate 5 MG Oral Tablet 09/02/2021 12:00:00 AM EDT eCW1 ([facility]) Bisoprolol Fumarate 5 MG Oral Tablet 09/02/2021 12:00:00 AM EDT eCW1 ([facility]) Regular Insulin, Human 100 UNT/ML Injectable Solution [Humulin R] 01/10/2021 12:00:00 AM EST eCW1 ([facility]) Regular Insulin, Human 100 UNT/ML Injectable Solution [Humulin R] 01/10/2021 12:00:00 AM EST eCW1 ([facility]) Regular Insulin, Human 100 UNT/ML Injectable Solution [Humulin R] 01/10/2021 12:00:00 AM EST eCW1 ([facility]) Regular Insulin, Human 100 UNT/ML Injectable Solution [Humulin R] 01/10/2021 12:00:00 AM EST eCW1 ([facility]) Regular Insulin, Human 100 UNT/ML Injectable Solution [Humulin R] 01/10/2021 12:00:00 AM EST eCW1 ([facility]) Regular Insulin, Human 100 UNT/ML Injectable Solution [Humulin R] 01/10/2021 12:00:00 AM EST eCW1 ([facility]) Regular Insulin, Human 100 UNT/ML Injectable Solution [Humulin R] 01/10/2021 12:00:00 AM EST eCW1 ([facility])
--- NOTE | 2021-10-01 18:20 | HPEPDOC ---
[facility] Medical History & Physical Date of Admission Oct 01, 2021 Date of Service: Oct 01, 2021 History and Physical Chief complaint: Who presented to the ER via EMS for elevated BP since August History of present illness: Patient is a 61 year old female with a presented to the ER with an elevated blood pressure since August Asians granddaughter was concerned and called EMS for further evaluation. Patient was brought to the ER. In the ER, patient was noted to have systolic blood pressure of 220s and she was given labetalol 100 mg PO. Hospital services called for further evaluation and treatment after her imaging revealed vascular congestion and cardiomegaly. No diuretics were provided. Patient was seen and examined at the bedside. Patients daughter was contacted for further assistance into her history (Daughter; Ms. Benson [phone]). Patient reports some shortness of breath and lower tremors swelling has been going on for 2 weeks. She denies any nausea, vomiting, chest pain, abdominal pain consultation, diarrhea, or urinary discomfort. Denies any recent fevers or chills. Reports that her appetite is fairly normal and has experience a weight gain. Past Medical History: HTN Diastolic CHF (Grade 2) DLP IDDM2 CKD3 Normocytic anemia Glaucoma Obesity GERD Past Surgical History: Left eye cataract surgery Tubal ligation Colonoscopy Allergies: See below Medications: See below Family History: - Father with a history of carcinoma of unknown type, high blood pressure, coronary disease and diabetes - Mother with a history of hypertension and diabetes Social History: - Denies the use of tobacco or illicit drugs; Quit smoking - Denies recent travel or sick contacts - Patient has received the COVID19 vaccine - Lives with grand-daughter in [place]; Ms. Benson [phone] Review of Systems: 10 point review of systems complete, all negative otherwise stated in HPI Physical exam: - Vitals: BP [187/63], HR [67], RR [17], Sat [94%RA], Temp [97.8F] - General: Lying in bed, No acute distress, Speaking in full sentences, AAOx3 - HEENT: NC, AT, PERRLA - CVS: RRR, +S1S2 - Lungs: Fair air entry bilaterally, No appreciable wheezing / rales / rhonchi - Abdomen: Soft, Non-distended, Non-tender - Extremities: 1+ pitting edema bilaterally, No calf tenderness - Neuro: 3/5 strength at upper and lower extremities on the right; 5/5 strength at upper and lower extremities on the left - Skin: No visible rashes Labs: See below Imaging: CXR 10/01: Cardiomegaly, vascular congestion, bibasilar infiltrates and effusions. EKG: See below Assessment and Plan: Hypertensive urgency - Hx of HTN - Patient takes Amlodipine / Hydralazine at home; will c/w same with hold parameters - Will discontinue Labetalol / Lisinopril (re: Cr 1.6-2.0) - In the ER patient was given Labetalol 100mg PO which failed to do anything; hospitalist service was called for admission - Will c/w Amlodipine / Will increase dose of Hydralazine - Will add Carvedilol - Will provide dose of Furosemide 60 IV x 1 dose - c/w Telemetry monitoring Diastolic CHF (Grade 2) - Her sugars reveal evidence of 1+ pitting edema bilaterally - Will check ECHO - Imaging noted above - c/w Strict ins/outs, daily weights, fluid restriction - Will give dose of Furosemide Hx of CVA w/ residual R sided weakness - Dx 07/2021 - c/w ASA 81 and Atorvastatin Hyperkalemia - Will c/w telemetry monitoring DLP - c/w Atorvastatin IDDM2 - Will start ISS and long acting insulin CKD3 - Cr baseline of 1.6-2.1 - Cr appears to be at baseline Normocytic anemia - Hg baseline of 10 - Appears to be at baseline Glaucoma Obesity - BMI of 34.9 - Complicating medical care GERD - c/w PPI DVT prophylaxis - Will start Heparin SQ Vital Signs Vital Signs Date Time Temp Pulse Resp B/P (MAP) Pulse Ox O2 Delivery O2 Flow Rate FiO2 10/01/21 18:16 59 94 10/01/21 16:37 97.8 17 187/63 (104) Room Air Laboratory Data Labs 24H Laboratory Tests 2 10/01/21 10:30: POC Glucose (Misc Panel) 71, POC Sodium (Misc Panel) 143, POC Potassium (Misc Panel) 4.7, POC Chloride (Misc Panel) 113H, POC Total CO2 (Misc Panel) 22.0L, POC Blood Urea Nitrogen (Misc Panel 36H, POC Ionized Calcium (Misc Panel) 4.9, POC Creatinine (Misc Panel) 2.2H, POC Hematocrit (Misc Panel) 32.0L 10/01/21 10:46: Immature Granulocyte % (Auto) 0.2, Neutrophils (%) (Auto) 75.6H, Lymphocytes (%) (Auto) 14.9L, Monocytes (%) (Auto) 6.6, Eosinophils (%) (Auto) 2.2, Basophils (%) (Auto) 0.5, Neutrophils # (Auto) 6.7, Lymphocytes # (Auto) 1.3L, Monocytes # (Auto) 0.6, Eosinophils # (Auto) 0.2, Basophils # (Auto) 0.0, Nucleated Red Blood Cells % (auto) 0.0 10/01/21 13:03: Immature Granulocyte % (Auto) 0.3, Neutrophils (%) (Auto) 77.5H, Lymphocytes (%) (Auto) 13.0L, Monocytes (%) (Auto) 6.9, Eosinophils (%) (Auto) 2.0, Basophils (%) (Auto) 0.3, Neutrophils # (Auto) 6.7, Lymphocytes # (Auto) 1.1L, Monocytes # (Auto) 0.6, Eosinophils # (Auto) 0.2, Basophils # (Auto) 0.0, Nucleated Red Blood Cells % (auto) 0.0, Anion Gap 3L, Glomerular Filtration Rate 28.3L, Calcium Level 8.9, Total Bilirubin 0.3, Aspartate Amino Transf (AST/SGOT) 49H, Alanine Aminotransferase (ALT/SGPT) 41, Alkaline Phosphatase 138H, Total Creatine Kinase 152, Creatine Kinase MB 2.1, Creatine Kinase MB Relative Index 1.38, Troponin I < 0.02, JG-Vmf-L-Type Natriuretic Peptide 4157H, Total Protein 6.2L, Albumin 2.5L, Albumin/Globulin Ratio 0.7L, Coronavirus (COVID-19)(PCR) NEGATIVE, Influenza Type A (RT-PCR) NEGATIVE, Influenza Type B (RT-PCR) NEGATI VE, Respiratory Syncytial Virus (PCR) NEGATIVE CBC/BMP Laboratory Tests 10/01/21 10:46 10/01/21 13:03 Home Medications Scheduled Amlodipine Besylate (Amlodipine Besylate) 10 Mg Tablet, 10 MG PO DAILY Aspirin (Aspirin) 81 Mg Tab.chew, 81 MG PO DAILY Atorvastatin Calcium (Atorvastatin Calcium) 80 Mg Tablet, 80 MG PO DAILY Dorzolamide HCl/Timolol Maleat (Dorzolamide-Timolol Eye Drops) 10 Ml Drops, 1 DROP OU BID Hydralazine HCl (Hydralazine HCl) 50 Mg Tablet, 75 MG PO Q8H Insulin Glargine,Hum.rec.anlog (Semglee) 100 Unit/Ml Vial, 20 UNIT SC DAILY Labetalol HCl (Labetalol HCl) 100 Mg Tablet, 100 MG PO BID Latanoprost (Xalatan) 0.005% 2.5ML Drops, 1 DROP OU QHS Lisinopril (Lisinopril) 40 Mg Tablet, 40 MG PO DAILY Omeprazole (Omeprazole) 20 Mg Capsule.dr, 20 MG PO DAILY Miscellaneous Medications [Med Rec Comment] PT WAS TAKING BISPROLOL 5MG DAILY, LAST DOSE 10/01 0800, LABETALOL REPLACING Allergies Coded Allergies: Sulfa (Sulfonamide Antibiotics) (Verified Allergy, Unknown, 08/29/21) TAYLA CH MD Oct 01, 2021 18:20
--- NOTE | 2021-10-01 18:31 | ECGEPIP ---
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
[2021-10-01] MEDS: CARVedilol 12.5 MG TAB PO SCH (19:20)
[2021-10-01 20:20] LABS: CK-MB VALUE MASS 2.1 NG/ML (<3.6); CPK CREATINE PHOSPHOKINASE 99 U/L (26-192); MB/CK RELATIVE INDEX 2.12 (< OR =4); TROPONIN I < 0.02 NG/ML (< 0.10)
[2021-10-01] MEDS: HEPARIN SOD (PORCINE) 5000UNITS/ML 1ML VIAL/SYRINGE SC SCH (22:35)
[2021-10-01] MEDS: **hydrALAZINE HCL** 25 MG TAB PO SCH (22:35)
[2021-10-02 01:52] LABS: CK-MB VALUE MASS 2.3 NG/ML (<3.6); CPK CREATINE PHOSPHOKINASE 87 U/L (26-192); MB/CK RELATIVE INDEX 2.64 (< OR =4); TROPONIN I < 0.02 NG/ML (< 0.10)
[2021-10-02] MEDS: **hydrALAZINE HCL** 25 MG TAB PO SCH ×3 (06:08→21:07)
[2021-10-02 06:49] LABS: BASO % 0.5 % (0.0-1.0); EOS # 0.2 10^3/uL (0.0-0.5); HEMATOCRIT 30.7 % (36.0-47.0); HEMOGLOBIN 9.3 g/dl (12.0-15.5); LYMPH # 1.2 10^3/uL (1.5-5.0); LYMPH % 14.7 % (24.0-44.0); MEAN CORPUSCULAR HEMOGLOBIN 27.1 pg (27.0-33.0); MEAN CORPUSCULAR HGB CONC 30.3 g/dl (32.0-36.5); MEAN CORPUSCULAR VOLUME 89.5 fl (80.0-96.0); MONO # 0.6 10^3/uL (0.0-0.8); NEUTROPHILS % 75.4 % (36.0-66.0); PLATELET COUNT, AUTOMATED 314 10^3/uL (150-450); RED BLOOD COUNT 3.43 10^6/uL (4.00-5.40)
[2021-10-02 07:04] LABS: BLOOD UREA NITROGEN 38 MG/DL (7-18); CARBON DIOXIDE LEVEL 23 MEQ/L (21-32); CHLORIDE LEVEL 115 MEQ/L (98-107); CREATININE FOR GFR 1.98 MG/DL (0.55-1.30); GLOMERULAR FILTRATION RATE 27.1 (>45); GLUCOSE, FASTING 86 MG/DL (70-100); MAGNESIUM LEVEL 1.9 MG/DL (1.8-2.4); POTASSIUM SERUM 4.9 MEQ/L (3.5-5.1); SODIUM LEVEL 144 MEQ/L (136-145)
[2021-10-02] MEDS: HumaLOG INSULIN (NovoLOG) PER UNIT SC SCH ×4 (07:30→20:11)
[2021-10-02] MEDS: DOCUSATE SODIUM 100MG CAPSULE PO SCH ×3 (08:01→21:06)
[2021-10-02] MEDS: CARVedilol 12.5 MG TAB PO SCH ×2 (08:50→21:07)
[2021-10-02] MEDS: ATORVASTATIN 20 MG TAB PO SCH (08:50)
[2021-10-02] MEDS: ASPIRIN 81 MG CHEW TABLET PO SCH (08:51)
[2021-10-02] MEDS: HEPARIN SOD (PORCINE) 5000UNITS/ML 1ML VIAL/SYRINGE SC SCH ×3 (08:51→21:08)
[2021-10-02] MEDS: OMEPRAZOLE 20 MG CAP PO SCH (08:51)
[2021-10-02] MEDS ORDERED: FUROSEMIDE 100MG/10ML VIAL (J1940) IV ONE (08:55)
[2021-10-02 10:35] VITALS: BP 200/90
[2021-10-02] MEDS: COSOPT OCUMETER PLUS 10ML (DORZOLAMIDE/TIMOLOL) OU SCH ×2 (10:46→21:08)
[2021-10-02] MEDS: LEVEMIR (INSULIN DETEMIR) 1 UNITS/0.01ML SC SCH (10:52)
--- NOTE | 2021-10-02 11:01 | IPNPDOC ---
Text Note Date of Service The patient was seen on 10/02/21. NOTE Subjective: Patient is a 61 year old female with a presented to the ER with an elevated blood pressure since August. Patient's granddaughter was concerned and called EMS for further evaluation. Patient was brought to the ER, where she was noted to have systolic blood pressure of 220s and she was given labetalol 100 mg PO. Hospitalist services called for further evaluation and treatment after her imaging revealed vascular congestion and cardiomegaly. Patient was seen and examined at the bedside. Currently she denies any CP, SOB or palpitations. Denies headache. Objective: Vitals (See below) General: Lying in bed, appears comfortable, Awake / Alert HEENT: NC, AT CVS: +S1S2 Lungs: Fair air entry b/l, no significant wheezing Abdomen: Soft, ND, NT, Obese Extremities: LE reveal 1+ pitting edema bilaterally Imaging: CXR 10/01: Cardiomegaly, vascular congestion, bibasilar infiltrates and effusions. Assessment and Plan: Hypertensive urgency - Blood pressure remains elevated today; will provide AM medications and re- evaluate BP - EKG reviewed - Troponin trend negative - s/p Labetalol / Lisinopril (re: Cr 1.6-2.0) - c/w Carvedilol / Amlodipine / Hydralazine - c/w Furosemide 60 IV daily - c/w Telemetry monitoring Acute decompensated Diastolic CHF (Grade 2) - LE still reveal 1+ pitting edema bilaterally - ECHO pending - Imaging noted above - c/w Strict ins/outs, daily weights, fluid restriction - c/w Diuresis Hx of CVA w/ residual R sided weakness - Dx 07/2021 - c/w ASA 81 and Atorvastatin s/p Hyperkalemia - c/w telemetry monitoring DLP - c/w Atorvastatin IDDM2 - c/w ISS and long acting insulin CKD3 - Cr baseline of 1.6-2.1 - Cr appears to be at baseline Normocytic anemia - Hg baseline of 10 - Appears to be at baseline Glaucoma Obesity - BMI of 34.9 - Complicating medical care GERD - c/w PPI DVT prophylaxis - c/w Heparin SQ Disposition: - Clinically improved VS,Fishbone, I+O VS, Fishbone, I+O Laboratory Tests 10/01/21 13:03 10/02/21 05:45 Vital Signs Date Time Temp Pulse Resp B/P (MAP) Pulse Ox O2 Delivery O2 Flow Rate FiO2 10/02/21 10:06 72 95 Nasal Cannula 2.0 10/02/21 09:36 18 206/84 (124) 10/01/21 16:37 97.8 I&O- Last 24 Hours up to 6 AM 10/02/21 05:59 Intake Total 240 ml Output Total 500 ml Balance -260 ml TAYLA CH MD Oct 02, 2021 11:01
[2021-10-02 12:05] VITALS: BP 163/70
[2021-10-02 15:18] LABS: HEPATITIS B SURFACE ANTIGEN NEGATIVE (NEGATIVE)
[2021-10-02 15:46] LABS: HEP C VIRUS AB INDEX SOURCE PT < 0.0 INDEX (0.0-0.8)
[2021-10-02 15:55] LABS: HIV SCREEN CENTAUR SOURCE NEGATIVE (NEGATIVE)
[2021-10-02 16:29] VITALS: BP_SYST 171; BP_SYST 173; BP_DIAS 72; BP_DIAS 83
[2021-10-02] MEDS ORDERED: FUROSEMIDE 100MG/10ML VIAL (J1940) IV SCH (17:00)
[2021-10-02 20:00] VITALS: BP 184/74
[2021-10-02] MEDS: LATANOPROST 0.005% OPHTH SOLN 2.5 ML OU SCH (21:09)
[2021-10-03] VITALS: BP 161/72
[2021-10-03 04:00] VITALS: BP 148/63
[2021-10-03 05:49] LABS: BASO % 0.5 % (0.0-1.0); EOS # 0.2 10^3/uL (0.0-0.5); EOS % 1.9 % (0.0-3.0); HEMATOCRIT 29.5 % (36.0-47.0); HEMOGLOBIN 8.8 g/dl (12.0-15.5); LYMPH # 1.8 10^3/uL (1.5-5.0); LYMPH % 20.7 % (24.0-44.0); MEAN CORPUSCULAR HEMOGLOBIN 26.7 pg (27.0-33.0); MEAN CORPUSCULAR HGB CONC 29.8 g/dl (32.0-36.5); MEAN CORPUSCULAR VOLUME 89.7 fl (80.0-96.0); MONO # 0.8 10^3/uL (0.0-0.8); MONO % 8.6 % (2.0-8.0); PLATELET COUNT, AUTOMATED 284 10^3/uL (150-450); RED BLOOD COUNT 3.29 10^6/uL (4.00-5.40); WHITE BLOOD COUNT 8.8 10^3/uL (4.0-10.0)
[2021-10-03] MEDS: **hydrALAZINE HCL** 25 MG TAB PO SCH ×2 (06:08→14:36)
[2021-10-03] MEDS: HEPARIN SOD (PORCINE) 5000UNITS/ML 1ML VIAL/SYRINGE SC SCH ×2 (06:08→14:00)
[2021-10-03 06:11] LABS: CALCIUM LEVEL 8.2 MG/DL (8.8-10.2); CREATININE FOR GFR 2.34 MG/DL (0.55-1.30); GLOMERULAR FILTRATION RATE 22.3 (>45); MAGNESIUM LEVEL 1.9 MG/DL (1.8-2.4)
[2021-10-03] MEDS: HumaLOG INSULIN (NovoLOG) PER UNIT SC SCH ×2 (07:30→13:15)
[2021-10-03 08:00] VITALS: BP 164/72
[2021-10-03] MEDS ORDERED: CARVedilol 12.5 MG TAB PO SCH (09:00)
[2021-10-03] MEDS ORDERED: CARV25TA PO (09:03)
[2021-10-03] MEDS: ASPIRIN 81 MG CHEW TABLET PO SCH (10:40)
[2021-10-03] MEDS: ATORVASTATIN 20 MG TAB PO SCH (10:41)
[2021-10-03] MEDS: DOCUSATE SODIUM 100MG CAPSULE PO SCH (10:42)
[2021-10-03] MEDS: LEVEMIR (INSULIN DETEMIR) 1 UNITS/0.01ML SC SCH (10:42)
[2021-10-03] MEDS: OMEPRAZOLE 20 MG CAP PO SCH (10:42)
[2021-10-03] MEDS: COSOPT OCUMETER PLUS 10ML (DORZOLAMIDE/TIMOLOL) OU SCH (10:43)
--- NOTE | 2021-10-03 11:37 | ECHO ---
ECHOCARDIOGRAM DATE OF PROCEDURE: 10/02/2021 Age: 61 Gender: Height: Weight: REFERRING PROVIDER: TAYLA CH MD PATIENT LOCATION: ED 112 REASON FOR TESTING: Shortness of breath 2D MEASUREMENTS: IVS 1.1 cm LV 5.0 cm LVPW 1.0 cm LA 3.7 cm Aorta 3.2 cm IVC 2.1 cm DOPPLER MEASUREMENT Mitral E 1.65 Mitral A 1.4 with a ratio of 1.1 Maximum tricuspid valve velocity 2.4 m/s 2D COMMENTS: 1. Normal left ventricular size, wall thickness, and normal global left ventricular systolic function. The estimated left ventricular systolic ejection fraction is 60% to 65%. 2. Subjectively, the left atrium appeared to be mildly enlarged. Normal right atrium and right ventricle. 3. The atrial septum appeared to be normal without evidence of defect or shunt. 4. Normal aortic root. 5. Trace pericardial effusion noted, no evidence of cardiac tamponade. A left pleural effusion also was noted. 6. Mildly calcified aortic valve with normal leaflet excursion. Mildly calcified mitral annulus with normal anterior mitral valve leaflet motion. Normal tricuspid valve. The pulmonic valve was not well visualized. The proximal pulmonary artery branches also were not visualized. 7. The inferior vena cava was mildly enlarged, central venous pressure mildly elevated. DOPPLER: It detects trace aortic regurgitation, trace mitral regurgitation, and fjda-jh-nmrteapf tricuspid regurgitation. The calculated pulmonary artery systolic pressure varied between 30 to 40 mmHg. Assessment of the left ventricular diastolic function revealed abnormal relaxation pattern across the mitral valve leaflets consistent with grade 2 left ventricular diastolic dysfunction. IMPRESSION: 1. Normal global left ventricular systolic function. There are some features of grade 2 left ventricular diastolic dysfunction. 2. Aortic valve sclerosis with trace aortic regurgitation, but no aortic stenosis. 3. Mitral annulus calcification with trace mitral regurgitation and mild mitral stenosis. There was a peak gradient of 11 mmHg noted across the mitral valve. 4. Xvbw-ev-dshstucw tricuspid regurgitation with mild pulmonary hypertension. 5. Trace pericardial effusion was noted, no evidence of cardiac tamponade. 6. A left pleural effusion also was noted.
[2021-10-03 12:00] VITALS: BP 133/60
--- NOTE | 2021-10-03 12:32 | DS.PDOC ---
Discharge Summary General Date of Admission Oct 01, 2021 at 17:51 Date of Discharge 10/03/2021 Discharge Summary PROCEDURES PERFORMED DURING STAY: [None]. ADMITTING DIAGNOSES / DISCHARGE DIAGNOSES: s/p Hypertensive urgency Acute decompensated Diastolic CHF (Grade 2) Hx of CVA w/ residual R sided weakness s/p Hyperkalemia DLP IDDM2 CKD3 Normocytic anemia Glaucoma Obesity GERD DVT prophylaxis COMPLICATIONS/CHIEF COMPLAINT: Elevated BP HISTORY OF PRESENT ILLNESS: Patient is a 61 year old female with a presented to the ER with an elevated blood pressure since August. Patient's granddaughter was concerned and called EMS for further evaluation. Patient was brought to the ER, where she was noted t o have systolic blood pressure of 220s and she was given labetalol 100 mg PO. Hospitalist services called for further evaluation and treatment after her imaging revealed vascular congestion and cardiomegaly. Patient was seen and examined at the bedside. Patient was sitting up at the edge of the bed eating lunch. Denied any nausea, vomiting, chest pain, shortness of breath, palpitations, abdominal pain. HOSPITAL COURSE: s/p Hypertensive urgency - Blood pressure this afternoon is normotensive; SBP of 130s - EKG reviewed - Troponin trend negative - s/p Labetalol / Lisinopril (re: Cr 1.6-2.0) - c/w Carvedilol / Amlodipine / Hydralazine - s/p Furosemide 60 IV daily - c/w Telemetry monitoring - Will have outpatient follow-up with primary care provider within the next 7 days Acute decompensated Diastolic CHF (Grade 2) - LE with trace edema - ECHO noted below - Imaging noted above - c/w Strict ins/outs, daily weights, fluid restriction - s/p Diuresis Hx of CVA w/ residual R sided weakness - Dx 07/2021 - c/w ASA 81 and Atorvastatin s/p Hyperkalemia - c/w telemetry monitoring DLP - c/w Atorvastatin IDDM2 - c/w ISS and long acting insulin CKD3 - Cr baseline of 1.6-2.1 - Cr slightly above baseline - Will hold additional diuretics / nephrotoxic medications on discharge Normocytic anemia - Hg baseline of 9-10 - No evidence of bleeding - Remains at baseline Glaucoma Obesity - BMI of 34.9 - Complicating medical care GERD - c/w PPI DVT prophylaxis - c/w Heparin SQ DISCHARGE MEDICATIONS: Please see below. ALLERGIES: Please see below. PHYSICAL EXAMINATION ON DISCHARGE: Vitals (See below) General: Sitting up at the edge of the bed and appears to be comfortable without any acute distress. She is oriented to person, place and time HEENT: Atraumatic and normocephalic CVS: +S1S2 Lungs: Air entry appears to be fair bilaterally without any auscultated evidence of wheezing, crackles or rhonchi Abdomen: Remains soft without any distention or tenderness, Obese Extremities: No edema appreciated LABORATORY DATA: Please see below. IMAGING: CXR 10/01: Cardiomegaly, vascular congestion, bibasilar infiltrates and effusions. ECHO 10/03: 1. Normal global left ventricular systolic function. There are some features of grade 2 left ventricular diastolic dysfunction. 2. Aortic valve sclerosis with trace aortic regurgitation, but no aortic stenosis. 3. Mitral annulus calcification with trace mitral regurgitation and mild mitral stenosis. There was a peak gradient of 11 mmHg noted across the mitral valve. 4. Wrmq-lj-bvddwysa tricuspid regurgitation with mild pulmonary hypertension. 5. Trace pericardial effusion was noted, no evidence of cardiac tamponade. 6. A left pleural effusion also was noted. ACTIVITY: [As tolerated]. DISCHARGE PLAN: Follow-up with primary care provider within the next 7 days Remain compliant with treatment plan and medications Return to the ER if you experience any problems DISPOSITION: Home with services DISCHARGE CONDITION: [Stable]. TIME SPENT ON DISCHARGE: 35 minutes. Vital Signs/I&Os Vital Signs Date Time Temp Pulse Resp B/P (MAP) Pulse Ox O2 Delivery O2 Flow Rate FiO2 10/03/21 10:42 73 164/72 10/03/21 08:40 93 Room Air 10/03/21 08:00 97.3 18 2.0 I&O- Last 24 Hours up to 6 AM 10/03/21 05:59 Intake Total 1900 ml Output Total 925 ml Balance 975 ml Laboratory Data Labs 24H Laboratory Tests 2 10/02/21 14:24: Bedside Glucose (Misc Panel) 200H 10/02/21 17:31: Bedside Glucose (Misc Panel) 107 10/02/21 20:08: Bedside Glucose (Misc Panel) 134H 10/03/21 05:26: Immature Granulocyte % (Auto) 0.3, Neutrophils (%) (Auto) 68.0H, Lymphocytes (%) (Auto) 20.7L, Monocytes (%) (Auto) 8.6H, Eosinophils (%) (Auto) 1.9, Basophils (%) (Auto) 0.5, Neutrophils # (Auto) 6.0, Lymphocytes # (Auto) 1.8, Monocytes # (Auto) 0.8, Eosinophils # (Auto) 0.2, Basophils # (Auto) 0.0, Nucleated Red Blood Cells % (auto) 0.0, Anion Gap 5L, Glomerular Filtration Rate 22.3L, Calcium Level 8.2L, Magnesium Level 1.9 CBC/BMP Laboratory Tests 10/03/21 05:26 FSBS Laboratory Tests Test 10/02/21 14:24 10/02/21 17:31 10/02/21 20:08 Range/Units Bedside Glucose (Misc Panel) 200 107 134 80-115 MG/DL Discharge Medications Scheduled Amlodipine Besylate (Amlodipine Besylate) 10 Mg Tablet, 10 MG PO DAILY, (Reported) Aspirin (Aspirin) 81 Mg Tab.chew, 81 MG PO DAILY, (Reported) Atorvastatin Calcium (Atorvastatin Calcium) 80 Mg Tablet, 80 MG PO DAILY, (Reported) Carvedilol (Carvedilol) 25 Mg Tablet, 2 TAB PO BID Dorzolamide HCl/Timolol Maleat (Dorzolamide-Timolol Eye Drops) 10 Ml Drops, 1 DROP OU BID, (Reported) Hydralazine HCl (Hydralazine HCl) 50 Mg Tablet, 75 MG PO Q8H, (Reported) Insulin Glargine,Hum.rec.anlog (Semglee) 100 Unit/Ml Vial, 20 UNIT SC DAILY, (Reported) Latanoprost (Xalatan) 0.005% 2.5ML Drops, 1 DROP OU QHS, (Reported) Omeprazole (Omeprazole) 20 Mg Capsule.dr, 20 MG PO DAILY, (Reported) Allergies Coded Allergies: Sulfa (Sulfonamide Antibiotics) (Verified Allergy, Unknown, 08/29/21) TAYLA CH MD Oct 03, 2021 12:32
[2021-10-03 14:36] VITALS: BP 147/65
[2021-10-03 16:00] VITALS: BP 160/67
== END 2021-10-03 16:45 | disposition home health service (06) | DRG 194 ==
LOC: M ED 10:01 → EDBD 10:01 → M ED INP 17:51 → ENRESERV 10-02 09:30 → M PCU 10-02 10:26
PROVIDERS: ADMIT Internal Medicine; ATTEND Internal Medicine
DX: I13.0 Hypertensive heart and chronic kidney disease with heart failure and stage 1 through stage 4 chronic kidney disease, or unspecified chronic kidney disease (principal); I27.20 Pulmonary hypertension, unspecified; N18.30 Chronic kidney disease, stage 3 unspecified; I69.351 Hemiplegia and hemiparesis following cerebral infarction affecting right dominant side; E87.5 Hyperkalemia; I08.1 Rheumatic disorders of both mitral and tricuspid valves; K21.9 Gastro-esophageal reflux disease without esophagitis; E66.9 Obesity, unspecified; I16.0 Hypertensive urgency; H40.9 Unspecified glaucoma; D64.9 Anemia, unspecified; Z68.34 Body mass index [BMI] 34.0-34.9, adult; Z79.82 Long term (current) use of aspirin; Z79.899 Other long term (current) drug therapy; Z88.2 Allergy status to sulfonamides; I50.33 Acute on chronic diastolic (congestive) heart failure

== ENCOUNTER 2021-10-13 10:48 | Inpatient (IN) | payer OTHER ==
[~2021-10-13] VITALS: Ht 167.6 cm; Wt 93.2 kg
[~2021-10-13 10:48] MED LIST changes: +CARV25TA PO; +DORZ2SOL5 OU; +HYDR-3911 PO; +INSU100V8 SC; +LABE100T5 PO; +LATA0.0015; +MED REC COMMENT; +XALA0.007 OU
[2021-10-13 11:19] LABS: VENOUS BASE EXCESS -6.3 (-2.0-2.0); VENOUS HCO3 21.6 MEQ/L (23.0-27.0); VENOUS O2 SATURATION 83.8 % (60.0-80.0); VENOUS PARTIAL PRESSURE CO2 53.6 mmHg (38.0-50.0); VENOUS PARTIAL PRESSURE O2 52.8 mmHg (30.0-50.0); VENOUS PH 7.224 UNITS (7.330-7.430); VENOUS STANDARD HCO3 19.1 MEQ/L; VENOUS TOTAL CO2 23.3 MEQ/L (24.0-28.0)
[2021-10-13 11:23] LABS: BASO % 0.1 % (0.0-1.0); EOS % 0.1 % (0.0-3.0); HEMATOCRIT 38.8 % (36.0-47.0); HEMOGLOBIN 11.5 g/dl (12.0-15.5); LYMPH # 0.5 10^3/uL (1.5-5.0); LYMPH % 3.4 % (24.0-44.0); MEAN CORPUSCULAR HEMOGLOBIN 27.1 pg (27.0-33.0); MEAN CORPUSCULAR HGB CONC 29.6 g/dl (32.0-36.5); MEAN CORPUSCULAR VOLUME 91.3 fl (80.0-96.0); MONO # 0.9 10^3/uL (0.0-0.8); MONO % 5.9 % (2.0-8.0); NEUTROPHILS # 13.6 10^3/uL (1.5-8.5); NEUTROPHILS % 90.3 % (36.0-66.0); PLATELET COUNT, AUTOMATED 391 10^3/uL (150-450); RED BLOOD COUNT 4.25 10^6/uL (4.00-5.40); WHITE BLOOD COUNT 15.1 10^3/uL (4.0-10.0)
[2021-10-13] MEDS: COMBIVENT RESPIMAT 100-20MCG INHALER 4GM INH SCH ×2 (11:29→11:30)
--- OUTSIDE RECORDS SUMMARY | 2021-10-13 11:34 | CCD ---
Author Author [facility] em[facility] Organization [facility] ems Address Unknown Phone Unavailable Care Team Providers Care Vehicle Fare Collector Name Role Phone Sally Calero Unavailable PROBLEMS Type Condition ICD9-CM Code [id number] Code Onset Dates Condition S tatus W/U Status Risk SNOMED Code Notes Problem Type 2 diabetes mellitus with hyperglycemia E11.65 Active confirmed 183672850124385 Problem Type 2 diabetes mellitus with peripheral neuropathy E11.42 Active confirmed 20214437 Problem Diabetes mellitus with nephropathy E11.21 Activ e confirmed 09307942 Problem Lumbago with sciatica, right side M54.41 Active confirmed 26673214 Problem Hypertension, unspecified type I10 Active confir med 30967906 Problem Cerebrovascular accident (CVA) due to thrombosis of cerebral artery I63.30 Active confirmed 935304019 Problem Other chronic pain G89.29 Active confirmed 8 6979652 Problem Neuropathy G62.9 Active confirmed 207953138 Problem 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 Active confirmed 002838807 Problem Lumbago with sciatica, left side M54.42 Active conf irmed 71004941 ALLERGIES Allergen (clinical drug ingredient) Drug/Non Drug Allergy do cumented on EMR Reaction Allergy Type Onset Date Status Sulfasalazine Sulfa Antibiotics Unknown Drug Allergy Ac tive ENCOUNTERS from 1960 to 2021-10-03 Encounter Location Date Provider Diagnosis [facility] [phone] [place] [address] Sep, Sally Abdias Hypertension, unspecified ty pe I10 IMMUNIZATIONS No Information SOCIAL HISTORY Tobacco Use: Social History Observation Description Date Details (start date - stop date) Never Smoker Sex Assigned At : Social History Observation Description Sex Assigned At Unknown Education: Question Answer Notes Level of Education: Grade School Audit Question Answer Notes Total Score: 0 Interpretation: Alcohol Education Language: Question Answer Notes Languages spoken: Thai Mandaeism: Question Answer Notes Mandaeism 21 [employer] Drug and Alcohol Question Answer Notes Total [...] for 30 day(s) May, Not-Taking [address] 31G X 6 MM as directed subcutaneously [...] for 30 Days Aug, Active [address] 31G X 6 MM as directed subcut once for 30 day s DUP May, Not-Taking PROCEDURES No Information RESULTS No Results REASON FOR VISIT refills MEDICAL (GENERAL) HISTORY Type Description Date Medical [...] No Information FUNCTIONAL STATUS No Information ASSESSMENTS Encounter Date Diagnosis Assessment Notes Treatment Notes Treatm ent Clinical Notes Sep, Hypertension, unspecified type (ICD-10 - I10) PLAN OF TREATMENT Medication Medication Name Sig Start Date Stop Date hydrALAZINE HCl 50 MG 1 tablet with food Orally Three times a day for 30 day(s) Aug, Next Appt Details Provider Name:Ifeoma Fishman, 2021-10-07 01:30:00 PM, [address] [facility], , [place], [address], Insurance Providers Payer Name Payer Address Payer Phone Insured Name Patient Relati onship to Insured Coverage Start Date Coverage End Date [employer] DE[employer] [address] [facility] [phone] JOSHUA PORTILLO self
--- OUTSIDE RECORDS SUMMARY | 2021-10-13 11:34 | CCD ---
Author Author [facility] Organization [facility] Address Unknown Phone Unavailable Care Team Providers Care Edge Bander Operator Name Role Phone Sally Calero Unavailable PROBLEMS Type Condition ICD9-CM Code [id number] Code Onset Dates Condition S tatus W/U Status Risk SNOMED Code Notes Problem Type 2 diabetes mellitus with hyperglycemia E11.65 Active confirmed 832968909086988 Problem Type 2 diabetes mellitus with peripheral neuropathy E11.42 Active confirmed 35649020 Problem Diabetes mellitus with nephropathy E11.21 Activ e confirmed 42281093 Problem Lumbago with sciatica, right side M54.41 Active confirmed 73948899 Problem Hypertension, unspecified type I10 Active confir med 58401122 Problem Cerebrovascular accident (CVA) due to thrombosis of cerebral artery I63.30 Active confirmed 230597537 Problem Other chronic pain G89.29 Active confirmed 8 9858325 Problem Neuropathy G62.9 Active confirmed 554857516 Problem 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 Active confirmed 188895908 Problem Lumbago with sciatica, left side M54.42 Active conf irmed 73864040 ALLERGIES Allergen (clinical drug ingredient) Drug/Non Drug Allergy do cumented on EMR Reaction Allergy Type Onset Date Status Sulfasalazine Sulfa Antibiotics Unknown Drug Allergy Ac tive ENCOUNTERS from 1960 to 2021-10-03 Encounter Location Date Provider Diagnosis [facility] [address] [facility] [phone] [place] [address] Sep, Zavala Abdias IMMUNIZATIONS No Information SOCIAL HISTORY Tobacco Use: Social History Observation Description Date Details (start date - stop date) Never Smoker Sex Assigned At : Social History Observation Description Sex Assigned At Unknown Education: Question Answer Notes Level of Education: Grade School Audit Question Answer Notes Total Score: 0 Interpretation: Alcohol Education Language: Question Answer Notes Languages spoken: French Nondenominational: Question Answer Notes Nondenominational 21 Religious Drug and Alcohol Question Answer Notes Total [...] for 30 day(s) May, Not-Taking Grecia Pen [place] 31G X 6 MM as directed subcutaneously [...] for 30 Days Aug, Active Grecia Pen [place] 31G X 6 MM as directed subcut once for 30 day s DUP May, Not-Taking PROCEDURES No Information RESULTS No Results REASON FOR VISIT To ER MEDICAL (GENERAL) HISTORY Type Description Date Medical [...] Provider Name:Ifeoma Fishman, 2021-10-07 01:30:00 PM, [address] [facility], , [place], [address], Insurance Providers Payer Name Payer Address Payer Phone Insured Name Patient Relati onship to Insured Coverage Start Date Coverage End Date [facility] CORPORATE CLAIMS DEPT [address] [facility] [phone] JOSHUA PORTILLO self
--- OUTSIDE RECORDS SUMMARY | 2021-10-13 11:34 | CCD ---
Author Author [facility] Organization [facility] Address Unknown Phone Unavailable Care Team Providers Care Soft Water Mechanic Name Role Phone Jessie Apodaca Unavailable PROBLEMS Type Condition ICD9-CM Code [id number] Code Onset Dates Condition S tatus W/U Status Risk SNOMED Code Notes Problem Type 2 diabetes mellitus with hyperglycemia E11.65 Active confirmed 657229440176226 Problem Type 2 diabetes mellitus with peripheral neuropathy E11.42 Active confirmed 34350862 Problem Diabetes mellitus with nephropathy E11.21 Activ e confirmed 69100866 Problem Lumbago with sciatica, right side M54.41 Active confirmed 88006654 Problem Hypertension, unspecified type I10 Active confir med 00086453 Problem Cerebrovascular accident (CVA) due to thrombosis of cerebral artery I63.30 Active confirmed 745295865 Problem Other chronic pain G89.29 Active confirmed 8 0628522 Problem Neuropathy G62.9 Active confirmed 945509502 Problem 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 Active confirmed 218609720 Problem Lumbago with sciatica, left side M54.42 Active conf irmed 56687366 ALLERGIES Allergen (clinical drug ingredient) Drug/Non Drug Allergy do cumented on EMR Reaction Allergy Type Onset Date Status Sulfasalazine Sulfa Antibiotics Unknown Drug Allergy Ac tive ENCOUNTERS from 1960 to 2021-09-30 Encounter Location Date Provider Diagnosis [address] [phone] [place] [address] Aug, Jessie Intokelsey IMMUNIZATIONS No Information SOCIAL HISTORY Tobacco Use: Social History Observation Description Date Details (start date - stop date) Never Smoker Sex Assigned At : Social History Observation Description Sex Assigned At Unknown Education: Question Answer Notes Level of Education: Grade School Audit Question Answer Notes Total Score: 0 Interpretation: Alcohol Education Language: Question Answer Notes Languages spoken: Guyanese Sikh: Question Answer Notes Sikh 21 [facility] Drug and Alcohol Question Answer Notes Total [...] for 30 day(s) May, Not-Taking Grecia Pen [place] 31G X 6 MM as directed subcutaneously [...] for 30 Days Aug, Active Grecia Pen [place] 31G X 6 MM as directed subcut once for 30 day s DUP May, Not-Taking PROCEDURES No Information RESULTS No Results REASON FOR VISIT new patient MEDICAL (GENERAL) HISTORY Type Description Date Medical [...] Provider Name:Sally Calero, 2021-10-01 01: 15:00 PM, [address] [place] [address] , [place], [address], Provider Name:Jessie Apodaca, 3 02:00:00 PM, [address] [place] [address] , [place], [address], Insurance Providers Payer Name Payer Address Payer Phone Insured Name Patient Relati onship to Insured Coverage Start Date Coverage End Date [facility] CORPORATE CLAIMS DEPT [address] [facility] [phone] JOSHUA PORTILLO self
--- OUTSIDE RECORDS SUMMARY | 2021-10-13 11:34 | CCD ---
Author Author [facility] Organization [facility] Address Unknown Phone Unavailable Care Team Providers Care Talent Acquisition Lead Name Role Phone Edi Ramírez Unavailable PROBLEMS Type Condition ICD9-CM Code [id number] Code Onset Dates Condition S tatus W/U Status Risk SNOMED Code Notes Problem Type 2 diabetes mellitus with hyperglycemia E11.65 Active confirmed 850507430673957 Problem Type 2 diabetes mellitus with peripheral neuropathy E11.42 Active confirmed 04224109 Problem Diabetes mellitus with nephropathy E11.21 Activ e confirmed 80186326 Problem Lumbago with sciatica, right side M54.41 Active confirmed 99131346 Problem Hypertension, unspecified type I10 Active confir med 79933749 Problem Cerebrovascular accident (CVA) due to thrombosis of cerebral artery I63.30 Active confirmed 768003673 Problem Other chronic pain G89.29 Active confirmed 8 2119056 Problem Neuropathy G62.9 Active confirmed 287838616 Problem 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 Active confirmed 075447664 Problem Lumbago with sciatica, left side M54.42 Active conf irmed 78394889 ALLERGIES Allergen (clinical drug ingredient) Drug/Non Drug Allergy do cumented on EMR Reaction Allergy Type Onset Date Status Sulfasalazine Sulfa Antibiotics Unknown Drug Allergy Ac tive ENCOUNTERS from 1958 to 2021-10-03 Encounter Location Date Provider Diagnosis [facility] Res[facility] [address] [facility] [address] [phone] [place] [address] Sep, Edi Ramírez IMMUNIZATIONS No Information SOCIAL HISTORY Tobacco Use: Social History Observation Description Date Details (start date - stop date) Never Smoker Sex Assigned At : Social History Observation Description Sex Assigned At Unknown Education: Question Answer Notes Level of Education: Grade School Audit Question Answer Notes Total Score: 0 Interpretation: Alcohol Education Language: Question Answer Notes Languages spoken: Ugandan Restorationism: Question Answer Notes Restorationism 21 Jewish Drug and Alcohol Question Answer Notes Total [...] for 30 day(s) May, Not-Taking Grecia Pen [place] 31G X 6 MM as directed subcutaneously [...] for 30 Days Aug, Active Grecia Pen [place] 31G X 6 MM as directed subcut once for 30 day s DUP May, Not-Taking PROCEDURES No Information RESULTS No Results REASON FOR VISIT ER hypertension MEDICAL (GENERAL) HISTORY Type Description Date Medical [...] Provider Name:Ifeoma Fishman, 2021-10-07 01:30:00 PM, [address] [facility], , [place], [address], Insurance Providers Payer Name Payer Address Payer Phone Insured Name Patient Relati onship to Insured Coverage Start Date Coverage End Date [facility]–1983 CORPORATE CLAIMS DEPT [address] [facility] [phone] JOSHUA PORTILLO self
--- OUTSIDE RECORDS SUMMARY | 2021-10-13 11:34 | CCD ---
Author Author [facility] Organization [facility] Address Unknown Phone Unavailable Support Name Relationship Address Phone DISABLED Next Of Kin Unknown Unavailable UE Next Of Kin Unknown Unavailable MANUEL QUIROZ Next Of Kin [id number] [place], [place] [id number] MANUEL QUIROZ ECON [id number] [place] [address] Unavailable Re-disclosure Warning The records that you [...] is protected by Article 27-F of the [facility] Public Health law. If you continue you may have access to information: Regarding HIV / AIDS; Provided by facilities licensed or operated by the [facility] Office of Mental Health; or Provided by the [facility] Office for People With Developmental Disabilities. If such information is present, then the following [facility] mandated warning applies: This information has [...] Date Indications Data Source(s ) Unknown [address] [facility] [address] 10/02/2021 12:00:00 AM EDT eCW1 ([facility]) Unknown [address] [facility] [place] [address] 10/02/2021 12:00:00 AM EDT eCW1 ([facility]) Unknown [address] [facility] [address] 10/01/2021 12:00:00 AM EDT eCW1 ([facility]) Unknown [address] [facility] [address] 09/27/2021 12:00:00 AM EDT eCW1 ([facility]) Unknown [address] [facility] [address] 09/26/2021 12:00:00 AM EDT eCW1 ([facility]) Unknown [address] [facility] [address] 09/18/2021 12:00:00 AM EDT eCW1 ([facility]) Unknown [address] [facility] [address] 09/13/2021 12:00:00 AM EDT eCW1 ([facility]) Unknown [address] [facility] [address] 09/09/2021 12:00:00 AM EDT eCW1 ([facility]) Unknown [address] [facility] [address] 09/03/2021 12:00:00 AM EDT eCW1 ([facility]) Unknown [address] [facility] [address] 09/02/2021 12:00:00 AM EDT eCW1 ([facility]) Unknown [address] [facility] [address] 07/23/2021 12:00:00 AM EDT eCW1 ([facility]) Unknown [address] [facility] [address] 07/23/2021 12:00:00 AM EDT eCW1 ([facility]) Outpatient [address] [facility] [address] 03/06/2021 12:00:00 AM EDT eCW1 ([facility]) Unknown [address] [facility] [address] 02/14/2021 12:00:00 AM EDT eCW1 ([facility]) Unknown [address] [facility] [address] 02/05/2021 12:00:00 AM EST eCW1 ([facility]) Outpatient [address] [facility] [address] 01/31/2021 12:00:00 AM EST eCW1 ([facility]) Unknown [address] [facility] [address] 01/28/2021 12:00:00 AM EST eCW1 ([facility]) Unknown [address] [facility] [address] 01/28/2021 12:00:00 AM EST eCW1 ([facility]) Outpatient [address] [facility] [address] 01/24/2021 12:00:00 AM EST eCW1 ([facility]) Unknown [address] [facility] [address] 01/09/2021 12:00:00 AM EST eCW1 ([facility]) Unknown [address] [facility] [address] 01/03/2021 12:00:00 AM EST eCW1 ([facility]) Unknown [address] [facility] [address] 12/31/2020 12:00:00 AM EST eCW1 ([facility]) Unknown [address] [facility] [address] 12/24/2020 12:00:00 AM EST eCW1 (On license of [facility]) Unknown [address] [facility] [address] 12/06/2020 12:00:00 AM EST eCW1 (On license of [facility]) Unknown [address] [facility] [address] 11/26/2020 12:00:00 AM EST eCW1 (On license of [facility]) Outpatient [address] [facility] [address] 11/21/2020 12:00:00 AM EST eCW1 (On license of [facility]) Unknown [address] [facility] [address] 11/21/2020 12:00:00 AM EST eCW1 (On license of [facility]) Unknown [address] [facility] [address] 11/05/2020 12:00:00 AM EST eCW1 (On license of [facility]) Immunizations Vaccine Date Status Description Data Source(s) COVID-19 VACCINE Moderna 08/03/2021 12:00:00 AM EDT completed [facility] Vaccine Series Complete: YESThis Data wa s Submitted to [facility] Via [employer]. COVID-19 VACCINE Moderna 07/06/2021 12:00:00 AM EDT completed [facility] Vaccine Series Complete: NOThis Data was Submitted to [facility] [employer]. Medications Medication Brand Name Start Date Product Form Dose Route Admi nistrative Instructions Pharmacy Instructions Status Indications Reaction Description Data Source(s) Hydralazine Hydrochloride 50 MG Oral Tablet hydrALAZIN E HCl 50 MG hydrALAZINE HCl 50 MG 09/26/2021 12:00:00 AM EDT 1.0 {tablet_with_food} active hydrALAZINE HCl 50 MG eCW1 ([facility]) Hydralazine Hydrochloride 50 MG Oral Tablet hydrALAZIN E HCl 50 MG hydrALAZINE HCl 50 MG 09/26/2021 12:00:00 AM EDT 1.0 {tablet_with_food} active hydrALAZINE HCl 50 MG eCW1 (Formerly [facility]) Hydralazine Hydrochloride 50 MG Oral Tablet hydrALAZIN E HCl 50 MG hydrALAZINE HCl 50 MG 09/26/2021 12:00:00 AM EDT 1.0 {tablet_with_food} active hydrALAZINE HCl 50 MG eCW1 (Formerly [facility]) Hydralazine Hydrochloride 50 MG Oral Tablet hydrALAZIN E HCl 50 MG hydrALAZINE HCl 50 MG 09/26/2021 12:00:00 AM EDT 1.0 {tablet_with_food} active hydrALAZINE HCl 50 MG eCW1 ([facility]) Hydralazine Hydrochloride 50 MG Oral Tablet hydrALAZIN E HCl 50 MG hydrALAZINE HCl 50 MG 09/26/2021 12:00:00 AM EDT 1.0 {tablet_with_food} active hydrALAZINE HCl 50 MG eCW1 (Formerly [facility]) FreeStyle Lite w/Device UNK 09/24/2021 12:00:00 AM EDT active FreeStyle Lite w/Device eCW1 ([facility]ly [facility]) FreeStyle Lite w/Device UNK 09/24/2021 12:00:00 AM EDT active FreeStyle Lite w/Device eCW1 ([facility]) Blood Glucose Test - Blood Glucose Test - 09/24/2021 12:00:00 AM EDT active [facility] FreeStyle Lite w/Device UNK 09/24/2021 12:00:00 AM EDT active FreeStyle Lite w/Device eCW1 ([facility]) Blood Glucose Test - Blood Glucose Test - 09/24/2021 12:00:00 AM EDT active Blood Glucose Test - [facility] Blood Glucose Test - Blood Glucose Test - 09/24/2021 12:00:00 AM EDT active Blood Glucose Test - [facility]CW1 ([facility]) Blood Glucose Test - Blood Glucose Test - 09/24/2021 12:00:00 AM EDT active Blood Glucose Test - eCW1 [facility]) FreeStyle Lite w/Device UNK 09/24/2021 12:00:00 AM EDT active FreeStyle Lite w/Device eCW1 ([facility]) FreeStyle Lite w/Device UNK 09/24/2021 12:00:00 AM EDT active FreeStyle Lite w/Device eCW1 ([facility]) FreeStyle Lite w/Device UNK 09/24/2021 12:00:00 AM EDT active FreeStyle Lite w/Device eCW1 ([facility]) Blood Glucose Test - Blood Glucose Test - 09/24/2021 12:00:00 AM EDT active Blood Glucose Test - [facility] Blood Glucose Test - Blood Glucose Test - 09/24/2021 12:00:00 AM EDT active Blood Glucose Test - [facility]CW[facility]) Bisoprolol Fumarate 5 MG Oral Tablet Bisoprolol Fumarate 5 M G 09/02/2021 12:00:00 AM EDT 1.0 {tablet} active Bi soprolol Fumarate 5 MG eCW1 ([facility]) Bisoprolol Fumarate 5 MG Oral Tablet Bisoprolol Fumarate 5 M G 09/02/2021 12:00:00 AM EDT 1.0 {tablet} active Bi soprolol Fumarate 5 MG eCW1 ([facility]) Bisoprolol Fumarate 5 MG Oral Tablet Bisoprolol Fumarate 5 M G 09/02/2021 12:00:00 AM EDT 1.0 {tablet} active Bi soprolol Fumarate 5 MG eCW1 ([facility]) Bisoprolol Fumarate 5 MG Oral Tablet Bisoprolol Fumarate 5 M G 09/02/2021 12:00:00 AM EDT 1.0 {tablet} active Bi soprolol Fumarate 5 MG eCW1 ([facility]) Bisoprolol Fumarate 5 MG Oral Tablet Bisoprolol Fumarate 5 M G 09/02/2021 12:00:00 AM EDT 1.0 {tablet} active Bi soprolol Fumarate 5 MG eCW1 ([facility]) Bisoprolol Fumarate 5 MG Oral Tablet Bisoprolol Fumarate 5 M G 09/02/2021 12:00:00 AM EDT 1.0 {tablet} active Bi soprolol Fumarate 5 MG eCW1 ([facility]) Bisoprolol Fumarate 5 MG Oral Tablet Bisoprolol Fumarate 5 M G 09/02/2021 12:00:00 AM EDT 1.0 {tablet} active Bi soprolol Fumarate 5 MG eCW1 ([facility]) Bisoprolol Fumarate 5 MG Oral Tablet Bisoprolol Fumarate 5 M G 09/02/2021 12:00:00 AM EDT 1.0 {tablet} active Bi soprolol Fumarate 5 MG eCW1 ([facility]) Bisoprolol Fumarate 5 MG Oral Tablet Bisoprolol Fumarate 5 M G 09/02/2021 12:00:00 AM EDT 1.0 {tablet} active Bi soprolol Fumarate 5 MG eCW1 ([facility]) Bisoprolol Fumarate 5 MG Oral Tablet Bisoprolol Fumarate 5 M G 09/02/2021 12:00:00 AM EDT 1.0 {tablet} active Bi soprolol Fumarate 5 MG eCW1 ([facility]) Clenpiq Clenpiq 07/16/2021 12:00:00 AM EDT complet ed MEDENT ([facility], ) POLYETHYLENE GLYCOL 3350 142 MG/ML Oral Solution [Miralax] M iralax 07/16/2021 12:00:00 AM EDT completed MEDENT ([facility], ) POLYETHYLENE GLYCOL 3350 105 MG/ML / Pot assium Chloride 0.02751 MEQ/ML / Sodium Bicarbonate 0.017 MEQ/ML / Sodium Chloride 0.0479 MEQ/ML Oral Solution [GaviLyte-N] Gavilyte-N With Flavor Pack 07/16/2021 12:00:00 AM EDT completed MEDENT ([facility], ) Bisacodyl 5 MG Delayed Release Oral Tablet [Dulcolax] Dulcol ax 07/16/2021 12:00:00 AM EDT completed MEDENT ([facility], ) POLYETHYLENE GLYCOL 3350 142 MG/ML Oral Solution [Miralax] M iralax 03/19/2021 12:00:00 AM EDT completed MEDENT ([facility], ) Bisacodyl 5 MG Delayed Release Oral Tablet [Dulcolax] Dulcol ax 03/19/2021 12:00:00 AM EDT ORAL completed MEDENT ([facility], ) Amlodipine 5 MG Oral Tablet [Norvasc] Norvasc 5mg Norvasc 5m g 01/24/2021 12:00:00 AM EST active Norvasc 5mg eCW1 ([facility]) Lisinopril 10 MG Oral Tablet Lisinopril 10 MG 01/24/2021 12:00:00 A M EST 1.0 {tablet} suspended Lisinopril 10 MG eCW1 ([facility]) Amlodipine 5 MG Oral Tablet [Norvasc] Norvasc 5mg Norvasc 5m g 01/24/2021 12:00:00 AM EST active Norvasc 5mg eCW1 ([facility]) Lisinopril 10 MG Oral Tablet Lisinopril 10 MG 01/24/2021 12:00:00 A M EST 1.0 {tablet} suspended Lisinopril 10 MG eCW1 ([facility]) Amlodipine 5 MG Oral Tablet [Norvasc] Norvasc 5mg Norvasc 5m g 01/24/2021 12:00:00 AM EST active Norvasc 5mg eCW1 ([facility]) Amlodipine 5 MG Oral Tablet [Norvasc] Norvasc 5mg Norvasc 5m g 01/24/2021 12:00:00 AM EST active Norvasc 5mg eCW1 ([facility]) Amlodipine 5 MG Oral Tablet [Norvasc] Norvasc 5mg Norvasc 5m g 01/24/2021 12:00:00 AM EST active Norvasc 5mg eCW1 ([facility]) Amlodipine 5 MG Oral Tablet [Norvasc] Norvasc 5mg Norvasc 5m g 01/24/2021 12:00:00 AM EST active Norvasc 5mg eCW1 ([facility]) Lisinopril 10 MG Oral Tablet Lisinopril 10 MG 01/24/2021 12:00:00 A M EST 1.0 {tablet} suspended Lisinopril 10 MG eCW1 ([facility]) Amlodipine 5 MG Oral Tablet [Norvasc] Norvasc 5mg Norvasc 5m g 01/24/2021 12:00:00 AM EST active Norvasc 5mg eCW1 ([facility]) Amlodipine 5 MG Oral Tablet [Norvasc] Norvasc 5mg Norvasc 5m g 01/24/2021 12:00:00 AM EST active Norvasc 5mg eCW1 ([facility]) Amlodipine 5 MG Oral Tablet [Norvasc] Norvasc 5mg Norvasc 5m g 01/24/2021 12:00:00 AM EST active Norvasc 5mg eCW1 ([facility]) Amlodipine 5 MG Oral Tablet [Norvasc] Norvasc 5mg Norvasc 5m g 01/24/2021 12:00:00 AM EST active Norvasc 5mg eCW1 ([facility]) Amlodipine 5 MG Oral Tablet [Norvasc] Norvasc 5mg Norvasc 5m g 01/24/2021 12:00:00 AM EST active Norvasc 5mg eCW1 ([facility]) Lisinopril 10 MG Oral Tablet Lisinopril 10 MG 01/24/2021 12:00:00 A M EST 1.0 {tablet} suspended Lisinopril 10 MG eCW1 ([facility]) Lisinopril 10 MG Oral Tablet Lisinopril 10 MG 01/24/2021 12:00:00 A M EST 1.0 {tablet} suspended Lisinopril 10 MG eCW1 ([facility]) Amlodipine 5 MG Oral Tablet [Norvasc] Norvasc 5mg Norvasc 5m g 01/24/2021 12:00:00 AM EST active Norvasc 5mg eCW1 ([facility]) Lisinopril 10 MG Oral Tablet Lisinopril 10 MG 01/24/2021 12:00:00 A M EST 1.0 {tablet} suspended Lisinopril 10 MG eCW1 ([facility]) Amlodipine 5 MG Oral Tablet [Norvasc] Norvasc 5mg Norvasc 5m g 01/24/2021 12:00:00 AM EST active Norvasc 5mg eCW1 ([facility]) Lisinopril 10 MG Oral Tablet Lisinopril 10 MG 01/24/2021 12:00:00 A M EST 1.0 {tablet} suspended Lisinopril 10 MG eCW1 ([facility]) Amlodipine 5 MG Oral Tablet [Norvasc] Norvasc 5mg Norvasc 5m g 01/24/2021 12:00:00 AM EST active Norvasc 5mg eCW1 ([facility]) Amlodipine 5 MG Oral Tablet [Norvasc] Norvasc 5mg Norvasc 5m g 01/24/2021 12:00:00 AM EST active Norvasc 5mg eCW1 ([facility]) Amlodipine 5 MG Oral Tablet [Norvasc] Norvasc 5mg Norvasc 5m g 01/24/2021 12:00:00 AM EST active Norvasc 5mg eCW1 ([facility]) Amlodipine 5 MG Oral Tablet [Norvasc] Norvasc 5mg Norvasc 5m g 01/24/2021 12:00:00 AM EST active Norvasc 5mg eCW1 ([facility]) Lisinopril 10 MG Oral Tablet Lisinopril 10 MG 01/24/2021 12:00:00 A M EST 1.0 {tablet} suspended Lisinopril 10 MG eCW1 ([facility]) Amlodipine 5 MG Oral Tablet [Norvasc] Norvasc 5mg Norvasc 5m g 01/24/2021 12:00:00 AM EST active Norvasc 5mg eCW1 ([facility]) Amlodipine 5 MG Oral Tablet [Norvasc] Norvasc 5mg Norvasc 5m g 01/24/2021 12:00:00 AM EST active Norvasc 5mg eCW1 ([facility]) Amlodipine 5 MG Oral Tablet [Norvasc] Norvasc 5mg Norvasc 5m g 01/24/2021 12:00:00 AM EST active Norvasc 5mg eCW1 ([facility]) Amlodipine 5 MG Oral Tablet [Norvasc] Norvasc 5mg Norvasc 5m g 01/24/2021 12:00:00 AM EST active Norvasc 5mg eCW1 ([facility]) Regular Insulin, Human 100 UNT/ML Inject able Solution [Humulin R] Humulin R 100 UNIT/ML Humulin R 100 UNIT/ML 01/10/2021 12:00:00 AM EST active Humulin R 100 UNIT/ML eCW1 ([facility]) Regular Insulin, Human 100 UNT/ML Inject able Solution [Humulin R] HumuLIN R 100 UNIT/ML HumuLIN R 100 UNIT/ML 01/10/2021 12:00:00 AM EST active HumuLIN R 100 UNIT/ML eCW1 ([facility]) Regular Insulin, Human 100 UNT/ML Inject able Solution [Humulin R] HumuLIN R 100 UNIT/ML HumuLIN R 100 UNIT/ML 01/10/2021 12:00:00 AM EST active HumuLIN R 100 UNIT/ML eCW1 ([facility]) Regular Insulin, Human 100 UNT/ML Inject able Solution [Humulin R] Humulin R 100 UNIT/ML Humulin R 100 UNIT/ML 01/10/2021 12:00:00 AM EST active Humulin R 100 UNIT/ML eCW1 ([facility]) Regular Insulin, Human 100 UNT/ML Inject able Solution [Humulin R] HumuLIN R 100 UNIT/ML HumuLIN R 100 UNIT/ML 01/10/2021 12:00:00 AM EST active HumuLIN R 100 UNIT/ML eCW1 ([facility]) Regular Insulin, Human 100 UNT/ML Inject able Solution [Humulin R] Humulin R 100 UNIT/ML Humulin R 100 UNIT/ML 01/10/2021 12:00:00 AM EST active Humulin R 100 UNIT/ML eCW1 ([facility]) Regular Insulin, Human 100 UNT/ML Inject able Solution [Humulin R] HumuLIN R 100 UNIT/ML HumuLIN R 100 UNIT/ML 01/10/2021 12:00:00 AM EST active HumuLIN R 100 UNIT/ML eCW1 ([facility]) Regular Insulin, Human 100 UNT/ML Inject able Solution [Humulin R] Humulin R 100 UNIT/ML Humulin R 100 UNIT/ML 01/10/2021 12:00:00 AM EST active Humulin R 100 UNIT/ML eCW1 ([facility]) Regular Insulin, Human 100 UNT/ML Inject able Solution [Humulin R] HumuLIN R 100 UNIT/ML HumuLIN R 100 UNIT/ML 01/10/2021 12:00:00 AM EST active HumuLIN R 100 UNIT/ML eCW1 ([facility]) Regular Insulin, Human 100 UNT/ML Inject able Solution [Humulin R] HumuLIN R 100 UNIT/ML HumuLIN R 100 UNIT/ML 01/10/2021 12:00:00 AM EST active HumuLIN R 100 UNIT/ML eCW1 ([facility]) Regular Insulin, Human 100 UNT/ML Inject able Solution [Humulin R] Humulin R 100 UNIT/ML Humulin R 100 UNIT/ML 01/10/2021 12:00:00 AM EST active Humulin R 100 UNIT/ML eCW1 ([facility]) Regular Insulin, Human 100 UNT/ML Inject able Solution [Humulin R] Humulin R 100 UNIT/ML Humulin R 100 UNIT/ML 01/10/2021 12:00:00 AM EST active Humulin R 100 UNIT/ML eCW1 ([facility]) Regular Insulin, Human 100 UNT/ML Inject able Solution [Humulin R] HumuLIN R 100 UNIT/ML HumuLIN R 100 UNIT/ML 01/10/2021 12:00:00 AM EST active HumuLIN R 100 UNIT/ML eCW1 ([facility]) Regular Insulin, Human 100 UNT/ML Inject able Solution [Humulin R] HumuLIN R 100 UNIT/ML HumuLIN R 100 UNIT/ML 01/10/2021 12:00:00 AM EST active HumuLIN R 100 UNIT/ML eCW1 ([facility]) Regular Insulin, Human 100 UNT/ML Inject able Solution [Humulin R] Humulin R 100 UNIT/ML Humulin R 100 UNIT/ML 01/10/2021 12:00:00 AM EST active Humulin R 100 UNIT/ML eCW1 ([facility]) Regular Insulin, Human 100 UNT/ML Inject able Solution [Humulin R] HumuLIN R 100 UNIT/ML HumuLIN R 100 UNIT/ML 01/10/2021 12:00:00 AM EST active HumuLIN R 100 UNIT/ML eCW1 ([facility]) Regular Insulin, Human 100 UNT/ML Inject able Solution [Humulin R] HumuLIN R 100 UNIT/ML HumuLIN R 100 UNIT/ML 01/10/2021 12:00:00 AM EST active HumuLIN R 100 UNIT/ML eCW1 ([facility]) Regular Insulin, Human 100 UNT/ML Inject able Solution [Humulin R] Humulin R 100 UNIT/ML Humulin R 100 UNIT/ML 01/10/2021 12:00:00 AM EST active Humulin R 100 UNIT/ML eCW1 ([facility]) Regular Insulin, Human 100 UNT/ML Inject able Solution [Humulin R] HumuLIN R 100 UNIT/ML HumuLIN R 100 UNIT/ML 01/10/2021 12:00:00 AM EST active HumuLIN R 100 UNIT/ML eCW1 ([facility]) Regular Insulin, Human 100 UNT/ML Inject able Solution [Humulin R] Humulin R 100 UNIT/ML Humulin R 100 UNIT/ML 01/10/2021 12:00:00 AM EST active Humulin R 100 UNIT/ML eCW1 ([facility]) Regular Insulin, Human 100 UNT/ML Inject able Solution [Humulin R] HumuLIN R 100 UNIT/ML HumuLIN R 100 UNIT/ML 01/10/2021 12:00:00 AM EST active HumuLIN R 100 UNIT/ML eCW1 ([facility]) Insurance Providers Payer name Policy type / Coverage type Policy ID Covered green party ID Covered green party's relationship to hines Policy Hines Plan Information CORINA [id number] SP [id number] SELF PAY ONLY SP NCO EPALS [id number] SP [id number] O UNAVAILABLE UNAVAILA BLE EMEDNY [id number] SP [id number] Problems, Conditions, and Diagnoses Code Display Name Description Problem Type Effective Dates Data Source(s) I63.30 [id number] Cerebrovascular acci dent (CVA) due to thrombosis of cerebral artery Problem 09/26/2021 12:00:00 AM EDT eCW1 ([facility]) [id number] Essential hypertension Essential hypertension Problem 03/19/2021 12:00:00 AM EDT MEDDEMOND ([facility]) E11.21 [id number] Diabetic nephropathy associated with type 2 diabetes mellitus Problem 01/31/2021 12:00:00 AM EST eCW1 ([facility]) M54.42 Sciatica Lumbago with sciatica, left side Problem 01/29/2021 12:00:00 AM EST eCW1 ([facility]) M54.41 Sciatica Lumbago with sciatica, right side Problem 01/29/2021 12:00:00 AM EST eCW1 ([facility]) G62.9 [id number] Neuropathy Problem 01/24/2021 12:00:00 AM ES T eCW1 ([facility]) E11.42 [id number] Type 2 diabetes mellitus with peripheral neuropathy Problem 11/24/2020 12:00:00 AM EST eCW1 ([facility]) E11.40 [id number] Type 2 diabetes mellitus with di abetic neuropathy, unspecified Problem 11/24/2020 12:00:00 AM EST eCW1 ([facility]) G89.29 [id number] Other chronic pain Problem 11/21/2020 12:00: 00 AM EST eCW1 ([facility]) E11.21 [id number] Diabetes mellitus with nephropathy Proble m 11/21/2020 12:00:00 AM EST eCW1 ([facility]) Surgeries/Procedures Procedure Description Date Indications Data Source(s) Colonoscopy Flexible Proximal To Splenic Flexure Diagnostic W/Or 05/06/2021 12:00:00 AM EDT [facility] ([facility]) Results ID Date Data Source [id number] 10/01/2021 01:03:00 PM EDT [facility] Name Value Range Interpretation Code Description Data Karmen rce(s) Supporting Document(s) SARS coronavirus 2 RNA [Presence] in Res piratory specimen by CARMELO with probe detection NEGATIVE [facility] This lab was ordered by [facility] a nd reported by [facility]. ID Date Data Source [id number] 08/24/2021 01:38:00 AM EDT [facility] Name Value Range Interpretation Code Description Data Karmen rce(s) Supporting Document(s) SARS coronavirus 2 RNA [Presence] in Res piratory specimen by CARMELO with probe detection NEGATIVE [facility] This lab was ordered by [facility] a nd reported by [facility]. ID Date Data Source Basic Metabolic Profile (BMP) 03/07/2021 12:00:00 AM EDT eCW 1 ([facility]) Name Value Range Interpretation Code Description Data Karmen rce(s) Supporting Document(s) 44 7-18 BLOOD UREA NITROGEN eCW1 ([facility]) 52 70-100 GLUCOSE, FASTING eCW1 ([facility]) 1.61 0.55-1.30 CREATININE FOR GFR eCW1 ([facility] 146 136-145 SODIUM LEVEL eCW1 ([facility]) 34.5 >45 GLOMERULAR FILTRATION RATE eCW 1 ([facility]) 4.8 3.5-5.1 POTASSIUM SERUM eCW1 (On license of [facility]) 27 21-32 CARBON DIOXIDE LEVEL eCW1 ([facility]) 114 98-107 CHLORIDE LEVEL eCW1 ([facility]) 9.1 8.8-10.2 CALCIUM LEVEL eCW1 ([facility]) ID Date Data Source TOTAL PROTEIN,RANDOM URINE 03/07/2021 12:00:00 AM EDT eCW1 ( [facility]) Name Value Range Interpretation Code Description Data Karmen rce(s) Supporting Document(s) 420.5 0.0-12.0 TOTAL PROTEIN,RANDOM URIN E eCW1 ([facility]) ID Date Data Source CREATININE,RANDOM URINE 03/07/2021 12:00:00 AM EDT eCW1 ([facility]) Name Value Range Interpretation Code Description Data Karmen rce(s) Supporting Document(s) 33.0 CREATININE,RANDOM URINE eCW1 ( [facility]) ID Date Data Source UA URINALYSIS 03/07/2021 12:00:00 AM EDT eCW1 ([facility]) Name Value Range Interpretation Code Description Data Karmen rce(s) Supporting Document(s) UA URINALYSIS eCW1 ([facility]) ID Date Data Source [id number] 01/28/2021 08:21:00 PM EST [facility] Name Value Range Interpretation Code Description Data Karmen rce(s) Supporting Document(s) SARS coronavirus 2 RNA [Presence] in Res piratory specimen by CARMELO with probe detection NEGATIVE [facility] This lab was ordered by [facility] a nd reported by [facility]. Procedure Social History Code Duration Value Status Description Data Source(s ) Smoking 09/26/2021 12:00:00 AM EDT Never Smoker completed Never S moker eCW1 (Formerly [facility]) Smoking 09/26/2021 12:00:00 AM EDT Never Smoker completed Never S moker eCW1 (Formerly [facility]) Smoking 09/26/2021 12:00:00 AM EDT Never Smoker completed Never S moker eCW1 (Formerly [facility]) Smoking 09/26/2021 12:00:00 AM EDT Never Smoker completed Never S moker eCW1 (Formerly [facility]) Smoking 09/26/2021 12:00:00 AM EDT Never Smoker completed Never S moker eCW1 (Formerly [facility]) Smoking 09/15/2021 12:00:00 AM EDT Never Smoker completed Never S moker eCW1 (Formerly [facility]) Smoking 03/06/2021 12:00:00 AM EDT Never Smoker completed Never S moker eCW1 (Formerly [facility]) Smoking 03/06/2021 12:00:00 AM EDT Never Smoker completed Never S moker eCW1 (Formerly [facility]) Smoking 03/06/2021 12:00:00 AM EDT Never Smoker completed Never S moker eCW1 (Formerly [facility]) Smoking 03/06/2021 12:00:00 AM EDT Never Smoker completed Never S moker eCW1 (Formerly [facility]) Smoking 03/06/2021 12:00:00 AM EDT Never Smoker completed Never S moker eCW1 (Formerly [facility]) Smoking 03/06/2021 12:00:00 AM EDT Never Smoker completed Never S moker eCW1 (Formerly [facility]) Smoking 03/06/2021 12:00:00 AM EDT Never Smoker completed Never S moker eCW1 (Formerly [facility]) Smoking 03/06/2021 12:00:00 AM EDT Never Smoker completed Never S moker eCW1 (Formerly [facility]) Smoking 02/25/2021 12:00:00 AM EDT Never Smoker completed Never S moker eCW1 (Formerly [facility]) Smoking 01/31/2021 12:00:00 AM EST Never Smoker completed Never S moker eCW1 (Formerly [facility]) Smoking 01/31/2021 12:00:00 AM EST Never Smoker completed Never S moker eCW1 (Formerly [facility]) Smoking 01/31/2021 12:00:00 AM EST Never Smoker completed Never S moker eCW1 (Formerly [facility]) Smoking 01/31/2021 12:00:00 AM EST Never Smoker completed Never S moker eCW1 (Formerly [facility]) Smoking 01/31/2021 12:00:00 AM EST Never Smoker completed Never S moker eCW1 (Formerly [facility]) Smoking 01/31/2021 12:00:00 AM EST Never Smoker completed Never S moker eCW1 (Formerly [facility]) Smoking 12/31/2020 12:00:00 AM EST Never Smoker completed Never S moker eCW1 (Formerly [facility]) Smoking 11/21/2020 12:00:00 AM EST Never Smoker completed Never S moker eCW1 (Formerly [facility]) Smoking 11/21/2020 12:00:00 AM EST Never Smoker completed Never S moker eCW1 (Formerly [facility]) Smoking 11/21/2020 12:00:00 AM EST Never Smoker completed Never S moker eCW1 (Formerly [facility]) Smoking 11/21/2020 12:00:00 AM EST Never Smoker completed Never S moker eCW1 (Formerly [facility]) Smoking 11/21/2020 12:00:00 AM EST Never Smoker completed Never S moker eCW1 (Formerly [facility]) Smoking 11/21/2020 12:00:00 AM EST Never Smoker completed Never S moker eCW1 (Formerly [facility]) Vital Signs ID Date Data Source UNK Name Value Range Interpretation Code Description Data Source(s) Systolic blood pressure 168 mm[Hg] 168 mm[Hg] M [facility] ([facility]) Diastolic blood pressure 72 mm[Hg] 72 mm[Hg] [facility] ([facility]) Body height 66 [in_i] 66 [in_i] [facility] ([facility]) 5'6" Body weight 212.00 [lb_av] 212.00 [lb_av] [facility] ([facility]) Body mass index (BMI) [Ratio] 34.2 kg/m2 34.2 k g/m2 [facility] ([facility]) [place] body weight 130 [lb_av] 130 [lb_av] [facility] ([facility]) Body weight 96.163 kg 96.163 kg [facility] ([facility]) Body surface area Derived from formula 2.05 m2 2.05 m2 [facility] ([facility]) Body weight 200.00 [lb_av] 200.00 [lb_av] [facility] ([facility]) [place] body weight 130 [lb_av] 130 [lb_av] [facility] ([facility]) Body surface area Derived from formula 2.00 m2 2.00 m2 [facility] ([facility]) Systolic blood pressure 162 mm[Hg] 162 mm[Hg] M [facility] ([facility]) Body height 66 [in_i] 66 [in_i] [facility] ([facility]) 5'6" Body weight 200.00 [lb_av] 200.00 [lb_av] [facility] ([facility]) Body mass index (BMI) [Ratio] 32.3 kg/m2 32.3 k g/m2 [facility] ([facility]) [place] body weight 130 [lb_av] 130 [lb_av] [facility] ([facility]) Body weight 90.720 kg 90.720 kg [facility] ([facility]) Body surface area Derived from formula 2.00 m2 2.00 m2 [facility] ([facility]) Diastolic blood pressure 78 mm[Hg] 78 mm[Hg] [facility] ([facility]) Body height 66 [in_i] 66 [in_i] [facility] ([facility]) 5'6" Body mass index (BMI) [Ratio] 32.3 kg/m2 32.3 k g/m2 [facility] ([facility]) Body weight 90.720 kg 90.720 kg [facility] ([facility]) Body weight 205.2 [lb_av] 205.2 [lb_av] eCW1 ([facility]) Body height 66 [in_i] 66 [in_i] eCW1 ([facility]) Body mass index (BMI) [Ratio] 33.12 kg/m2 33.12 kg/m2 eCW1 (Formerly [facility]) Heart rate 92 /min 92 /min eCW1 (On license of [facility]) Respiratory rate 18 /min 18 /min eCW1 ([facility]) Body temperature 97.5 [degF] 97.5 [degF] eCW1 ( Formerly [facility]) Systolic blood pressure 156 mm[Hg] 156 mm[Hg] e CW1 (Formerly [facility]) Diastolic blood pressure 94 mm[Hg] 94 mm[Hg] eCW1 (Formerly [facility]) Body weight 192 [lb_av] 192 [lb_av] [facility] Body height 66 [in_i] 66 [in_i] eCW1 ([facility]) Body mass index (BMI) [Ratio] 30.99 kg/m2 30.99 kg/m2 eCW1 (Formerly [facility]) Heart rate 96 /min 96 /min eCW1 (On license of [facility]) Respiratory rate 18 /min 18 /min eCW1 ([facility]) Body temperature 97.2 [degF] 97.2 [degF] eCW1 ( Formerly [facility]) Systolic blood pressure 162 mm[Hg] 162 mm[Hg] e CW1 (Formerly [facility]) Diastolic blood pressure 96 mm[Hg] 96 mm[Hg] eCW1 (Formerly [facility]) Body weight 181 [lb_av] 181 [lb_av] [facility]CW[facility] Body height 66 [in_i] 66 [in_i] eCW1 ([facility]) Body mass index (BMI) [Ratio] 29.21 kg/m2 29.21 kg/m2 eCW1 (Formerly [facility]) Heart rate 99 /min 99 /min eCW1 (On license of [facility]) Respiratory rate 18 /min 18 /min eCW1 ([facility]) Body temperature 97 [degF] 97 [degF] eCW1 ([facility]) Systolic blood pressure 166 mm[Hg] 166 mm[Hg] e CW1 (Formerly [facility]) Diastolic blood pressure 98 mm[Hg] 98 mm[Hg] eCW1 (Formerly [facility]) Heart rate 104 /min 104 /min eCW1 (On license of [facility]) Body weight 200.2 [lb_av] 200.2 [lb_av] eCW1 ([facility]) Body height 66 [in_i] 66 [in_i] eCW1 ([facility]) Body mass index (BMI) [Ratio] 32.31 kg/m2 32.31 kg/m2 eCW1 (Formerly [facility]) Respiratory rate 17 /min 17 /min eCW1 ([facility]) Body temperature 97.9 [degF] 97.9 [degF] eCW1 ( Formerly [facility]) Systolic blood pressure 164 mm[Hg] 164 mm[Hg] e CW1 (Formerly [facility]) Diastolic blood pressure 102 mm[Hg] 102 mm[Hg] eCW1 (Formerly [facility]) Patient Treatment Plan of Care Planned Activity Planned Date Details Description Data Source (s) Hydralazine Hydrochloride 50 MG Oral Tablet 09/26/2021 12:00:00 AM EDT eCW1 (Formerly [facility]) Hydralazine Hydrochloride 50 MG Oral Tablet 09/26/2021 12:00:00 AM EDT eCW1 (Formerly [facility]) Hydralazine Hydrochloride 50 MG Oral Tablet 09/26/2021 12:00:00 AM EDT eCW1 (Formerly [facility]) Hydralazine Hydrochloride 50 MG Oral Tablet 09/26/2021 12:00:00 AM EDT eCW1 (Formerly [facility]) Hydralazine Hydrochloride 50 MG Oral Tablet 09/26/2021 12:00:00 AM EDT eCW1 (Formerly [facility]) Blood Glucose Test - 09/24/2021 12:00:00 AM EDT eCW1 (Formerly [facility]) FreeStyle Lite w/Device 09/24/2021 12:00:00 AM EDT eCW1 (Formerly [facility]) Bisoprolol Fumarate 5 MG Oral Tablet 09/02/2021 12:00:00 AM EDT eCW1 (Formerly [facility]) Bisoprolol Fumarate 5 MG Oral Tablet 09/02/2021 12:00:00 AM EDT eCW1 (Formerly [facility]) Bisoprolol Fumarate 5 MG Oral Tablet 09/02/2021 12:00:00 AM EDT eCW1 (Formerly [facility]) Bisoprolol Fumarate 5 MG Oral Tablet 09/02/2021 12:00:00 AM EDT eCW1 (Formerly [facility]) Bisoprolol Fumarate 5 MG Oral Tablet 09/02/2021 12:00:00 AM EDT eCW1 (Formerly [facility]) Regular Insulin, Human 100 UNT/ML Injectable Solution [Humulin R] 01/10/2021 12:00:00 AM EST eCW1 ([facility]) Regular Insulin, Human 100 UNT/ML Injectable Solution [Humulin R] 01/10/2021 12:00:00 AM EST eCW1 ([facility]) Regular Insulin, Human 100 UNT/ML Injectable Solution [Humulin R] 01/10/2021 12:00:00 AM EST eCW1 ([facility]) Regular Insulin, Human 100 UNT/ML Injectable Solution [Humulin R] 01/10/2021 12:00:00 AM EST eCW1 ([facility]) Regular Insulin, Human 100 UNT/ML Injectable Solution [Humulin R] 01/10/2021 12:00:00 AM EST eCW1 ([facility]) Regular Insulin, Human 100 UNT/ML Injectable Solution [Humulin R] 01/10/2021 12:00:00 AM EST eCW1 ([facility]) Regular Insulin, Human 100 UNT/ML Injectable Solution [Humulin R] 01/10/2021 12:00:00 AM EST eCW1 ([facility])
[2021-10-13 11:35] LABS: INR 1.04; PROTHROMBIN TIME 14.1 SECONDS (12.7-14.5)
[2021-10-13 11:56] LABS: ALBUMIN 2.7 GM/DL (3.2-5.2); ALT/SGPT 36 U/L (12-78); BILIRUBIN,DIRECT < 0.1 MG/DL (0.0-0.2); BILIRUBIN,TOTAL 0.3 MG/DL (0.2-1.0); BLOOD UREA NITROGEN 37 MG/DL (7-18); CALCIUM LEVEL 8.5 MG/DL (8.8-10.2); CARBON DIOXIDE LEVEL 23 MEQ/L (21-32); CHLORIDE LEVEL 116 MEQ/L (98-107); CK-MB VALUE MASS 4.9 NG/ML (<3.6); CPK CREATINE PHOSPHOKINASE 113 U/L (26-192); CREATININE FOR GFR 1.98 MG/DL (0.55-1.30); GLOMERULAR FILTRATION RATE 27.1 (>45); GLUCOSE, FASTING 55 MG/DL (70-100); MB/CK RELATIVE INDEX 4.34 (< OR =4); NT-PRO BNP 1562 PG/ML (<125); POTASSIUM SERUM 4.6 MEQ/L (3.5-5.1); SODIUM LEVEL 146 MEQ/L (136-145); TOTAL PROTEIN 6.8 GM/DL (6.4-8.2); TROPONIN I < 0.02 NG/ML (< 0.10)
[2021-10-13] MEDS ORDERED: hydrALAZINE 20MG/ML 1ML VIAL (J0360 PER 20MG) IV ONE (12:05)
--- NOTE | 2021-10-13 12:33 | REP ---
INDICATION: DYSPNEA/COUGH. COMPARISON: Portable chest, 10/01/2021. TECHNIQUE: Upright AP portable chest image was obtained. FINDINGS: There is cardiomegaly, pulmonary venous hypertension and pulmonary interstitial edema consistent with congestive heart failure. There is calcific vascular disease of the thoracic aorta. There is a left pleural effusion. There is bibasilar airspace disease consistent with atelectasis or pneumonia. IMPRESSION: 1. Congestive heart failure with a left pleural effusion. 2. Bibasilar atelectasis or pneumonia. Appears somewhat improved when compared with the prior exam. <Electronically signed by Jong Tolliver > 10/13/21 [id number]
[2021-10-13 12:51] LABS: ABG BASE EXCESS -4.2 (-2.0-2.0); ABG O2 SATURATION 97.1 % (95.0-99.0); ABG PARTIAL PRESSURE O2 102.5 mmHg (75.0-100.0); ABG TOTAL CO2 22.2 MEQ/L (23.0-31.0); ABG pH (ARTERIAL) 7.349 UNITS (7.350-7.450)
--- NOTE | 2021-10-13 13:07 | REP ---
INDICATION: hypoxia, hypertension, leukocytosis. COMPARISON: None. TECHNIQUE: Imaging protocol: Computed tomography of the chest without IV contrast. Contiguous 3 mm thick axial projection images were obtained through the chest. 2D sagittal and coronal reconstructions were performed. Radiation optimization: All CT scans at this facility use at least one of these dose optimization techniques: automated exposure control; mA and/or kV adjustment per patient size (includes targeted exams where dose is matched to clinical indication); or iterative reconstruction. FINDINGS: Lower neck: The thyroid gland is heterogeneous in density without discrete nodules. There is no supraclavicular lymphadenopathy. Mediastinum: No abnormal masses or lymphadenopathy. Heart/thoracic aorta: The heart is enlarged. There is a small pericardial effusion. There is calcific vascular disease of the thoracic aorta and coronary arteries. The mitral valve is heavily calcified. Upper abdomen: There is calcific vascular disease of the abdominal aorta. There is a 2.4 cm in diameter right adrenal adenoma. There is a 2.2 cm in diameter left adrenal adenoma. There is left nephrolithiasis. Thoracic esophagus: Normal. Chest wall and axilla: The visualized breasts and soft tissues of the chest wall are unremarkable. There is no axillary lymphadenopathy. There is moderate multilevel degenerative disc disease of the thoracic spine with moderate dextroscoliosis. Lung parenchyma: There is pulmonary venous hypertension, pulmonary interstitial edema and bilateral pleural effusions. There is compressive atelectasis of the adjacent portion of both lungs. IMPRESSION: 1. Congestive heart failure with large bilateral pleural effusions and compressive atelectasis of the adjacent portion of both lungs. 2. Calcific vascular disease of the thoracoabdominal aorta and coronary arteries. 3. Bilateral adrenal adenomas. 4. Left nephrolithiasis. 5. Thoracic degenerative disc disease with dextroscoliosis. <Electronically signed by Jong Tolliver > 10/13/21 [id number]
[2021-10-13] MEDS ORDERED: FUROSEMIDE 100MG/10ML VIAL (J1940) IV ONE (13:30)
[2021-10-13] MEDS ORDERED: BISO5TAB14 PO (14:09)
[2021-10-13] MEDS ORDERED: LABE100T4 PO (14:09)
[2021-10-13] MEDS ORDERED: CARV25TA PO (14:17)
[2021-10-13] MEDS ORDERED: HOME MED LIST COMPLETE! XX SCH (14:20)
[2021-10-13] MEDS ORDERED: DEXTROSE 50% 50 ML SYRINGE IV PRN (15:00)
[2021-10-13] MEDS ORDERED: GLUCOSE 4GM CHEW TABLET PO PRN (15:00)
[2021-10-13] MEDS ORDERED: GLUCAGON INJ 1MG VIAL SC PRN (15:00)
--- OUTSIDE RECORDS SUMMARY | 2021-10-13 15:14 | CCD ---
Author Author [facility] Organization [facility] Address Unknown Phone Unavailable Support Name Relationship Address Phone DISABLED Next Of Kin Unknown Unavailable UE Next Of Kin Unknown Unavailable MANUEL QUIROZ Next Of Kin [id number] [place], [place] [id number] MANUEL QUIROZ ECON [id number] [place] [address] Unavailable Re-disclosure Warning The records that you [...] is protected by Article 27-F of the [facility] Public Health law. If you continue you may have access to information: Regarding HIV / AIDS; Provided by facilities licensed or operated by the [facility] Office of Mental Health; or Provided by the [facility] Office for People With Developmental Disabilities. If such information is present, then the following [facility] mandated warning applies: This information has [...] Date Indications Data Source(s ) [place] [address] [facility] [address] 10/02/2021 12:00:00 AM EDT eCW1 ([facility]) [place] [address] [facility] [place] [address] 10/02/2021 12:00:00 AM EDT eCW1 ([facility]) Unknown [address] [facility] [address] 10/01/2021 12:00:00 AM EDT eCW1 ([facility]) Unknown [address] [facility] [address] 09/27/2021 12:00:00 AM EDT eCW1 ([facility]) Unknown [address] [facility] [address] 09/26/2021 12:00:00 AM EDT eCW1 ([facility]) Unknown [address] [facility] [address] 09/18/2021 12:00:00 AM EDT eCW1 ([facility]) Unknown [address] [facility] [address] 09/13/2021 12:00:00 AM EDT eCW1 ([facility]) Unknown [address] [facility] [address] 09/09/2021 12:00:00 AM EDT eCW1 ([facility]) Unknown [address] [facility] [address] 09/03/2021 12:00:00 AM EDT eCW1 ([facility]) Unknown [address] [facility] [address] 09/02/2021 12:00:00 AM EDT eCW1 ([facility]) Unknown [address] [facility] [address] 07/23/2021 12:00:00 AM EDT eCW1 ([facility]) Unknown [address] [facility] [address] 07/23/2021 12:00:00 AM EDT eCW1 ([facility]) [place] [address] [facility] [address] 03/06/2021 12:00:00 AM EDT eCW1 ([facility]) Unknown [address] [facility] [address] 02/14/2021 12:00:00 AM EDT eCW1 ([facility]) Unknown [address] [facility] [address] 02/05/2021 12:00:00 AM EST eCW1 ([facility]) [place] [address] [facility] [address] 01/31/2021 12:00:00 AM EST eCW1 ([facility]) Unknown [address] [facility] [address] 01/28/2021 12:00:00 AM EST eCW1 ([facility]) Unknown [address] [facility] [address] 01/28/2021 12:00:00 AM EST eCW1 ([facility]) Out[place] [address] [facility] [address] 01/24/2021 12:00:00 AM EST eCW1 ([facility]) Unknown [address] [facility] [address] 01/09/2021 12:00:00 AM EST eCW1 ([facility]) Unknown [address] [facility] [address] 01/03/2021 12:00:00 AM EST eCW1 ([facility]) Unknown [address] [facility] [address] 12/31/2020 12:00:00 AM EST eCW1 ([facility]) Unknown [address] [facility] [address] 12/24/2020 12:00:00 AM EST eCW1 ([facility]) Unknown [address] [facility] [address] 12/06/2020 12:00:00 AM EST eCW1 ([facility]) Unknown [address] [facility] [address] 11/26/2020 12:00:00 AM EST eCW1 ([facility]) [place] [address] [facility] [address] 11/21/2020 12:00:00 AM EST eCW1 ([facility]) Unknown [address] [facility] [address] 11/21/2020 12:00:00 AM EST eCW1 ([facility]) Unknown [address] [facility] [address] 11/05/2020 12:00:00 AM EST eCW1 ([facility]) Immunizations Vaccine Date Status Description Data Source(s) COVID-19 VACCINE Moderna 08/03/2021 12:00:00 AM EDT completed [facility] Vaccine Series Complete: YESThis Data wa s Submitted to [facility] Via [employer]. COVID-19 VACCINE Moderna 07/06/2021 12:00:00 AM EDT completed [facility] Vaccine Series Complete: NOThis Data was Submitted to [facility] Via [employer]. Medications Medication Brand Name Start Date Product Form Dose Route Admi nistrative Instructions Pharmacy Instructions Status Indications Reaction Description Data Source(s) Hydralazine Hydrochloride 50 MG Oral Tablet hydrALAZIN E HCl 50 MG hydrALAZINE HCl 50 MG 09/26/2021 12:00:00 AM EDT 1.0 {tablet_with_food} active hydrALAZINE HCl 50 MG eCW1 ([facility]) Hydralazine Hydrochloride 50 MG Oral Tablet hydrALAZIN E HCl 50 MG hydrALAZINE HCl 50 MG 09/26/2021 12:00:00 AM EDT 1.0 {tablet_with_food} active hydrALAZINE HCl 50 MG eCW1 ([facility]) Hydralazine Hydrochloride 50 MG Oral Tablet hydrALAZIN E HCl 50 MG hydrALAZINE HCl 50 MG 09/26/2021 12:00:00 AM EDT 1.0 {tablet_with_food} active hydrALAZINE HCl 50 MG eCW1 ([facility]) Hydralazine Hydrochloride 50 MG Oral Tablet hydrALAZIN E HCl 50 MG hydrALAZINE HCl 50 MG 09/26/2021 12:00:00 AM EDT 1.0 {tablet_with_food} active hydrALAZINE HCl 50 MG eCW1 ([facility]) Hydralazine Hydrochloride 50 MG Oral Tablet hydrALAZIN E HCl 50 MG hydrALAZINE HCl 50 MG 09/26/2021 12:00:00 AM EDT 1.0 {tablet_with_food} active hydrALAZINE HCl 50 MG eCW1 ([facility]) FreeStyle Lite w/Device UNK 09/24/2021 12:00:00 AM EDT active FreeStyle Lite w/Device eCW1 ([facility]) FreeStyle Lite w/Device UNK 09/24/2021 12:00:00 AM EDT active FreeStyle Lite w/Device eCW1 ([facility]) Blood Glucose Test - Blood Glucose Test - 09/24/2021 12:00:00 AM EDT active Blood Glucose Test - eCW1 ([facility]) FreeStyle Lite w/Device UNK 09/24/2021 12:00:00 AM EDT active FreeStyle Lite w/Device eCW1 ([facility]) Blood Glucose Test - Blood Glucose Test - 09/24/2021 12:00:00 AM EDT active Blood Glucose Test - eCW1 ([facility]) Blood Glucose Test - Blood Glucose Test - 09/24/2021 12:00:00 AM EDT active Blood Glucose Test - eCW1 ([facility]) Blood Glucose Test - Blood Glucose Test - 09/24/2021 12:00:00 AM EDT active Blood Glucose Test - eCW1 ([facility]) FreeStyle Lite w/Device UNK 09/24/2021 12:00:00 AM EDT active FreeStyle Lite w/Device eCW1 ([facility]) FreeStyle Lite w/Device UNK 09/24/2021 12:00:00 AM EDT active FreeStyle Lite w/Device eCW1 ([facility]) FreeStyle Lite w/Device UNK 09/24/2021 12:00:00 AM EDT active FreeStyle Lite w/Device eCW1 ([facility]) Blood Glucose Test - Blood Glucose Test - 09/24/2021 12:00:00 AM EDT active Blood Glucose Test - eCW1 ([facility]) Blood Glucose Test - Blood Glucose Test - 09/24/2021 12:00:00 AM EDT active Blood Glucose Test - eCW1 ([facility]) Bisoprolol Fumarate 5 MG Oral Tablet Bisoprolol Fumarate 5 M G 09/02/2021 12:00:00 AM EDT 1.0 {tablet} active Bi soprolol Fumarate 5 MG eCW1 ([facility]) Bisoprolol Fumarate 5 MG Oral Tablet Bisoprolol Fumarate 5 M G 09/02/2021 12:00:00 AM EDT 1.0 {tablet} active Bi soprolol Fumarate 5 MG eCW1 ([facility]) Bisoprolol Fumarate 5 MG Oral Tablet Bisoprolol Fumarate 5 M G 09/02/2021 12:00:00 AM EDT 1.0 {tablet} active Bi soprolol Fumarate 5 MG eCW1 ([facility]) Bisoprolol Fumarate 5 MG Oral Tablet Bisoprolol Fumarate 5 M G 09/02/2021 12:00:00 AM EDT 1.0 {tablet} active Bi soprolol Fumarate 5 MG eCW1 ([facility]) Bisoprolol Fumarate 5 MG Oral Tablet Bisoprolol Fumarate 5 M G 09/02/2021 12:00:00 AM EDT 1.0 {tablet} active Bi soprolol Fumarate 5 MG eCW1 ([facility]) Bisoprolol Fumarate 5 MG Oral Tablet Bisoprolol Fumarate 5 M G 09/02/2021 12:00:00 AM EDT 1.0 {tablet} active Bi soprolol Fumarate 5 MG eCW1 ([facility]) Bisoprolol Fumarate 5 MG Oral Tablet Bisoprolol Fumarate 5 M G 09/02/2021 12:00:00 AM EDT 1.0 {tablet} active Bi soprolol Fumarate 5 MG eCW1 ([facility]) Bisoprolol Fumarate 5 MG Oral Tablet Bisoprolol Fumarate 5 M G 09/02/2021 12:00:00 AM EDT 1.0 {tablet} active Bi soprolol Fumarate 5 MG eCW1 ([facility]) Bisoprolol Fumarate 5 MG Oral Tablet Bisoprolol Fumarate 5 M G 09/02/2021 12:00:00 AM EDT 1.0 {tablet} active Bi soprolol Fumarate 5 MG eCW1 ([facility]) Bisoprolol Fumarate 5 MG Oral Tablet Bisoprolol Fumarate 5 M G 09/02/2021 12:00:00 AM EDT 1.0 {tablet} active Bi soprolol Fumarate 5 MG eCW1 ([facility]) Clenpiq Clenpiq 07/16/2021 12:00:00 AM EDT complet ed MEDENT ([facility], ) POLYETHYLENE GLYCOL 3350 142 MG/ML Oral Solution [Miralax] M iralax 07/16/2021 12:00:00 AM EDT completed MEDENT ([facility], ) POLYETHYLENE GLYCOL 3350 105 MG/ML / Pot assium Chloride 0.39250 MEQ/ML / Sodium Bicarbonate 0.017 MEQ/ML / Sodium Chloride 0.0479 MEQ/ML Oral Solution [GaviLyte-N] Gavilyte-N With Flavor Pack 07/16/2021 12:00:00 AM EDT completed MEDENT ([facility], ) Bisacodyl 5 MG Delayed Release Oral Tablet [Dulcolax] Dulcol ax 07/16/2021 12:00:00 AM EDT completed MEDENT ([facility], ) POLYETHYLENE GLYCOL 3350 142 MG/ML Oral Solution [Miralax] M iralax 03/19/2021 12:00:00 AM EDT completed MEDENT ([facility], ) Bisacodyl 5 MG Delayed Release Oral Tablet [Dulcolax] Dulcol ax 03/19/2021 12:00:00 AM EDT ORAL completed MEDENT ([facility], ) Amlodipine 5 MG Oral Tablet [Norvasc] Norvasc 5mg Norvasc 5m g 01/24/2021 12:00:00 AM EST active Norvasc 5mg eCW1 ([facility]) Lisinopril 10 MG Oral Tablet Lisinopril 10 MG 01/24/2021 12:00:00 A M EST 1.0 {tablet} suspended Lisinopril 10 MG eCW1 ([facility]) Amlodipine 5 MG Oral Tablet [Norvasc] Norvasc 5mg Norvasc 5m g 01/24/2021 12:00:00 AM EST active Norvasc 5mg eCW1 ([facility]) Lisinopril 10 MG Oral Tablet Lisinopril 10 MG 01/24/2021 12:00:00 A M EST 1.0 {tablet} suspended Lisinopril 10 MG eCW1 ([facility]) Amlodipine 5 MG Oral Tablet [Norvasc] Norvasc 5mg Norvasc 5m g 01/24/2021 12:00:00 AM EST active Norvasc 5mg eCW1 ([facility]) Amlodipine 5 MG Oral Tablet [Norvasc] Norvasc 5mg Norvasc 5m g 01/24/2021 12:00:00 AM EST active Norvasc 5mg eCW1 ([facility]) Amlodipine 5 MG Oral Tablet [Norvasc] Norvasc 5mg Norvasc 5m g 01/24/2021 12:00:00 AM EST active Norvasc 5mg eCW1 ([facility]) Amlodipine 5 MG Oral Tablet [Norvasc] Norvasc 5mg Norvasc 5m g 01/24/2021 12:00:00 AM EST active Norvasc 5mg eCW1 ([facility]) Lisinopril 10 MG Oral Tablet Lisinopril 10 MG 01/24/2021 12:00:00 A M EST 1.0 {tablet} suspended Lisinopril 10 MG eCW1 ([facility]) Amlodipine 5 MG Oral Tablet [Norvasc] Norvasc 5mg Norvasc 5m g 01/24/2021 12:00:00 AM EST active Norvasc 5mg eCW1 ([facility]) Amlodipine 5 MG Oral Tablet [Norvasc] Norvasc 5mg Norvasc 5m g 01/24/2021 12:00:00 AM EST active Norvasc 5mg eCW1 ([facility]) Amlodipine 5 MG Oral Tablet [Norvasc] Norvasc 5mg Norvasc 5m g 01/24/2021 12:00:00 AM EST active Norvasc 5mg eCW1 ([facility]) Amlodipine 5 MG Oral Tablet [Norvasc] Norvasc 5mg Norvasc 5m g 01/24/2021 12:00:00 AM EST active Norvasc 5mg eCW1 ([facility]) Amlodipine 5 MG Oral Tablet [Norvasc] Norvasc 5mg Norvasc 5m g 01/24/2021 12:00:00 AM EST active Norvasc 5mg eCW1 ([facility]) Lisinopril 10 MG Oral Tablet Lisinopril 10 MG 01/24/2021 12:00:00 A M EST 1.0 {tablet} suspended Lisinopril 10 MG eCW1 ([facility]) Lisinopril 10 MG Oral Tablet Lisinopril 10 MG 01/24/2021 12:00:00 A M EST 1.0 {tablet} suspended Lisinopril 10 MG eCW1 ([facility]) Amlodipine 5 MG Oral Tablet [Norvasc] Norvasc 5mg Norvasc 5m g 01/24/2021 12:00:00 AM EST active Norvasc 5mg eCW1 ([facility]) Lisinopril 10 MG Oral Tablet Lisinopril 10 MG 01/24/2021 12:00:00 A M EST 1.0 {tablet} suspended Lisinopril 10 MG eCW1 ([facility]) Amlodipine 5 MG Oral Tablet [Norvasc] Norvasc 5mg Norvasc 5m g 01/24/2021 12:00:00 AM EST active Norvasc 5mg eCW1 ([facility]) Lisinopril 10 MG Oral Tablet Lisinopril 10 MG 01/24/2021 12:00:00 A M EST 1.0 {tablet} suspended Lisinopril 10 MG eCW1 ([facility]) Amlodipine 5 MG Oral Tablet [Norvasc] Norvasc 5mg Norvasc 5m g 01/24/2021 12:00:00 AM EST active Norvasc 5mg eCW1 ([facility]) Amlodipine 5 MG Oral Tablet [Norvasc] Norvasc 5mg Norvasc 5m g 01/24/2021 12:00:00 AM EST active Norvasc 5mg eCW1 ([facility]) Amlodipine 5 MG Oral Tablet [Norvasc] Norvasc 5mg Norvasc 5m g 01/24/2021 12:00:00 AM EST active Norvasc 5mg eCW1 ([facility]) Amlodipine 5 MG Oral Tablet [Norvasc] Norvasc 5mg Norvasc 5m g 01/24/2021 12:00:00 AM EST active Norvasc 5mg eCW1 ([facility]) Lisinopril 10 MG Oral Tablet Lisinopril 10 MG 01/24/2021 12:00:00 A M EST 1.0 {tablet} suspended Lisinopril 10 MG eCW1 ([facility]) Amlodipine 5 MG Oral Tablet [Norvasc] Norvasc 5mg Norvasc 5m g 01/24/2021 12:00:00 AM EST active Norvasc 5mg eCW1 ([facility]) Amlodipine 5 MG Oral Tablet [Norvasc] Norvasc 5mg Norvasc 5m g 01/24/2021 12:00:00 AM EST active Norvasc 5mg eCW1 ([facility]) Amlodipine 5 MG Oral Tablet [Norvasc] Norvasc 5mg Norvasc 5m g 01/24/2021 12:00:00 AM EST active Norvasc 5mg eCW1 ([facility]) Amlodipine 5 MG Oral Tablet [Norvasc] Norvasc 5mg Norvasc 5m g 01/24/2021 12:00:00 AM EST active Norvasc 5mg eCW1 ([facility]) Regular Insulin, Human 100 UNT/ML Inject able Solution [Humulin R] Humulin R 100 UNIT/ML Humulin R 100 UNIT/ML 01/10/2021 12:00:00 AM EST active Humulin R 100 UNIT/ML eCW1 ([facility]) Regular Insulin, Human 100 UNT/ML Inject able Solution [Humulin R] HumuLIN R 100 UNIT/ML HumuLIN R 100 UNIT/ML 01/10/2021 12:00:00 AM EST active HumuLIN R 100 UNIT/ML eCW1 ([facility]) Regular Insulin, Human 100 UNT/ML Inject able Solution [Humulin R] HumuLIN R 100 UNIT/ML HumuLIN R 100 UNIT/ML 01/10/2021 12:00:00 AM EST active HumuLIN R 100 UNIT/ML eCW1 ([facility]) Regular Insulin, Human 100 UNT/ML Inject able Solution [Humulin R] Humulin R 100 UNIT/ML Humulin R 100 UNIT/ML 01/10/2021 12:00:00 AM EST active Humulin R 100 UNIT/ML eCW1 ([facility]) Regular Insulin, Human 100 UNT/ML Inject able Solution [Humulin R] HumuLIN R 100 UNIT/ML HumuLIN R 100 UNIT/ML 01/10/2021 12:00:00 AM EST active HumuLIN R 100 UNIT/ML eCW1 ([facility]) Regular Insulin, Human 100 UNT/ML Inject able Solution [Humulin R] Humulin R 100 UNIT/ML Humulin R 100 UNIT/ML 01/10/2021 12:00:00 AM EST active Humulin R 100 UNIT/ML eCW1 ([facility]) Regular Insulin, Human 100 UNT/ML Inject able Solution [Humulin R] HumuLIN R 100 UNIT/ML HumuLIN R 100 UNIT/ML 01/10/2021 12:00:00 AM EST active HumuLIN R 100 UNIT/ML eCW1 ([facility]) Regular Insulin, Human 100 UNT/ML Inject able Solution [Humulin R] Humulin R 100 UNIT/ML Humulin R 100 UNIT/ML 01/10/2021 12:00:00 AM EST active Humulin R 100 UNIT/ML eCW1 ([facility]) Regular Insulin, Human 100 UNT/ML Inject able Solution [Humulin R] HumuLIN R 100 UNIT/ML HumuLIN R 100 UNIT/ML 01/10/2021 12:00:00 AM EST active HumuLIN R 100 UNIT/ML eCW1 ([facility]) Regular Insulin, Human 100 UNT/ML Inject able Solution [Humulin R] HumuLIN R 100 UNIT/ML HumuLIN R 100 UNIT/ML 01/10/2021 12:00:00 AM EST active HumuLIN R 100 UNIT/ML eCW1 ([facility]) Regular Insulin, Human 100 UNT/ML Inject able Solution [Humulin R] Humulin R 100 UNIT/ML Humulin R 100 UNIT/ML 01/10/2021 12:00:00 AM EST active Humulin R 100 UNIT/ML eCW1 ([facility]) Regular Insulin, Human 100 UNT/ML Inject able Solution [Humulin R] Humulin R 100 UNIT/ML Humulin R 100 UNIT/ML 01/10/2021 12:00:00 AM EST active Humulin R 100 UNIT/ML eCW1 ([facility]) Regular Insulin, Human 100 UNT/ML Inject able Solution [Humulin R] HumuLIN R 100 UNIT/ML HumuLIN R 100 UNIT/ML 01/10/2021 12:00:00 AM EST active HumuLIN R 100 UNIT/ML eCW1 ([facility]) Regular Insulin, Human 100 UNT/ML Inject able Solution [Humulin R] HumuLIN R 100 UNIT/ML HumuLIN R 100 UNIT/ML 01/10/2021 12:00:00 AM EST active HumuLIN R 100 UNIT/ML eCW1 ([facility]) Regular Insulin, Human 100 UNT/ML Inject able Solution [Humulin R] Humulin R 100 UNIT/ML Humulin R 100 UNIT/ML 01/10/2021 12:00:00 AM EST active Humulin R 100 UNIT/ML eCW1 ([facility]) Regular Insulin, Human 100 UNT/ML Inject able Solution [Humulin R] HumuLIN R 100 UNIT/ML HumuLIN R 100 UNIT/ML 01/10/2021 12:00:00 AM EST active HumuLIN R 100 UNIT/ML eCW1 ([facility]) Regular Insulin, Human 100 UNT/ML Inject able Solution [Humulin R] HumuLIN R 100 UNIT/ML HumuLIN R 100 UNIT/ML 01/10/2021 12:00:00 AM EST active HumuLIN R 100 UNIT/ML eCW1 ([facility]) Regular Insulin, Human 100 UNT/ML Inject able Solution [Humulin R] Humulin R 100 UNIT/ML Humulin R 100 UNIT/ML 01/10/2021 12:00:00 AM EST active Humulin R 100 UNIT/ML eCW1 ([facility]) Regular Insulin, Human 100 UNT/ML Inject able Solution [Humulin R] HumuLIN R 100 UNIT/ML HumuLIN R 100 UNIT/ML 01/10/2021 12:00:00 AM EST active HumuLIN R 100 UNIT/ML eCW1 ([facility]) Regular Insulin, Human 100 UNT/ML Inject able Solution [Humulin R] Humulin R 100 UNIT/ML Humulin R 100 UNIT/ML 01/10/2021 12:00:00 AM EST active Humulin R 100 UNIT/ML eCW1 ([facility]) Regular Insulin, Human 100 UNT/ML Inject able Solution [Humulin R] HumuLIN R 100 UNIT/ML HumuLIN R 100 UNIT/ML 01/10/2021 12:00:00 AM EST active HumuLIN R 100 UNIT/ML eCW1 ([facility]) Insurance Providers Payer name Policy type / Coverage type Policy ID Covered democrat ID Covered democrat's relationship to hines Policy Hines Plan Information CORINA [id number] SP [id number] SELF PAY ONLY SP NCO EPALS [id number] SP [id number] O UNAVAILABLE UNAVAILA BLE EMEDNY [id number] SP [id number] Problems, Conditions, and Diagnoses Code Display Name Description Problem Type Effective Dates Data Source(s) I63.30 [id number] Cerebrovascular acci dent (CVA) due to thrombosis of cerebral artery Problem 09/26/2021 12:00:00 AM EDT eCW1 ([facility]) [id number] Essential hypertension Essential hypertension Problem 03/19/2021 12:00:00 AM EDT MEDDEMOND ([facility]) E11.21 [id number] Diabetic nephropathy associated with type 2 diabetes mellitus Problem 01/31/2021 12:00:00 AM EST eCW1 ([facility]) M54.42 Sciatica Lumbago with sciatica, left side Problem 01/29/2021 12:00:00 AM EST eCW1 ([facility]) M54.41 Sciatica Lumbago with sciatica, right side Problem 01/29/2021 12:00:00 AM EST eCW1 ([facility]) G62.9 [id number] Neuropathy Problem 01/24/2021 12:00:00 AM ES T eCW1 ([facility]) E11.42 [id number] Type 2 diabetes mellitus with peripheral neuropathy Problem 11/24/2020 12:00:00 AM EST eCW1 ([facility]) E11.40 [id number] Type 2 diabetes mellitus with di abetic neuropathy, unspecified Problem 11/24/2020 12:00:00 AM EST eCW1 ([facility]) G89.29 [id number] Other chronic pain Problem 11/21/2020 12:00: 00 AM EST eCW1 ([facility]) E11.21 [id number] Diabetes mellitus with nephropathy Proble m 11/21/2020 12:00:00 AM EST eCW1 ([facility]) Surgeries/Procedures Procedure Description Date Indications Data Source(s) Colonoscopy Flexible Proximal To Splenic Flexure Diagnostic W/Or 05/06/2021 12:00:00 AM EDT MEDENT ([facility]) Results ID Date Data Source [id number] 10/01/2021 01:03:00 PM EDT [facility] Name Value Range Interpretation Code Description Data Karmen rce(s) Supporting Document(s) SARS coronavirus 2 RNA [Presence] in Res piratory specimen by CARMELO with probe detection NEGATIVE [facility] This lab was ordered by [facility] a nd reported by [facility]. ID Date Data Source [id number] 08/24/2021 01:38:00 AM EDT [facility] Name Value Range Interpretation Code Description Data Karmen rce(s) Supporting Document(s) SARS coronavirus 2 RNA [Presence] in Res piratory specimen by CARMELO with probe detection NEGATIVE [facility] This lab was ordered by [facility] a nd reported by [facility]. ID Date Data Source Basic Metabolic Profile (BMP) 03/07/2021 12:00:00 AM EDT eCW 1 ([facility]) Name Value Range Interpretation Code Description Data Karmen rce(s) Supporting Document(s) 44 7-18 BLOOD UREA NITROGEN eCW1 ([facility]) 52 70-100 GLUCOSE, FASTING eCW1 ([facility]) 1.61 0.55-1.30 CREATININE FOR GFR eCW1 ([facility]) 146 136-145 SODIUM LEVEL eCW1 ([facility]) 34.5 >45 GLOMERULAR FILTRATION RATE eCW 1 ([facility]) 4.8 3.5-5.1 POTASSIUM SERUM eCW1 ([facility]) 27 21-32 CARBON DIOXIDE LEVEL eCW1 ([facility]) 114 98-107 CHLORIDE LEVEL eCW1 ([facility]) 9.1 8.8-10.2 CALCIUM LEVEL eCW1 ([facility]) ID Date Data Source TOTAL PROTEIN,RANDOM URINE 03/07/2021 12:00:00 AM EDT eCW1 ( [facility]) Name Value Range Interpretation Code Description Data Karmen rce(s) Supporting Document(s) 420.5 0.0-12.0 TOTAL PROTEIN,RANDOM URIN E eCW1 ([facility]) ID Date Data Source CREATININE,RANDOM URINE 03/07/2021 12:00:00 AM EDT eCW1 ([facility]) Name Value Range Interpretation Code Description Data Karmen rce(s) Supporting Document(s) 33.0 CREATININE,RANDOM URINE eCW1 ( [facility]) ID Date Data Source UA URINALYSIS 03/07/2021 12:00:00 AM EDT eCW1 ([facility]) Name Value Range Interpretation Code Description Data Karmen rce(s) Supporting Document(s) UA URINALYSIS eCW1 ([facility]) ID Date Data Source [id number] 01/28/2021 08:21:00 PM EST [facility] Name Value Range Interpretation Code Description Data Karmen rce(s) Supporting Document(s) SARS coronavirus 2 RNA [Presence] in Res piratory specimen by CARMELO with probe detection NEGATIVE [facility] This lab was ordered by [facility] a nd reported by [facility]. Procedure Social History Code Duration Value Status Description Data Source(s ) Smoking 09/26/2021 12:00:00 AM EDT Never Smoker completed Never S moker eCW1 ([facility]) Smoking 09/26/2021 12:00:00 AM EDT Never Smoker completed Never S moker eCW1 ([facility]) Smoking 09/26/2021 12:00:00 AM EDT Never Smoker completed Never S moker eCW1 ([facility]) Smoking 09/26/2021 12:00:00 AM EDT Never Smoker completed Never S moker [email or web address] ([facility]) Smoking 09/26/2021 12:00:00 AM EDT Never Smoker completed Never S moker [email or web address] ([facility]) Smoking 09/15/2021 12:00:00 AM EDT Never Smoker completed Never S moker [email or web address] ([facility]) Smoking 03/06/2021 12:00:00 AM EDT Never Smoker completed Never S moker [email or web address] ([facility]) Smoking 03/06/2021 12:00:00 AM EDT Never Smoker completed Never S moker [email or web address] ([facility]) Smoking 03/06/2021 12:00:00 AM EDT Never Smoker completed Never S moker [email or web address] ([facility]) Smoking 03/06/2021 12:00:00 AM EDT Never Smoker completed Never S moker eCW1 ([facility]) Smoking 03/06/2021 12:00:00 AM EDT Never Smoker completed Never S moker eCW1 ([facility]) Smoking 03/06/2021 12:00:00 AM EDT Never Smoker completed Never S moker eCW1 ([facility]) Smoking 03/06/2021 12:00:00 AM EDT Never Smoker completed Never S moker eCW1 ([facility]) Smoking 03/06/2021 12:00:00 AM EDT Never Smoker completed Never S moker eCW1 ([facility]) Smoking 02/25/2021 12:00:00 AM EDT Never Smoker completed Never S moker eCW1 ([facility]) Smoking 01/31/2021 12:00:00 AM EST Never Smoker completed Never S moker eCW1 ([facility]) Smoking 01/31/2021 12:00:00 AM EST Never Smoker completed Never S moker eCW1 ([facility]) Smoking 01/31/2021 12:00:00 AM EST Never Smoker completed Never S moker eCW1 ([facility]) Smoking 01/31/2021 12:00:00 AM EST Never Smoker completed Never S moker eCW1 ([facility]) Smoking 01/31/2021 12:00:00 AM EST Never Smoker completed Never S moker eCW1 ([facility]) Smoking 01/31/2021 12:00:00 AM EST Never Smoker completed Never S moker eCW1 ([facility]) Smoking 12/31/2020 12:00:00 AM EST Never Smoker completed Never S moker eCW1 ([facility]) Smoking 11/21/2020 12:00:00 AM EST Never Smoker completed Never S moker eCW1 ([facility]) Smoking 11/21/2020 12:00:00 AM EST Never Smoker completed Never S moker eCW1 ([facility]) Smoking 11/21/2020 12:00:00 AM EST Never Smoker completed Never S moker eCW1 ([facility]) Smoking 11/21/2020 12:00:00 AM EST Never Smoker completed Never S moker eCW1 ([facility]) Smoking 11/21/2020 12:00:00 AM EST Never Smoker completed Never S moker eCW1 ([facility]) Smoking 11/21/2020 12:00:00 AM EST Never Smoker completed Never S moker eCW1 ([facility]) Vital Signs ID Date Data Source UNK Name Value Range Interpretation Code Description Data Source(s) Systolic blood pressure 168 mm[Hg] 168 mm[Hg] [facility] ([facility]) Diastolic blood pressure 72 mm[Hg] 72 mm[Hg] [facility] ([facility]) Body height 66 [in_i] 66 [in_i] [facility] ([facility]) 5'6" Body weight 212.00 [lb_av] 212.00 [lb_av] [facility] ([facility]) Body mass index (BMI) [Ratio] 34.2 kg/m2 34.2 k g/m2 [facility] ([facility]) [place] body weight 130 [lb_av] 130 [lb_av] [facility] ([facility]) Body weight 96.163 kg 96.163 kg [facility] ([facility]) Body surface area Derived from formula 2.05 m2 2.05 m2 [facility] ([facility]) Body weight 200.00 [lb_av] 200.00 [lb_av] [facility] ([facility]) [place] body weight 130 [lb_av] 130 [lb_av] [facility] ([facility]) Body surface area Derived from formula 2.00 m2 2.00 m2 [facility] ([facility]) Body weight 90.720 kg 90.720 kg [facility] ([facility]) Body surface area Derived from formula 2.00 m2 2.00 m2 [facility] ([facility]) Diastolic blood pressure 78 mm[Hg] 78 mm[Hg] [facility] ([facility]) Body height 66 [in_i] 66 [in_i] [facility] ([facility]) 5'6" Body mass index (BMI) [Ratio] 32.3 kg/m2 32.3 k g/m2 [facility] ([facility]) Body weight 90.720 kg 90.720 kg [facility] ([facility]) Systolic blood pressure 162 mm[Hg] 162 mm[Hg] M [facility] ([facility]) Body height 66 [in_i] 66 [in_i] [facility] ([facility]) 5'6" Body weight 200.00 [lb_av] 200.00 [lb_av] [facility] ([facility]) Body mass index (BMI) [Ratio] 32.3 kg/m2 32.3 k g/m2 [facility] ([facility]) [place] body weight 130 [lb_av] 130 [lb_av] [facility] ([facility]) Body weight 205.2 [lb_av] 205.2 [lb_av] eCW1 ([facility]) Body height 66 [in_i] 66 [in_i] eCW1 ([facility]) Body mass index (BMI) [Ratio] 33.12 kg/m2 33.12 kg/m2 eCW1 ([facility]) Heart rate 92 /min 92 /min eCW1 ([facility]) Respiratory rate 18 /min 18 /min eCW1 ([facility]) Body temperature 97.5 [degF] 97.5 [degF] eCW1 ( [facility]) Systolic blood pressure 156 mm[Hg] 156 mm[Hg] e CW1 ([facility]) Diastolic blood pressure 94 mm[Hg] 94 mm[Hg] eCW1 ([facility]) Body weight 192 [lb_av] 192 [lb_av] eCW1 ([facility]) Systolic blood pressure 162 mm[Hg] 162 mm[Hg] e CW1 ([facility]) Diastolic blood pressure 96 mm[Hg] 96 mm[Hg] eCW1 ([facility]) Body height 66 [in_i] 66 [in_i] eCW1 ([facility]) Body mass index (BMI) [Ratio] 30.99 kg/m2 30.99 kg/m2 eCW1 ([facility]) Heart rate 96 /min 96 /min eCW1 ([facility]) Respiratory rate 18 /min 18 /min eCW1 ([facility]) Body temperature 97.2 [degF] 97.2 [degF] eCW1 ( [facility]) Body weight 181 [lb_av] 181 [lb_av] eCW1 ([facility]) Body height 66 [in_i] 66 [in_i] eCW1 ([facility]) Body mass index (BMI) [Ratio] 29.21 kg/m2 29.21 kg/m2 eCW1 ([facility]) Heart rate 99 /min 99 /min eCW1 ([facility]) Respiratory rate 18 /min 18 /min eCW1 ([facility]) Body temperature 97 [degF] 97 [degF] eCW1 ([facility]) Systolic blood pressure 166 mm[Hg] 166 mm[Hg] e CW1 ([facility]) Diastolic blood pressure 98 mm[Hg] 98 mm[Hg] eCW1 ([facility]) Body weight 200.2 [lb_av] 200.2 [lb_av] eCW1 ([facility]) Body height 66 [in_i] 66 [in_i] eCW1 ([facility]) Body mass index (BMI) [Ratio] 32.31 kg/m2 32.31 kg/m2 eCW1 ([facility]) Heart rate 104 /min 104 /min eCW1 ([facility]) Respiratory rate 17 /min 17 /min eCW1 ([facility]) Body temperature 97.9 [degF] 97.9 [degF] eCW1 ( [facility]) Systolic blood pressure 164 mm[Hg] 164 mm[Hg] e CW1 ([facility]) Diastolic blood pressure 102 mm[Hg] 102 mm[Hg] eCW1 ([facility]) Patient Treatment Plan of Care Planned Activity Planned Date Details Description Data Source (s) Hydralazine Hydrochloride 50 MG Oral Tablet 09/26/2021 12:00:00 AM EDT eCW1 ([facility]) Hydralazine Hydrochloride 50 MG Oral Tablet 09/26/2021 12:00:00 AM EDT eCW1 ([facility]) Hydralazine Hydrochloride 50 MG Oral Tablet 09/26/2021 12:00:00 AM EDT eCW1 ([facility]) Hydralazine Hydrochloride 50 MG Oral Tablet 09/26/2021 12:00:00 AM EDT eCW1 ([facility]) Hydralazine Hydrochloride 50 MG Oral Tablet 09/26/2021 12:00:00 AM EDT eCW1 ([facility]) Blood Glucose Test - 09/24/2021 12:00:00 AM EDT eCW1 ([facility]) FreeStyle Lite w/Device 09/24/2021 12:00:00 AM EDT eCW1 ([facility]) Bisoprolol Fumarate 5 MG Oral Tablet 09/02/2021 12:00:00 AM EDT eCW1 ([facility]) Bisoprolol Fumarate 5 MG Oral Tablet 09/02/2021 12:00:00 AM EDT eCW1 ([facility]) Bisoprolol Fumarate 5 MG Oral Tablet 09/02/2021 12:00:00 AM EDT eCW1 ([facility]) Bisoprolol Fumarate 5 MG Oral Tablet 09/02/2021 12:00:00 AM EDT eCW1 ([facility]) Bisoprolol Fumarate 5 MG Oral Tablet 09/02/2021 12:00:00 AM EDT eCW1 ([facility]) Regular Insulin, Human 100 UNT/ML Injectable Solution [Humulin R] 01/10/2021 12:00:00 AM EST eCW1 ([facility]) Regular Insulin, Human 100 UNT/ML Injectable Solution [Humulin R] 01/10/2021 12:00:00 AM EST eCW1 ([facility]) Regular Insulin, Human 100 UNT/ML Injectable Solution [Humulin R] 01/10/2021 12:00:00 AM EST eCW1 ([facility]) Regular Insulin, Human 100 UNT/ML Injectable Solution [Humulin R] 01/10/2021 12:00:00 AM EST eCW1 ([facility]) Regular Insulin, Human 100 UNT/ML Injectable Solution [Humulin R] 01/10/2021 12:00:00 AM EST eCW1 ([facility]) Regular Insulin, Human 100 UNT/ML Injectable Solution [Humulin R] 01/10/2021 12:00:00 AM EST eCW1 ([facility]) Regular Insulin, Human 100 UNT/ML Injectable Solution [Humulin R] 01/10/2021 12:00:00 AM EST eCW1 ([facility])
[2021-10-13] MEDS: ASPIRIN 81 MG CHEW TABLET PO SCH (15:15)
[2021-10-13] MEDS: OMEPRAZOLE 20 MG CAP PO SCH (15:16)
[2021-10-13] MEDS: **hydrALAZINE HCL** 25 MG TAB PO SCH (15:16)
[2021-10-13] MEDS: ATORVASTATIN 20 MG TAB PO SCH (15:16)
--- NOTE | 2021-10-13 15:21 | HPEPDOC ---
General Date of Admission 10/13/21 Date of Service: Oct 13, 2021 Chief Complaint The patient is a 61-year-old female admitted with a reason for visit of SOB. Source: Patient Exam Limitations: No limitations History of Present Illness Patient is 61 years old female with past medical history of hypertension, diastolic CHF, hyperlipidemia type 2 diabetes presented to hospital with increased shortness of breath. Patient was recently discharged from the hospital where she was admitted for hypertensive urgency and CHF exacerbation. After discharge patient continued to have shortness of breath more on exertion. She denied any fever, chills, nausea, vomiting. She reported bilateral leg swelling and orthopnea. In ER patient was found to have elevated systolic blood pressure up to 209, elevated white blood count of 15.1, creatinine 1.9, BNP 1562. CT chest showed Congestive heart failure with large bilateral pleural effusions and compressive atelectasis of the adjacent portion of both lungs. Of note the last echo was done on 10/03/2021 and showed diastolic dysfunction with ejection fraction 60 to 65% Home Medications Scheduled Amlodipine Besylate (Amlodipine Besylate) 10 Mg Tablet, 10 MG PO DAILY, (Reported) Aspirin (Aspirin) 81 Mg Tab.chew, 81 MG PO DAILY, (Reported) Atorvastatin Calcium (Atorvastatin Calcium) 80 Mg Tablet, 80 MG PO DAILY, (Reported) Carvedilol (Carvedilol) 25 Mg Tablet, 50 MG PO BID, (Reported) Dorzolamide HCl/Timolol Maleat (Dorzolamide-Timolol Eye Drops) 10 Ml Drops, 1 DROP OU BID, (Reported) Hydralazine HCl (Hydralazine HCl) 50 Mg Tablet, 75 MG PO Q8H, (Reported) Insulin Glargine,Hum.rec.anlog (Semglee) 100 Unit/Ml Vial, 20 UNIT SC DAILY, (Reported) Latanoprost (Xalatan) 0.005% 2.5ML Drops, 1 DROP OU QHS, (Reported) Omeprazole (Omeprazole) 20 Mg Capsule.dr, 20 MG PO DAILY, (Reported) Allergies Coded Allergies: Sulfa (Sulfonamide Antibiotics) (Verified Allergy, Unknown, 08/29/21) Past Medical History Medical History HTN Diastolic CHF (Grade 2) DLP IDDM2 CKD3 Normocytic anemia Glaucoma Obesity GERD Surgical History Left eye cataract surgery Tubal ligation Colonoscopy Family History - Father with a history of carcinoma of unknown type, high blood pressure, coronary disease and diabetes - Mother with a history of hypertension and diabetes Social History * Smoker: former Smoker Alcohol: Denies Drugs: denies A-FIB/CHADSVASC A-FIB History Current/History of A-Fib/PAF?: No Current PO Anticoag Therapy: No Review of Systems Constitutional: Denies: Chills, Fever Eyes: Denies: Pain Skin: Denies: Rash Pulmonary: Reports: Dyspnea Cardiovascular: Reports: Orthopnea, Edema Gastrointestinal: Denies: Nausea, Vomiting Genitourinary: Denies: Dysuria Hematologic: Denies: Bruising Endocrine: Denies: Polydipsia Musculoskeletal: Denies: Neck Pain Neurological: Denies: Weakness Psych: Reports: Mood Normal Physical Examination General Exam: Positive: Alert, Cooperative Eye Exam: Positive: PERRLA ENT Exam: Positive: Atraumatic Neck Exam: Positive: Supple; Negative: JVD Chest Exam: Positive: Diminished Heart Exam: Negative: Rate Normal Telemetry: Negative: No significant arrhythmia Abdomen Exam: Positive: Normal bowel sounds Extremity Exam: Negative: Clubbing Skin Exam: Positive: Nl turgor and temperature Neuro Exam: Positive: Cranial Nerves 3-12 NL Psych Exam: Positive: Oriented x 3 Vital Signs Vital Signs Date Time Temp Pulse Resp B/P (MAP) Pulse Ox O2 Delivery O2 Flow Rate FiO2 10/13/21 14:16 82 22 168/70 (102) 96 Nasal Cannula 3.0 10/13/21 11:18 96.7 Laboratory Data Labs 24H Laboratory Tests 2 10/13/21 11:09: Immature Granulocyte % (Auto) 0.2, Neutrophils (%) (Auto) 90.3H, Lymphocytes (%) (Auto) 3.4L, Monocytes (%) (Auto) 5.9, Eosinophils (%) (Auto) 0.1, Basophils (%) (Auto) 0.1, Neutrophils # (Auto) 13.6H, Lymphocytes # (Auto) 0.5L, Monocytes # (Auto) 0.9H, Eosinophils # (Auto) 0.0, Basophils # (Auto) 0.0, Nucleated Red Blood Cells % (auto) 0.0, Prothrombin Time 14.1H, Prothromb Time International Ratio 1.04, D-Dimer, Quantitative 2020.34H, Blood Gas Bicarbonate Standard 19.1, Venous Blood pH 7.224L, Venous Blood Partial Pressure CO2 53.6H, Venous Blood Partial Pressure O2 52.8H, Venous Blood Total Carbon Dioxide 23.3L, Venous Blood HCO3 21.6L, Venous Blood Oxygen Saturation 83.8H, Venous Blood Base Excess - 6.3L, Anion Gap 7L, Glomerular Filtration Rate 27.1L, Lactic Acid Level 1.2, Calcium Level 8.5L, Total Bilirubin 0.3, Direct Bilirubin < 0.1, Aspartate Amino Transf (AST/SGOT) 33, Alanine Aminotransferase (ALT/SGPT) 36, Alkaline Phosphatase 130H, Total Creatine Kinase 113, Creatine Kinase MB 4.9H, Creatine Kinase MB Relative Index 4.34H, Troponin I < 0.02, XJ-Cya-T-Type Natriuretic Peptide 1562H, Total Protein 6.8, Albumin 2.7L, Albumin/Globulin Ratio 0.7L, Thyroid Stimulating Hormone (TSH) 2.020 10/13/21 12:35: Blood Gas Bicarbonate Standard 21.0L, Arterial Blood pH 7.349L, Arterial Blood Partial Pressure CO2 39.0, Arterial Blood Partial Pressure O2 102.5H, Arterial Blood Total CO2 22.2L, Arterial Blood HCO3 21.0L, Arterial Blood Base Excess - 4.2L, Arterial Blood Oxygen Saturation 97.1 CBC/BMP Laboratory Tests 10/13/21 11:09 Microbiology Microbiology 10/13/21 Gastrointestinal Tract Panel (PCR) - Final, Complete 10/13/21 Blood Culture, Received Pending 10/13/21 Respiratory Virus Panel (PCR) ([facility]) - Final, Complete 10/13/21 Blood Culture, Received Pending Assessment/Plan Patient is 61 years old female with past medical history of hypertension, diastolic CHF, hyperlipidemia type 2 diabetes presented to hospital with increased shortness of breath. Patient was recently discharged from the hospital where she was admitted for hypertensive urgency and CHF exacerbation. After discharge patient continued to have shortness of breath more on exertion. She denied any fever, chills, nausea, vomiting. She reported bilateral leg swelling and orthopnea. In ER patient was found to have elevated systolic blood pressure up to 209, elevated white blood count of 15.1, creatinine 1.9, BNP 1562. CT chest showed Congestive heart failure with large bilateral pleural effusions and compressive atelectasis of the adjacent portion of both lungs. Of note the last echo was done on 10/03/2021 and showed diastolic dysfunction with ejection fraction 60 to 65% Problems (1) Acute on chronic diastolic (congestive) heart failure Status: Acute Problem Text: Patient has leg swelling, orthopnea with elevated BNP Unlikely patient has pneumonia, she denied any cough or sputum production. We continue to monitor leukocytosis I's and O's Salt restriction Fluid restriction to 1500 cc Lasix IV 40 mg every 8 hours (2) Type 2 diabetes mellitus Status: Chronic Problem Text: Detemir twice daily Insulin sliding scale Diabetes diet (3) Hypertensive urgency Status: Resolved Problem Text: Patient received hydralazine IV in the emergency room, her blood pressure 160/80 when I saw her in ER Continue home meds (4) Hyperlipidemia Status: Chronic Problem Text: Continue statin (5) Acute kidney failure Status: Acute Problem Text: Most likely secondary to intravascular depletion secondary to acute CHF Continue to monitor (6) Obesity (BMI 30-39.9) Status: Chronic Problem Text: Complicated care (7) GERD (gastroesophageal reflux disease) Status: Chronic Problem Text: Continue PPI Plan / VTE VTE Prophylaxis Ordered?: Yes FAIZA DELGADO DO Oct 13, 2021 15:21
[2021-10-13 16:15] VITALS: BP 160/70
[2021-10-13] MEDS: ACETAMINOPHEN TAB 650MG DOSE (2X325MG) PO PRN (17:09)
[2021-10-13] MEDS: HumaLOG INSULIN (NovoLOG) PER UNIT SC SCH ×2 (17:30→19:42)
[2021-10-13] MEDS: LEVEMIR (INSULIN DETEMIR) 1 UNITS/0.01ML SC SCH (17:51)
--- NOTE | 2021-10-13 20:10 | ECGEPIP ---
[facility] - ED Test Date: 2021-10-13 Pat Name: JOSHUA PORTILLO Department: Room: - Gender: Female Face Cleaner: RS : 1960 Requested By: RAJ Lopez Order Number: [id number] Reading MD: Rja Jernigan Measurements Intervals Kemp Rate: 77 P: 61 UT: 114 QRS: 3 QRSD: 88 T: 65 QT: 412 QTc: 466 Interpretive Statements Normal sinus rhythm Baseline artifact Delayed anterior R wave progression Similar to tracing done 10-01-21 Electronically Signed on 10-13-2021 20:10:36 EST by Raj Jernigan
[2021-10-13 22:00] VITALS: BP 136/67
[2021-10-13] MEDS: HEPARIN SOD (PORCINE) 5000UNITS/ML 1ML VIAL/SYRINGE SC SCH (22:24)
[2021-10-13] MEDS: NYSTATIN 100,000 UNITS/GM TOPICAL PWD 15 GM TOP SCH (22:25)
[2021-10-13] MEDS: COSOPT OCUMETER PLUS 10ML (DORZOLAMIDE/TIMOLOL) OU SCH (22:25)
[2021-10-13] MEDS: FUROSEMIDE 40MG/4ML VIAL (J1940) IV SCH (22:26)
[2021-10-13] MEDS: CARVedilol 12.5 MG TAB PO SCH (22:28)
[2021-10-14] MEDS: LATANOPROST 0.005% OPHTH SOLN 2.5 ML OU SCH ×2 (00:34→21:18)
[2021-10-14] MEDS: **hydrALAZINE HCL** 25 MG TAB PO SCH ×3 (00:35→15:11)
[2021-10-14] MEDS: ACETAMINOPHEN TAB 650MG DOSE (2X325MG) PO PRN ×2 (05:50→21:32)
[2021-10-14] MEDS: FUROSEMIDE 40MG/4ML VIAL (J1940) IV SCH ×3 (05:50→21:20)
[2021-10-14 05:59] LABS: HEMATOCRIT 29.1 % (36.0-47.0); MEAN CORPUSCULAR HEMOGLOBIN 27.2 pg (27.0-33.0); MEAN CORPUSCULAR HGB CONC 29.9 g/dl (32.0-36.5); MEAN CORPUSCULAR VOLUME 90.9 fl (80.0-96.0); PLATELET COUNT, AUTOMATED 314 10^3/uL (150-450); WHITE BLOOD COUNT 9.9 10^3/uL (4.0-10.0)
[2021-10-14 06:00] VITALS: BP 120/58
[2021-10-14 06:07] LABS: HEMOGLOBIN 8.7 g/dl (12.0-15.5)
[2021-10-14 06:30] LABS: BILIRUBIN,TOTAL 0.2 MG/DL (0.2-1.0); CALCIUM LEVEL 8.2 MG/DL (8.8-10.2); CREATININE FOR GFR 2.19 MG/DL (0.55-1.30); GLOMERULAR FILTRATION RATE 24.1 (>45); MAGNESIUM LEVEL 1.7 MG/DL (1.8-2.4); POTASSIUM SERUM 4.9 MEQ/L (3.5-5.1); TOTAL PROTEIN 5.2 GM/DL (6.4-8.2)
[2021-10-14] MEDS: HumaLOG INSULIN (NovoLOG) PER UNIT SC SCH ×4 (07:30→21:00)
[2021-10-14 08:30] LABS: PERCENT SATURATION 7.5 % (13.2-45.0)
[2021-10-14] MEDS: HEPARIN SOD (PORCINE) 5000UNITS/ML 1ML VIAL/SYRINGE SC SCH ×2 (08:33→21:17)
[2021-10-14] MEDS: LEVEMIR (INSULIN DETEMIR) 1 UNITS/0.01ML SC SCH (08:33)
[2021-10-14] MEDS: ATORVASTATIN 20 MG TAB PO SCH (08:33)
[2021-10-14] MEDS: CARVedilol 12.5 MG TAB PO SCH ×2 (08:34→21:16)
[2021-10-14] MEDS: OMEPRAZOLE 20 MG CAP PO SCH (08:35)
[2021-10-14] MEDS: ASPIRIN 81 MG CHEW TABLET PO SCH (08:35)
[2021-10-14] MEDS: NYSTATIN 100,000 UNITS/GM TOPICAL PWD 15 GM TOP SCH ×2 (08:36→21:17)
[2021-10-14] MEDS: COSOPT OCUMETER PLUS 10ML (DORZOLAMIDE/TIMOLOL) OU SCH ×2 (08:36→21:17)
--- NOTE | 2021-10-14 10:34 | IPNPDOC ---
Text Note Date of Service The patient was seen on 10/14/21. NOTE Iron subjective: No any acute events overnight. Patient stated that she feels better and her breathing improved. She reported less legs swelling Objective: GENERAL APPEARANCE: NAD HEENT: no scleral icterus, plus JVD, EOMI CARDIOVASCULAR: S1S2 LUNGS: Diminished lung sounds bilaterally ABDOMEN: soft & not tender w palpation MUSCULOSKELETAL: no cyanosis, +2 bilateral leg swelling INTEGUMENT: no generalized pallor NEUROLOGICAL: cranial nerve function from 2-12 intact, follows commands, speech not dysarthric Assessment/Plan Patient is 61 years old female with past medical history of hypertension, diastolic CHF, hyperlipidemia type 2 diabetes presented to hospital with increased shortness of breath. Patient was recently discharged from the hospital where she was admitted for hypertensive urgency and CHF exacerbation. After discharge patient continued to have shortness of breath more on exertion. She denied any fever, chills, nausea, vomiting. She reported bilateral leg swelling and orthopnea. In ER patient was found to have elevated systolic blood pressure up to 209, elevated white blood count of 15.1, creatinine 1.9, BNP 1562. CT chest showed Congestive heart failure with large bilateral pleural effusions and compressive atelectasis of the adjacent portion of both lungs. Of note the last echo was done on 10/03/2021 and showed diastolic dysfunction with ejection fraction 60 to 65% Problems (1) Acute on chronic diastolic (congestive) heart failure Patient had leg swelling, orthopnea with elevated BNP Unlikely patient has pneumonia, she denied any cough or sputum production. We continue to monitor leukocytosis I's and O's Salt restriction Fluid restriction to 1500 cc Lasix IV 40 mg every 8 hours Continue to monitor urine output (2) Type 2 diabetes mellitus Detemir twice daily Insulin sliding scale Diabetes diet (3) Hypertensive urgency/hypertension Hypertensive urgency resolved. Blood pressure under control Continue home meds (4) Hyperlipidemia Continue statin (5) Acute kidney failure Most likely secondary to intravascular depletion secondary to acute CHF Continue to monitor (6) Obesity (BMI 30-39.9) Complicated care (7) GERD (gastroesophageal reflux disease) Continue PPI Normocytic anemia Today hemoglobin dropped to 8.7 Iron panel shows low iron I started iron supplementation Await B12, folate level Stool for occult blood DVT prophylaxis with heparin subcutaneously VS,Fishbone, I+O VS, Fishbone, I+O Laboratory Tests 10/13/21 11:09 10/14/21 05:15 Vital Signs Date Time Temp Pulse Resp B/P (MAP) Pulse Ox O2 Delivery O2 Flow Rate FiO2 10/14/21 08:34 71 127/52 10/14/21 06:00 99.2 20 94 Nasal Cannula 3.0 I&O- Last 24 Hours up to 6 AM 10/14/21 06:00 Intake Total 480 ml Output Total 850 ml Balance -370 ml FAIZA DELGADO DO Oct 14, 2021 10:34
[2021-10-14 10:43] LABS: FOLATE 10.9 NG/ML (>5.4)
[2021-10-14] MEDS: IRON POLYSAC (NIFEREX) 150 MG CAP PO SCH ×2 (11:54→21:16)
[2021-10-14] MEDS: MAGNESIUM OXIDE 400MG TAB (MAG-OX) PO SCH ×2 (11:55→21:16)
[2021-10-14 14:00] VITALS: BP 98/38
[2021-10-14 18:00] VITALS: BP 144/59
[2021-10-14] MEDS ORDERED: LEVEMIR (INSULIN DETEMIR) 1 UNITS/0.01ML SC SCH (21:00)
[2021-10-14 22:00] VITALS: BP 144/65
[2021-10-15] MEDS: **hydrALAZINE HCL** 25 MG TAB PO SCH ×4 (00:09→23:29)
[2021-10-15] MEDS: FUROSEMIDE 40MG/4ML VIAL (J1940) IV SCH (06:05)
[2021-10-15] MEDS: HumaLOG INSULIN (NovoLOG) PER UNIT SC SCH ×4 (07:30→21:00)
[2021-10-15] MEDS ORDERED: LEVEMIR (INSULIN DETEMIR) 1 UNITS/0.01ML SC SCH (09:00)
[2021-10-15] MEDS: ASPIRIN 81 MG CHEW TABLET PO SCH (09:17)
[2021-10-15] MEDS: HEPARIN SOD (PORCINE) 5000UNITS/ML 1ML VIAL/SYRINGE SC SCH ×2 (09:17→21:20)
[2021-10-15] MEDS: ATORVASTATIN 20 MG TAB PO SCH (09:18)
[2021-10-15] MEDS: IRON POLYSAC (NIFEREX) 150 MG CAP PO SCH ×2 (09:18→21:20)
[2021-10-15] MEDS: CARVedilol 12.5 MG TAB PO SCH ×2 (09:18→21:20)
[2021-10-15] MEDS: OMEPRAZOLE 20 MG CAP PO SCH (09:19)
[2021-10-15] MEDS: MAGNESIUM OXIDE 400MG TAB (MAG-OX) PO SCH (09:19)
[2021-10-15] MEDS: COSOPT OCUMETER PLUS 10ML (DORZOLAMIDE/TIMOLOL) OU SCH ×2 (09:20→21:19)
[2021-10-15] MEDS: NYSTATIN 100,000 UNITS/GM TOPICAL PWD 15 GM TOP SCH ×2 (09:20→21:21)
--- NOTE | 2021-10-15 09:52 | ECHO ---
ECHOCARDIOGRAM DATE OF PROCEDURE: 10/14/2021 Age: 61 Gender: Female Height: 66 inches Weight: 207 pounds Body Surface Area: 2.03 m2 PATIENT LOCATION: [facility] Room 4225. REFERRING PHYSICIAN: George Vila DO. INDICATION: CHF. MEASUREMENTS: 2D Measurements: RV 3.8 cm LV 4.6 cm Septum 1.4 cm Posterior wall 1.4 cm Aortic Root 2.9 cm LA 4.1 cm LVEF 75% Doppler Measurements: AV 1.4 m/s LVOT 1.0 m/s LVOT diameter 2.0 cm MV-E 126, A 129, EA ratio 1 Early mitral deceleration time 306 msec Mean 5 mmHg MVA (pressure half time) 2.4 cm2 PV 1.0 m/s Pulmonary artery acceleration time 88 msec PASP 42 mmHg IVC 2.2 cm COMMENTS: Normal sinus rhythm without intraventricular conduction disturbance. Technically challenging study in light of the patient's body habitus, but diagnostically useful information was still obtained. M-mode and 2-dimensional echocardiography was performed with pulse, continuous wave, color flow, and tissue Doppler studies. Moderate concentric left ventricular hypertrophy with hyperkinetic wall motion. Mildly dilated left atrium. Unable to comment on LV diastolic function or estimated mean left atrial pressure in light of mitral valve disease. Fairly severe mitral annular calcification with mild inflow tract obstruction and only very mild mitral insufficiency. Mild aortic valvular sclerosis without stenosis or insufficiency. Normal appearing tricuspid valve with mild insufficiency. IVC size upper limits of normal to mildly dilated with reduced respiratory collapse suggestive of an elevated central venous pressure. No apparent intracardiac mass. Small posterior pericardial effusion measuring 4 mm without any sign of cardiac chamber compression. MTDD
[2021-10-15 12:00] VITALS: BP 143/65
[2021-10-15 14:00] VITALS: BP 141/65
[2021-10-15] MEDS ORDERED: MAGNESIUM OXIDE 400MG TAB (MAG-OX) PO ONE (15:00)
[2021-10-15] MEDS ORDERED: DEXTROSE 50% 50 ML SYRINGE IV ONE (18:35)
--- NOTE | 2021-10-15 20:25 | IPNPDOC ---
Text Note Date of Service The patient was seen on 10/15/21. NOTE Subjective: 61-year female admitted for shortness of breath secondary to CHF exacerbation; also noted to have hypertensive urgency. Today, she was seen and examined at bedside this morning. director toxicology was used (agent #[id number]). She reports significant improvement chest pain, shortness of breath, abdominal pain, nausea, vomiting, problem with urination and bowel movements. Review of systems: 10 point review of system was negative except for what is noted in the HPI Physical exam: General: Lying in bed, no acute distress Head/Neck/Throat: Trachea midline, mucous membranes moist Eyes: Sclera anicteric, no erythema or discharge appreciated bilaterally Thorax: Normal respiratory effort on room air, lungs clear to auscultation bilaterally, no wheezes/rales/rhonchi Cardiovascular: Normal rate, regular rhythm, normal S1, S2; 2+ pitting edema, no JVD appreciated Abdomen: Bowel sounds present, soft/nontender/nondistended Genitourinary: No CVA tenderness, no Castillo in place Musculoskeletal: Moving all extremities, no edema Skin: Warm, dry Neurologic: AAOx3, speech fluent and goal-directed, no focal deficits, grossly intact Labs: See below Imaging: Please see imaging section Assessment/plan: 61-year-old female with past medical history of hypertension, diastolic heart failure, hyperlipidemia, type 2 diabetes mellitus presented emergency room department with shortness of breath. She also reported bilateral lower extremity swelling as well as orthopnea. The emergency room department she is noted to have elevated BNP and CT chest findings consistent with congestive heart failure. She was admitted for CHF exacerbation management. She was also noted to have hypertensive emergency with blood pressure up to 209. #Acute on chronic diastolic congestive heart failure -Continue with Lasix. Monitor I/os/daily weights. Fluid restriction and low- sodium diet. #Type 2 diabetes mellitus -Had episode of hypoglycemia due to poor p.o. intake. Will hold Levemir. Continue with Accu-Chek, sliding scale, and hypoglycemic protocol. #Hypertensive urgency -Resolved. Considering she is on furosemide this will further lower her blood pressure, therefore will space out her antihypertensive medications so they are not all given in the morning. #Normocytic anemia -She has low iron, therefore was started on iron supplementation. We will also start her on vitamin B12. #Chronic kidney disease -Her baseline ranges from 1.9 to 2.3 mg/dL. She likely has underlying hypertensive as well as diabetic nephropathy. She will need to follow-up with a literacy consultant outpatient. This was explained to her in length. #Obesity -Complicates care #GERD -Continue with PPI therapy #DVT prophylaxis -Heparin subcu Disposition: Patient reports she has physical therapy coming to her house twice weekly. She did not want to be placed in rehab and wishes to go home once she is medically stable. Anticipate discharge in the next 24 hours back to home with home health services. VS,Fishbone, I+O VS, Fishbone, I+O Vital Signs Date Time Temp Pulse Resp B/P (MAP) Pulse Ox O2 Delivery O2 Flow Rate FiO2 10/15/21 15:48 137/65 10/15/21 14:00 97.6 75 17 92 Nasal Cannula 3.0 I&O- Last 24 Hours up to 6 AM 10/15/21 06:00 Intake Total 838 ml Output Total 700 ml Balance 138 ml SHARMAINE AN M.D. Oct 15, 2021 20:24
[2021-10-15] MEDS: LATANOPROST 0.005% OPHTH SOLN 2.5 ML OU SCH (21:21)
[2021-10-15 22:00] VITALS: BP 129/64
[2021-10-16 06:00] VITALS: BP 133/66
[2021-10-16 06:19] LABS: HEMATOCRIT 28.7 % (36.0-47.0); HEMOGLOBIN 8.6 g/dl (12.0-15.5); MEAN CORPUSCULAR HEMOGLOBIN 26.5 pg (27.0-33.0); MEAN CORPUSCULAR VOLUME 88.6 fl (80.0-96.0); PLATELET COUNT, AUTOMATED 308 10^3/uL (150-450); RED BLOOD COUNT 3.24 10^6/uL (4.00-5.40); WHITE BLOOD COUNT 9.4 10^3/uL (4.0-10.0)
[2021-10-16 06:37] LABS: CALCIUM LEVEL 8.6 MG/DL (8.8-10.2); CREATININE FOR GFR 2.5 MG/DL (0.55-1.30); GLOMERULAR FILTRATION RATE 20.7 (>45); PHOSPHORUS LEVEL 3.7 MG/DL (2.5-4.9); POTASSIUM SERUM 4.8 MEQ/L (3.5-5.1)
[2021-10-16] MEDS: HumaLOG INSULIN (NovoLOG) PER UNIT SC SCH ×4 (08:35→21:00)
[2021-10-16] MEDS: **hydrALAZINE HCL** 25 MG TAB PO SCH ×3 (08:35→23:28)
[2021-10-16] MEDS: CARVedilol 12.5 MG TAB PO SCH ×2 (08:35→21:33)
[2021-10-16] MEDS: IRON POLYSAC (NIFEREX) 150 MG CAP PO SCH ×2 (08:36→21:34)
[2021-10-16] MEDS: ATORVASTATIN 20 MG TAB PO SCH (08:36)
[2021-10-16] MEDS: ASPIRIN 81 MG CHEW TABLET PO SCH (08:36)
[2021-10-16] MEDS: OMEPRAZOLE 20 MG CAP PO SCH (08:36)
[2021-10-16] MEDS: HEPARIN SOD (PORCINE) 5000UNITS/ML 1ML VIAL/SYRINGE SC SCH ×2 (08:36→21:34)
[2021-10-16] MEDS: NYSTATIN 100,000 UNITS/GM TOPICAL PWD 15 GM TOP SCH ×2 (08:36→21:35)
[2021-10-16] MEDS: COSOPT OCUMETER PLUS 10ML (DORZOLAMIDE/TIMOLOL) OU SCH ×2 (08:36→21:32)
[2021-10-16] MEDS ORDERED: FUROSEMIDE 40MG/4ML VIAL (J1940) IV SCH (09:00)
[2021-10-16 14:00] VITALS: BP 132/64
--- NOTE | 2021-10-16 18:33 | IPNPDOC ---
Text Note Date of Service The patient was seen on 10/16/21. NOTE 61-year female admitted for shortness of breath secondary to CHF exacerbation; also noted to have hypertensive urgency. Today, she was seen and examined at bedside this morning. replenishment associate was used (agent # [id number]). She reports significant improvement chest pain, shortness of breath, abdominal pain, nausea, vomiting, problem with urination and bowel movements. She again reiterated that she would not want to go to rehab. Review of systems: 10 point review of system was negative except for what is noted in the HPI Physical exam: General: Lying in bed, no acute distress Head/Neck/Throat: Trachea midline, mucous membranes moist Eyes: Sclera anicteric, no erythema or discharge appreciated bilaterally Thorax: Normal respiratory effort on room air, lungs clear to auscultation bilaterally, no wheezes/rales/rhonchi Cardiovascular: Normal rate, regular rhythm, normal S1, S2; 2+ pitting edema, no JVD appreciated Abdomen: Bowel sounds present, soft/nontender/nondistended Genitourinary: No CVA tenderness, no Castillo in place Musculoskeletal: Moving all extremities, no edema Skin: Warm, dry Neurologic: AAOx3, speech fluent and goal-directed, no focal deficits, grossly intact Labs: See below Imaging: Please see imaging section Assessment/plan: 61-year-old female with past medical history of hypertension, diastolic heart failure, hyperlipidemia, type 2 diabetes mellitus presented emergency room department with shortness of breath. She also reported bilateral lower extremity swelling as well as orthopnea. The emergency room department she is noted to have elevated BNP and CT chest findings consistent with congestive heart failure. She was admitted for CHF exacerbation management. She was also noted to have hypertensive emergency with blood pressure up to 209. #Acute on chronic diastolic congestive heart failure -Hold Lasix due to bump in creatinine. Monitor I/os/daily weights. Fluid restriction and low-sodium diet. #Type 2 diabetes mellitus -Had episode of hypoglycemia due to poor p.o. intake. Will hold Levemir. Continue with Accu-Chek, sliding scale, and hypoglycemic protocol. #Hypertensive urgency -Resolved. Continue with amlodipine, carvedilol, and hydralazine. #Normocytic anemia -She has low iron, therefore was started on iron supplementation. Continue with vitamin B12 supplementation. #Chronic kidney disease -Her baseline ranges from 1.9 to 2.3 mg/dL. She likely has underlying hypertensive as well as diabetic nephropathy. She will need to follow-up with a enrollment eligibility representative outpatient. This was explained to her in length. Hold furosemide #Obesity -Complicates care #GERD -Continue with PPI therapy #DVT prophylaxis -Heparin subcu Disposition: Patient reports she has physical therapy coming to her house twice weekly. She did not want to be placed in rehab and wishes to go home once she is medically stable. PFS was able to reach out to her granddaughter and reports there will be someone at home to watch her following discharge. Occupational Therapy will also be set up with home health services. She will be made ALC status as we are waiting for appropriate home equipment for her to be discharged home safely to be provided. VS,Fishbone, I+O VS, Fishbone, I+O Laboratory Tests 10/16/21 06:03 Vital Signs Date Time Temp Pulse Resp B/P (MAP) Pulse Ox O2 Delivery O2 Flow Rate FiO2 10/16/21 18:24 75 135/63 10/16/21 14:00 98.7 17 92 Nasal Cannula 1.0 I&O- Last 24 Hours up to 6 AM 10/16/21 06:00 Intake Total 200 ml Output Total 825 ml Balance -625 ml SHARMAINE AN M.D. Oct 16, 2021 18:33
[2021-10-16] MEDS: CYANOCOBALAMIN 500 MCG TAB PO SCH (18:39)
[2021-10-16] MEDS: ACETAMINOPHEN TAB 650MG DOSE (2X325MG) PO PRN (21:38)
[2021-10-16] MEDS: LATANOPROST 0.005% OPHTH SOLN 2.5 ML OU SCH (21:40)
[2021-10-17 06:00] VITALS: BP 130/54
[2021-10-17] MEDS: HEPARIN SOD (PORCINE) 5000UNITS/ML 1ML VIAL/SYRINGE SC SCH ×2 (08:28→20:54)
[2021-10-17] MEDS: HumaLOG INSULIN (NovoLOG) PER UNIT SC SCH ×4 (08:28→20:54)
[2021-10-17] MEDS: ATORVASTATIN 20 MG TAB PO SCH (08:29)
[2021-10-17] MEDS: IRON POLYSAC (NIFEREX) 150 MG CAP PO SCH ×2 (08:29→20:51)
[2021-10-17] MEDS: CYANOCOBALAMIN 500 MCG TAB PO SCH (08:30)
[2021-10-17] MEDS: **hydrALAZINE HCL** 25 MG TAB PO SCH ×2 (08:30→16:17)
[2021-10-17] MEDS: ASPIRIN 81 MG CHEW TABLET PO SCH (08:31)
[2021-10-17] MEDS: OMEPRAZOLE 20 MG CAP PO SCH (08:31)
[2021-10-17] MEDS: CARVedilol 12.5 MG TAB PO SCH ×2 (08:31→20:54)
[2021-10-17] MEDS: COSOPT OCUMETER PLUS 10ML (DORZOLAMIDE/TIMOLOL) OU SCH ×2 (08:34→20:59)
[2021-10-17] MEDS: NYSTATIN 100,000 UNITS/GM TOPICAL PWD 15 GM TOP SCH ×2 (08:34→20:59)
[2021-10-17] MEDS ORDERED: VITA500T40 PO (11:05)
[2021-10-17] MEDS ORDERED: FURO40TA2 PO (11:16)
[2021-10-17 12:28] LABS: CALCIUM LEVEL 9.1 MG/DL (8.8-10.2); CREATININE FOR GFR 2.49 MG/DL (0.55-1.30); GLOMERULAR FILTRATION RATE 20.8 (>45); POTASSIUM SERUM 5.3 MEQ/L (3.5-5.1)
[2021-10-17] MEDS ORDERED: PATIROMER SORBITEX CALCIUM 8.4 GM POWDER PACKET (VELTASSA) PO ONE ×2 (14:00→18:00)
[2021-10-17] MEDS ORDERED: SOD POLYSTYRENE SULFONATE SUSP 15 GM/60 ML UD PO ONE (15:00)
--- NOTE | 2021-10-17 16:34 | DS.PDOC ---
Discharge Summary General Date of Admission Oct 13, 2021 at 15:00 Date of Discharge 10/18/21 Discharge Summary Patient was seen, examined, and discharged on 10/18/21 DISCHARGE DIAGNOSES: 1. Acute on chronic diastolic congestive heart failure 2 type 2 diabetes mellitus 3 hypertensive urgency 4 chronic kidney disease COMPLICATIONS/CHIEF COMPLAINT: CHF. HOSPITAL COURSE: Mr. Conley, is a 61-year-old female with a past medical history of hypertension, diastolic heart failure, hyperlipidemia, type 2 diabetes mellitus presented emergency department with worsening shortness of breath. She was noted to be in CHF exacerbation. She was also noted to have uncontrolled blood pressure/hypertensive urgency. She had satisfactory response to IV Lasix and improvement in her symptoms. Her blood pressure was treated in the emergency room department with IV hydralazine and was well controlled with her ambulatory antihypertensive medications as well as the furosemide as she was receiving. At the time of discharge, hydralazine dose was increased. She was asked to check her blood pressure prior to taking her antihypertensive medications. She was noted to have chronic kidney disease with baseline creatinine 1.9 to 2.3 mg/dL. She was asked to follow-up with her primary care physician for further management of chronic kidney disease and for her to be referred to a refuse driver. Of note, she was asked to start taking furosemide on 10/20/21 and to get repeat blood work done with her primary care physician to ensure her renal function was within normal limits. She was also noted to have normocytic anemia which needs further work-up with her primary care physician. During hospitalization, she was noted to be hyperkalemic. This likely due to her chronic kidney disease. She was asked to maintain a low potassium diet. She is instructed to have repeat blood work done in 2 to 3 days to ensure her electrolytes are within normal limits and her kidney function is stable. She will need to follow-up with her primary care physician and refuse driver. The above explained to the patient with a educational sign language interpreter (agent #[id number]) and also her granddaughter as per the patient's wishes. DISCHARGE MEDICATIONS: Please see below. ALLERGIES: Please see below. PHYSICAL EXAMINATION ON DISCHARGE: VITAL SIGNS: Please see below. General: Lying in bed, no acute distress Head/Neck/Throat: Trachea midline, mucous membranes moist Eyes: Sclera anicteric, PERRLA Thorax: Normal respiratory effort on room air, lungs clear to auscultation bilaterally, no wheezes/rales/rhonchi Cardiovascular: Normal rate, regular rhythm, normal S1, S2, significant improvement in her right lower extremity edema Abdomen: Bowel sounds present, soft/nontender/nondistended Genitourinary: No CVA tenderness, no Castillo in place Musculoskeletal: Moving all extremities, no edema Skin: Warm, dry Neurologic: AAOx3, speech fluent and goal-directed, no focal deficits, grossly intact LABORATORY DATA: Please see below. IMAGING: ECHOCARDIOGRAM Normal sinus rhythm without intraventricular conduction disturbance. Technically challenging study in light of the patient's body habitus, but diagnostically useful information was still obtained. M-mode and 2-dimensional echocardiography was performed with pulse, continuous wave, color flow, and tissue Doppler studies. Moderate concentric left ventricular hypertrophy with hyperkinetic wall motion. Mildly dilated left atrium. Unable to comment on LV diastolic function or estimated mean left atrial pressure in light of mitral valve disease. Fairly severe mitral annular calcification with mild inflow tract obstruction and only very mild mitral insufficiency. Mild aortic valvular sclerosis without stenosis or insufficiency. Normal appearing tricuspid valve with mild insufficiency. IVC size upper limits of normal to mildly dilated with reduced respiratory collapse suggestive of an elevated central venous pressure. No apparent intracardiac mass. CT Chest without contrast FINDINGS: Lower neck: The thyroid gland is heterogeneous in density without discrete nodules. There is no supraclavicular lymphadenopathy. Mediastinum: No abnormal masses or lymphadenopathy. Heart/thoracic aorta: The heart is enlarged. There is a small pericardial effusion. There is calcific vascular disease of the thoracic aorta and coronary arteries. The mitral valve is heavily calcified. Upper abdomen: There is calcific vascular disease of the abdominal aorta. There is a 2.4 cm in diameter right adrenal adenoma. There is a 2.2 cm in diameter left adrenal adenoma. There is left nephrolithiasis. Thoracic esophagus: Normal. Chest wall and axilla: The visualized breasts and soft tissues of the chest wall are unremarkable. There is no axillary lymphadenopathy. There is moderate multilevel degenerative disc disease of the thoracic spine with moderate dextroscoliosis. Lung parenchyma: There is pulmonary venous hypertension, pulmonary interstitial edema and bilateral pleural effusions. There is compressive atelectasis of the adjacent portion of both lungs. IMPRESSION: 1. Congestive heart failure with large bilateral pleural effusions and compressive atelectasis of the adjacent portion of both lungs. 2. Calcific vascular disease of the thoracoabdominal aorta and coronary arteries. 3. Bilateral adrenal adenomas. 4. Left nephrolithiasis. 5. Thoracic degenerative disc disease with dextroscoliosis. PROGNOSIS: Good ACTIVITY: As tolerated DIET: Low sodium and potassium diet DISCHARGE INSTRUCTIONS: 1. As explained above DISCHARGE CONDITION: Stable TIME SPENT ON DISCHARGE: 30 minutes. Vital Signs/I&Os Vital Signs Date Time Temp Pulse Resp B/P (MAP) Pulse Ox O2 Delivery O2 Flow Rate FiO2 10/17/21 16:17 130/54 10/17/21 08:31 67 10/17/21 06:00 98.7 18 91 Nasal Cannula 1.0 I&O- Last 24 Hours up to 6 AM 10/17/21 06:00 Intake Total 300 ml Balance 300 ml Laboratory Data Labs 24H Laboratory Tests 2 10/16/21 17:52: Bedside Glucose (Misc Panel) 192H 10/16/21 20:19: Bedside Glucose (Misc Panel) 202H 10/17/21 05:02: Bedside Glucose (Misc Panel) 140H 10/17/21 06:29: Bedside Glucose (Misc Panel) 161H 10/17/21 11:38: Anion Gap 4L, Glomerular Filtration Rate 20.8L, Calcium Level 9.1 10/17/21 11:40: Bedside Glucose (Misc Panel) 222H CBC/BMP Laboratory Tests 10/17/21 11:38 FSBS Laboratory Tests Test 10/16/21 17:52 10/16/21 20:19 10/17/21 05:02 10/17/21 06:29 Range/Units Bedside Glucose (Misc Panel) 192 202 140 161 80-115 MG/DL Test 10/17/21 11:40 Range/Units Bedside Glucose (Misc Panel) 222 80-115 MG/DL Microbiology Microbiology 10/15/21 Stool Occult Blood (SVETLANA) - Final, Complete 10/13/21 Gastrointestinal Tract Panel (PCR) - Final, Complete 10/13/21 Blood Culture - Preliminary, Resulted No Growth after 72 hours. All specime... 10/13/21 Respiratory Virus Panel (PCR) (SVETLANA) - Final, Complete 10/13/21 Blood Culture - Preliminary, Resulted No Growth after 72 hours. All specime... Discharge Medications Scheduled Amlodipine Besylate (Amlodipine Besylate) 10 Mg Tablet, 10 MG PO DAILY, (Reported) Aspirin (Aspirin) 81 Mg Tab.chew, 81 MG PO DAILY, (Reported) Atorvastatin Calcium (Atorvastatin Calcium) 80 Mg Tablet, 80 MG PO DAILY, (Reported) Carvedilol (Carvedilol) 25 Mg Tablet, 50 MG PO BID, (Reported) Cyanocobalamin (Vitamin B-12) (Vitamin B-12) 500 Mcg Tablet, 1,000 MCG PO DAILY Dorzolamide HCl/Timolol Maleat (Dorzolamide-Timolol Eye Drops) 10 Ml Drops, 1 DROP OU BID, (Reported) Furosemide (Furosemide) 40 Mg Tablet, 40 MG PO DAILY Start taking on 10/20/21 Insulin Glargine,Hum.rec.anlog (Semglee) 100 Unit/Ml Vial, 20 UNIT SC DAILY, (Reported) Iron Ag,Ps/C/Fa6/B12/Zn/SA/Sto (Niferex Tablet) 1 Each Tablet, 150 MG PO BID Latanoprost (Xalatan) 0.005% 2.5ML Drops, 1 DROP OU QHS, (Reported) Omeprazole (Omeprazole) 20 Mg Capsule.dr, 20 MG PO DAILY, (Reported) hydrALAZINE HCL (Hydralazine HCl) 100 Mg Tablet, 100 MG PO TID Allergies Coded Allergies: Sulfa (Sulfonamide Antibiotics) (Verified Allergy, Unknown, 08/29/21) SHARMAINE AN M.D. Oct 17, 2021 16:34
[2021-10-17 17:49] LABS: CALCIUM LEVEL 9.2 MG/DL (8.8-10.2); CREATININE FOR GFR 2.49 MG/DL (0.55-1.30); GLOMERULAR FILTRATION RATE 20.8 (>45); POTASSIUM SERUM 6.1 MEQ/L (3.5-5.1)
[2021-10-17] MEDS ORDERED: DEXTROSE 50% 50 ML SYRINGE IV STA (17:56)
[2021-10-17] MEDS ORDERED: HumuLIN R (REGULAR) INSULIN (NovoLIN R) **100U/ML** PER UNIT IV STA (17:56)
[2021-10-17] MEDS ORDERED: FUROSEMIDE 40MG/4ML VIAL (J1940) IV ONE (18:00)
[2021-10-17] MEDS ORDERED: CALCIUM GLUCONATE 1,000 MG in D5W MINI-BAG PLUS 100 ML IV ONE (18:00)
[2021-10-17] MEDS: LATANOPROST 0.005% OPHTH SOLN 2.5 ML OU SCH (20:59)
[2021-10-17 22:00] VITALS: BP 142/59
[2021-10-17 22:29] LABS: CALCIUM LEVEL 9.2 MG/DL (8.8-10.2); CREATININE FOR GFR 2.53 MG/DL (0.55-1.30); GLOMERULAR FILTRATION RATE 20.4 (>45); POTASSIUM SERUM 5.1 MEQ/L (3.5-5.1)
[2021-10-18] MEDS: **hydrALAZINE HCL** 25 MG TAB PO SCH ×2 (00:12→09:55)
[2021-10-18 06:00] VITALS: BP 136/58
[2021-10-18] MEDS ORDERED: NIFE15CA PO (06:59)
[2021-10-18 08:10] LABS: BASO % 0.3 % (0.0-1.0); EOS # 0.2 10^3/uL (0.0-0.5); EOS % 2.1 % (0.0-3.0); HEMATOCRIT 29.2 % (36.0-47.0); LYMPH # 1.8 10^3/uL (1.5-5.0); LYMPH % 19.4 % (24.0-44.0); MEAN CORPUSCULAR HEMOGLOBIN 27.1 pg (27.0-33.0); MEAN CORPUSCULAR HGB CONC 30.8 g/dl (32.0-36.5); MONO # 0.6 10^3/uL (0.0-0.8); MONO % 6.7 % (2.0-8.0); NEUTROPHILS # 6.4 10^3/uL (1.5-8.5); NEUTROPHILS % 70.9 % (36.0-66.0); PLATELET COUNT, AUTOMATED 335 10^3/uL (150-450); RED BLOOD COUNT 3.32 10^6/uL (4.00-5.40); WHITE BLOOD COUNT 9.1 10^3/uL (4.0-10.0)
[2021-10-18 08:27] LABS: CREATININE FOR GFR 2.47 MG/DL (0.55-1.30)
[2021-10-18] MEDS: IRON POLYSAC (NIFEREX) 150 MG CAP PO SCH (09:54)
[2021-10-18] MEDS: CYANOCOBALAMIN 500 MCG TAB PO SCH (09:54)
[2021-10-18] MEDS: ATORVASTATIN 20 MG TAB PO SCH (09:54)
[2021-10-18] MEDS: OMEPRAZOLE 20 MG CAP PO SCH (09:55)
[2021-10-18] MEDS: ASPIRIN 81 MG CHEW TABLET PO SCH (09:55)
[2021-10-18 09:56] VITALS: BP 168/76
[2021-10-18] MEDS: HEPARIN SOD (PORCINE) 5000UNITS/ML 1ML VIAL/SYRINGE SC SCH (09:56)
[2021-10-18] MEDS: HumaLOG INSULIN (NovoLOG) PER UNIT SC SCH ×2 (09:56→13:08)
[2021-10-18] MEDS: NYSTATIN 100,000 UNITS/GM TOPICAL PWD 15 GM TOP SCH (09:56)
[2021-10-18] MEDS: COSOPT OCUMETER PLUS 10ML (DORZOLAMIDE/TIMOLOL) OU SCH (09:56)
[2021-10-18] MEDS: CARVedilol 12.5 MG TAB PO SCH (09:56)
[2021-10-18] MEDS ORDERED: HYDR100T PO (13:26)
[2021-10-18 15:40] VITALS: BP 146/67
== END 2021-10-18 16:35 | disposition home health service (06) | DRG 194 ==
LOC: M ED 10:48 → EDBD 10:48 → M ED INP 15:00 → ENRESERV 15:30 → M MSPAV 16:07
PROVIDERS: ADMIT Internal Medicine; ATTEND Internal Medicine
DX: I13.0 Hypertensive heart and chronic kidney disease with heart failure and stage 1 through stage 4 chronic kidney disease, or unspecified chronic kidney disease (principal); N17.9 Acute kidney failure, unspecified; D64.9 Anemia, unspecified; E66.9 Obesity, unspecified; E11.9 Type 2 diabetes mellitus without complications; E78.5 Hyperlipidemia, unspecified; N18.30 Chronic kidney disease, stage 3 unspecified; I16.0 Hypertensive urgency; Z68.33 Body mass index [BMI] 33.0-33.9, adult; Z79.82 Long term (current) use of aspirin; Z79.899 Other long term (current) drug therapy; Z88.2 Allergy status to sulfonamides; K21.9 Gastro-esophageal reflux disease without esophagitis; Z98.42 Cataract extraction status, left eye; I50.33 Acute on chronic diastolic (congestive) heart failure

== ENCOUNTER 2021-12-14 17:42 | Inpatient (IN) | payer OTHER ==
[~2021-12-14] VITALS: Ht 162.6 cm; Wt 90.1 kg
[~2021-12-14 17:42] MED LIST changes: -AMLO5CAP45; -AMLO5CAP45 PO; +AMLO5CAP53; +AMLO5CAP53 PO; +BISO5TAB14 PO; +FURO40TA2 PO; +HYDR100T PO; +LABE100T4 PO; +NIFE15CA PO; +OMEP-173 PO; -OMEP-218 PO; +VITA500T40 PO
[2021-12-14 18:21] LABS: VENOUS BASE EXCESS -9.2 (-2.0-2.0); VENOUS HCO3 19.1 MEQ/L (23.0-27.0); VENOUS O2 SATURATION 73.4 % (60.0-80.0); VENOUS PARTIAL PRESSURE CO2 50.7 mmHg (38.0-50.0); VENOUS PARTIAL PRESSURE O2 41.1 mmHg (30.0-50.0); VENOUS PH 7.194 UNITS (7.330-7.430); VENOUS STANDARD HCO3 16.7 MEQ/L; VENOUS TOTAL CO2 20.7 MEQ/L (24.0-28.0)
[2021-12-14 18:25] LABS: BASO # 0.1 10^3/uL (0.0-0.2); BASO % 0.4 % (0.0-1.0); EOS % 0.1 % (0.0-3.0); HEMATOCRIT 44.8 % (36.0-47.0); HEMOGLOBIN 13.6 g/dl (12.0-15.5); LYMPH # 1.1 10^3/uL (1.5-5.0); LYMPH % 9.3 % (24.0-44.0); MEAN CORPUSCULAR HEMOGLOBIN 26.9 pg (27.0-33.0); MEAN CORPUSCULAR HGB CONC 30.4 g/dl (32.0-36.5); MEAN CORPUSCULAR VOLUME 88.7 fl (80.0-96.0); MONO # 0.2 10^3/uL (0.0-0.8); MONO % 1.8 % (2.0-8.0); NEUTROPHILS # 9.9 10^3/uL (1.5-8.5); NEUTROPHILS % 87.9 % (36.0-66.0); PLATELET COUNT, AUTOMATED 414 10^3/uL (150-450); RED BLOOD COUNT 5.05 10^6/uL (4.00-5.40); WHITE BLOOD COUNT 11.3 10^3/uL (4.0-10.0)
[2021-12-14 18:46] LABS: HEMOGLOBIN A1c 7.1 %
[2021-12-14 18:52] LABS: OSMOLALITY SERUM 319 MOSM/KG (280-301)
[2021-12-14 19:04] LABS: ACETONE/KETONE 5.26 MG/DL (<2.81); ALBUMIN 3.5 GM/DL (3.2-5.2); ALT/SGPT 21 U/L (12-78); BILIRUBIN,DIRECT < 0.1 MG/DL (0.0-0.2); BILIRUBIN,TOTAL 0.2 MG/DL (0.2-1.0); BLOOD UREA NITROGEN 54 MG/DL (7-18); CALCIUM LEVEL 9.9 MG/DL (8.8-10.2); CARBON DIOXIDE LEVEL 21 MEQ/L (21-32); CHLORIDE LEVEL 114 MEQ/L (98-107); CREATININE FOR GFR 2.08 MG/DL (0.55-1.30); GLOMERULAR FILTRATION RATE 25.6 (>45); GLUCOSE, FASTING 98 MG/DL (70-100); LIPASE 62 U/L (73-393); MAGNESIUM LEVEL 2.3 MG/DL (1.8-2.4); PHOSPHORUS LEVEL 4.8 MG/DL (2.5-4.9); POTASSIUM SERUM 5.3 MEQ/L (3.5-5.1); SODIUM LEVEL 142 MEQ/L (136-145); TOTAL PROTEIN 7.9 GM/DL (6.4-8.2)
[2021-12-14] MEDS ORDERED: AZITHROMYCIN INJ 500 MG, VIAL MATE ADAPTER 1 EACH in NS 250 ML IV ONE (19:40)
[2021-12-14] MEDS ORDERED: cefTRIAXone SOD 2 GM in D5W MINI-BAG PLUS 50 ML IV ONE (19:40)
[2021-12-14] MEDS ORDERED: CARVedilol 12.5 MG TAB PO ONE (20:05)
[2021-12-14] MEDS ORDERED: **hydrALAZINE HCL** 25 MG TAB PO ONE (20:05)
[2021-12-14 20:29] LABS: RSV AMPLIFICATION NEGATIVE (NEGATIVE)
[2021-12-14] MEDS ORDERED: HYDR-3911 PO (20:45)
[2021-12-14] MEDS ORDERED: LOTR5CAP2 PO (20:46)
[2021-12-14] MEDS ORDERED: med rec comment ×2 (20:47→20:48)
[2021-12-14] MEDS ORDERED: HOME MED LIST COMPLETE! XX SCH (20:50)
[2021-12-14] MEDS ORDERED: HumaLOG INSULIN (NovoLOG) PER UNIT SC SCH (21:00)
[2021-12-14 21:18] LABS: ABG BASE EXCESS -7.4 (-2.0-2.0); ABG HCO3 16.4 MEQ/L (22.0-26.0); ABG O2 SATURATION 96.3 % (95.0-99.0); ABG PARTIAL PRESSURE CO2 28.1 mmHg (35.0-45.0); ABG PARTIAL PRESSURE O2 97.4 mmHg (75.0-100.0); ABG STANDARD HCO3 18.5 MEQ/L (22.0-26.0); ABG TOTAL CO2 17.3 MEQ/L (23.0-31.0); ABG pH (ARTERIAL) 7.385 UNITS (7.350-7.450)
[2021-12-14] MEDS ORDERED: GLUCAGON INJ 1MG VIAL SC PRN (21:30)
[2021-12-14] MEDS ORDERED: GLUCOSE 4GM CHEW TABLET PO PRN (21:30)
[2021-12-14] MEDS ORDERED: DEXTROSE 50% 50 ML SYRINGE IV PRN (21:30)
[2021-12-14] MEDS ORDERED: SOD POLYSTYRENE SULFONATE SUSP 15 GM/60 ML UD PO ONE (22:00)
[2021-12-14 22:01] LABS: AMPHETAMINES LEVEL URINE NEGATIVE (NEGATIVE); BARBITURATES URINE NEGATIVE (NEGATIVE); BENZODIAZEPINES URINE NEGATIVE (NEGATIVE); CANNABINOIDS URINE NEGATIVE (NEGATIVE); COCAINE METABOLITE URINE NEGATIVE (NEGATIVE); METHADONE URINE NEGATIVE (NEGATIVE); OPIATES URINE NEGATIVE (NEGATIVE); PHENCYCLIDINE URINE NEGATIVE (NEGATIVE)
[2021-12-14] MEDS ORDERED: ALBUTEROL SULFATE 2.5 MG/0.5 ML INH NEB SOLN INH PRN (22:10)
[2021-12-14] MEDS ORDERED: ALBUTEROL 90 MCG/ACT 8GM HFA INHALER INH PRN (22:10)
[2021-12-14] MEDS ORDERED: HEPARIN SOD (PORCINE) 5000UNITS/ML 1ML VIAL/SYRINGE IV PRN (22:55)
[2021-12-14] MEDS ORDERED: HEPARIN DRIP 25,000 UNITS in IV 1 EA IV SCH (22:55)
[2021-12-14 23:15] VITALS: BP 132/74
[2021-12-14] MEDS: LATANOPROST 0.005% OPHTH SOLN 2.5 ML OU SCH (23:35)
[2021-12-14] MEDS: DOXYCYCLINE HYCLATE 100 MG in D5W MINI-BAG PLUS 100 ML IV SCH (23:35)
[2021-12-15 00:30] LABS: HEMATOCRIT 37.6 % (36.0-47.0); MEAN CORPUSCULAR HEMOGLOBIN 27.3 pg (27.0-33.0); MEAN CORPUSCULAR HGB CONC 30.9 g/dl (32.0-36.5); MEAN CORPUSCULAR VOLUME 88.5 fl (80.0-96.0); PLATELET COUNT, AUTOMATED 345 10^3/uL (150-450); RED BLOOD COUNT 4.25 10^6/uL (4.00-5.40); WHITE BLOOD COUNT 11.5 10^3/uL (4.0-10.0)
[2021-12-15 00:45] LABS: HEMOGLOBIN 11.6 g/dl (12.0-15.5)
[2021-12-15] MEDS ORDERED: FUROSEMIDE 40MG/4ML VIAL (J1940) IV ONE (01:00)
[2021-12-15 04:00] VITALS: BP 106/63
[2021-12-15] MEDS ORDERED: DEXTROSE 50% 50 ML SYRINGE IV STA (04:17)
[2021-12-15] MEDS ORDERED: HumaLOG INSULIN (NovoLOG) PER UNIT SC SCH (07:30)
[2021-12-15 08:00] VITALS: BP 180/88
[2021-12-15 08:18] LABS: BASO % 0.3 % (0.0-1.0); EOS % 0.1 % (0.0-3.0); HEMATOCRIT 36.4 % (36.0-47.0); HEMOGLOBIN 11.4 g/dl (12.0-15.5); LYMPH # 1.3 10^3/uL (1.5-5.0); LYMPH % 13.2 % (24.0-44.0); MEAN CORPUSCULAR HGB CONC 31.3 g/dl (32.0-36.5); MEAN CORPUSCULAR VOLUME 86.1 fl (80.0-96.0); MONO # 0.7 10^3/uL (0.0-0.8); MONO % 7.3 % (2.0-8.0); NEUTROPHILS # 7.9 10^3/uL (1.5-8.5); NEUTROPHILS % 78.8 % (36.0-66.0); PLATELET COUNT, AUTOMATED 362 10^3/uL (150-450); RED BLOOD COUNT 4.23 10^6/uL (4.00-5.40); WHITE BLOOD COUNT 10.1 10^3/uL (4.0-10.0)
[2021-12-15] MEDS: ATORVASTATIN 20 MG TAB PO SCH (08:26)
[2021-12-15] MEDS: IRON POLYSAC (NIFEREX) 150 MG CAP PO SCH ×2 (08:26→20:35)
[2021-12-15] MEDS: CYANOCOBALAMIN 500 MCG TAB PO SCH (08:26)
[2021-12-15] MEDS: OMEPRAZOLE 20 MG CAP PO SCH (08:26)
[2021-12-15 08:35] LABS: INR 1.06; PROTHROMBIN TIME 14.2 SECONDS (12.7-14.5)
[2021-12-15 08:38] LABS: PARTIAL THROMBOPLASTIN TIME 99.6 SECONDS (25.9-37.0)
[2021-12-15 08:50] LABS: CALCIUM LEVEL 8.8 MG/DL (8.8-10.2); CREATININE FOR GFR 2.37 MG/DL (0.55-1.30)
[2021-12-15] MEDS ORDERED: FUROSEMIDE 40 MG TAB PO SCH (09:00)
[2021-12-15] MEDS: COSOPT OCUMETER PLUS 10ML (DORZOLAMIDE/TIMOLOL) OU SCH ×2 (09:00→21:00)
[2021-12-15] MEDS: CARVedilol 12.5 MG TAB PO SCH ×2 (09:20→20:36)
[2021-12-15] MEDS: ASPIRIN 81 MG CHEW TABLET PO SCH (09:21)
[2021-12-15] MEDS ORDERED: FUROSEMIDE 100MG/10ML VIAL (J1940) IV ONE (09:50)
[2021-12-15 10:08] VITALS: BP 158/60
[2021-12-15] MEDS: DOXYCYCLINE HYCLATE 100 MG in D5W MINI-BAG PLUS 100 ML IV SCH ×2 (10:46→22:30)
[2021-12-15] MEDS: APIXABAN 5 MG TAB (ELIQUIS) PO SCH ×2 (10:47→20:35)
[2021-12-15] MEDS: **hydrALAZINE** 50 MG TAB PO SCH ×3 (10:47→20:36)
[2021-12-15] MEDS: amLODIPine 5 MG TAB PO SCH (10:47)
[2021-12-15 12:45] VITALS: BP 126/62
[2021-12-15] MEDS: ACETAMINOPHEN TAB 650MG DOSE (2X325MG) PO PRN ×2 (13:17→21:25)
[2021-12-15 15:56] LABS: INR 1.15; PROTHROMBIN TIME 15.1 SECONDS (12.7-14.5)
[2021-12-15 16:00] VITALS: BP 126/60
[2021-12-15] MEDS: FUROSEMIDE 100MG/10ML VIAL (J1940) IV SCH (16:31)
[2021-12-15] MEDS ORDERED: cefTRIAXone SOD 1 GM in D5W MINI-BAG PLUS 50 ML IV SCH (20:00)
[2021-12-15] MEDS: LATANOPROST 0.005% OPHTH SOLN 2.5 ML OU SCH ×2 (21:00→22:30)
[2021-12-15 22:00] VITALS: BP 129/58
[2021-12-16 06:00] VITALS: BP 138/57
[2021-12-16] MEDS: IRON POLYSAC (NIFEREX) 150 MG CAP PO SCH (10:20)
[2021-12-16] MEDS: OMEPRAZOLE 20 MG CAP PO SCH (10:20)
[2021-12-16] MEDS: **hydrALAZINE** 50 MG TAB PO SCH ×2 (10:21→15:55)
[2021-12-16] MEDS: CARVedilol 12.5 MG TAB PO SCH (10:21)
[2021-12-16] MEDS: CYANOCOBALAMIN 500 MCG TAB PO SCH (10:21)
[2021-12-16] MEDS: ASPIRIN 81 MG CHEW TABLET PO SCH (10:21)
[2021-12-16] MEDS: ATORVASTATIN 20 MG TAB PO SCH (10:21)
[2021-12-16] MEDS: APIXABAN 5 MG TAB (ELIQUIS) PO SCH (10:21)
[2021-12-16] MEDS: amLODIPine 5 MG TAB PO SCH (10:22)
[2021-12-16] MEDS: DOXYCYCLINE HYCLATE 100 MG in D5W MINI-BAG PLUS 100 ML IV SCH (10:22)
[2021-12-16] MEDS: FUROSEMIDE 100MG/10ML VIAL (J1940) IV SCH (10:23)
[2021-12-16] MEDS: LATANOPROST 0.005% OPHTH SOLN 2.5 ML OU SCH (10:23)
[2021-12-16] MEDS: COSOPT OCUMETER PLUS 10ML (DORZOLAMIDE/TIMOLOL) OU SCH (10:25)
[2021-12-16] MEDS ORDERED: ELIQ5TAB PO (13:51)
[2021-12-16] MEDS ORDERED: INSU100V8 SC (13:51)
[2021-12-16] MEDS ORDERED: FURO40TA2 PO (13:51)
[2021-12-16 15:55] VITALS: BP 130/70
== END 2021-12-16 16:07 | disposition home or self-care (01) | DRG 420 ==
LOC: M ED 17:42 → M ED INP 21:07 → ENRESERV 22:43 → M PCU 23:12 → M MSPAV 12-15 12:47
PROVIDERS: ADMIT Family Medicine; ATTEND Internal Medicine Nephrology
DX: E11.649 Type 2 diabetes mellitus with hypoglycemia without coma (principal); G93.41 Metabolic encephalopathy; E87.2 Acidosis; N18.4 Chronic kidney disease, stage 4 (severe); I13.0 Hypertensive heart and chronic kidney disease with heart failure and stage 1 through stage 4 chronic kidney disease, or unspecified chronic kidney disease; E87.5 Hyperkalemia; I48.91 Unspecified atrial fibrillation; I50.32 Chronic diastolic (congestive) heart failure; J98.11 Atelectasis; E66.9 Obesity, unspecified; Z68.34 Body mass index [BMI] 34.0-34.9, adult; R68.0 Hypothermia, not associated with low environmental temperature; D64.9 Anemia, unspecified; K21.9 Gastro-esophageal reflux disease without esophagitis; E78.5 Hyperlipidemia, unspecified; I16.0 Hypertensive urgency; Z79.899 Other long term (current) drug therapy; Z79.4 Long term (current) use of insulin; Z88.2 Allergy status to sulfonamides; Z98.42 Cataract extraction status, left eye

== ENCOUNTER → 2022-03-21 | Outpatient (CLI) | payer OTHER ==
[~2022-03-21] MED LIST changes: +ELIQ5TAB PO; +med rec comment
[2022-03-21 15:40] LABS: BASO % 0.4 % (0.0-1.0); EOS # 0.2 10^3/uL (0.0-0.5); EOS % 2.2 % (0.0-3.0); HEMATOCRIT 34.6 % (36.0-47.0); HEMOGLOBIN 10.7 g/dl (12.0-15.5); LYMPH % 10.7 % (24.0-44.0); MEAN CORPUSCULAR HEMOGLOBIN 27.5 pg (27.0-33.0); MEAN CORPUSCULAR HGB CONC 30.9 g/dl (32.0-36.5); MEAN CORPUSCULAR VOLUME 88.9 fl (80.0-96.0); MONO # 0.7 10^3/uL (0.0-0.8); MONO % 7.8 % (2.0-8.0); NEUTROPHILS # 7.4 10^3/uL (1.5-8.5); NEUTROPHILS % 78.5 % (36.0-66.0); PLATELET COUNT, AUTOMATED 293 10^3/uL (150-450); RED BLOOD COUNT 3.89 10^6/uL (4.00-5.40); WHITE BLOOD COUNT 9.4 10^3/uL (4.0-10.0)
[2022-03-21 15:43] LABS: APPEARANCE, URINE CLEAR (CLEAR); BACTERIA, URINE AUTO NEGATIVE (NEGATIVE); BILIRUBIN, URINE AUTO NEGATIVE (NEGATIVE); BLOOD, URINE BLOOD NEGATIVE (NEGATIVE); COLOR, URINE STRAW (YELLOW); GLUCOSE, URINE (UA) AUTO 1+ mg/dL (NEGATIVE); KETONE, URINE AUTO NEGATIVE (NEGATIVE); LEUKOCYTE ESTERASE, URINE AUTO NEGATIVE (NEGATIVE); NITRITE, URINE AUTO NEGATIVE (NEGATIVE); PROTEIN, URINE AUTO 3+ mg/dL (NEGATIVE); RBC, URINE AUTO 0 /HPF (0-3); SPECIFIC GRAVITY URINE AUTO 1.008 (1.002-1.035); SQUAMOUS EPITHELIAL CELL UR AU 1 /HPF (0-6); UROBILINOGEN, URINE AUTO 0.2 mg/dL (0.0-2.0); WBC, URINE AUTO 0 /HPF (0-3)
[2022-03-21 16:16] LABS: ALBUMIN 3.2 GM/DL (3.2-5.2); BILIRUBIN,TOTAL 0.2 MG/DL (0.2-1.0); CALCIUM LEVEL 8.8 MG/DL (8.8-10.2); CREATININE FOR GFR 2.23 MG/DL (0.55-1.30); GLOMERULAR FILTRATION RATE 23.6 (>45); POTASSIUM SERUM 4.6 MEQ/L (3.5-5.1); THYROID STIMULATING HORMONE 3.68 uIU/ML (0.358-3.740); TOTAL PROTEIN 6.6 GM/DL (6.4-8.2)
== END ==
LOC: M PLALAB 12:33
PROVIDERS: ATTEND Internal Medicine Cardiovascular Disease
DX: I50.32 Chronic diastolic (congestive) heart failure (principal); I34.2 Nonrheumatic mitral (valve) stenosis; I48.0 Paroxysmal atrial fibrillation; I11.0 Hypertensive heart disease with heart failure

== ENCOUNTER → 2022-04-04 | Outpatient (CLI) | payer OTHER ==
[2022-04-04 14:06] LABS: CREATININE FOR GFR 2.45 MG/DL (0.55-1.30); GLOMERULAR FILTRATION RATE 21.2 (>45); POTASSIUM SERUM 4.8 MEQ/L (3.5-5.1)
== END ==
LOC: M PLALAB 10:26
PROVIDERS: ATTEND Physician Assistant
DX: I50.32 Chronic diastolic (congestive) heart failure (principal)

== ENCOUNTER → 2022-04-14 | Outpatient (CLI) | payer OTHER ==
[2022-04-14 18:25] LABS: ALBUMIN 2.9 GM/DL (3.2-5.2); CREATININE FOR GFR 2.64 MG/DL (0.55-1.30); GLOMERULAR FILTRATION RATE 19.4 (>45); PHOSPHORUS LEVEL 4.2 MG/DL (2.5-4.9); POTASSIUM SERUM 4.8 MEQ/L (3.5-5.1)
== END ==
LOC: M PLALAB 15:36
PROVIDERS: ATTEND Internal Medicine Cardiovascular Disease
DX: I50.32 Chronic diastolic (congestive) heart failure (principal); I11.0 Hypertensive heart disease with heart failure

== ENCOUNTER → 2022-04-21 | Outpatient (CLI) | payer OTHER | LOC: M RAD 08:40 | PROVIDERS: ATTEND Internal Medicine Cardiovascular Disease | DX: I11.0 Hypertensive heart disease with heart failure (principal) ==

== ENCOUNTER → 2022-05-05 | Outpatient (REF) | payer OTHER ==
[2022-05-05 17:46] LABS: CALCIUM LEVEL 9.8 MG/DL (8.8-10.2); CREATININE FOR GFR 2.14 MG/DL (0.55-1.30); GLOMERULAR FILTRATION RATE 24.8 (>45); MAGNESIUM LEVEL 2.1 MG/DL (1.8-2.4); POTASSIUM SERUM 5.6 MEQ/L (3.5-5.1)
== END ==
LOC: M LAB REF 16:56
PROVIDERS: ATTEND Physician Assistant
DX: I50.32 Chronic diastolic (congestive) heart failure (principal)